=== PATIENT | female | born 1940 | race Caucasian/White ===

== ENCOUNTER 2019-11-21 16:00 | Outpatient (REF) | payer MEDICARE, OTHER, SELFPAY ==
--- NOTE | 2019-11-21 16:03 | XR_ITS ---
EXAMINATION: XR CHEST CLINICAL INFORMATION: Dyspnea COMPARISON: Chest radiographs 08/19/2019, 09/30/2018 TECHNIQUE: Frontal and lateral views of the chest are obtained. FINDINGS: There is mild enlargement cardiopericardial silhouette similar to prior study. The vascularity appears normal. There are small bibasilar effusions blunting the costophrenic sulci with fine linear disc atelectasis right posterior lateral base. The lungs otherwise clear. The hilar and mediastinal contours are unremarkable. No acute bony abnormality. IMPRESSION: Small bibasilar effusions. Disc atelectasis right posterior lateral base.
== END 2019-11-21 16:01 | disposition home or self-care (01) ==
LOC: HO.XRAY 16:00
PROVIDERS: PCP Internal Medicine; Visit Provider Internal Medicine
DX: R06.00 Dyspnea, unspecified (principal)
CPT/HCPCS: 71046

== ENCOUNTER 2019-11-28 08:31 | Outpatient (REF) | payer MEDICARE, OTHER, SELFPAY ==
[2019-11-28 10:07] LABS: Glucose Urine UA NEG (NEG); Leukocyte Esterase Urine NEG (NEG); Nitrite Urine NEG (NEG); Urine Blood NEG (NEG); Urine Ketones NEG (NEG); Urine Protein NEG (NEG-TRACE)
[2019-11-28 10:12] LABS: Appearance Urine CLEAR; Color Urine YELLOW
[2019-11-28 10:12] LABS: Alanine Aminotransferase 12 U/L (0-31); Albumin Level 4.2 g/dL (3.5-5.0); Alkaline Phosphatase 88 U/L (39-117); Anion Gap 13 (12-20); Aspartate Amino Transferase 21 U/L (5-31); Bilirubin Total 0.5 mg/dL (0.0-1.0); Blood Urea Nitrogen 22 mg/dL (9-16); Calcium 10.1 mg/dL (8.4-10.2); Carbon Dioxide 33 mmol/L (22-29); Chloride 99 mmol/L (96-108); Cholesterol 155 mg/dL; Estimated Glomerular Filt Rate 40; Glucose Fasting 103 mg/dL (60-99); HDL Cholesterol 47 mg/dL; LDL Cholesterol Calculated 92 mg/dl; Potassium 4.1 mmol/l (3.3-5.1); Sodium 141 mmol/L (135-145); Total Protein 6.8 g/dL (6.5-8.0); Triglycerides 80 mg/dL
[2019-11-28 10:34] LABS: TSH reflex Free T4 1.76 mIU/mL (0.32-4.0); Vitamin D 25-OH Total 74.9 ng/mL (>30)
[2019-11-28 10:54] LABS: Microalbum/Creatinine Ratio Ur 121.5 ug/mg cr
[2019-11-28 11:14] LABS: RBC Urine 0 /HPF (0); Squamous Epithelial Cell Urine TRACE /LPF; WBC Urine 0 /HPF (0-4)
[2019-11-28 11:15] LABS: Amorphous Sediment Urine TRACE /LPF
[2019-11-28 12:00] LABS: Erythrocyte Sedimentation Rate 14 MM/HR (0-20)
== END 2019-11-28 08:32 | disposition home or self-care (01) ==
LOC: HO.LAB 08:31
PROVIDERS: PCP Internal Medicine; Visit Provider Internal Medicine
DX: E78.00 Pure hypercholesterolemia, unspecified (principal); I25.10 Atherosclerotic heart disease of native coronary artery without angina pectoris; M79.10 Myalgia, unspecified site; K21.9 Gastro-esophageal reflux disease without esophagitis; M25.561 Pain in right knee; N32.81 Overactive bladder; M81.0 Age-related osteoporosis without current pathological fracture
CPT/HCPCS: 36415; 80053; 80061; 81003; 81015; 82043; 82306; 82550; 84443; 85652; 96401; J0897

== ENCOUNTER 2020-01-05 09:53 | Emergency (ER) | payer MEDICARE, OTHER, SELFPAY ==
--- NOTE | 2020-01-05 11:32 | ED.GENADULT ---
HPI - General Adult General Chief complaint: General Medical Stated complaint: HEADACHE,FEVER,FEELS WASHED OUT Time Seen by Provider: 01/05/20 11:32 Source: patient Mode of arrival: ambulatory Limitations: no limitations History of Present Illness HPI narrative: This is 71-year-old female with past medical history that is significant for coronary artery disease with STEMI dating back to 2009, COPD, hyperlipidemia, hypertension, osteoporosis with L1-L3 compression fractures, chronic back pain, cataract surgery, coronary stent, kyphoplasty of L3 along with other history as noted below presenting ambulatory via triage with complaint of generalized weakness, nasal congestion and for ?feel like I have the flu? states she was otherwise okay but her daughter was concerned about COVID-19 and advised her to come to the emergency room. She does report subjective fevers at home with chills. Denies any chest pain or shortness of breath. No abdominal pain, nausea vomiting or diarrhea. Onset (ago): day(s) (2 ) Severity: moderate Quality: aching Exacerbating factors: none Treatments prior to arrival: none Related Data Home Medications Medication Instructions Recorded Confirmed acetaminophen 325 mg tablet 650 mg PO QID PRN 11/28/19 12/08/19 atorvastatin 80 mg tablet 80 mg PO DAILY 11/28/19 12/08/19 calcium carbonate 600 mg (1,500 1 tab PO DAILY 11/28/19 12/08/19 mg)-vitamin D3 200 unit tablet cetirizine 10 mg tablet 5 mg PO DAILY PRN 11/28/19 12/08/19 coenzyme Q10 60 mg tablet 60 mg PO DAILY 11/28/19 12/08/19 denosumab 60 mg/mL subcutaneous 60 mg SUBCUT [id number] 11/28/19 12/08/19 syringe docusate sodium 100 mg capsule 100 mg PO BID 11/28/19 12/08/19 nitroglycerin 0.4 mg sublingual 0.4 mg SUBLINGUAL Q5M PRN 11/28/19 12/08/19 tablet tramadol 50 mg tablet 50 mg PO TID PRN 11/28/19 12/08/19 vit C 250 mg-E 200 unit-zinc 40 1 tab PO BID 11/28/19 12/08/19 mg-copper 1 [id number] capsule Previous Rx's Medication Instructions Recorded amlodipine 10 mg tablet 10 mg PO DAILY 90 Days #90 tab 12/08/19 carvedilol 12.5 mg tablet 12.5 mg PO BID 90 Days #180 tab 12/08/19 cyclobenzaprine 10 mg tablet 10 mg PO TID PRN 30 Days #90 tab 12/08/19 pantoprazole 40 mg tablet,delayed 40 mg PO BID 90 Days #180 tab 12/08/19 release Allergies Allergy/AdvReac Type Severity Reaction Status Date / Time lisinopril Allergy Unknown Unknown Verified 01/05/20 11:54 alendronate sodium [Fosamax] AdvReac Intermediate jaw pain Verified 01/05/20 11:54 aspirin AdvReac Intermediate unable to Verified 01/05/20 11:54 tolerate higher doses-stomach ulcer (low dose ok) carbamazepine [From TEGRETOL] AdvReac Intermediate NAUSEA & Verified 01/05/20 11:54 VOMITING, HEADACHE gabapentin AdvReac Intermediate dizziness Verified 01/05/20 11:54 ibuprofen AdvReac Intermediate Nausea and Verified 01/05/20 11:54 Vomiting NSAIDS (Non-Steroidal AdvReac Intermediate NAUSEA & Verified 01/05/20 11:54 Anti-Inflamma VOMITING, [NSAIDS (NON-STEROIDAL HX ULCER ANTI-INFLAMMA] codeine [CODEINE] AdvReac Unknown NAUSEA & Verified 01/05/20 11:54 VOMITING, nausea/vomiting Review of Systems Review of Systems: Constitutional: No Weight loss, subjective Fever, + Chills, No Night Sweats, No Fatigue, No Malaise ENT/Mouth: No Hearing loss, No Ear Pain, No Nasal Congestion, No Sinus Pain, No Hoarseness, No sore throat, + Rhinorrhea, No Swallowing Difficulty Eyes: No Eye Pain, No Swelling, No Redness, No Foreign Body, No Discharge, No Vision Changes Cardiovascular: No Chest Pain, No SOB, No Dyspnea on Exertion, No Orthopnea, No Edema, No Palpitations Respiratory: No Cough, No Sputum, No Wheezing, No Smoke Exposure, No Dyspnea Gastrointestinal: No Nausea, No Vomiting, No Diarrhea, No Constipation, No abdominal Pain, No Hematochezia, No Melena Genitourinary: no irregular bleeding, No Dysuria, No Urinary Frequency, No Hematuria, No Urinary Incontinence Musculoskeletal: No joint pain, No Myalgias, No Joint Swelling Skin: No Skin Lesions, No rash Neuro: + Weakness, No Numbness, No Paresthesias, No Loss of Consciousness, No Dizziness, No Headache Psych: No Social Issues Heme/Lymph: No Bruising, No Bleeding,No Lymphadenopathy Endocrine: No Polyuria, No Polydipsia, No Temperature Intolerance Yes all other systems are reviewed and are negative [facility] Past Medical History Medical History Benign essential hypertension Cervical spondylosis without myelopathy Compression fracture of L1 lumbar vertebra COPD (chronic obstructive pulmonary disease) Coronary artery disease GERD (gastroesophageal reflux disease) Overactive bladder Pure hypercholesterolemia Surgical History History of angioplasty History of appendectomy History of section History of oophorectomy History of parathyroidectomy History of tonsillectomy Hx of cataract removal with insertion of prosthetic lens Family History Family History Father Throat cancer Mother No problems noted. Daughter Diabetes Son Arthritis CAD (coronary artery disease) Social History Social History (Updated 12/15/19 @ 02:46 by Wilian Crawford MD) Alcohol intake: never Smoking Status: Current some day smoker Use of substances other than those prescribed or required for medical reasons: No Advance Directives: No Advance Directives Information Provided: Yes Physical Exam Vital Signs: Vital Signs: Last Vital Signs Temp 98.7 F 01/05/20 11:54 Pulse 46 L 01/05/20 11:54 Resp 19 01/05/20 11:54 BP 121/55 L 01/05/20 11:54 Pulse Ox 93 01/05/20 11:54 Body Mass Index 26.6 Reviewed Const: General: cooperative and healthy appearing; No acute distress or intoxicated appearing Nutritional Appearance: average body habitus Orientation/consciousness: patient oriented x3 HENMT: Head: Yes normal to inspection Ears: hearing grossly normal bilaterally Eyes: General: appearance normal, both eyes and all related structures Visual Wylie: normal visual wylie by confrontation Neck: Neck: Yes normal visual inspection and No tender Thyroid: Thyroid normal Chest: Chest palpation & inspection: normal inspection of the chest Resp: Effort & Inspection: normal respiratory effort Auscultation: clear to auscultation bilaterally (Slightly diminished) Cardio: Jugular venous distension: no JVD GI: Inspection: Yes normal to inspection Percussion: Yes normal to percussion Auscultation: normal bowel sounds : General: Yes no CVA tenderness Back/Spine/Pelvis: Back: no CVA tenderness Skin: General skin exam: no rashes or lesions noted Neuro: General: patient oriented x3 Extrem: General: Yes normal to inspection Discharge Plan Discharge Prescriptions: No Action carvedilol 12.5 mg tablet 12.5 mg PO BID 90 Days Qty: 180 RF: 3 amlodipine 10 mg tablet 10 mg PO DAILY 90 Days Qty: 90 RF: 3 cyclobenzaprine 10 mg tablet 10 mg PO TID PRN (Reason: muscle spasm) 30 Days Qty: 90 RF: 2 pantoprazole 40 mg tablet,delayed release (DR/EC) 40 mg PO BID 90 Days Qty: 180 RF: 3 calcium carbonate-vitamin D3 [Calcium 600 + D(3)] 600 mg(1,500mg) -200 unit tablet 1 tab PO DAILY RF: 0 PreserVision AREDS-2 [id number]-mg capsule 1 tab PO BID RF: 0 cetirizine [Zyrtec] 10 mg tablet 5 mg PO DAILY PRNRF: 0 coenzyme Q10 60 mg tablet 60 mg PO DAILY RF: 0 Prolia 60 mg/mL syringe 60 mg subcut [id number] RF: 0 tramadol 50 mg tablet 50 mg PO TID PRNRF: 0 docusate sodium [Colace] 100 mg capsule 100 mg PO BID RF: 0 atorvastatin 80 mg tablet 80 mg PO DAILY RF: 0 nitroglycerin 0.4 mg tablet, sublingual 0.4 mg sublingual Q5M PRNRF: 0 acetaminophen [Tylenol] 325 mg tablet 650 mg PO QID PRNRF: 0
[2020-01-05 11:54] VITALS: BP 121/55; PULSE 46; RESP 19; TEMP 37.1; O2SAT 93; BMI 26.6
--- NOTE | 2020-01-05 12:35 | XR_ITS ---
EXAMINATION: XR CHEST CLINICAL INFORMATION: Weakness COMPARISON: 11/21/2019 TECHNIQUE: Frontal view of the chest was obtained. FINDINGS: The lungs are well expanded. There is no focal consolidation, edema, or effusion. No pneumothorax. The cardiomediastinal silhouette is within normal limits. No acute osseous abnormality. XR/XR chest 1V IMPRESSION: No acute pulmonary finding.
--- NOTE | 2020-01-05 12:35 | ECG_ITS ---
Test Reason : FATIGUE Blood Pressure : / mmHG Vent. Rate : 057 BPM Atrial Rate : 057 BPM P-R Int : 132 ms QRS Dur : 080 ms QT Int : 454 ms P-R-T Axes : 062 031 045 degrees QTc Int : 441 ms Sinus bradycardia Possible Left atrial enlargement Nonspecific ST and T wave abnormality Abnormal ECG When compared with ECG of 19-AUG-2019 14:36, T wave inversion now evident in Anterior leads Referred By: Pro Gonsales Electronically Signed By:GENARO WINTERS MD
[2020-01-05 13:29] LABS: MANUAL DIFF FLAG NO
[2020-01-05 13:38] LABS: Basophils Absolute Auto 0.1 X10*3/uL (0.0-0.2); Basophils Percent Auto 0.9 % (0-2); Eosinophils Absolute Auto 0.2 X10*3/uL (0.0-0.4); Eosinophils Percent Auto 3.6 % (0-4); Hematocrit 41.5 % (37-47); Hemoglobin 14.2 g/dl (12.0-16.0); Imm Gran Abs Auto 0.01 X10*3/uL (0.00-0.03); Imm Gran Pct Auto 0.2 % (0.0-0.4); Lymphocytes Absolute Auto 1.2 X10*3/uL (1.2-4.9); Lymphocytes Percent Auto 21.3 % (20-40); Mean Corpuscular HGB Conc 34.2 g/dl (31.0-35.0); Mean Corpuscular Hemoglobin 31.3 pg (27.0-33.0); Mean Corpuscular Volume 91.6 fL (80-98); Mean Platelet Volume 11.2 fL (9.4-12.3); Monocytes Absolute Auto 0.9 X10*3/uL (0.1-1.2); Monocytes Percent Auto 15.3 % (2-11); Neutrophils Absolute Auto 3.4 X10*3/uL (2.0-8.3); Neutrophils Percent Auto 58.7 % (45-73); Platelet Count 301 X10*3/uL (160-400); Red Blood Count 4.53 X10*6/uL (4.20-5.50); Red Cell Distribution Width 11.9 % (11.0-16.0); White Blood Count 5.8 X10*3/uL (4.8-10.8)
[2020-01-05 13:41] LABS: Partial Thromboplastin Time 31.7 SEC (24.1-38.0)
[2020-01-05 14:04] LABS: Alanine Aminotransferase 16 U/L (0-31); Albumin Level 3.8 g/dL (3.5-5.0); Alkaline Phosphatase 80 U/L (39-117); Anion Gap 15 (12-20); Aspartate Amino Transferase 20 U/L (5-31); B Type Natriuretic Peptide 224 pg/mL (<100); Bilirubin Total 0.4 mg/dL (0.0-1.0); Blood Urea Nitrogen 19 mg/dL (9-16); Calcium 8.2 mg/dL (8.4-10.2); Carbon Dioxide 28 mmol/L (22-29); Chloride 101 mmol/L (96-108); Creatinine Clr Calc Pharmacy 25.2; Estimated Glomerular Filt Rate 32; Glucose Random 94 mg/dL (60-115); Sodium 140 mmol/L (135-145); Total Protein 6.3 g/dL (6.5-8.0)
[2020-01-05 14:54] LABS: Glucose Urine UA NEG (NEG); Leukocyte Esterase Urine NEG (NEG); Nitrite Urine NEG (NEG); Urine Blood NEG (NEG); Urine Ketones 5 MG/DL (NEG); Urine Protein 1+ MG/DL (NEG-TRACE)
[2020-01-05 14:55] LABS: Appearance Urine HAZY; Color Urine YELLOW
[2020-01-05 15:07] LABS: Mucus Urine 1+ /LPF; RBC Urine 0-2 /HPF (0); Squamous Epithelial Cell Urine 1+ /LPF
[2020-01-05] MEDS: 0.9 % Sodium Chloride 500 ML 1000 ML IV (15:16)
[2020-01-05 15:17] VITALS: BP 143/49; PULSE 60; RESP 20; TEMP 37.2; O2SAT 93
--- NOTE | 2020-01-05 16:07 | ED_ITS ---
HPI - General Adult General Chief complaint: General Medical Stated complaint: HEADACHE,FEVER,FEELS WASHED OUT Time Seen by Provider: 01/05/20 11:32 Source: patient Mode of arrival: ambulatory Limitations: no limitations History of Present Illness HPI narrative: 73-year-old female with past medical history that is significant for COPD, hypertension along with other history as noted below who is not on home O2 presents with complaint of 3 days of chills, body aches generalized feeling of weakness and ?wash out she does admit that she has headaches very slight cough and some rhinorrhea as well. Denies any obvious sick contacts but she states that she feels like she got ?the flu?. Denies any chest pain or sh ortness of breath no lower extremity swelling. States she was going to whether at all at home however daughter encouraged her to come get tested for COVID-19. Onset (ago): day(s) (2 ) Radiation: non-radiation Severity: moderate Relieving factors: none Treatments prior to arrival: none Related Data Home Medications Medication Instructions Recorded Confirmed acetaminophen 325 mg tablet 650 mg PO QID PRN 11/28/19 12/08/19 atorvastatin 80 mg tablet 80 mg PO DAILY 11/28/19 12/08/19 calcium carbonate 600 mg (1,500 1 tab PO DAILY 11/28/19 12/08/19 mg)-vitamin D3 200 unit tablet cetirizine 10 mg tablet 5 mg PO DAILY PRN 11/28/19 12/08/19 coenzyme Q10 60 mg tablet 60 mg PO DAILY 11/28/19 12/08/19 denosumab 60 mg/mL subcutaneous 60 mg SUBCUT [id number] 11/28/19 12/08/19 syringe docusate sodium 100 mg capsule 100 mg PO BID 11/28/19 12/08/19 nitroglycerin 0.4 mg sublingual 0.4 mg SUBLINGUAL Q5M PRN 11/28/19 12/08/19 tablet tramadol 50 mg tablet 50 mg PO TID PRN 11/28/19 12/08/19 vit C 250 mg-E 200 unit-zinc 40 1 tab PO BID 11/28/19 12/08/19 mg-copper 1 [id number] capsule Previous Rx's Medication Instructions Recorded amlodipine 10 mg tablet 10 mg PO DAILY 90 Days #90 tab 12/08/19 carvedilol 12.5 mg tablet 12.5 mg PO BID 90 Days #180 tab 12/08/19 cyclobenzaprine 10 mg tablet 10 mg PO TID PRN 30 Days #90 tab 12/08/19 pantoprazole 40 mg tablet,delayed 40 mg PO BID 90 Days #180 tab 12/08/19 release azithromycin [Zithromax Z-Junior] 250 mg PO DAILY 5 Days #6 tab 01/05/20 prednisone 40 mg PO DAILY 3 Days #6 tab 01/05/20 Allergies Allergy/AdvReac Type Severity Reaction Status Date / Time lisinopril Allergy Unknown Unknown Verified 01/05/20 11:54 alendronate sodium [Fosamax] AdvReac Intermediate jaw pain Verified 01/05/20 11:54 aspirin AdvReac Intermediate unable to Verified 01/05/20 11:54 tolerate higher doses-stomach ulcer (low dose ok) carbamazepine [From TEGRETOL] AdvReac Intermediate NAUSEA & Verified 01/05/20 11:54 VOMITING, HEADACHE gabapentin AdvReac Intermediate dizziness Verified 01/05/20 11:54 ibuprofen AdvReac Intermediate Nausea and Verified 01/05/20 11:54 Vomiting NSAIDS (Non-Steroidal AdvReac Intermediate NAUSEA & Verified 01/05/20 11:54 Anti-Inflamma VOMITING, [NSAIDS (NON-STEROIDAL HX ULCER ANTI-INFLAMMA] codeine [CODEINE] AdvReac Unknown NAUSEA & Verified 01/05/20 11:54 VOMITING, nausea/vomiting Review of Systems 2 Review of Systems: Constitutional: No Weight loss, No Fever, No Chills, No Night Sweats, No Fatigue, No Malaise ENT/Mouth: No Hearing loss, No Ear Pain, No Nasal Congestion, No Sinus Pain, No Hoarseness, No sore throat, + Rhinorrhea, No Swallowing Difficulty Eyes: No Eye Pain, No Swelling, No Redness, No Foreign Body, No Discharge, No Vision Changes Cardiovascular: No Chest Pain, No SOB, No Dyspnea on Exertion, No Orthopnea, No Edema, No Palpitations Respiratory: + Cough, No Sputum, No Wheezing, No Smoke Exposure, No Dyspnea Gastrointestinal: No Nausea, No Vomiting, No Diarrhea, No Constipation, No abdominal Pain, No Hematochezia, No Melena Genitourinary: no irregular bleeding, No Dysuria, No Urinary Frequency, No Hematuria, No Urinary Incontinence, No Urgency, No Flank Pain, No Urinary Flow Changes, No Hesitancy Musculoskeletal: No joint pain, No Myalgias, No Joint Swelling Skin: No Skin Lesions, No rash Neuro: + Weakness, No Numbness, No Paresthesias, No Loss of Consciousness, No Dizziness, No Headache Psych: No Anxiety/Panic, No Depression Heme/Lymph: No Bruising, No Bleeding,No Lymphadenopathy Endocrine: No Polyuria, No Polydipsia, No Temperature Intolerance Yes all other systems are reviewed and are negative [facility] Past Medical History Attestation statement: The following information was validated with the patient. Medical History Benign essential hypertension Cervical spondylosis without myelopathy Compression fracture of L1 lumbar vertebra COPD (chronic obstructive pulmonary disease) Coronary artery disease GERD (gastroesophageal reflux disease) Overactive bladder Pure hypercholesterolemia Surgical History History of angioplasty History of appendectomy History of section History of oophorectomy History of parathyroidectomy History of tonsillectomy Hx of cataract removal with insertion of prosthetic lens Family History Family History Father Throat cancer Mother No problems noted. Daughter Diabetes Son Arthritis CAD (coronary artery disease) Social History Social History (Updated 12/15/19 @ 02:46 by Wilian Crawford MD) Alcohol intake: never Smoking Status: Current some day smoker Use of substances other than those prescribed or required for medical reasons: No Advance Directives: No Advance Directives Information Provided: Yes Physical Exam Vital Signs: Vital Signs: Last Vital Signs Temp 98.8 F 01/05/20 16:14 Pulse 63 01/05/20 16:14 Resp 18 01/05/20 16:14 BP 143/60 H 01/05/20 16:14 Pulse Ox 95 01/05/20 16:14 Body Mass Index 26.6 Reviewed Const: Other: Pleasant will nontoxic appearing, appears stated age General: cooperative; No acute distress or intoxicated appearing Nutritional Appearance: average body habitus Orientation/consciousness: patient oriented x3 HENMT: Head: Yes normal to inspection Ears: hearing grossly normal bilaterally Eyes: General: appearance normal, both eyes and all related structures Visual Wade: normal visual wade by confrontation Neck: Neck: Yes normal visual inspection, No positive Brudzinski's sign, No positive Kernig's sign and No tender Thyroid: Thyroid normal Chest: Chest palpation & inspection: normal inspection of the chest Resp: Effort & Inspection: normal respiratory effort Cardio: Jugular venous distension: no JVD GI: Inspection: Yes normal to inspection Percussion: Yes normal to percussion Auscultation: normal bowel sounds : General: Yes no CVA tenderness Back/Spine/Pelvis: Back: no CVA tenderness Skin: General skin exam: no rashes or lesions noted Neuro: General: patient oriented x3 Extrem: General: Yes normal to inspection Course Course Course Narrative: Patient resting comfortably in no acute distress. Has not required any supplemental oxygen. Pulse ox 97% on room air. Blood pressure stable. She denies any chest pain or shortness of breath. Her initial workup was significant for slightly elevated creatinine otherwise reassuring. Repeat troponin without delta. Patient overall well nontoxic appearing. Given gradual fluids repeat BMP shows significant improvement. Encouraged to drink plenty of fluids, given her COPD history given short course of prednisone and azithromycin. Will be discharged home with clear precaution return follow-up instructions. Aware that although the COVID test was negative still a possibil ity that she could have it and clear return instructions provided as well as follow-up and supportive care. Patient out of bed ambulatory status with gait dressed herself without any complaints. Will be going home with her daughter. Medical Decision Making Lab Data Result diagrams: 01/05/20 13:00 01/05/20 17:00 Labs: Lab Results 01/05/20 01/05/20 01/05/20 Range/Units 13:00 13:00 13:00 WBC 5.8 (4.8-10.8) X10*3/uL RBC 4.53 (4.20-5.50) X10*6/uL Hgb 14.2 (12.0-16.0) g/dl Hct 41.5 (37-47) % MCV 91.6 (80-98) fL MCH 31.3 (27.0-33.0) pg MCHC 34.2 (31.0-35.0) g/dl RDW 11.9 (11.0-16.0) % Plt Count 301 (160-400) X10*3/uL MPV 11.2 (9.4-12.3) fL Immature Gran % (Auto) 0.2 (0.0-0.4) % Neut % (Auto) 58.7 (45-73) % Lymph % (Auto) 21.3 (20-40) % Logan % (Auto) 15.3 H (2-11) % Eos % (Auto) 3.6 (0-4) % Baso % (Auto) 0.9 (0-2) % Lymph # (Auto) 1.2 (1.2-4.9) X10*3/uL Logan # (Auto) 0.9 (0.1-1.2) X10*3/uL Eos # (Auto) 0.2 (0.0-0.4) X10*3/uL Baso # (Auto) 0.1 (0.0-0.2) X10*3/uL Abs Immat Gran (auto) 0.01 (0.00-0.03) X10*3/uL Absolute Neuts (auto) 3.4 (2.0-8.3) X10*3/uL Absolute Nucleated RBC 0.000 (0.0-0.012) X10*3/uL Nucleated RBC % (auto) 0.0 (0.0-0.2) /100WBC PT 12.0 (10.8-13.0) SEC INR 1.0 (0.9-1.1) APTT 31.7 (24.1-38.0) SEC Sodium 140 (135-145) mmol/L Potassium 4.0 (3.3-5.1) mmol/l Chloride 101 (96-108) mmol/L Carbon Dioxide 28 (22-29) mmol/L Anion Gap 15 (12-20) BUN 19 H (9-16) mg/dL Creatinine 1.57 H (0.5-1.4) mg/dL Estim Creat Clear Calc 25.2 Estimated GFR 32 Random Glucose 94 (60-115) mg/dL Lactic Acid (0.5-2.0) mmol/L Calcium 8.2 L D (8.4-10.2) mg/dL Total Bilirubin 0.4 (0.0-1.0) mg/dL AST 20 (5-31) U/L ALT 16 (0-31) U/L Alkaline Phosphatase 80 (39-117) U/L Troponin I High Sens (<3.5-17.0) ng/L B-Natriuretic Peptide (<100) pg/mL Total Protein 6.3 L (6.5-8.0) g/dL Albumin 3.8 (3.5-5.0) g/dL Urine Color Urine Appearance Urine pH (5.0-8.0) Ur Specific [place] (1.005-1.025) Urine Protein (NEG-TRACE) MG/DL Urine Glucose (UA) (NEG) MG/DL Urine Ketones (NEG) MG/DL Urine Blood (NEG) Urine Nitrite (NEG) Ur Leukocyte Esterase (NEG) Urine RBC (0) /HPF Urine WBC (0-4) /HPF Ur Squamous Epith Cells /LPF Urine Bacteria /LPF Urine Mucus /LPF Coronavirus (PCR) (Negative) Influenza Type A (PCR) (Negative) Influenza Type B (PCR) (Negative) RSV RNA Qual (PCR) (Negative) 01/05/20 01/05/20 01/05/20 Range/Units 13:00 13:00 13:23 WBC (4.8-10.8) X10*3/uL RBC (4.20-5.50) X10*6/uL Hgb (12.0-16.0) g/dl Hct (37-47) % MCV (80-98) fL MCH (27.0-33.0) pg MCHC (31.0-35.0) g/dl RDW (11.0-16.0) % Plt Count (160-400) X10*3/uL MPV (9.4-12.3) fL Immature Gran % (Auto) (0.0-0.4) % Neut % (Auto) (45-73) % Lymph % (Auto) (20-40) % Logan % (Auto) (2-11) % Eos % (Auto) (0-4) % Baso % (Auto) (0-2) % Lymph # (Auto) (1.2-4.9) X10*3/uL Logan # (Auto) (0.1-1.2) X10*3/uL Eos # (Auto) (0.0-0.4) X10*3/uL Baso # (Auto) (0.0-0.2) X10*3/uL Abs Immat Gran (auto) (0.00-0.03) X10*3/uL Absolute Neuts (auto) (2.0-8.3) X10*3/uL Absolute Nucleated RBC (0.0-0.012) X10*3/uL Nucleated RBC % (auto) (0.0-0.2) /100WBC PT (10.8-13.0) SEC INR (0.9-1.1) APTT (24.1-38.0) SEC Sodium (135-145) mmol/L Potassium (3.3-5.1) mmol/l Chloride (96-108) mmol/L Carbon Dioxide (22-29) mmol/L Anion Gap (12-20) BUN (9-16) mg/dL Creatinine (0.5-1.4) mg/dL Estim Creat Clear Calc Estimated GFR Random Glucose (60-115) mg/dL Lactic Acid 1.0 (0.5-2.0) mmol/L Calcium (8.4-10.2) mg/dL Total Bilirubin (0.0-1.0) mg/dL AST (5-31) U/L ALT (0-31) U/L Alkaline Phosphatase (39-117) U/L Troponin I High Sens 11.0 (<3.5-17.0) ng/L B-Natriuretic Peptide 224 H (<100) pg/mL Total Protein (6.5-8.0) g/dL Albumin (3.5-5.0) g/dL Urine Color Urine Appearance Urine pH (5.0-8.0) Ur Specific [place] (1.005-1.025) Urine Protein (NEG-TRACE) MG/DL Urine Glucose (UA) (NEG) MG/DL Urine Ketones (NEG) MG/DL Urine Blood (NEG) Urine Nitrite (NEG) Ur Leukocyte Esterase (NEG) Urine RBC (0) /HPF Urine WBC (0-4) /HPF Ur Squamous Epith Cells /LPF Urine Bacteria /LPF Urine Mucus /LPF Coronavirus (PCR) NEGATIVE (Negative) Influenza Type A (PCR) NEGATIVE (Negative) Influenza Type B (PCR) NEGATIVE (Negative) RSV RNA Qual (PCR) NEGATIVE (Negative) 01/05/20 01/05/20 01/05/20 Range/Units 14:43 17:00 17:00 WBC (4.8-10.8) X10*3/uL RBC (4.20-5.50) X10*6/uL Hgb (12.0-16.0) g/dl Hct (37-47) % MCV (80-98) fL MCH (27.0-33.0) pg MCHC (31.0-35.0) g/dl RDW (11.0-16.0) % Plt Count (160-400) X10*3/uL MPV (9.4-12.3) fL Immature Gran % (Auto) (0.0-0.4) % Neut % (Auto) (45-73) % Lymph % (Auto) (20-40) % Logan % (Auto) (2-11) % Eos % (Auto) (0-4) % Baso % (Auto) (0-2) % Lymph # (Auto) (1.2-4.9) X10*3/uL Logan # (Auto) (0.1-1.2) X10*3/uL Eos # (Auto) (0.0-0.4) X10*3/uL Baso # (Auto) (0.0-0.2) X10*3/uL Abs Immat Gran (auto) (0.00-0.03) X10*3/uL Absolute Neuts (auto) (2.0-8.3) X10*3/uL Absolute Nucleated RBC (0.0-0.012) X10*3/uL Nucleated RBC % (auto) (0.0-0.2) /100WBC PT (10.8-13.0) SEC INR (0.9-1.1) APTT (24.1-38.0) SEC Sodium 139 (135-145) mmol/L Potassium 4.0 (3.3-5.1) mmol/l Chloride 107 (96-108) mmol/L Carbon Dioxide 21 L (22-29) mmol/L Anion Gap 15 (12-20) BUN 16 (9-16) mg/dL Creatinine 1.34 (0.5-1.4) mg/dL Estim Creat Clear Calc 29.6 Estimated GFR 38 Random Glucose 88 (60-115) mg/dL Lactic Acid (0.5-2.0) mmol/L Calcium 7.4 L D (8.4-10.2) mg/dL Total Bilirubin (0.0-1.0) mg/dL AST (5-31) U/L ALT (0-31) U/L Alkaline Phosphatase (39-117) U/L Troponin I High Sens 9.1 (<3.5-17.0) ng/L B-Natriuretic Peptide (<100) pg/mL Total Protein (6.5-8.0) g/dL Albumin (3.5-5.0) g/dL Urine Color YELLOW Urine Appearance HAZY Urine pH 6.0 (5.0-8.0) Ur Specific [place] 1.020 (1.005-1.025) Urine Protein 1+ H (NEG-TRACE) MG/DL Urine Glucose (UA) NEG (NEG) MG/DL Urine Ketones 5 (NEG) MG/DL Urine Blood NEG (NEG) Urine Nitrite NEG (NEG) Ur Leukocyte Esterase NEG (NEG) Urine RBC 0-2 (0) /HPF Urine WBC 10-14 H (0-4) /HPF Ur Squamous Epith Cells 1+ /LPF Urine Bacteria NONE /LPF Urine Mucus 1+ /LPF Coronavirus (PCR) (Negative) Influenza Type A (PCR) (Negative) Influenza Type B (PCR) (Negative) RSV RNA Qual (PCR) (Negative) Imaging Data Chest x-ray: Radiologist's impression: [place] [id number] XRay Report Signed Patient: Chikis Narayanan FMR#: [id number] : 2Acct:[id number] Age/Sex: 79 / FADM Date: 01/05/20 Loc: HO.ED Attending Dr: Ordering Physician: Pro Gonsales NP Date of Service: 01/05/20 Procedure(s): XR chest 1V Accession Number(s): [id number] cc: Pro Gonsales NP~ EXAMINATION: XR CHEST CLINICAL INFORMATION: Weakness COMPARISON: 11/21/2019 TECHNIQUE: Frontal view of the chest was obtained. FINDINGS: The lungs are well expanded. There is no focal consolidation, edema, or effusion. No pneumothorax. The cardiomediastinal silhouette is within normal limits. No acute osseous abnormality. XR/XR chest 1V IMPRESSION: No acute pulmonary finding. Dictated By:GINA SAXENA MD Signed By:<Electronically signed by GINA SAXENA MD in OV>01/05/20 1323 DD/ 1235 TD/TT: [employer] Chief: NGA ECG Data Interpretation: EKG sinus Delvis rate 57 Nonspecific T-wave abnormality in the anterior lead When compared to 08/19/2019 EKG the T-wave inversions are more evident Discharge Plan Discharge Clinical Impression: Acute upper respiratory infection Patient Disposition: Home, Self-Care Instructions: Upper Respiratory Infection (ED) Prescriptions: New azithromycin [Zithromax Z-Junior] 250 mg tablet 250 mg PO DAILY 5 Days Qty: 6 RF: 0 prednisone 20 mg tablet 40 mg PO DAILY 3 Days Qty: 6 RF: 0 No Action carvedilol 12.5 mg tablet 12.5 mg PO BID 90 Days Qty: 180 RF: 3 amlodipine 10 mg tablet 10 mg PO DAILY 90 Days Qty: 90 RF: 3 cyclobenzaprine 10 mg tablet 10 mg PO TID PRN (Reason: muscle spasm) 30 Days Qty: 90 RF: 2 pantoprazole 40 mg tablet,delayed release (DR/EC) 40 mg PO BID 90 Days Qty: 180 RF: 3 calcium carbonate-vitamin D3 [Calcium 600 + D(3)] 600 mg(1,500mg) -200 unit tablet 1 tab PO DAILY RF: 0 PreserVision AREDS-2 [id number]-[id number]-mg capsule 1 tab PO BID RF: 0 cetirizine [Zyrtec] 10 mg tablet 5 mg PO DAILY PRNRF: 0 coenzyme Q10 60 mg tablet 60 mg PO DAILY RF: 0 Prolia 60 mg/mL syringe 60 mg subcut [id number] RF: 0 tramadol 50 mg tablet 50 mg PO TID PRNRF: 0 docusate sodium [Colace] 100 mg capsule 100 mg PO BID RF: 0 atorvastatin 80 mg tablet 80 mg PO DAILY RF: 0 nitroglycerin 0.4 mg tablet, sublingual 0.4 mg sublingual Q5M PRNRF: 0 acetaminophen [Tylenol] 325 mg tablet 650 mg PO QID PRNRF: 0 Referrals: Wilian Crawford MD [Primary Care Provider] - 1 week Discharge Date/Time: 01/05/20 18:46
[2020-01-05 16:14] VITALS: BP 143/60; PULSE 63; RESP 18; TEMP 37.1; O2SAT 95
[2020-01-05 16:33] LABS: Influenza A PCR NEGATIVE (Negative); Influenza B PCR NEGATIVE (Negative); Resp Syncy Virus RNA Qual PCR NEGATIVE (Negative); SARS COV2 PCR INHOUSE NEGATIVE (Negative)
[2020-01-05 17:33] LABS: Anion Gap 15 (12-20); Blood Urea Nitrogen 16 mg/dL (9-16); Calcium 7.4 mg/dL (8.4-10.2); Carbon Dioxide 21 mmol/L (22-29); Chloride 107 mmol/L (96-108); Creatinine Clr Calc Pharmacy 29.6; Estimated Glomerular Filt Rate 38; Glucose Random 88 mg/dL (60-115); Sodium 139 mmol/L (135-145); Troponin-I High Sensitivity 9.1 ng/L (<3.5-17.0)
== END 2020-01-05 18:46 | disposition home or self-care (01) ==
PROVIDERS: Nurse Practitioner Primary Care; Emergency Provider Emergency Medicine; PCP Internal Medicine
DX: J06.9 Acute upper respiratory infection, unspecified (principal); R50.9 Fever, unspecified; F17.200 Nicotine dependence, unspecified, uncomplicated; Z71.6 Tobacco abuse counseling; Z79.899 Other long term (current) drug therapy; Z20.828 Contact with and (suspected) exposure to other viral communicable diseases
CPT/HCPCS: 0241U; 36415; 71045; 80048; 80053; 81001; 83605; 83880; 84484; 85025; 85610; 85730; 87040; 93005; 99284

== ENCOUNTER 2020-03-24 | Outpatient (REF) | payer MEDICARE, OTHER, SELFPAY | END 2020-03-24 00:01 | disposition home or self-care (01) | LOC: HO.VC | PROVIDERS: Visit Provider Internal Medicine | DX: Z23 Encounter for immunization (principal) | CPT/HCPCS: 0011A ==

== ENCOUNTER 2020-03-26 08:01 | Outpatient (REF) | payer MEDICARE, OTHER, SELFPAY ==
[2020-03-26 09:28] LABS: MANUAL DIFF FLAG NO
[2020-03-26 09:34] LABS: Basophils Absolute Auto 0.1 X10*3/uL (0.0-0.2); Basophils Percent Auto 0.9 % (0-2); Eosinophils Absolute Auto 0.5 X10*3/uL (0.0-0.4); Eosinophils Percent Auto 5.1 % (0-4); Hematocrit 43.6 % (37-47); Hemoglobin 14.6 g/dl (12.0-16.0); Imm Gran Abs Auto 0.02 X10*3/uL (0.00-0.03); Imm Gran Pct Auto 0.2 % (0.0-0.4); Lymphocytes Absolute Auto 1.6 X10*3/uL (1.2-4.9); Lymphocytes Percent Auto 15.2 % (20-40); Mean Corpuscular HGB Conc 33.5 g/dl (31.0-35.0); Mean Corpuscular Hemoglobin 30.9 pg (27.0-33.0); Mean Corpuscular Volume 92.2 fL (80-98); Mean Platelet Volume 11.4 fL (9.4-12.3); Monocytes Absolute Auto 0.7 X10*3/uL (0.1-1.2); Monocytes Percent Auto 6.4 % (2-11); Neutrophils Absolute Auto 7.6 X10*3/uL (2.0-8.3); Neutrophils Percent Auto 72.2 % (45-73); Platelet Count 257 X10*3/uL (160-400); Red Blood Count 4.73 X10*6/uL (4.20-5.50); Red Cell Distribution Width 12.6 % (11.0-16.0); White Blood Count 10.5 X10*3/uL (4.8-10.8)
[2020-03-26 09:41] LABS: Glucose Urine UA NEG (NEG); Leukocyte Esterase Urine 1+ (NEG); Nitrite Urine NEG (NEG); PH 6.5 (5.0-8.0); Specific Gravity - Urine 1.015 (1.005-1.025); UACC Culture Trigger YES; Urine Blood NEG (NEG); Urine Ketones NEG (NEG); Urine Protein 2+ MG/DL (NEG-TRACE)
[2020-03-26 09:42] LABS: Appearance Urine CLEAR; Color Urine YELLOW
[2020-03-26 10:05] LABS: Bacteria Urine TRACE /LPF; Renal Epithelial Cells Urine TRACE /LPF; Squamous Epithelial Cell Urine TRACE /LPF; WBC Clumps Urine NOTED; WBC Urine 30-49 /HPF (0-4)
[2020-03-26 10:05] LABS: Alanine Aminotransferase 13 U/L (0-31); Alkaline Phosphatase 78 U/L (39-117); Anion Gap 11 (12-20); Aspartate Amino Transferase 22 U/L (5-31); Bilirubin Total 0.9 mg/dL (0.0-1.0); Blood Urea Nitrogen 22 mg/dL (9-16); Calcium 8.9 mg/dL (8.4-10.2); Carbon Dioxide 35 mmol/L (22-29); Chloride 100 mmol/L (96-108); Cholesterol 139 mg/dL; Estimated Glomerular Filt Rate 35; Glucose Fasting 99 mg/dL (60-99); HDL Cholesterol 51 mg/dL; LDL Cholesterol Calculated 74 mg/dl; Potassium 3.8 mmol/L (3.3-5.1); Sodium 142 mmol/L (135-145); Total Protein 6.4 g/dL (6.5-8.0); Triglycerides 70 mg/dL
[2020-03-26 10:25] LABS: TSH reflex Free T4 1.04 uIU/mL (0.32-4.0)
[2020-03-31 11:07] LABS: Vitamin D 25-OH, D2 <4 ng/mL; Vitamin D 25-OH, D3 65 ng/mL; Vitamin D 25-OH, Total 65 ng/mL (30-100)
== END 2020-03-26 08:02 | disposition home or self-care (01) ==
LOC: HO.LAB 08:01
PROVIDERS: Absent Provider Internal Medicine; PCP Internal Medicine; Referring Provider Internal Medicine; Visit Provider Student in an Organized Health Care Education/Training Program
DX: M81.0 Age-related osteoporosis without current pathological fracture (principal); I25.10 Atherosclerotic heart disease of native coronary artery without angina pectoris; K21.00 Gastro-esophageal reflux disease with esophagitis, without bleeding; E78.00 Pure hypercholesterolemia, unspecified; N32.81 Overactive bladder
CPT/HCPCS: 36415; 80053; 80061; 81001; 81003; 82306; 84443; 85025; 87086; 99212

== ENCOUNTER 2020-04-21 | Outpatient (REF) | payer MEDICARE, OTHER, SELFPAY | END 2020-04-21 00:01 | disposition home or self-care (01) | LOC: HO.VC | PROVIDERS: Visit Provider Internal Medicine | DX: Z23 Encounter for immunization (principal) | CPT/HCPCS: 0012A ==

== ENCOUNTER 2020-04-21 11:30 | Emergency (ER) | payer MEDICARE, OTHER, SELFPAY ==
--- NOTE | 2020-04-21 | ECG_ITS ---
Test Reason : BRADYCARDIA Blood Pressure : / mmHG Vent. Rate : 052 BPM Atrial Rate : 052 BPM P-R Int : 152 ms QRS Dur : 080 ms QT Int : 454 ms P-R-T Axes : 063 014 063 degrees QTc Int : 422 ms Sinus bradycardia Possible Left atrial enlargement Nonspecific T wave abnormality Abnormal ECG When compared with ECG of 05-JAN-2020 14:50, Nonspecific T wave abnormality now evident in Lateral leads Referred By: Cathleen Kearney Electronically Signed By:MONICA CASEY
--- NOTE | ~2020-04-21 | XR_ITS ---
EXAMINATION: XR CHEST CLINICAL INFORMATION: Weakness COMPARISON: Previous chest x-ray December 2019 TECHNIQUE: Frontal view of the chest was obtained. FINDINGS: The cardiac and mediastinal contours are stable. The lungs are clear. There is no pleural effusion or pneumothorax. There are degenerative changes of the spine. XR/XR chest 1V IMPRESSION: Unremarkable examination.
[2020-04-21 11:47] VITALS: BP 140/64; PULSE 52; RESP 18; TEMP 36.1; O2SAT 98; BMI 24.5
[2020-04-21 13:52] VITALS: BP 173/79; PULSE 54; RESP 18; O2SAT 97
--- NOTE | 2020-04-21 13:52 | ED_ITS ---
HPI - General Adult General Chief complaint: General Medical Stated complaint: low pulse Time Seen by Provider: 04/21/20 13:48 Source: patient and EMS Mode of arrival: EMS Limitations: no limitations History of Present Illness HPI narrative: 79 yo female with arthritis, HTN, CKD on amlodipine 10mg, carvedilol 12.5mg BID, just started on losartan 25mg but notes it is not helping her BP she is fluctuating 80/40 to 170/100 and her HR has been low in the 50s and 40s and she feels washed out. no other complaints at this time. sent by her PCP MD complaint: HTN, bradycardia, dizziness Onset (ago): day(s) (few) Severity: moderate Quality: dull Pain Consistency: other Relieving factors: none Exacerbating factors: none Associated symptoms: malaise and weakness Treatments prior to arrival: none Related Data Home Medications Medication Instructions Recorded Confirmed acetaminophen 325 mg tablet 650 mg PO QID PRN 11/28/19 04/05/20 calcium carbonate 600 mg (1,500 1 tab PO DAILY 11/28/19 04/05/20 mg)-vitamin D3 200 unit tablet cetirizine 10 mg tablet 5 mg PO DAILY PRN 11/28/19 04/05/20 coenzyme Q10 60 mg tablet 60 mg PO DAILY 11/28/19 04/05/20 denosumab 60 mg/mL subcutaneous 60 mg SUBCUT [id number] 11/28/19 04/05/20 syringe docusate sodium 100 mg capsule 100 mg PO BID 11/28/19 04/05/20 nitroglycerin 0.4 mg sublingual 0.4 mg SUBLINGUAL Q5M PRN 11/28/19 04/05/20 tablet vit C 250 mg-vit E 90 mg-zinc 40 1 tab PO BID 11/28/19 04/05/20 mg-copper 1 [id number] capsule Previous Rx's Medication Instructions Recorded amlodipine 10 mg tablet 10 mg PO DAILY 90 Days #90 tab 12/08/19 carvedilol 12.5 mg tablet 12.5 mg PO BID 90 Days #180 tab 12/08/19 pantoprazole 40 mg tablet,delayed 40 mg PO BID 90 Days #180 tab 12/08/19 release atorvastatin 80 mg tablet 80 mg PO DAILY #90 tab 02/11/20 albuterol sulfate 90 mcg/actuation 2 puff INHALATION Q6H PRN #18 g 02/18/20 aerosol inhaler tramadol 50 mg tablet 50 mg PO TID PRN 30 Days #90 tab 03/31/20 losartan 25 mg tablet 25 mg PO DAILY 90 Days #90 tab 04/05/20 Allergies Allergy/AdvReac Type Severity Reaction Status Date / Time lisinopril Allergy Unknown Unknown Verified 04/05/20 09:47 alendronate sodium [Fosamax] AdvReac Intermediate jaw pain Verified 04/05/20 09:47 aspirin AdvReac Intermediate unable to Verified 04/05/20 09:47 tolerate higher doses-stomach ulcer (low dose ok) carbamazepine [From TEGRETOL] AdvReac Intermediate NAUSEA & Verified 04/05/20 09:47 VOMITING, HEADACHE gabapentin AdvReac Intermediate dizziness Verified 04/05/20 09:47 ibuprofen AdvReac Intermediate Nausea and Verified 04/05/20 09:47 Vomiting lidocaine [From Lidoderm] AdvReac Intermediate burning Verified 04/05/20 09:47 from patch NSAIDS (Non-Steroidal AdvReac Intermediate NAUSEA & Verified 04/05/20 09:47 Anti-Inflamma VOMITING, [NSAIDS (NON-STEROIDAL HX ULCER ANTI-INFLAMMA] codeine [CODEINE] AdvReac Unknown NAUSEA & Verified 04/05/20 09:47 VOMITING, nausea/vomiting Review of Systems Review of Systems: Constitutional : No Weight loss, No Fever, No Chills ENT/Mouth : No sore throat, No Rhinorrhea Eyes: No Eye Pain, No Swelling Cardiovascular : no Chest Pain, no SOB, no Dyspnea on Exertion, No Orthopnea, No Edema, No Palpitations Respiratory : No Cough, No Sputum Gastrointestinal : no Nausea, No Vomiting, No Diarrhea, No abdominal Pain, No Hematochezia, No Melena Genitourinary : No Dysuria, No Urinary Frequency Musculoskeletal : No joint pain, No Myalgias, No Joint Swelling Skin : No Skin Lesions, No rash Neuro : pos Weakness, No Numbness, pos Dizziness with standing, No Headache Psych : No Anxiety/Panic, No Depression Heme/Lymph: No Bruising, No Lymphadenopathy Endocrine : No Polyuria, No Polydipsia All other systems reviewed and are negative PMFSH Past Medical History Medical History Benign essential hypertension Cervical spondylosis without myelopathy Chronic kidney disease (CKD), stage III (moderate) Compression fracture of L1 lumbar vertebra COPD (chronic obstructive pulmonary disease) Coronary artery disease GERD (gastroesophageal reflux disease) Overactive bladder Pure hypercholesterolemia Surgical History History of angioplasty History of appendectomy History of section History of oophorectomy History of parathyroidectomy History of tonsillectomy Hx of cataract removal with insertion of prosthetic lens Family History Family History Father Throat cancer Mother No problems noted. Daughter Diabetes Son Arthritis CAD (coronary artery disease) Social History Social History Alcohol intake: never Smoking Status: Current some day smoker Advance Directives: No Advance Directives Information Provided: Yes Physical Exam Vital Signs: Vital Signs: Last Vital Signs Temp 97 F 04/21/20 11:47 Pulse 56 04/21/20 14:10 Resp 18 04/21/20 13:52 BP 145/79 H 04/21/20 14:10 Pulse Ox 97 04/21/20 13:52 Body Mass Index 24.5 Appearance: Alert. Oriented X3. No acute distress. Eyes: Pupils equal, round and reactive to light. ENT: Pharynx normal. Neck: Normal inspection. Neck supple. CVS: bradycardic heart rate and rhythm. Pulses normal. Respiratory: No respiratory distress. Breath sounds normal. Abdomen: Soft and nontender. Skin: Skin warm and dry. Normal skin color. Normal skin turgor. Extremities: No lower extremity edema. No calf ttp Neuro: Oriented X 3. No motor deficit. No sensory deficit. Course Course Course Narrative: no acute findings, stable VS, HR has been in 50s for a year, BP in 140s she wants to go home and she plans on holding losartan she did not take it today and BPs have been stable Medical Decision Making MDM Narrative Medical decision making narrative: 79 yo female with HTN, CKD she is on amlodipine 10mg daily, carvedilol 12.5 BID and notes she was just started on losartan 25mg as her BP has been high - her HR has been fluctuating into 40s and her BP has been fluctuating from 80/40 to 170/100 she feels washed out, at this time will need labs, EKG, ortho VS disp per results and findings Lab Data Result diagrams: 04/21/20 13:48 04/21/20 13:48 Labs: Lab Results 04/21/20 04/21/20 04/21/20 Range/Units 13:48 13:48 13:48 WBC 8.9 (4.8-10.8) X10*3/uL RBC 4.94 (4.20-5.50) X10*6/uL Hgb 15.2 (12.0-16.0) g/dl Hct 45.6 (37-47) % MCV 92.3 (80-98) fL MCH 30.8 (27.0-33.0) pg MCHC 33.3 (31.0-35.0) g/dl RDW 12.6 (11.0-16.0) % Plt Count 312 (160-400) X10*3/uL MPV 11.0 (9.4-12.3) fL Immature Gran % (Auto) 0.2 (0.0-0.4) % Neut % (Auto) 56.9 (45-73) % Lymph % (Auto) 24.9 (20-40) % [place] % (Auto) 7.9 (2-11) % Eos % (Auto) 8.8 H (0-4) % Baso % (Auto) 1.3 (0-2) % Lymph # (Auto) 2.2 (1.2-4.9) X10*3/uL [place] # (Auto) 0.7 (0.1-1.2) X10*3/uL Eos # (Auto) 0.8 H (0.0-0.4) X10*3/uL Baso # (Auto) 0.1 (0.0-0.2) X10*3/uL Abs Immat Gran (auto) 0.02 (0.00-0.03) X10*3/uL Absolute Neuts (auto) 5.1 (2.0-8.3) X10*3/uL Absolute Nucleated RBC 0.000 (0.0-0.012) X10*3/uL Nucleated RBC % (auto) 0.0 (0.0-0.2) /100WBC Hold Blue Top Sodium 142 (135-145) mmol/L Potassium 3.8 (3.3-5.1) mmol/L Chloride 101 (96-108) mmol/L Carbon Dioxide 30 H (22-29) mmol/L Anion Gap 15 (12-20) BUN 30 H (9-16) mg/dL Creatinine 1.53 H (0.5-1.4) mg/dL Estim Creat Clear Calc 25.0 Estimated GFR 33 Random Glucose 101 (60-115) mg/dL Calcium 9.6 D (8.4-10.2) mg/dL Magnesium 2.1 (1.6-2.6) mg/dL Troponin I High Sens 6.2 (<3.5-17.0) ng/L Hold Yellow Top 04/21/20 04/21/20 Range/Units 13:48 13:48 WBC (4.8-10.8) X10*3/uL RBC (4.20-5.50) X10*6/uL Hgb (12.0-16.0) g/dl Hct (37-47) % MCV (80-98) fL MCH (27.0-33.0) pg MCHC (31.0-35.0) g/dl RDW (11.0-16.0) % Plt Count (160-400) X10*3/uL MPV (9.4-12.3) fL Immature Gran % (Auto) (0.0-0.4) % Neut % (Auto) (45-73) % Lymph % (Auto) (20-40) % [place] % (Auto) (2-11) % Eos % (Auto) (0-4) % Baso % (Auto) (0-2) % Lymph # (Auto) (1.2-4.9) X10*3/uL [place] # (Auto) (0.1-1.2) X10*3/uL Eos # (Auto) (0.0-0.4) X10*3/uL Baso # (Auto) (0.0-0.2) X10*3/uL Abs Immat Gran (auto) (0.00-0.03) X10*3/uL Absolute Neuts (auto) (2.0-8.3) X10*3/uL Absolute Nucleated RBC (0.0-0.012) X10*3/uL Nucleated RBC % (auto) (0.0-0.2) /100WBC Hold Blue Top SEE NOTE Sodium (135-145) mmol/L Potassium (3.3-5.1) mmol/L Chloride (96-108) mmol/L Carbon Dioxide (22-29) mmol/L Anion Gap (12-20) BUN (9-16) mg/dL Creatinine (0.5-1.4) mg/dL Estim Creat Clear Calc Estimated GFR Random Glucose (60-115) mg/dL Calcium (8.4-10.2) mg/dL Magnesium (1.6-2.6) mg/dL Troponin I High Sens (<3.5-17.0) ng/L Hold Yellow Top See Note ECG Data Attestation: I personally reviewed and interpreted this ECG as follows: Interpretation: Rate: 52 Rhythm: sinus bradycardia [place]: normal Normal P waves. Normal DANNY. Normal QRS complex. ST T wave : nonspecific, no MIREYA qTC: normal prior studies: no acute ischemia The study has been interpreted contemporaneously by me. . Discharge Plan Discharge Clinical Impression: HTN (hypertension), Dizziness Patient Disposition: Home, Self-Care Instructions: Dizziness (ED) Additional Instructions: return to ED for any worsening symptoms or concerns Prescriptions: No Action atorvastatin 80 mg tablet 80 mg PO DAILY Qty: 90 RF: 1 albuterol sulfate 90 mcg/actuation HFA aerosol inhaler 2 puff inhalation Q6H PRN (Reason: bronchospasm) Qty: 18 RF: 3 tramadol 50 mg tablet 50 mg PO TID PRN (Reason: pain) 30 Days Qty: 90 RF: 0 carvedilol 12.5 mg tablet 12.5 mg PO BID 90 Days Qty: 180 RF: 3 amlodipine 10 mg tablet 10 mg PO DAILY 90 Days Qty: 90 RF: 3 pantoprazole 40 mg tablet,delayed release (DR/EC) 40 mg PO BID 90 Days Qty: 180 RF: 3 losartan 25 mg tablet 25 mg PO DAILY 90 Days Qty: 90 RF: 1 calcium carbonate-vitamin D3 [Calcium 600 + D(3)] 600 mg(1,500mg) -200 unit tablet 1 tab PO DAILY RF: 0 PreserVision AREDS-2 [id number] au-[id number]-bc-mg capsule 1 tab PO BID RF: 0 cetirizine [Zyrtec] 10 mg tablet 5 mg PO DAILY PRNRF: 0 coenzyme Q10 60 mg tablet 60 mg PO DAILY RF: 0 Prolia 60 mg/mL syringe 60 mg subcut [id number] RF: 0 docusate sodium [Colace] 100 mg capsule 100 mg PO BID RF: 0 nitroglycerin 0.4 mg tablet, sublingual 0.4 mg sublingual Q5M PRNRF: 0 acetaminophen [Tylenol] 325 mg tablet 650 mg PO QID PRNRF: 0 Referrals: Wilian Crawford MD [Primary Care Provider] - 2 days (if not better)
[2020-04-21 13:54] LABS: MANUAL DIFF FLAG NO
[2020-04-21 14:05] LABS: Basophils Absolute Auto 0.1 X10*3/uL (0.0-0.2); Basophils Percent Auto 1.3 % (0-2); Eosinophils Absolute Auto 0.8 X10*3/uL (0.0-0.4); Eosinophils Percent Auto 8.8 % (0-4); Hematocrit 45.6 % (37-47); Hemoglobin 15.2 g/dl (12.0-16.0); Imm Gran Abs Auto 0.02 X10*3/uL (0.00-0.03); Imm Gran Pct Auto 0.2 % (0.0-0.4); Lymphocytes Absolute Auto 2.2 X10*3/uL (1.2-4.9); Lymphocytes Percent Auto 24.9 % (20-40); Mean Corpuscular HGB Conc 33.3 g/dl (31.0-35.0); Mean Corpuscular Hemoglobin 30.8 pg (27.0-33.0); Mean Corpuscular Volume 92.3 fL (80-98); Monocytes Absolute Auto 0.7 X10*3/uL (0.1-1.2); Monocytes Percent Auto 7.9 % (2-11); Neutrophils Absolute Auto 5.1 X10*3/uL (2.0-8.3); Neutrophils Percent Auto 56.9 % (45-73); Platelet Count 312 X10*3/uL (160-400); Red Blood Count 4.94 X10*6/uL (4.20-5.50); Red Cell Distribution Width 12.6 % (11.0-16.0); White Blood Count 8.9 X10*3/uL (4.8-10.8)
[2020-04-21 14:07] VITALS: PULSE 51
[2020-04-21 14:09] VITALS: BP 157/79; PULSE 54
[2020-04-21 14:10] VITALS: BP 145/79; PULSE 56
[2020-04-21 14:32] LABS: Anion Gap 15 (12-20); Blood Urea Nitrogen 30 mg/dL (9-16); Calcium 9.6 mg/dL (8.4-10.2); Carbon Dioxide 30 mmol/L (22-29); Chloride 101 mmol/L (96-108); Estimated Glomerular Filt Rate 33; Glucose Random 101 mg/dL (60-115); Magnesium 2.1 mg/dL (1.6-2.6); Potassium 3.8 mmol/L (3.3-5.1); Sodium 142 mmol/L (135-145)
[2020-04-21 14:46] LABS: Troponin-I High Sensitivity 6.2 ng/L (<3.5-17.0)
== END 2020-04-21 18:00 | disposition home or self-care (01) ==
PROVIDERS: Emergency Provider Emergency Medicine; PCP Internal Medicine
DX: R42 Dizziness and giddiness (principal); R00.1 Bradycardia, unspecified; I12.9 Hypertensive chronic kidney disease with stage 1 through stage 4 chronic kidney disease, or unspecified chronic kidney disease; N18.9 Chronic kidney disease, unspecified; F17.200 Nicotine dependence, unspecified, uncomplicated; Z71.6 Tobacco abuse counseling; Z79.899 Other long term (current) drug therapy
CPT/HCPCS: 36415; 71045; 80048; 83735; 84484; 85025; 93005; 99283

== ENCOUNTER → 2020-05-27 08:13 | Outpatient (BNVA) | payer MEDICARE, OTHER, SELFPAY | PROVIDERS: Visit Provider Student in an Organized Health Care Education/Training Program | DX: M81.0 Age-related osteoporosis without current pathological fracture (principal) | CPT/HCPCS: 96372; 96402; 99212; J0897 ==

== ENCOUNTER 2020-07-15 14:15 | Outpatient (REF) | payer MEDICARE, OTHER, SELFPAY ==
[2020-07-15 15:09] LABS: MANUAL DIFF FLAG NO
[2020-07-15 15:14] LABS: Basophils Absolute Auto 0.1 X10*3/uL (0.0-0.2); Basophils Percent Auto 1.2 % (0-2); Eosinophils Absolute Auto 0.6 X10*3/uL (0.0-0.4); Eosinophils Percent Auto 6.2 % (0-4); Hematocrit 43.1 % (37-47); Hemoglobin 14.7 g/dl (12.0-16.0); Imm Gran Abs Auto 0.02 X10*3/uL (0.00-0.03); Imm Gran Pct Auto 0.2 % (0.0-0.4); Lymphocytes Absolute Auto 2.6 X10*3/uL (1.2-4.9); Lymphocytes Percent Auto 28.3 % (20-40); Mean Corpuscular HGB Conc 34.1 g/dl (31.0-35.0); Mean Corpuscular Hemoglobin 31.6 pg (27.0-33.0); Mean Corpuscular Volume 92.7 fL (80-98); Mean Platelet Volume 10.6 fL (9.4-12.3); Monocytes Absolute Auto 0.9 X10*3/uL (0.1-1.2); Monocytes Percent Auto 9.4 % (2-11); Neutrophils Absolute Auto 5.1 X10*3/uL (2.0-8.3); Neutrophils Percent Auto 54.7 % (45-73); Platelet Count 336 X10*3/uL (160-400); Red Blood Count 4.65 X10*6/uL (4.20-5.50); Red Cell Distribution Width 12.3 % (11.0-16.0); White Blood Count 9.3 X10*3/uL (4.8-10.8)
[2020-07-15 15:45] LABS: Alanine Aminotransferase 15 U/L (0-31); Albumin Level 4.1 g/dL (3.5-5.0); Alkaline Phosphatase 93 U/L (39-117); Anion Gap 14 (12-20); Aspartate Amino Transferase 24 U/L (5-31); Bilirubin Total 0.3 mg/dL (0.0-1.0); Blood Urea Nitrogen 24 mg/dL (9-16); C Reactive Protein 0.31 mg/dL (< or = 0.50); Calcium 9.5 mg/dL (8.4-10.2); Carbon Dioxide 29 mmol/L (22-29); Chloride 102 mmol/L (96-108); Estimated Glomerular Filt Rate 36; Glucose Random 96 mg/dL (60-115); Potassium 3.9 mmol/L (3.3-5.1); Sodium 141 mmol/L (135-145); Total Protein 6.6 g/dL (6.5-8.0); Uric Acid 5.6 mg/dL (2.4-5.7)
[2020-07-15 16:10] LABS: Erythrocyte Sedimentation Rate 10 MM/HR (0-20)
== END 2020-07-15 14:16 | disposition home or self-care (01) ==
LOC: HO.LAB 14:15
PROVIDERS: PCP Internal Medicine; Visit Provider Student in an Organized Health Care Education/Training Program
DX: M79.89 Other specified soft tissue disorders (principal); Z79.899 Other long term (current) drug therapy
CPT/HCPCS: 36415; 80053; 84550; 85025; 85652; 86140; 99212

== ENCOUNTER 2020-07-22 07:23 | Outpatient (REF) | payer MEDICARE, OTHER, SELFPAY ==
--- NOTE | ~2020-07-22 | XR_ITS ---
EXAMINATION: XR HAND, RIGHT CLINICAL INFORMATION: Right hand pain. COMPARISON: None TECHNIQUE: PA, lateral, and oblique views of the right hand. An arrow points to the fifth metacarpal. FINDINGS: Mild to moderate interphalangeal as well as first metacarpophalangeal degenerative joint changes are seen. Mild calcification is seen adjacent to the radial aspect of the distal head of the fourth metacarpal. The carpal bones are normally aligned. The distal radius and ulna are intact. The soft tissues are unremarkable. XR/XR hand RT min 3V IMPRESSION: [id number] degenerative joint changes suggesting osteoarthritis. No acute abnormality.
[2020-07-22 07:54] LABS: MANUAL DIFF FLAG NO
[2020-07-22 08:02] LABS: Basophils Absolute Auto 0.1 X10*3/uL (0.0-0.2); Basophils Percent Auto 1.5 % (0-2); Eosinophils Absolute Auto 0.7 X10*3/uL (0.0-0.4); Eosinophils Percent Auto 8.7 % (0-4); Hematocrit 42.8 % (37-47); Hemoglobin 14.4 g/dl (12.0-16.0); Imm Gran Abs Auto 0.03 X10*3/uL (0.00-0.03); Imm Gran Pct Auto 0.4 % (0.0-0.4); Lymphocytes Absolute Auto 1.9 X10*3/uL (1.2-4.9); Lymphocytes Percent Auto 23.5 % (20-40); Mean Corpuscular HGB Conc 33.6 g/dl (31.0-35.0); Mean Corpuscular Hemoglobin 31.1 pg (27.0-33.0); Mean Corpuscular Volume 92.4 fL (80-98); Mean Platelet Volume 10.6 fL (9.4-12.3); Monocytes Absolute Auto 0.6 X10*3/uL (0.1-1.2); Monocytes Percent Auto 8.1 % (2-11); Neutrophils Absolute Auto 4.6 X10*3/uL (2.0-8.3); Neutrophils Percent Auto 57.8 % (45-73); Platelet Count 351 X10*3/uL (160-400); Red Blood Count 4.63 X10*6/uL (4.20-5.50); Red Cell Distribution Width 12.2 % (11.0-16.0); White Blood Count 7.9 X10*3/uL (4.8-10.8)
[2020-07-22 08:21] LABS: Glucose Urine UA NEG (NEG); Leukocyte Esterase Urine NEG (NEG); Nitrite Urine NEG (NEG); Urine Blood NEG (NEG); Urine Ketones NEG (NEG); Urine Protein NEG (NEG-TRACE)
[2020-07-22 08:25] LABS: Appearance Urine CLEAR; Color Urine YELLOW
[2020-07-22 08:32] LABS: Alanine Aminotransferase 15 U/L (0-31); Alkaline Phosphatase 88 U/L (39-117); Anion Gap 11 (12-20); Aspartate Amino Transferase 21 U/L (5-31); Bilirubin Total 0.9 mg/dL (0.0-1.0); Blood Urea Nitrogen 20 mg/dL (9-16); Calcium 9.7 mg/dL (8.4-10.2); Carbon Dioxide 33 mmol/L (22-29); Chloride 100 mmol/L (96-108); Cholesterol 154 mg/dL; Estimated Glomerular Filt Rate 36; Glucose Fasting 101 mg/dL (60-99); HDL Cholesterol 49 mg/dL; LDL Cholesterol Calculated 94 mg/dl; Potassium 3.8 mmol/L (3.3-5.1); Sodium 140 mmol/L (135-145); Total Protein 6.4 g/dL (6.5-8.0); Triglycerides 59 mg/dL
[2020-07-22 08:55] LABS: TSH reflex Free T4 0.82 uIU/mL (0.32-4.0)
== END 2020-07-22 07:24 | disposition home or self-care (01) ==
LOC: HO.LAB 07:23
PROVIDERS: PCP Internal Medicine; Visit Provider Internal Medicine
DX: E78.00 Pure hypercholesterolemia, unspecified (principal); I12.9 Hypertensive chronic kidney disease with stage 1 through stage 4 chronic kidney disease, or unspecified chronic kidney disease; N18.32 Chronic kidney disease, stage 3b; I25.10 Atherosclerotic heart disease of native coronary artery without angina pectoris; M79.641 Pain in right hand; J44.9 Chronic obstructive pulmonary disease, unspecified; K21.00 Gastro-esophageal reflux disease with esophagitis, without bleeding; E55.9 Vitamin D deficiency, unspecified
CPT/HCPCS: 36415; 73130; 80053; 80061; 81003; 82306; 84443; 85025

== ENCOUNTER 2020-08-19 07:47 | Outpatient (REF) | payer MEDICARE, OTHER, SELFPAY ==
--- NOTE | 2020-08-19 14:49 | PFT_ITS ---
Forced vital capacity, FEV1, DNI55-65 are normal. MVV is moderately decreased. Post bronchodilator therapy, no significant change, but MVV is also improved to normal. Total lung capacity and residual volume normal. Diffusion capacity is markedly decreased. CONCLUSION: Normal pulmonary function test except for decreased diffusion capacity, which may be due to pulmonary emphysema, non-pulmonary factors or technical reason. Clinical correlation is recommended. MD LONNIE Grajeda/AMINAH / [phone]
== END 2020-08-19 07:48 | disposition home or self-care (01) ==
LOC: HO.RESP 07:47
PROVIDERS: PCP Internal Medicine; Visit Provider Internal Medicine
DX: J44.9 Chronic obstructive pulmonary disease, unspecified (principal); R06.00 Dyspnea, unspecified
CPT/HCPCS: 94060; 94727; 94729

== ENCOUNTER 2020-09-07 10:25 | Outpatient (REF) | payer MEDICARE, OTHER, SELFPAY ==
--- NOTE | ~2020-09-07 | MM_ITS ---
EXAMINATION: MM SCREENING DIGITAL BREAST TOMOSYNTHESIS, BILATERAL CLINICAL INFORMATION: Screening. Asymptomatic. The lifetime risk of breast cancer based on the Tyrer-Cuzick Model is 2%. COMPARISON: Mammography: 07/31/2017, 01/12/2016 TECHNIQUE: Digital breast tomosynthesis is performed in both the craniocaudal and mediolateral oblique views along with computer-aided detection (CAD). Synthesized 2D images are generated from the tomosynthesis. Additional right MLO view is provided. FINDINGS: There are scattered areas of fibroglandular density (ACR BI-RADS breast composition Category b). There are no significant masses, abnormal calcifications, or other abnormalities. Parenchymal pattern is similar to prior studies. No developing density. Scattered vascular calcifications are again present. The axilla and skin contours are unremarkable. MM/MM tomosynthesis screening BI IMPRESSION: No mammographic evidence of malignancy. ASSESSMENT: BI-RADS 1: Negative RECOMMENDATION: Routine annual mammography screening. This patient's information was entered into a reminder system with a target due date for their next mammogram.
== END 2020-09-07 10:26 | disposition home or self-care (01) ==
LOC: HO.MAMMO 10:25
PROVIDERS: Visit Provider Internal Medicine
DX: Z12.31 Encounter for screening mammogram for malignant neoplasm of breast (principal)
CPT/HCPCS: 77063; 77067

== ENCOUNTER 2020-10-14 09:40 | Emergency (ER) | payer MEDICARE, OTHER, SELFPAY ==
--- NOTE | ~2020-10-14 | XR_ITS ---
EXAMINATION: LEFT KNEE. LEFT TIBIA AND FIBULA. CLINICAL INFORMATION: Fall, bruise. COMPARISON: None TECHNIQUE: 4 views left knee. 2 views left tibia and fibula. FINDINGS: Left knee: There is minimal loss of medial and patellofemoral compartment joint space. The lateral and the patellofemoral compartment joint space is normal. There is no visible acute fracture, dislocation or subluxation. No loose bodies super or joint effusion seen. There is a small bone fragment superior to anterior tibial tubercle, likely nonspecific calcification. Left tibia and fibula: There is no visible acute fracture, dislocation or subluxation seen. No bony abnormality. The soft tissues are normal. XR/XR tibia fibula LT 2V IMPRESSION: No acute fracture or dislocation. Early degenerative changes in medial and patellofemoral compartment with loss of joint space. Unremarkable left tibia and fibula exam.
--- NOTE | ~2020-10-14 | XR_ITS ---
EXAMINATION: LEFT KNEE. LEFT TIBIA AND FIBULA. CLINICAL INFORMATION: Fall, bruise. COMPARISON: None TECHNIQUE: 4 views left knee. 2 views left tibia and fibula. FINDINGS: Left knee: There is minimal loss of medial and patellofemoral compartment joint space. The lateral and the patellofemoral compartment joint space is normal. There is no visible acute fracture, dislocation or subluxation. No loose bodies super or joint effusion seen. There is a small bone fragment superior to anterior tibial tubercle, likely nonspecific calcification. Left tibia and fibula: There is no visible acute fracture, dislocation or subluxation seen. No bony abnormality. The soft tissues are normal. XR/XR knee LT 3V IMPRESSION: No acute fracture or dislocation. Early degenerative changes in medial and patellofemoral compartment with loss of joint space. Unremarkable left tibia and fibula exam.
[2020-10-14 09:56] VITALS: BP 139/68; PULSE 50; RESP 14; O2SAT 97; BMI 25.7
--- NOTE | 2020-10-14 10:05 | ED_ITS ---
HPI - General Adult General Chief complaint: Fall Stated complaint: fell left leg swollen Time Seen by Provider: 10/14/20 10:05 Source: patient Mode of arrival: ambulatory Limitations: no limitations History of Present Illness HPI narrative: 79-year-old female here today after sustaining mechanical fall yesterday complains of left knee and lower leg pain. Patient reports that she was helping her 3-year-old grandson who was standing on the table when he jumped into her arms and both of them fell. Patient fell onto her knee and hit her tibia on hardwood floor. Patient reports that she significant swelling gas today went away today. Reports tenderness over proximal tibia, mild abrasion to her knee. Patient reports that she took trauma this morning for pain. Pain now is down to 4/10. Patient denies any injuries. Patient denies syncope, presyncope, chest pain, palpitations. Related Data Home Medications Medication Instructions Recorded Confirmed acetaminophen 325 mg tablet 650 mg PO QID PRN 11/28/19 09/13/20 (Tylenol) calcium carbonate 600 mg (1,500 1 tab PO DAILY 11/28/19 09/13/20 mg)-vitamin D3 200 unit tablet (Calcium 600 + D(3)) cetirizine 10 mg tablet (Zyrtec) 5 mg PO DAILY PRN 11/28/19 09/13/20 coenzyme Q10 60 mg tablet 60 mg PO DAILY 11/28/19 09/13/20 denosumab 60 mg/mL subcutaneous 60 mg SUBCUT [id number] 11/28/19 09/13/20 syringe (Prolia) docusate sodium 100 mg capsule 100 mg PO BID 11/28/19 09/13/20 (Colace) nitroglycerin 0.4 mg sublingual 0.4 mg SUBLINGUAL Q5M PRN 11/28/19 09/13/20 tablet vit C 250 mg-vit E 90 mg-zinc 40 1 tab PO BID 11/28/19 09/13/20 mg-copper 1 [id number] capsule (PreserVision AREDS-2) Previous Rx's Medication Instructions Recorded amlodipine 10 mg tablet 10 mg PO DAILY 90 Days #90 tab 12/08/19 carvedilol 12.5 mg tablet 12.5 mg PO BID 90 Days #180 tab 12/08/19 pantoprazole 40 mg tablet,delayed 40 mg PO BID 90 Days #180 tab 10/19/20 release atorvastatin 80 mg tablet 80 mg PO DAILY #90 tab 02/11/20 albuterol sulfate 90 mcg/actuation 2 puff INHALATION Q6H PRN #18 g 02/18/20 aerosol inhaler fluticasone propionate 110 1 puff INHALATION BID 30 Days #12 g 08/03/20 mcg/actuation HFA aerosol inhaler (Flovent HFA) fluticasone propionate 50 1 spray INTRANASAL BID 90 Days #3 08/03/20 mcg/actuation nasal ea spray,suspension benzonatate 100 mg capsule 100 mg PO BID PRN #10 cap 09/13/20 (Tessalalvaro Williamson) losartan 25 mg tablet 25 mg PO DAILY 90 Days #90 tab 10/01/20 tramadol 50 mg tablet 50 mg PO TID PRN 30 Days #90 tab 10/01/20 acetaminophen 325 mg capsule 650 mg PO Q6H PRN #20 cap 10/14/20 Allergies Allergy/AdvReac Type Severity Reaction Status Date / Time lisinopril Allergy Unknown Unknown Verified 09/13/20 09:50 alendronate sodium [Fosamax] AdvReac Intermediate jaw pain Verified 09/13/20 09:50 aspirin AdvReac Intermediate unable to Verified 09/13/20 09:50 tolerate higher doses-stomach ulcer (low dose ok) carbamazepine [From TEGRETOL] AdvReac Intermediate NAUSEA & Verified 09/13/20 09:50 VOMITING, HEADACHE gabapentin AdvReac Intermediate dizziness Verified 09/13/20 09:50 ibuprofen AdvReac Intermediate Nausea and Verified 09/13/20 09:50 Vomiting lidocaine [From Lidoderm] AdvReac Intermediate burning Verified 09/13/20 09:50 from patch NSAIDS (Non-Steroidal AdvReac Intermediate NAUSEA & Verified 09/13/20 09:50 Anti-Inflamma VOMITING, [NSAIDS (NON-STEROIDAL HX ULCER ANTI-INFLAMMA] codeine [CODEINE] AdvReac Unknown NAUSEA & Verified 09/13/20 09:50 VOMITING, nausea/vomiting Review of Systems Review of Systems: Constitutional : No Weight loss, No Fever, No Chills, No Night Sweats, No Fatigue, No Malaise ENT/Mouth : No Hearing loss, No Ear Pain, No Nasal Congestion, No Sinus Pain, Eyes: No Eye Pain, No Swelling, No Redness, No Foreign Body, No Discharge, No Vision Changes Cardiovascular : No Chest Pain, No SOB, No Dyspnea on Exertion, Respiratory : No Cough, No Sputum, No Wheezing, No Smoke Exposure, No Dyspnea Gastrointestinal : No Nausea, No Vomiting, No Diarrhea, No Constipation, No abdominal Pain, Genitourinary : no irregular bleeding, No Dysuria, No Urinary Frequency, No Hematuria, No Urinary Incontinence, No Urgency, No Flank Pain, No Urinary Flow Changes, No Hesitancy Musculoskeletal : No joint pain, No Myalgias, No Joint Swelling Skin : No Skin Lesions, No rash Neuro : No Weakness, No Numbness, No Paresthesias, No Loss of Consciousness, No Dizziness, No Headache Yes all other systems are reviewed and are negative [facility] Past Medical History Medical History Allergic rhinitis Benign essential hypertension Cervical spondylosis without myelopathy Chronic kidney disease (CKD), stage III (moderate) Compression fracture of L1 lumbar vertebra COPD (chronic obstructive pulmonary disease) Coronary artery disease Exertional dyspnea GERD (gastroesophageal reflux disease) Overactive bladder Pure hypercholesterolemia Screening for breast cancer Surgical History History of angioplasty History of appendectomy History of section History of colonoscopy History of oophorectomy History of parathyroidectomy History of tonsillectomy Hx of cataract removal with insertion of prosthetic lens Family History Family History Father Throat cancer Mother No problems noted. Daughter Diabetes Son Arthritis CAD (coronary artery disease) Social History Social History Housing: House Alcohol intake: never Patient Tobacco Use Status: Current someday Tobacco user Tobacco use type: Cigarette Cigarettes Per Day: 2 Years Smoked: 30 e-Cigarette/Vaping Use: Never Used Advance Directives: No Advance Directives Information Provided: No service: No Current occupational status: retired Physical Exam Vital Signs: Vital Signs: Last Vital Signs Pulse 50 10/14/20 09:56 Resp 14 10/14/20 09:56 BP 139/68 10/14/20 09:56 Pulse Ox 97 10/14/20 09:56 Body Mass Index 25.7 Const: General: healthy appearing, no acute distress and well developed Nutritional Appearance: well nourished Orientation/consciousness: patient oriented x3 Neck: Neck: Yes normal visual inspection, Yes full ROM and Yes trachea midline Thyroid: Thyroid normal Resp: Auscultation: clear to auscultation bilaterally Cardio: Rate: regular rate Rhythm: regular rhythm GI: Inspection: Yes normal to inspection and No distended Palpation (GI): No hepatosplenomegaly present Auscultation: normal bowel sounds Skin: General skin exam: elasticity normal, turgor normal and dry skin Neuro: General: patient oriented x3 Extrem: Right upper extremity: normal to inspection and full ROM Left upper extremity: normal to inspection and full ROM Right lower extremity: normal to inspection, full ROM and normal capillary refill; No no edema Left lower extremity: full ROM, normal capillary refill, edema (Proximal tibia small hematoma on tenderness) and knee (Abrasion) Course Course Course Narrative: 79-year-old female here today after sustaining a fall and hurting her left knee and tibia. 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 Patient denies hitting however she has abrasion on her left knee and swelling and bruising to her proximal tibia. Patient took tramadol this morning. Will get an x-ray of her knee her lower leg. Reevaluation(s) Reevaluation #1: X-rays are negative for any acute processes. Patient will be sent home with instructions to ice, elevate. Patient can take Tylenol and her tramadol on as needed basis. She will follow-up with her PCP. Instructions to return if any concerning symptoms. Medical Decision Making Imaging Data Left knee and tib/fib x-ray: Radiologist's impression: FINDINGS: Left knee: There is minimal loss of medial and patellofemoral compartment joint space. The lateral and the patellofemoral compartment joint space is normal. There is no visible acute fracture, dislocation or subluxation. No loose bodies super or joint effusion seen. There is a small bone fragment superior to anterior tibial tubercle, likely nonspecific calcification. Left tibia and fibula: There is no visible acute fracture, dislocation or subluxation seen. No bony abnormality. The soft tissues are normal. Discharge Plan Discharge Clinical Impression: Acute knee pain, Left leg pain Patient Disposition: Home, Self-Care Instructions: Contusion in Adults (ED) Additional Instructions: You were seen here today after sustaining fall. You have an abrasion to your left knee and bruising to your left lower leg. Please make sure that you apply ice for the 3 days, keep your leg elevated. You may take Tylenol or ibuprofen for pain. You may return to emergency department if your symptoms will get worse or if you will experience any other concerning symptoms. Please follow-up with your primary care provider 2-3 days Prescriptions: New acetaminophen 325 mg capsule 650 mg PO Q6H PRN (Reason: pain) Qty: 20 RF: 0 No Action atorvastatin 80 mg tablet 80 mg PO DAILY Qty: 90 RF: 1 albuterol sulfate 90 mcg/actuation HFA aerosol inhaler 2 puff inhalation Q6H PRN (Reason: bronchospasm) Qty: 18 RF: 3 losartan 25 mg tablet 25 mg PO DAILY 90 Days Qty: 90 RF: 1 tramadol 50 mg tablet 50 mg PO TID PRN (Reason: pain) 30 Days Qty: 90 RF: 0 carvedilol 12.5 mg tablet 12.5 mg PO BID 90 Days Qty: 180 RF: 3 amlodipine 10 mg tablet 10 mg PO DAILY 90 Days Qty: 90 RF: 3 pantoprazole 40 mg tablet,delayed release (DR/EC) 40 mg PO BID 90 Days Qty: 180 RF: 3 fluticasone propionate 50 mcg/actuation spray,suspension 1 spray intranasal BID 90 Days Qty: 3 RF: 1 Flovent HFA 110 mcg/actuation HFA aerosol inhaler 1 puff inhalation BID 30 Days Qty: 12 RF: 5 benzonatate [Tessalon Perles] 100 mg capsule 100 mg PO BID PRN (Reason: cough) Qty: 10 RF: 0 calcium carbonate-vitamin D3 [Calcium 600 + D(3)] 600 mg(1,500mg) -200 unit tablet 1 tab PO DAILY RF: 0 PreserVision AREDS-2 [id number] ec-eort-br-mg capsule 1 tab PO BID RF: 0 cetirizine [Zyrtec] 10 mg tablet 5 mg PO DAILY PRNRF: 0 coenzyme Q10 60 mg tablet 60 mg PO DAILY RF: 0 Prolia 60 mg/mL syringe 60 mg subcut [id number] RF: 0 docusate sodium [Colace] 100 mg capsule 100 mg PO BID RF: 0 nitroglycerin 0.4 mg tablet, sublingual 0.4 mg sublingual Q5M PRNRF: 0 acetaminophen [Tylenol] 325 mg tablet 650 mg PO QID PRNRF: 0 Referrals: Wilian Crawford MD [Primary Care Provider] - 2 days
== END 2020-10-14 10:53 | disposition home or self-care (01) ==
PROVIDERS: Emergency Provider Emergency Medicine; PCP Internal Medicine
DX: G89.11 Acute pain due to trauma (principal); M25.562 Pain in left knee; M79.605 Pain in left leg; S80.212A Abrasion, left knee, initial encounter; S80.12XA Contusion of left lower leg, initial encounter; W03.XXXA Other fall on same level due to collision with another person, initial encounter; Y93.83 Activity, rough housing and horseplay; Y92.019 Unspecified place in single-family (private) house as the place of occurrence of the external cause; Y99.9 Unspecified external cause status
CPT/HCPCS: 73562; 73590; 99283

== ENCOUNTER → 2020-11-25 13:41 | Outpatient (BNVA) | payer MEDICARE, OTHER, SELFPAY | PROVIDERS: PCP Internal Medicine; Visit Provider Nurse Practitioner Family | DX: M81.0 Age-related osteoporosis without current pathological fracture (principal) | CPT/HCPCS: 96372; J0897 ==

== ENCOUNTER 2020-12-14 08:11 | Outpatient (REF) | payer MEDICARE, OTHER, SELFPAY ==
[2020-12-14 08:31] LABS: MANUAL DIFF FLAG NO
[2020-12-14 08:37] LABS: Basophils Absolute Auto 0.1 X10*3/uL (0.0-0.2); Basophils Percent Auto 1.3 % (0-2); Eosinophils Absolute Auto 0.6 X10*3/uL (0.0-0.4); Eosinophils Percent Auto 7.3 % (0-4); Hematocrit 42.8 % (37-47); Hemoglobin 14.3 g/dl (12.0-16.0); Imm Gran Abs Auto 0.03 X10*3/uL (0.00-0.03); Imm Gran Pct Auto 0.3 % (0.0-0.4); Lymphocytes Absolute Auto 1.5 X10*3/uL (1.2-4.9); Lymphocytes Percent Auto 16.7 % (20-40); Mean Corpuscular HGB Conc 33.4 g/dl (31.0-35.0); Mean Corpuscular Hemoglobin 31.4 pg (27.0-33.0); Mean Corpuscular Volume 94.1 fL (80-98); Mean Platelet Volume 10.8 fL (9.4-12.3); Monocytes Absolute Auto 0.6 X10*3/uL (0.1-1.2); Monocytes Percent Auto 6.9 % (2-11); Neutrophils Absolute Auto 5.9 X10*3/uL (2.0-8.3); Neutrophils Percent Auto 67.5 % (45-73); Platelet Count 308 X10*3/uL (160-400); Red Blood Count 4.55 X10*6/uL (4.20-5.50); Red Cell Distribution Width 12.6 % (11.0-16.0); White Blood Count 8.7 X10*3/uL (4.8-10.8)
[2020-12-14 09:00] LABS: Alanine Aminotransferase 13 U/L (0-31); Albumin Level 3.9 g/dL (3.5-5.0); Alkaline Phosphatase 70 U/L (39-117); Anion Gap 11 (12-20); Aspartate Amino Transferase 19 U/L (5-31); Bilirubin Total 0.6 mg/dL (0.0-1.0); Blood Urea Nitrogen 17 mg/dL (9-16); Calcium 9.3 mg/dL (8.4-10.2); Carbon Dioxide 32 mmol/L (22-29); Chloride 104 mmol/L (96-108); Cholesterol 143 mg/dL; Estimated Glomerular Filt Rate 45; Glucose Fasting 98 mg/dL (60-99); HDL Cholesterol 48 mg/dL; LDL Cholesterol Calculated 83 mg/dl; Sodium 143 mmol/L (135-145); Total Protein 6.1 g/dL (6.5-8.0); Triglycerides 62 mg/dL
[2020-12-14 09:09] LABS: B Type Natriuretic Peptide 297 pg/mL (<100)
[2020-12-14 09:24] LABS: TSH reflex Free T4 1.84 uIU/mL (0.32-4.0)
[2020-12-14 09:26] LABS: Appearance Urine CLEAR; Color Urine YELLOW; Glucose Urine UA NEG (NEG); Leukocyte Esterase Urine NEG (NEG); Nitrite Urine NEG (NEG); Specific Gravity - Urine 1.015 (1.005-1.025); Urine Blood NEG (NEG); Urine Ketones NEG (NEG); Urine Protein TRACE MG/DL (NEG-TRACE)
[2020-12-18 15:21] LABS: Vitamin D 25-OH, D2 <4 ng/mL; Vitamin D 25-OH, D3 55 ng/mL; Vitamin D 25-OH, Total 55 ng/mL (30-100)
== END 2020-12-14 08:12 | disposition home or self-care (01) ==
LOC: HO.LAB 08:11
PROVIDERS: Student in an Organized Health Care Education/Training Program; PCP Internal Medicine; Referring Provider Internal Medicine; Visit Provider Internal Medicine
DX: N32.81 Overactive bladder (principal); M81.0 Age-related osteoporosis without current pathological fracture; I10 Essential (primary) hypertension; E78.00 Pure hypercholesterolemia, unspecified; I25.10 Atherosclerotic heart disease of native coronary artery without angina pectoris; R06.00 Dyspnea, unspecified
CPT/HCPCS: 36415; 80053; 80061; 81003; 82306; 83880; 84443; 85025

== ENCOUNTER → 2021-01-27 08:49 | Outpatient (BNVA) | payer MEDICARE, OTHER, SELFPAY | PROVIDERS: PCP Internal Medicine; Visit Provider Nurse Practitioner Family | DX: M81.0 Age-related osteoporosis without current pathological fracture (principal) | CPT/HCPCS: 99212 ==

== ENCOUNTER 2021-04-27 07:36 | Outpatient (REF) | payer MEDICARE, OTHER, SELFPAY ==
[2021-04-27 07:43] LABS: MANUAL DIFF FLAG NO
[2021-04-27 08:19] LABS: Basophils Absolute Auto 0.1 X10*3/uL (0.0-0.2); Basophils Percent Auto 1.1 % (0-2); Eosinophils Absolute Auto 0.7 X10*3/uL (0.0-0.4); Eosinophils Percent Auto 7.2 % (0-4); Hematocrit 40.7 % (37.0-47.0); Hemoglobin 13.5 g/dl (12.0-16.0); Imm Gran Abs Auto 0.04 X10*3/uL (0.00-0.03); Imm Gran Pct Auto 0.4 % (0.0-0.4); Lymphocytes Absolute Auto 2.4 X10*3/uL (1.2-4.9); Lymphocytes Percent Auto 24.6 % (20-40); Mean Corpuscular HGB Conc 33.2 g/dl (31.0-35.0); Mean Corpuscular Hemoglobin 30.9 pg (27.0-33.0); Mean Corpuscular Volume 93.1 fL (80.0-98.0); Mean Platelet Volume 11.3 fL (9.4-12.3); Monocytes Absolute Auto 0.9 X10*3/uL (0.1-1.2); Monocytes Percent Auto 9.3 % (2-11); Neutrophils Absolute Auto 5.7 x10*3/uL (2.0-8.3); Neutrophils Percent Auto 57.4 % (45-73); Platelet Count 263 X10*3/uL (160-400); Red Blood Count 4.37 X10*6/uL (4.20-5.50); Red Cell Distribution Width 12.7 % (11.0-16.0); White Blood Count 9.9 X10*3/uL (4.8-10.8)
[2021-04-27 08:43] LABS: Alanine Aminotransferase 16 U/L (0-31); Albumin Level 3.8 g/dL (3.5-5.0); Alkaline Phosphatase 73 U/L (39-117); Anion Gap 12 (12-20); Aspartate Amino Transferase 23 U/L (5-31); Bilirubin Total 0.6 mg/dL (0.0-1.0); Blood Urea Nitrogen 17 mg/dL (9-16); Calcium 9.4 mg/dL (8.4-10.2); Carbon Dioxide 35 mmol/L (22-29); Chloride 100 mmol/L (96-108); Cholesterol 138 mg/dL; Estimated Glomerular Filt Rate 42; Glucose Fasting 96 mg/dL (60-99); HDL Cholesterol 48 mg/dL; LDL Cholesterol Calculated 78 mg/dl; Potassium 3.6 mmol/L (3.3-5.1); Sodium 143 mmol/L (135-145); Total Protein 6.3 g/dL (6.5-8.0); Triglycerides 61 mg/dL
[2021-04-27 09:05] LABS: TSH reflex Free T4 1.29 uIU/mL (0.32-4.0); Vitamin D 25-OH Total 64.3 ng/mL (>30)
[2021-04-27 09:17] LABS: Appearance Urine CLEAR; Color Urine YELLOW; Glucose Urine UA NEG (NEG); Leukocyte Esterase Urine TRACE (NEG); Nitrite Urine NEG (NEG); UACC Culture Trigger YES; Urine Blood NEG (NEG); Urine Ketones NEG (NEG); Urine Protein 1+ MG/DL (NEG-TRACE)
[2021-04-27 09:29] LABS: RBC Urine 0-2 /HPF (0); WBC Urine 0-2 /HPF (0-4)
[2021-04-27 09:30] LABS: Renal Epithelial Cells Urine TRACE /LPF; Squamous Epithelial Cell Urine TRACE /LPF
== END 2021-04-27 07:37 | disposition home or self-care (01) ==
LOC: HO.LAB 07:36
PROVIDERS: PCP Internal Medicine; Visit Provider Internal Medicine
DX: I10 Essential (primary) hypertension (principal); E78.00 Pure hypercholesterolemia, unspecified; E55.9 Vitamin D deficiency, unspecified
CPT/HCPCS: 36415; 80053; 80061; 81001; 81003; 82306; 84443; 85025; 87086

== ENCOUNTER → 2021-05-26 09:29 | Outpatient (BNVA) | payer MEDICARE, OTHER, SELFPAY | PROVIDERS: PCP Internal Medicine; Visit Provider Nurse Practitioner Family | DX: M81.0 Age-related osteoporosis without current pathological fracture (principal) | CPT/HCPCS: 96372; 99212; J0897 ==

== ENCOUNTER 2021-08-06 08:30 | Emergency (ER) | payer MEDICARE, OTHER, SELFPAY ==
--- NOTE | ~2021-08-06 | XR_ITS ---
EXAMINATION: XR CHEST CLINICAL INFORMATION: Shortness of breath, chest pain. COMPARISON: Most recent chest radiograph dated 04/21/2020. TECHNIQUE: 2 views of the chest were obtained. FINDINGS: Mild chronic interstitial prominence, unchanged. No new focal airspace consolidation. No pleural effusion or pneumothorax. Stable cardiomediastinal silhouette. No acute osseous abnormality. Stable, chronic compression deformity within the lower thoracic spine. XR/XR chest 2V IMPRESSION: No acute cardiopulmonary findings.
--- NOTE | 2021-08-06 08:31 | ECG_ITS ---
Test Reason : CP Blood Pressure : / mmHG Vent. Rate : 047 BPM Atrial Rate : 047 BPM P-R Int : 136 ms QRS Dur : 080 ms QT Int : 490 ms P-R-T Axes : 072 037 058 degrees QTc Int : 433 ms Sinus bradycardia with Premature atrial complexes Possible Left atrial enlargement Borderline ECG When compared with ECG of 21-APR-2020 13:34, Premature atrial complexes are now Present Nonspecific T wave abnormality no longer evident in Lateral leads Referred By: Generic ED Physician Electronically Signed By:Selvin Dangelo
[2021-08-06 08:33] VITALS: BP 124/56; PULSE 46; RESP 20; TEMP 36.6; O2SAT 92; BMI 25.4
--- NOTE | 2021-08-06 08:49 | ED.GENADULT ---
HPI - General Adult General Chief complaint: Upper Respiratory Symptoms Stated complaint: diff. breathing/chest discomfort Time Seen by Provider: 08/06/21 08:46 Source: patient Mode of arrival: ambulatory Limitations: no limitations History of Present Illness HPI narrative: Patient is a 80 year old female presenting to the emergency department today with a cough. Patient states that for the last week she has had a cough and sinus congestion. Patient states that she has had intermittent shortness of breathe and diffuse chest pain but that is with coughing. Patient states that she has a history of COPD. Patient denies any current dizziness, lightheadedness, abdominal pain, nausea, vomiting, fever, chills, blurry vision, double vision, loss of vision, chest pain, difficulty breathing, shortness of breath, back pain, night sweats, pain with urination, increased urinary frequency, increased urinary urgency, blood in her urine or stool, syncope or a near syncopal episode, recent trauma or falls, bowel incontinence, bladder incontinence, bowel retention, bladder retention, or any other complaints at this time. Onset (ago): week(s) (1) Severity: mild Severity scale (1-10): 3 Relieving factors: none Exacerbating factors: none Associated symptoms: cough Treatments prior to arrival: none Related Data Home Medications Medication Instructions Recorded Confirmed acetaminophen 325 mg tablet 650 mg PO QID PRN 11/28/19 05/26/21 (Tylenol) calcium carbonate 600 mg-vitamin 1 tab PO DAILY 11/28/19 05/26/21 D3 5 mcg (200 unit) tablet (Calcium 600 + D(3)) cetirizine 10 mg tablet (Zyrtec) 5 mg PO DAILY PRN 11/28/19 05/26/21 coenzyme Q10 60 mg tablet 60 mg PO DAILY 11/28/19 05/26/21 denosumab 60 mg/mL subcutaneous 60 mg subcut [id number] 11/28/19 05/26/21 syringe (Prolia) docusate sodium 100 mg capsule 100 mg PO BID 11/28/19 05/26/21 (Colace) nitroglycerin 0.4 mg sublingual 0.4 mg sublingual Q5M PRN 11/28/19 05/26/21 tablet vit C 250 mg-vit E 90 mg-zinc 40 1 tab PO BID 11/28/19 05/26/21 mg-copper 1 [id number] capsule (PreserVision AREDS-2) Previous Rx's Medication Instructions Recorded fluticasone propionate 110 1 puff inhalation BID 30 days #12 08/03/20 mcg/actuation HFA aerosol inhaler grams (Flovent HFA) albuterol sulfate 90 mcg/actuation 2 puff inhalation Q6H PRN for 11/22/20 aerosol inhaler muscle spasm #18 ea amlodipine 10 mg tablet 10 mg PO DAILY #90 tabs 11/26/20 carvedilol 12.5 mg tablet 12.5 mg PO BID #180 tabs 11/26/20 pantoprazole 40 mg tablet,delayed 40 mg PO BID #180 tabs 11/26/20 release fluticasone propionate 50 1 spray intranasal BID 90 days #3 12/06/20 mcg/actuation nasal ea spray,suspension losartan 25 mg tablet 25 mg PO QPM #90 tabs 04/05/21 atorvastatin 80 mg tablet 80 mg PO DAILY #90 tabs 04/28/21 SOFT CERVICAL COLLAR #1 ea 05/04/21 azithromycin 250 mg tablet See Rx Instructions PO .COMPLEX #6 06/13/21 tabs tramadol 50 mg tablet 50 mg PO TID PRN pain 30 days #90 07/26/21 tabs doxycycline hyclate 100 mg tablet 100 mg PO BID 7 days #14 tabs 08/06/21 prednisone 20 mg tablet 20 mg PO DAILY 12 days #26 tabs 08/06/21 Allergies Allergy/AdvReac Type Severity Reaction Status Date / Time lisinopril Allergy Unknown Unknown Verified 05/26/21 09:44 alendronate sodium [Fosamax] AdvReac Intermediate jaw pain Verified 05/26/21 09:44 aspirin AdvReac Intermediate unable to Verified 05/26/21 09:44 tolerate higher doses-stomach ulcer (low dose ok) carbamazepine [From TEGRETOL] AdvReac Intermediate NAUSEA & Verified 05/26/21 09:44 VOMITING, HEADACHE gabapentin AdvReac Intermediate dizziness Verified 05/26/21 09:44 ibuprofen AdvReac Intermediate Nausea and Verified 05/26/21 09:44 Vomiting lidocaine [From Lidoderm] AdvReac Intermediate burning Verified 05/26/21 09:44 from patch NSAIDS (Non-Steroidal AdvReac Intermediate NAUSEA & Verified 05/26/21 09:44 Anti-Inflamma VOMITING, [NSAIDS (NON-STEROIDAL HX ULCER ANTI-INFLAMMA] codeine [CODEINE] AdvReac Unknown NAUSEA & Verified 05/26/21 09:44 VOMITING, nausea/vomiting Review of Systems Constitutional: Constitutional: Reports no additional constitutional complaints, Denies chills, Denies fever(s) and Denies night sweats Eyes: Eyes: Reports no additional eye complaints, Denies blurry vision, Denies change in vision, Denies diplopia, Denies eye discharge, Denies loss of vision and Denies eye pain ENT: Denies dizziness Cardiovascular: Cardiovascular: Reports no additional cardiovascular complaints, Denies chest pain, Denies lightheadedness, Denies Loss of Consciousness and Denies dyspnea Respiratory: Respiratory: Reports no additional respiratory complaints, Reports cough, Reports pain with cough and Denies dyspnea Gastrointestinal: Gastrointestinal: Reports no additional gastrointestinal complaints, Denies abdominal pain, Denies melena, Denies hematochezia, Denies change in bowel habits and Denies change in stool character Genitourinary: Genitourinary: Denies hematuria, Denies urinary frequency, Denies dysuria, Denies urinary incontinence, Denies urinary hesitancy and Denies urinary urgency Musculoskeletal: Musculoskeletal: Reports no additional musculoskeletal complaints, Denies numbness and Denies tingling Neurologic: Denies dizziness, Denies loss of vision, Denies numbness and Denies tingling Psychiatric: Psychiatric: Reports no additional psychiatric complaints Endocrine: Endocrine: Reports no additional endocrine complaints Hematologic/Lymphatic: Hematologic/Lymphatic: Reports no additional hematologic/lymphatic complaints Allergic/Immunologic: Allergic/Immunologic: Reports no additional allergic/immunologic complaints [facility] Past Medical History Attestation statement: The following information was validated with the patient. Source: old records reviewed Surgical History History of angioplasty History of appendectomy History of section History of colonoscopy History of oophorectomy History of parathyroidectomy History of tonsillectomy Hx of cataract removal with insertion of prosthetic lens Family History Family History Father Throat cancer Mother No problems noted. Daughter Diabetes Son Arthritis CAD (coronary artery disease) Social History Social History Housing: House Alcohol intake: never Patient Tobacco Use Status: Current someday Tobacco user Tobacco use type: Cigarette Cigarettes Per Day: 2 Years Smoked: 30 e-Cigarette/Vaping Use: Never Used Advance Directives: No Advance Directives Information Provided: Yes service: No Current occupational status: retired Physical Exam ED Vital Signs: Vital Signs - 24 hr 08/06/21 08:33 08/06/21 08:59 08/06/21 09:10 Temperature 98 F Pulse Rate 46 L 57 Respiratory Rate 20 Blood Pressure 124/56 L Pulse Oximetry 92 98 Oxygen Delivery Method Room Air Room Air 08/06/21 10:06 Temperature Pulse Rate Respiratory Rate Blood Pressure Pulse Oximetry 91 L Oxygen Delivery Method Room Air BMI result Body Mass Index 25.4 Const General: cooperative, no acute distress, alert and awake Nutritional Appearance: well nourished Orientation/consciousness: patient oriented x3 Limitations: no limitations HENMT Head: Yes normal to inspection and Yes atraumatic Ears: hearing grossly normal bilaterally and external ears normal General nose exam: Normal external nose present, no nasal discharge noted and no epistaxis Face and sinus: Yes normal facial exam, No abrasion and No laceration Mouth: Normal oral and palatal mucosa present, no drooling and no muffled voice Eyes General: appearance normal, both eyes and all related structures Periorbital: periorbital findings normal Eyelids: Yes eyelids normal Conjunctivae: conjunctivae normal Pupils: Equal, round and reactive pupils present EOM: EOMs intact bilaterally Neck Neck: Yes normal visual inspection, Yes full ROM and Yes no lymphadenopathy Chest Chest palpation & inspection: normal inspection of the chest Resp Effort & Inspection: normal respiratory effort and able to speak in complete sentences Auscultation: diminished lung sounds bilateral Cardio Rate: bradycardic Rhythm: regular rhythm GI Inspection: Yes normal to inspection Neuro General: patient oriented x3 and moves all extremities Cranial nerves: Yes Equal, round and reactive pupils present Cognition (Neuro): normal cognition Motor exam (neuro): 5/5 motor strength present throughout Sensory Exam: Normal double simultaneous stimulation for sensation Coordination: [id number] test normal Extrem General: Yes normal to inspection, Yes full ROM and Yes capillary refill normal Psych Appearance: grossly normal Mental Status: mental status grossly normal Affect: normal affect Attitude: cooperative Thought process: Normal thought process present Thought content: Normal thought content present Insight: Good insight present (Psych) Medical Decision Making MDM Narrative Medical decision making narrative: Patient is a 80 year old female presenting to the emergency department today with a cough. Patient's physical exam showed diminished breath sounds bilaterally but was otherwise unremarkable. Patient's oxygen saturation was 98% at rest on room air and was as low as 91% when ambulating but never decreased past 91%. Patient's blood work was unremarkable. Patient's EKG was unremarkable. Patient's chest x-ray showed no acute process. Patient's rapid COVID-19 and influenza tests were negative. I did not suspect the patient to be septic or have any kind of sepsis emergency. I explained my physical exam findings as well as all test results to the patient. I answered all questions asked by the patient. Patient received IV Decadron and a duoneb treatment which she stated helped her symptoms significantly. I stressed the importance of the patient taking her medication as prescribed. I stressed the importance of the patient following up with her primary care provider. I stressed the importance of the patient returning to the emergency department immediately if her symptoms were to worsen or if she were to develop any dizziness, shortness of breath, difficulty breathing, chest pain, blurry vision, loss of vision, nausea, vomiting, abdominal pain, fever, chills, back pain, or any other complaints. Patient verbalized agreement and understanding with this treatment plan and discharge. Differential Diagnosis Differential Diagnosis: COPD Exacerbation Medical Records Medical records reviewed: Yes I reviewed the patient's medical records. Lab Data Lab results reviewed: Yes I reviewed the patient's lab results. Result diagrams: 08/06/21 09:05 08/06/21 09:05 Labs: Lab Results 08/06/21 08/06/21 08/06/21 Range/Units 09:05 09:05 09:05 WBC 9.0 (4.8-10.8) X10*3/uL RBC 4.41 (4.20-5.50) X10*6/uL Hgb 13.7 (12.0-16.0) g/dl Hct 40.1 (37.0-47.0) % MCV 90.9 (80.0-98.0) fL MCH 31.1 (27.0-33.0) pg MCHC 34.2 (31.0-35.0) g/dl RDW 12.5 (11.0-16.0) % Plt Count 196 D (160-400) X10*3/uL MPV 11.1 (9.4-12.3) fL Immature Gran % (Auto) 0.3 (0.0-0.4) % Neut % (Auto) 70.6 (45-73) % Lymph % (Auto) 17.3 L (20-40) % [place] % (Auto) 10.5 (2-11) % Eos % (Auto) 0.9 (0-4) % Baso % (Auto) 0.4 (0-2) % Lymph # (Auto) 1.6 (1.2-4.9) X10*3/uL [place] # (Auto) 1.0 (0.1-1.2) X10*3/uL Eos # (Auto) 0.1 (0.0-0.4) X10*3/uL Baso # (Auto) 0.0 (0.0-0.2) X10*3/uL Abs Immat Gran (auto) 0.03 (0.00-0.03) X10*3/uL Absolute Neuts (auto) 6.4 (2.0-8.3) x10*3/uL Absolute Nucleated RBC 0.000 (0.0-0.012) X10*3/uL Nucleated RBC % (auto) 0.0 (0.0-0.2) /100WBC D-Dimer High Sensitivty < 150 NG/ML VBG pH (7.32-7.43) VBG pCO2 mmHg VBG pO2 mmHg VBG HCO3 (22-26) mmol/L VBG O2 Saturation % VBG Base Excess mmol/L Sodium 141 (135-145) mmol/L Potassium 3.6 (3.3-5.1) mmol/L Chloride 103 (96-108) mmol/L Carbon Dioxide 29 (22-29) mmol/L Anion Gap 13 (12-20) BUN 18 H (9-16) mg/dL Creatinine 1.25 (0.5-1.4) mg/dL Estim Creat Clear Calc 29.2 Estimated GFR 41 Random Glucose 113 (60-115) mg/dL Calcium 8.5 D (8.4-10.2) mg/dL Total Bilirubin 0.5 (0.0-1.0) mg/dL AST 19 (5-31) U/L ALT 12 (0-31) U/L Alkaline Phosphatase 68 (39-117) U/L Troponin I High Sens (<3.5-17.0) ng/L B-Natriuretic Peptide (<100) pg/mL Total Protein 6.1 L (6.5-8.0) g/dL Albumin 3.6 (3.5-5.0) g/dL COVID-19 (GINO) (Negative) COVID-19 Clin Com Influenza Type A (YOON) (Negative) Influenza Type B (YOON) (Negative) Influenza A & B Note 08/06/21 08/06/21 08/06/21 Range/Units 09:05 09:06 09:06 WBC (4.8-10.8) X10*3/uL RBC (4.20-5.50) X10*6/uL Hgb (12.0-16.0) g/dl Hct (37.0-47.0) % MCV (80.0-98.0) fL MCH (27.0-33.0) pg MCHC (31.0-35.0) g/dl RDW (11.0-16.0) % Plt Count (160-400) X10*3/uL MPV (9.4-12.3) fL Immature Gran % (Auto) (0.0-0.4) % Neut % (Auto) (45-73) % Lymph % (Auto) (20-40) % [place] % (Auto) (2-11) % Eos % (Auto) (0-4) % Baso % (Auto) (0-2) % Lymph # (Auto) (1.2-4.9) X10*3/uL [place] # (Auto) (0.1-1.2) X10*3/uL Eos # (Auto) (0.0-0.4) X10*3/uL Baso # (Auto) (0.0-0.2) X10*3/uL Abs Immat Gran (auto) (0.00-0.03) X10*3/uL Absolute Neuts (auto) (2.0-8.3) x10*3/uL Absolute Nucleated RBC (0.0-0.012) X10*3/uL Nucleated RBC % (auto) (0.0-0.2) /100WBC D-Dimer High Sensitivty NG/ML VBG pH (7.32-7.43) VBG pCO2 mmHg VBG pO2 mmHg VBG HCO3 (22-26) mmol/L VBG O2 Saturation % VBG Base Excess mmol/L Sodium (135-145) mmol/L Potassium (3.3-5.1) mmol/L Chloride (96-108) mmol/L Carbon Dioxide (22-29) mmol/L Anion Gap (12-20) BUN (9-16) mg/dL Creatinine (0.5-1.4) mg/dL Estim Creat Clear Calc Estimated GFR Random Glucose (60-115) mg/dL Calcium (8.4-10.2) mg/dL Total Bilirubin (0.0-1.0) mg/dL AST (5-31) U/L ALT (0-31) U/L Alkaline Phosphatase (39-117) U/L Troponin I High Sens 12.0 (<3.5-17.0) ng/L B-Natriuretic Peptide 187 H (<100) pg/mL Total Protein (6.5-8.0) g/dL Albumin (3.5-5.0) g/dL COVID-19 (GINO) Negative (Negative) COVID-19 Clin Com See Note Influenza Type A (YOON) Negative (Negative) Influenza Type B (YOON) Negative (Negative) Influenza A & B Note See Note 08/06/21 Range/Units 09:12 WBC (4.8-10.8) X10*3/uL RBC (4.20-5.50) X10*6/uL Hgb (12.0-16.0) g/dl Hct (37.0-47.0) % MCV (80.0-98.0) fL MCH (27.0-33.0) pg MCHC (31.0-35.0) g/dl RDW (11.0-16.0) % Plt Count (160-400) X10*3/uL MPV (9.4-12.3) fL Immature Gran % (Auto) (0.0-0.4) % Neut % (Auto) (45-73) % Lymph % (Auto) (20-40) % [place] % (Auto) (2-11) % Eos % (Auto) (0-4) % Baso % (Auto) (0-2) % Lymph # (Auto) (1.2-4.9) X10*3/uL [place] # (Auto) (0.1-1.2) X10*3/uL Eos # (Auto) (0.0-0.4) X10*3/uL Baso # (Auto) (0.0-0.2) X10*3/uL Abs Immat Gran (auto) (0.00-0.03) X10*3/uL Absolute Neuts (auto) (2.0-8.3) x10*3/uL Absolute Nucleated RBC (0.0-0.012) X10*3/uL Nucleated RBC % (auto) (0.0-0.2) /100WBC D-Dimer High Sensitivty NG/ML VBG pH 7.43 (7.32-7.43) VBG pCO2 33 mmHg VBG pO2 54 mmHg VBG HCO3 22 (22-26) mmol/L VBG O2 Saturation 82.0 % VBG Base Excess -1.0 mmol/L Sodium (135-145) mmol/L Potassium (3.3-5.1) mmol/L Chloride (96-108) mmol/L Carbon Dioxide (22-29) mmol/L Anion Gap (12-20) BUN (9-16) mg/dL Creatinine (0.5-1.4) mg/dL Estim Creat Clear Calc Estimated GFR Random Glucose (60-115) mg/dL Calcium (8.4-10.2) mg/dL Total Bilirubin (0.0-1.0) mg/dL AST (5-31) U/L ALT (0-31) U/L Alkaline Phosphatase (39-117) U/L Troponin I High Sens (<3.5-17.0) ng/L B-Natriuretic Peptide (<100) pg/mL Total Protein (6.5-8.0) g/dL Albumin (3.5-5.0) g/dL COVID-19 (GINO) (Negative) COVID-19 Clin Com Influenza Type A (YOON) (Negative) Influenza Type B (YOON) (Negative) Influenza A & B Note Imaging Data Chest x-ray: Attestation: I personally reviewed and interpreted this imaging study as follows: My impression: No acute process. Radiologist's impression: EXAMINATION: XR CHEST CLINICAL INFORMATION: Shortness of breath, chest pain. COMPARISON: Most recent chest radiograph dated 04/21/2020. TECHNIQUE: 2 views of the chest were obtained. FINDINGS: Mild chronic interstitial prominence, unchanged. No new focal airspace consolidation. No pleural effusion or pneumothorax. Stable cardiomediastinal silhouette. No acute osseous abnormality. Stable, chronic compression deformity within the lower thoracic spine. XR/XR chest 2V IMPRESSION: No acute cardiopulmonary findings. Dictated By: Omega Wolfe MD Signed By: Electronically signed by Omega Wolfe MD 08/06/21 0951 ECG Data Attestation: I personally reviewed and interpreted this ECG as follows: Prior ECG tracings: available for review Interpretation: Vent. Rate : 047 BPM ? ? Atrial Rate : 047 BPM P-R Int : 136 ms? QRS Dur : 080 ms QT Int : 490 ms ? ? ? P-R-T Axes : 072 037 058 degrees QTc Int : 433 ms ? Sinus bradycardia with premature atrial complexes Possible left atrial enlargement Borderline ECG 08/06/2021 0829 Discharge Plan Discharge Clinical Impression: COPD exacerbation Patient Disposition: Home, Self-Care Instructions: COPD (Chronic Obstructive Pulmonary Disease) (ED) Additional Instructions: Follow up with your primary care provider. Return to the emergency department immediately if your symptoms worsen or if you develop any dizziness, shortness of breath, difficulty breathing, chest pain, blurry vision, loss of vision, nausea, vomiting, abdominal pain, fever, chills, back pain, or any other complaints. Prescriptions: New doxycycline hyclate 100 mg tablet 100 mg PO BID 7 Days Qty: 14 0RF prednisone 20 mg tablet 20 mg PO DAILY 12 Days Qty: 26 0RF Rx Instructions: Take 3 tablets for 5 days THEN; Take 2 tablets for 4 days THEN; Take 1 tablet for 3 days No Action albuterol sulfate 90 mcg/actuation HFA aerosol inhaler 2 puff inhalation Q6H PRN (Reason: for muscle spasm) Qty: 18 3RF carvedilol 12.5 mg tablet 12.5 mg PO BID Qty: 180 3RF pantoprazole 40 mg tablet,delayed release (DR/EC) 40 mg PO BID Qty: 180 3RF amlodipine 10 mg tablet 10 mg PO DAILY Qty: 90 3RF fluticasone propionate 50 mcg/actuation spray,suspension 1 spray intranasal BID 90 Days Qty: 3 1RF Rx Instructions: administer into each nostril losartan 25 mg tablet 25 mg PO QPM Qty: 90 1RF atorvastatin 80 mg tablet 80 mg PO DAILY Qty: 90 1RF azithromycin 250 mg tablet See Rx Instructions PO .COMPLEX Qty: 6 0RF Rx Instructions: For 250 mg dose pack: take 500 mg today (day 1), then 250 mg for 4 days (days 2-5) PO tramadol 50 mg tablet 50 mg PO TID PRN (Reason: pain) 30 Days Qty: 90 0RF Flovent HFA 110 mcg/actuation HFA aerosol inhaler 1 puff inhalation BID 30 Days Qty: 12 5RF (DME) SOFT CERVICAL COLLAR See Rx Instructions .Route .MEDSUPPLY Qty: 1 0RF Rx Instructions: As directed calcium carbonate-vitamin D3 [Calcium 600 + D(3)] 600 mg(1,500mg) -200 unit tablet 1 tab PO DAILY PreserVision AREDS-2 [id number] hb-[id number]-mg capsule 1 tab PO BID Rx Instructions: give with food (meal/snack) cetirizine [Zyrtec] 10 mg tablet 5 mg PO DAILY PRN coenzyme Q10 60 mg tablet 60 mg PO DAILY Prolia 60 mg/mL syringe 60 mg subcut [id number] docusate sodium [Colace] 100 mg capsule 100 mg PO BID nitroglycerin 0.4 mg tablet, sublingual 0.4 mg sublingual Q5M PRN Rx Instructions: do not exceed 3 doses per episode acetaminophen [Tylenol] 325 mg tablet 650 mg PO QID PRN Referrals: Wilian Crawford MD [Primary Care Provider] - Interventions: ED Discharge Assessment Last Done: 08/06/21 10:24 Discharge Date/Time: 08/06/21 10:26 Print Language: Japanese
[2021-08-06 08:59] VITALS: PULSE 57; O2SAT 9518
[2021-08-06] MEDS: Albuterol/Iprat 2.5/0.5MG 3 ML AMPUL.NEB INHALE (08:59)
[2021-08-06] MEDS: dexAMETHasone sod phosphate 10 MG/ML VIAL IVPUSH (09:06)
[2021-08-06 09:10] VITALS: O2SAT 98
[2021-08-06 09:12] LABS: MANUAL DIFF FLAG NO
[2021-08-06 09:15] LABS: Venous Blood Gas Refer to POC result
[2021-08-06 09:16] LABS: VBG HCO3 22 mmol/L (22-26); VBG pCO2 33 mmHg; VBG pH 7.43 (7.32-7.43); VBG pO2 54 mmHg
--- NOTE | 2021-08-06 09:18 | PC.NURSE ---
Pt comes in with complaints of cough, congestion and SOB which has been ongoing for a few days now, states at home covid test was negative. Pt is A&Ox3, lungs with rhonchi throughout, dry consistant hacking cough present, pt does admit to being a smoker but states she hasn't smoked in almost a week. IV established, medicated as per [facility] orders. Awaiting CXR at this time. Will continue to monitor.
[2021-08-06 09:20] LABS: Basophils Percent Auto 0.4 % (0-2); Eosinophils Absolute Auto 0.1 X10*3/uL (0.0-0.4); Eosinophils Percent Auto 0.9 % (0-4); Hematocrit 40.1 % (37.0-47.0); Hemoglobin 13.7 g/dl (12.0-16.0); Imm Gran Abs Auto 0.03 X10*3/uL (0.00-0.03); Imm Gran Pct Auto 0.3 % (0.0-0.4); Lymphocytes Absolute Auto 1.6 X10*3/uL (1.2-4.9); Lymphocytes Percent Auto 17.3 % (20-40); Mean Corpuscular HGB Conc 34.2 g/dl (31.0-35.0); Mean Corpuscular Hemoglobin 31.1 pg (27.0-33.0); Mean Corpuscular Volume 90.9 fL (80.0-98.0); Mean Platelet Volume 11.1 fL (9.4-12.3); Monocytes Percent Auto 10.5 % (2-11); Neutrophils Absolute Auto 6.4 x10*3/uL (2.0-8.3); Neutrophils Percent Auto 70.6 % (45-73); Platelet Count 196 X10*3/uL (160-400); Red Blood Count 4.41 X10*6/uL (4.20-5.50); Red Cell Distribution Width 12.5 % (11.0-16.0)
[2021-08-06 09:33] LABS: COVID-19 Test Negative (Negative); IDNOW Serial# 16C4AD1C; IDNOW Serial# 9DB6401D; Influenza A Negative (Negative); Influenza B2 Negative (Negative)
[2021-08-06 09:42] LABS: B Type Natriuretic Peptide 187 pg/mL (<100); D Dimer High Sensitivity < 150 NG/ML
[2021-08-06 09:55] LABS: Alanine Aminotransferase 12 U/L (0-31); Albumin Level 3.6 g/dL (3.5-5.0); Alkaline Phosphatase 68 U/L (39-117); Anion Gap 13 (12-20); Aspartate Amino Transferase 19 U/L (5-31); Bilirubin Total 0.5 mg/dL (0.0-1.0); Blood Urea Nitrogen 18 mg/dL (9-16); Calcium 8.5 mg/dL (8.4-10.2); Carbon Dioxide 29 mmol/L (22-29); Chloride 103 mmol/L (96-108); Creatinine Clr Calc Pharmacy 29.2; Estimated Glomerular Filt Rate 41; Glucose Random 113 mg/dL (60-115); Potassium 3.6 mmol/L (3.3-5.1); Sodium 141 mmol/L (135-145); Total Protein 6.1 g/dL (6.5-8.0)
[2021-08-06 10:06] VITALS: O2SAT 91
--- NOTE | 2021-08-06 10:06 | PC.NURSE ---
ambulated the pt with a pulse ox, started with oxygen at 93% on room air, dipped to 92% and 91% by the time we got back to bed, md leonel zaldivar rn
[2021-08-06 12:16] LABS: Adenovirus PCR Not Detected (Not Detect.); Bordetella parapertussis PCR Not Detected (Not Detect.); Bordetella pertussis PCR Not Detected (Not Detect.); Chlamydia pneumoniae PCR Not Detected (Not Detect.); Coronavirus 229E PCR Not Detected (Not Detect.); Coronavirus HKU1 PCR Not Detected (Not Detect.); Coronavirus NL63 PCR Not Detected (Not Detect.); Coronavirus OC43 PCR Not Detected (Not Detect.); Human metapneumovirus PCR Not Detected (Not Detect.); Influenza A PCR Not Detected (Not Detect.); Influenza B PCR Not Detected (Not Detect.); Mycoplasma pneumoniae PCR Not Detected (Not Detect.); Parainfluenza 1 PCR Not Detected (Not Detect.); Rhino/Enterovirus PCR Not Detected (Not Detect.); SARS-CoV-2 PCR Not Detected (Not Detect.)
[2021-08-06 12:17] LABS: Parainfluenza 2 PCR Detected (Not Detect.); Parainfluenza 3 PCR Not Detected (Not Detect.); Parainfluenza 4 PCR Not Detected (Not Detect.); RSV PCR Not Detected (Not Detect.)
== END 2021-08-06 10:26 | disposition home or self-care (01) ==
PROVIDERS: Physician Assistant Medical; Emergency Provider Student in an Organized Health Care Education/Training Program; PCP Internal Medicine
DX: J44.1 Chronic obstructive pulmonary disease with (acute) exacerbation (principal); R07.89 Other chest pain; R06.02 Shortness of breath; R05.9 Cough, unspecified; F17.210 Nicotine dependence, cigarettes, uncomplicated; Z20.822 Contact with and (suspected) exposure to COVID-19; Z79.899 Other long term (current) drug therapy; Z71.6 Tobacco abuse counseling
CPT/HCPCS: 36415; 71046; 80053; 82803; 83880; 84484; 85025; 85379; 87502; 87633; 87635; 93005; 94640; 96374; 99284; J1100

== ENCOUNTER 2021-08-23 08:23 | Outpatient (REF) | payer MEDICARE, OTHER, SELFPAY ==
[2021-08-23 09:45] LABS: Alanine Aminotransferase 13 U/L (0-31); Albumin Level 3.6 g/dL (3.5-5.0); Alkaline Phosphatase 66 U/L (39-117); Anion Gap 14 (12-20); Aspartate Amino Transferase 19 U/L (5-31); Bilirubin Total 0.7 mg/dL (0.0-1.0); Blood Urea Nitrogen 35 mg/dL (9-16); Calcium 10.4 mg/dL (8.4-10.2); Carbon Dioxide 32 mmol/L (22-29); Chloride 99 mmol/L (96-108); Cholesterol 164 mg/dL; Estimated Glomerular Filt Rate 22; Glucose Fasting 100 mg/dL (60-99); HDL Cholesterol 47 mg/dL; LDL Cholesterol Calculated 102 mg/dl; Potassium 3.9 mmol/L (3.3-5.1); Sodium 141 mmol/L (135-145); Triglycerides 75 mg/dL
[2021-08-23 09:58] LABS: Vitamin D 25-OH Total 60.2 ng/mL (>30)
== END 2021-08-23 08:24 | disposition home or self-care (01) ==
LOC: HO.LAB 08:23
PROVIDERS: PCP Internal Medicine; Visit Provider Internal Medicine
DX: E55.9 Vitamin D deficiency, unspecified (principal); E78.00 Pure hypercholesterolemia, unspecified; I10 Essential (primary) hypertension
CPT/HCPCS: 36415; 80053; 80061; 82306

== ENCOUNTER 2021-08-24 10:45 | Outpatient (REF) | payer MEDICARE, OTHER, SELFPAY ==
--- NOTE | ~2021-08-24 | XR_ITS ---
EXAMINATION: XR ABDOMEN COMPLETE CLINICAL INDICATION: Lower abdominal pain. COMPARISON: None TECHNIQUE: 2 views of the abdomen. FINDINGS: There is moderate stool seen throughout the colon without any significant distention. There is no free air or air-fluid levels. There is an L1 compression fracture with dense cement at the L2-L3 disc level. There is mild dextroscoliosis. No lytic process. XR/XR abdomen 3V IMPRESSION: Moderate constipation. No free air.
[2021-08-24 11:00] LABS: MANUAL DIFF FLAG NO
[2021-08-24 11:56] LABS: Basophils Absolute Auto 0.1 X10*3/uL (0.0-0.2); Basophils Percent Auto 0.8 % (0-2); Eosinophils Absolute Auto 0.4 X10*3/uL (0.0-0.4); Eosinophils Percent Auto 3.6 % (0-4); Hematocrit 37.7 % (37.0-47.0); Hemoglobin 12.6 g/dl (12.0-16.0); Imm Gran Abs Auto 0.03 X10*3/uL (0.00-0.03); Imm Gran Pct Auto 0.3 % (0.0-0.4); Lymphocytes Absolute Auto 1.4 X10*3/uL (1.2-4.9); Lymphocytes Percent Auto 13.5 % (20-40); Mean Corpuscular HGB Conc 33.4 g/dl (31.0-35.0); Mean Corpuscular Volume 92.6 fL (80.0-98.0); Mean Platelet Volume 11.6 fL (9.4-12.3); Monocytes Percent Auto 9.6 % (2-11); Neutrophils Absolute Auto 7.7 x10*3/uL (2.0-8.3); Neutrophils Percent Auto 72.2 % (45-73); Platelet Count 325 X10*3/uL (160-400); Red Blood Count 4.07 X10*6/uL (4.20-5.50); White Blood Count 10.7 X10*3/uL (4.8-10.8)
[2021-08-24 12:02] LABS: Appearance Urine CLEAR; Color Urine YELLOW; Glucose Urine UA NEG (NEG); Leukocyte Esterase Urine NEG (NEG); Nitrite Urine NEG (NEG); Specific Gravity - Urine 1.015 (1.005-1.025); Urine Blood NEG (NEG); Urine Ketones NEG (NEG); Urine Protein NEG (NEG-TRACE)
[2021-08-24 12:41] LABS: Erythrocyte Sedimentation Rate 38 MM/HR (0-20)
[2021-08-24 12:56] LABS: Lipase 5 U/L (8-78)
== END 2021-08-24 10:46 | disposition home or self-care (01) ==
LOC: HO.XRAY 10:45
PROVIDERS: PCP Internal Medicine; Visit Provider Internal Medicine
DX: R10.30 Lower abdominal pain, unspecified (principal); K62.5 Hemorrhage of anus and rectum; I10 Essential (primary) hypertension
CPT/HCPCS: 36415; 74021; 81003; 83690; 85025; 85652

== ENCOUNTER 2021-10-14 13:07 | Emergency (ER) | payer MEDICARE, OTHER, SELFPAY ==
--- NOTE | ~2021-10-14 | XR_ITS ---
EXAMINATION: XR CHEST CLINICAL INFORMATION: Chest pain. Covid positive. COMPARISON: 08/06/2021 TECHNIQUE: Frontal view of the chest was obtained. FINDINGS: The lungs are well expanded. There is no focal consolidation, edema, or effusion. No pneumothorax. The cardiomediastinal silhouette is within normal limits. No acute osseous abnormality. XR/XR chest 1V IMPRESSION: No acute pulmonary finding.
--- NOTE | 2021-10-14 13:13 | ECG_ITS ---
Test Reason : CHEST PAIN Blood Pressure : / mmHG Vent. Rate : 048 BPM Atrial Rate : 048 BPM P-R Int : 140 ms QRS Dur : 080 ms QT Int : 468 ms P-R-T Axes : 062 015 029 degrees QTc Int : 418 ms Sinus bradycardia Otherwise normal ECG When compared with ECG of 06-AUG-2021 08:29, Premature atrial complexes are no longer Present Referred By: Generic ED Physician Electronically Signed By:JOAN EUGENE
[2021-10-14 13:14] VITALS: BP 138/71; PULSE 49; RESP 16; TEMP 37; O2SAT 97; BMI 24.5
[2021-10-14 13:40] LABS: MANUAL DIFF FLAG NO
[2021-10-14 13:43] LABS: Basophils Absolute Auto 0.1 X10*3/uL (0.0-0.2); Basophils Percent Auto 0.7 % (0-2); Eosinophils Absolute Auto 0.4 X10*3/uL (0.0-0.4); Eosinophils Percent Auto 4.9 % (0-4); Hematocrit 43.4 % (37.0-47.0); Imm Gran Abs Auto 0.01 X10*3/uL (0.00-0.03); Imm Gran Pct Auto 0.1 % (0.0-0.4); Lymphocytes Percent Auto 27.6 % (20-40); Mean Corpuscular HGB Conc 34.6 g/dl (31.0-35.0); Mean Corpuscular Hemoglobin 30.8 pg (27.0-33.0); Mean Corpuscular Volume 89.1 fL (80.0-98.0); Mean Platelet Volume 10.7 fL (9.4-12.3); Monocytes Absolute Auto 0.6 X10*3/uL (0.1-1.2); Monocytes Percent Auto 7.7 % (2-11); Neutrophils Absolute Auto 4.4 x10*3/uL (2.0-8.3); Platelet Count 297 X10*3/uL (160-400); Red Blood Count 4.87 X10*6/uL (4.20-5.50); Red Cell Distribution Width 12.4 % (11.0-16.0); White Blood Count 7.4 X10*3/uL (4.8-10.8)
[2021-10-14 13:50] LABS: COVID-19 Test Positive (Negative); IDNOW Serial# 16C4AD1C
[2021-10-14 14:00] LABS: Lactic Acid 1.1 mmol/L (0.5-2.0)
[2021-10-14 14:01] LABS: Influenza A Negative (Negative); Influenza B2 Negative (Negative)
[2021-10-14 14:02] LABS: Anion Gap 15 (12-20); Blood Urea Nitrogen 18 mg/dL (9-16); Calcium 9.4 mg/dL (8.4-10.2); Carbon Dioxide 29 mmol/L (22-29); Chloride 101 mmol/L (96-108); Creatinine Clr Calc Pharmacy 34.5; Estimated Glomerular Filt Rate 48; Glucose Random 104 mg/dL (60-115); Potassium 3.6 mmol/L (3.3-5.1); Sodium 141 mmol/L (135-145)
--- NOTE | 2021-10-14 14:46 | ED.CHESTPAIN ---
HPI - Chest Pain General Chief Complaint: Chest Pain Stated Complaint: chest pain cough Time Seen by Provider: 10/14/21 14:43 Source: patient Mode of arrival: ambulatory Limitations: no limitations History of Present Illness HPI narrative: 80 yo female with PMH of bradycardia, CKD, GERD, chronic back pain, CAD, HLD vaccinated for COVID x 3 here with c/o URI symptoms runny nose and cough x 9 days with positive home test last . She came to the ED today because she has increased chest congestion, still feels sick and short of breath, not sleeping due to cough. MD complaint: other (cough, shortness of breath, chest congestion) Pertinent past history: other (COPD) Onset (ago): day(s) (9) Timing of current episode: episodic Prior episodes: Yes Onset: during rest and during exertion Pain location: other (not really pain it is chest tightness and some discomfort with cough) Pain radiation: none Severity: mild Quality: tightness Relieving factors: nothing Exacerbating factors: other (cough) Context: recent illness Associated symptoms: dyspnea and cough Treatment prior to arrival: none Related Data Home Medications Medication Instructions Recorded Confirmed acetaminophen 325 mg tablet 650 mg PO QID PRN 11/28/19 08/24/21 (Tylenol) calcium carbonate 600 mg-vitamin 1 tab PO DAILY 11/28/19 08/24/21 D3 5 mcg (200 unit) tablet (Calcium 600 + D(3)) cetirizine 10 mg tablet (Zyrtec) 5 mg PO DAILY PRN 11/28/19 08/24/21 coenzyme Q10 60 mg tablet 60 mg PO DAILY 11/28/19 08/24/21 denosumab 60 mg/mL subcutaneous 60 mg subcut [id number] 11/28/19 08/24/21 syringe (Prolia) docusate sodium 100 mg capsule 100 mg PO BID 11/28/19 08/24/21 (Colace) nitroglycerin 0.4 mg sublingual 0.4 mg sublingual Q5M PRN 11/28/19 08/24/21 tablet vit C 250 mg-vit E 90 mg-zinc 40 1 tab PO BID 11/28/19 08/24/21 mg-copper 1 [id number] capsule (PreserVision AREDS-2) Previous Rx's Medication Instructions Recorded fluticasone propionate 110 1 puff inhalation BID 30 days #12 08/03/20 mcg/actuation HFA aerosol inhaler grams (Flovent HFA) albuterol sulfate 90 mcg/actuation 2 puff inhalation Q6H PRN for 11/22/20 aerosol inhaler muscle spasm #18 ea amlodipine 10 mg tablet 10 mg PO DAILY #90 tabs 11/26/20 carvedilol 12.5 mg tablet 12.5 mg PO BID #180 tabs 11/26/20 pantoprazole 40 mg tablet,delayed 40 mg PO BID #180 tabs 11/26/20 release fluticasone propionate 50 1 spray intranasal BID 90 days #3 12/06/20 mcg/actuation nasal ea spray,suspension losartan 25 mg tablet 25 mg PO QPM #90 tabs 04/05/21 atorvastatin 80 mg tablet 80 mg PO DAILY #90 tabs 04/28/21 SOFT CERVICAL COLLAR #1 ea 05/04/21 azithromycin 250 mg tablet See Rx Instructions PO .COMPLEX #6 06/13/21 tabs doxycycline hyclate 100 mg tablet 100 mg PO BID 7 days #14 tabs 08/06/21 prednisone 20 mg tablet 20 mg PO DAILY 12 days #26 tabs 08/06/21 tramadol 50 mg tablet 50 mg PO TID PRN pain 30 days #90 09/12/21 tabs azithromycin 250 mg tablet See Rx Instructions PO .COMPLEX #6 10/14/21 tabs hydrocodone-homatropine 5 mg-1.5 5 ml PO Q6H PRN cough #60 mL 10/14/21 mg/5 mL (5 mL) oral syrup prednisone 20 mg tablet 20 mg PO DAILY 5 days #5 tabs 10/14/21 Allergies Allergy/AdvReac Type Severity Reaction Status Date / Time lisinopril Allergy Unknown Unknown Verified 08/24/21 09:55 alendronate sodium [Fosamax] AdvReac Intermediate jaw pain Verified 08/24/21 09:55 aspirin AdvReac Intermediate unable to Verified 08/24/21 09:55 tolerate higher doses-stomach ulcer (low dose ok) carbamazepine [From TEGRETOL] AdvReac Intermediate NAUSEA & Verified 08/24/21 09:55 VOMITING, HEADACHE gabapentin AdvReac Intermediate dizziness Verified 08/24/21 09:55 ibuprofen AdvReac Intermediate Nausea and Verified 08/24/21 09:55 Vomiting lidocaine [From Lidoderm] AdvReac Intermediate burning Verified 08/24/21 09:55 from patch NSAIDS (Non-Steroidal AdvReac Intermediate NAUSEA & Verified 08/24/21 09:55 Anti-Inflamma VOMITING, [NSAIDS (NON-STEROIDAL HX ULCER ANTI-INFLAMMA] codeine [CODEINE] AdvReac Unknown NAUSEA & Verified 08/24/21 09:55 VOMITING, nausea/vomiting Review of Systems Review of Systems: Constitutional : No Fever, No Chills ENT/Mouth : No sore throat, pos Rhinorrhea, No Swallowing Difficulty Eyes: No Eye Pain, No Swelling, No Redness Cardiovascular : No Chest Pain, positive SOB, No Orthopnea, no Edema Respiratory : pos Cough, pos Sputum, No Wheezing, positive dyspnea Gastrointestinal : No Nausea, No Vomiting, No Diarrhea, No abdominal Pain, No Hematochezia, No Melena Genitourinary : No Dysuria, No Urinary Frequency, No Hematuria Musculoskeletal : No joint pain, No Myalgias Skin : No Skin Lesions, No rash Neuro : No Weakness, No Numbness, No Dizziness, No Headache Psych : No Anxiety/Panic, No Depression Heme/Lymph: No Bruising, No Lymphadenopathy Endocrine : No Polyuria, No Polydipsia All other systems reviewed and are negative PMFSH Past Medical History Attestation statement: The following information was validated with the patient. Medical History Allergic rhinitis Benign essential hypertension Cervical spondylosis without myelopathy Chronic kidney disease (CKD), stage III (moderate) Chronic kidney disease, stage 4 (severe) Compression fracture of L1 lumbar vertebra COPD (chronic obstructive pulmonary disease) Coronary artery disease Exertional dyspnea GERD (gastroesophageal reflux disease) Overactive bladder Pure hypercholesterolemia Screening for breast cancer Surgical History History of angioplasty History of appendectomy History of section History of colonoscopy History of oophorectomy History of parathyroidectomy History of tonsillectomy Hx of cataract removal with insertion of prosthetic lens Family History Family History Father Throat cancer Mother No problems noted. Daughter Diabetes Son Arthritis CAD (coronary artery disease) Social History Social History Housing: House Alcohol intake: never Patient Tobacco Use Status: Current someday Tobacco user Tobacco use type: Cigarette Cigarettes Per Day: 2 Years Smoked: 30 e-Cigarette/Vaping Use: Never Used Advance Directives: No Advance Directives Information Provided: No service: No Current occupational status: retired Cognitive needs: No Hearing needs: No Vision needs: No Physical Exam Vital Signs: Vital Signs: Last Vital Signs Temp 98.6 F 10/14/21 13:14 Pulse 46 L 10/14/21 14:47 Resp 16 10/14/21 14:47 BP 157/71 H 10/14/21 14:47 Pulse Ox 98 10/14/21 14:47 O2 Del Method 10/14/21 14:47 BMI result Body Mass Index 24.5 Appearance: Alert. Oriented X3. No acute distress. Eyes: Pupils equal, round and reactive to light. ENT: Pharynx normal. Neck: Normal inspection. Neck supple. CVS: Normal heart rate and rhythm. Pulses normal. Respiratory: No respiratory distress. Breath sounds slightly coarse with posterior mild exp wheeze noted. Abdomen: Soft and non-tender. Skin: Skin warm and dry. Normal skin color. Normal skin turgor. Extremities: No lower extremity edema. No calf ttp Neuro: Oriented X 3. No motor deficit. No sensory deficit. Course Course Course Narrative: ddimer negative stable for DC CXR clear no hypoxia stable for DC MDM - Chest Pain MDM Narrative Medical decision making narrative: 80 yo female with PMH of bradycardia, CKD, GERD, chronic back pain, CAD, HLD vaccinated for COVID x 3 here with c/o cough, sputum production, runny nose with symptoms x 9 days - out of window for treatment. EKG trop ddimer and CXR ordered. Not toxic, no hypoxia. Will start on zpak, steroids, give INH and anti tussive. Overall not toxic appearing Lab Data Result diagrams: 10/14/21 13:33 10/14/21 13:33 Labs: Lab Results 10/14/21 10/14/21 10/14/21 Range/Units 13:33 13:33 13:33 WBC 7.4 (4.8-10.8) X10*3/uL RBC 4.87 (4.20-5.50) X10*6/uL Hgb 15.0 (12.0-16.0) g/dl Hct 43.4 (37.0-47.0) % MCV 89.1 (80.0-98.0) fL MCH 30.8 (27.0-33.0) pg MCHC 34.6 (31.0-35.0) g/dl RDW 12.4 (11.0-16.0) % Plt Count 297 (160-400) X10*3/uL MPV 10.7 (9.4-12.3) fL Immature Gran % (Auto) 0.1 (0.0-0.4) % Neut % (Auto) 59.0 (45-73) % Lymph % (Auto) 27.6 (20-40) % [place] % (Auto) 7.7 (2-11) % Eos % (Auto) 4.9 H (0-4) % Baso % (Auto) 0.7 (0-2) % Lymph # (Auto) 2.0 (1.2-4.9) X10*3/uL [place] # (Auto) 0.6 (0.1-1.2) X10*3/uL Eos # (Auto) 0.4 (0.0-0.4) X10*3/uL Baso # (Auto) 0.1 (0.0-0.2) X10*3/uL Abs Immat Gran (auto) 0.01 (0.00-0.03) X10*3/uL Absolute Neuts (auto) 4.4 (2.0-8.3) x10*3/uL Absolute Nucleated RBC 0.000 (0.0-0.012) X10*3/uL Nucleated RBC % (auto) 0.0 (0.0-0.2) /100WBC D-Dimer High Sensitivty NG/ML Sodium 141 (135-145) mmol/L Potassium 3.6 (3.3-5.1) mmol/L Chloride 101 (96-108) mmol/L Carbon Dioxide 29 (22-29) mmol/L Anion Gap 15 (12-20) BUN 18 H (9-16) mg/dL Creatinine 1.09 (0.5-1.4) mg/dL Estim Creat Clear Calc 34.5 Estimated GFR 48 Random Glucose 104 (60-115) mg/dL Lactic Acid (0.5-2.0) mmol/L Calcium 9.4 D (8.4-10.2) mg/dL Troponin I High Sens 8.0 (<3.5-17.0) ng/L COVID-19 (GINO) (Negative) COVID-19 Clin Com Influenza Type A (YOON) (Negative) Influenza Type B (YOON) (Negative) Influenza A & B Note 10/14/21 10/14/21 10/14/21 Range/Units 13:33 13:33 13:33 WBC (4.8-10.8) X10*3/uL RBC (4.20-5.50) X10*6/uL Hgb (12.0-16.0) g/dl Hct (37.0-47.0) % MCV (80.0-98.0) fL MCH (27.0-33.0) pg MCHC (31.0-35.0) g/dl RDW (11.0-16.0) % Plt Count (160-400) X10*3/uL MPV (9.4-12.3) fL Immature Gran % (Auto) (0.0-0.4) % Neut % (Auto) (45-73) % Lymph % (Auto) (20-40) % [place] % (Auto) (2-11) % Eos % (Auto) (0-4) % Baso % (Auto) (0-2) % Lymph # (Auto) (1.2-4.9) X10*3/uL [place] # (Auto) (0.1-1.2) X10*3/uL Eos # (Auto) (0.0-0.4) X10*3/uL Baso # (Auto) (0.0-0.2) X10*3/uL Abs Immat Gran (auto) (0.00-0.03) X10*3/uL Absolute Neuts (auto) (2.0-8.3) x10*3/uL Absolute Nucleated RBC (0.0-0.012) X10*3/uL Nucleated RBC % (auto) (0.0-0.2) /100WBC D-Dimer High Sensitivty NG/ML Sodium (135-145) mmol/L Potassium (3.3-5.1) mmol/L Chloride (96-108) mmol/L Carbon Dioxide (22-29) mmol/L Anion Gap (12-20) BUN (9-16) mg/dL Creatinine (0.5-1.4) mg/dL Estim Creat Clear Calc Estimated GFR Random Glucose (60-115) mg/dL Lactic Acid 1.1 (0.5-2.0) mmol/L Calcium (8.4-10.2) mg/dL Troponin I High Sens (<3.5-17.0) ng/L COVID-19 (GINO) Positive A (Negative) COVID-19 Clin Com See Note Influenza Type A (YOON) Negative (Negative) Influenza Type B (YOON) Negative (Negative) Influenza A & B Note See Note 10/14/21 Range/Units 15:29 WBC (4.8-10.8) X10*3/uL RBC (4.20-5.50) X10*6/uL Hgb (12.0-16.0) g/dl Hct (37.0-47.0) % MCV (80.0-98.0) fL MCH (27.0-33.0) pg MCHC (31.0-35.0) g/dl RDW (11.0-16.0) % Plt Count (160-400) X10*3/uL MPV (9.4-12.3) fL Immature Gran % (Auto) (0.0-0.4) % Neut % (Auto) (45-73) % Lymph % (Auto) (20-40) % [place] % (Auto) (2-11) % Eos % (Auto) (0-4) % Baso % (Auto) (0-2) % Lymph # (Auto) (1.2-4.9) X10*3/uL [place] # (Auto) (0.1-1.2) X10*3/uL Eos # (Auto) (0.0-0.4) X10*3/uL Baso # (Auto) (0.0-0.2) X10*3/uL Abs Immat Gran (auto) (0.00-0.03) X10*3/uL Absolute Neuts (auto) (2.0-8.3) x10*3/uL Absolute Nucleated RBC (0.0-0.012) X10*3/uL Nucleated RBC % (auto) (0.0-0.2) /100WBC D-Dimer High Sensitivty 159 NG/ML Sodium (135-145) mmol/L Potassium (3.3-5.1) mmol/L Chloride (96-108) mmol/L Carbon Dioxide (22-29) mmol/L Anion Gap (12-20) BUN (9-16) mg/dL Creatinine (0.5-1.4) mg/dL Estim Creat Clear Calc Estimated GFR Random Glucose (60-115) mg/dL Lactic Acid (0.5-2.0) mmol/L Calcium (8.4-10.2) mg/dL Troponin I High Sens (<3.5-17.0) ng/L COVID-19 (GINO) (Negative) COVID-19 Clin Com Influenza Type A (YOON) (Negative) Influenza Type B (YOON) (Negative) Influenza A & B Note ECG Data ECG #1: Attestation: I personally reviewed and interpreted this ECG as follows: ECG interpretation date: 10/14/21 ECG interpretation time: 14:47 Interpretation: Rate: 48 Rhythm: sinus bradycardia [place]: normal Normal P waves. Normal DANNY. Normal QRS complex. ST T wave : normal no MIREYA qTC: normal prior studies: no acute ischemia The study has been interpreted contemporaneously by me. . Discharge Plan Discharge Clinical Impression: COVID-19, Bronchitis Patient Disposition: Home, Self-Care Instructions: Acute Bronchitis (ED), COVID-19 (Coronavirus Disease 2019) (ED) Additional Instructions: return to ED for any worsening symptoms or concerns your chest xray, heart markers and blood clot test were all normal you can use the rescue INHALER 2 puffs every 4 hours for cough or wheezing Prescriptions: New azithromycin 250 mg tablet See Rx Instructions .ROUTE .COMPLEX Qty: 6 0RF Rx Instructions: For 250 mg dose pack: take 500 mg today (day 1), then 250 mg for 4 days (days 2-5) prednisone 20 mg tablet 20 mg PO DAILY 5 Days Qty: 5 0RF hydrocodone-homatropine 5-1.5 mg/5 mL (5 mL) syrup 5 ml PO Q6H PRN (Reason: cough) Qty: 60 0RF Rx Instructions: Partial Fill upon patient request. No Action albuterol sulfate 90 mcg/actuation HFA aerosol inhaler 2 puff inhalation Q6H PRN (Reason: for muscle spasm) Qty: 18 3RF carvedilol 12.5 mg tablet 12.5 mg PO BID Qty: 180 3RF pantoprazole 40 mg tablet,delayed release (DR/EC) 40 mg PO BID Qty: 180 3RF amlodipine 10 mg tablet 10 mg PO DAILY Qty: 90 3RF fluticasone propionate 50 mcg/actuation spray,suspension 1 spray intranasal BID 90 Days Qty: 3 1RF Rx Instructions: administer into each nostril losartan 25 mg tablet 25 mg PO QPM Qty: 90 1RF atorvastatin 80 mg tablet 80 mg PO DAILY Qty: 90 1RF azithromycin 250 mg tablet See Rx Instructions PO .COMPLEX Qty: 6 0RF Rx Instructions: For 250 mg dose pack: take 500 mg today (day 1), then 250 mg for 4 days (days 2-5) PO tramadol 50 mg tablet 50 mg PO TID PRN (Reason: pain) 30 Days Qty: 90 0RF doxycycline hyclate 100 mg tablet 100 mg PO BID 7 Days Qty: 14 0RF prednisone 20 mg tablet 20 mg PO DAILY 12 Days Qty: 26 0RF Rx Instructions: Take 3 tablets for 5 days THEN; Take 2 tablets for 4 days THEN; Take 1 tablet for 3 days Flovent HFA 110 mcg/actuation HFA aerosol inhaler 1 puff inhalation BID 30 Days Qty: 12 5RF (DME) SOFT CERVICAL COLLAR See Rx Instructions .Route .MEDSUPPLY Qty: 1 0RF Rx Instructions: As directed calcium carbonate-vitamin D3 [Calcium 600 + D(3)] 600 mg(1,500mg) -200 unit tablet 1 tab PO DAILY PreserVision AREDS-2 [id number]-mg capsule 1 tab PO BID Rx Instructions: give with food (meal/snack) cetirizine [Zyrtec] 10 mg tablet 5 mg PO DAILY PRN coenzyme Q10 60 mg tablet 60 mg PO DAILY Prolia 60 mg/mL syringe 60 mg subcut [id number] docusate sodium [Colace] 100 mg capsule 100 mg PO BID nitroglycerin 0.4 mg tablet, sublingual 0.4 mg sublingual Q5M PRN Rx Instructions: do not exceed 3 doses per episode acetaminophen [Tylenol] 325 mg tablet 650 mg PO QID PRN
[2021-10-14 14:47] VITALS: BP 157/71; PULSE 46; RESP 16; O2SAT 98
[2021-10-14] MEDS: Albuterol Sulfate 90 MCG 8 GM INHALER 2 PUFF INHALE (15:22)
[2021-10-14] MEDS: HYDROcodone/Homat 5/1.5/5 ML 5 ML SYRUP PO (15:22)
[2021-10-14] MEDS: Ondansetron ODT 4 MG TAB.RAPDIS TRANSLINGU (15:23)
[2021-10-14 15:47] LABS: D Dimer High Sensitivity 159 NG/ML
== END 2021-10-14 16:29 | disposition home or self-care (01) ==
PROVIDERS: Emergency Provider Emergency Medicine; PCP Internal Medicine
DX: U07.1 COVID-19 (principal); J40 Bronchitis, not specified as acute or chronic; R07.89 Other chest pain; R05.9 Cough, unspecified; F17.210 Nicotine dependence, cigarettes, uncomplicated; Z79.899 Other long term (current) drug therapy; Z71.6 Tobacco abuse counseling
CPT/HCPCS: 36415; 71045; 80048; 83605; 84484; 85025; 85379; 87040; 87502; 87635; 93005; 99284

== ENCOUNTER 2021-11-26 08:46 | Outpatient (REF) | payer MEDICARE, OTHER, SELFPAY ==
[2021-11-26 09:47] LABS: Alanine Aminotransferase 25 U/L (0-31); Albumin Level 4.2 g/dL (3.5-5.0); Alkaline Phosphatase 84 U/L (39-117); Anion Gap 16 (12-20); Aspartate Amino Transferase 28 U/L (5-31); Bilirubin Total 0.6 mg/dL (0.0-1.0); Blood Urea Nitrogen 21 mg/dL (9-16); Calcium 9.8 mg/dL (8.4-10.2); Carbon Dioxide 32 mmol/L (22-29); Chloride 99 mmol/L (96-108); Estimated Glomerular Filt Rate 39; Glucose Random 104 mg/dL (60-115); Potassium 3.7 mmol/L (3.3-5.1); Sodium 143 mmol/L (135-145); Total Protein 6.5 g/dL (6.5-8.0)
[2021-11-26 10:11] LABS: Vitamin D 25-OH Total 68.6 ng/mL (>30)
== END 2021-11-26 08:47 | disposition home or self-care (01) ==
LOC: HO.LAB 08:46
PROVIDERS: Visit Provider Nurse Practitioner Family
DX: M81.0 Age-related osteoporosis without current pathological fracture (principal)
CPT/HCPCS: 36415; 80053; 82306

== ENCOUNTER → 2021-11-29 09:21 | Outpatient (BNVA) | payer MEDICARE, OTHER, SELFPAY | PROVIDERS: PCP Internal Medicine; Visit Provider Nurse Practitioner Family | DX: M81.0 Age-related osteoporosis without current pathological fracture (principal) | CPT/HCPCS: 96372; 99212; J0897 ==

== ENCOUNTER 2021-12-22 10:40 | Outpatient (REF) | payer MEDICARE, OTHER, SELFPAY ==
--- NOTE | ~2021-12-22 | MM_ITS ---
EXAMINATION: BONE DENSITOMETRY CLINICAL INDICATION: Osteoporosis. COMPARISON: Previous BD dated 08/05/2019 and baseline BD dated 04/05/2006. TECHNIQUE: Using a [employer] DXA System (software version: 13.1) manufactured by [employer], dual-energy x-ray absorptiometry was performed of the lumbar spine and left hip. The images are of good technical quality. Summary results are attached. FINDINGS: AP SPINE L1-L4 (excluding L3): The data of L1-L4 has been changed to exclude the L3 vertebral body, because prior compression fracture with subsequent vertebral augmentation at this level may cause overestimation of lumbar spine density. Current: BMD 1.112 g/cm2, Z-score 1.6, T-score -0.5, normal, 4.6% increase from previous, 42.4% increase from baseline (<5% change is not significant). Prior: BMD 1.063 g/cm2. Baseline: BMD 0.781 g/cm2. LEFT FEMUR, NECK: Current: BMD 0.709 g/cm2, Z-score -0.1, T-score -2.4, osteopenia. Prior: BMD 0.659 g/cm2. Baseline: BMD 0.583 g/cm2. LEFT FEMUR, TOTAL: Current: BMD 0.727 g/cm2, Z-score -0.1, T-score -2.2, osteopenia, 2.8% increase from previous, 13.8% increase from baseline (<5% change is not significant). Prior: BMD 0.707 g/cm2. Baseline: BMD 0.639 g/cm2. IDENTIFIED RISK FACTORS: Menopause, height loss, history of fracture (adult), osteoporosis, renal, rheumatoid arthritis, right oophorectomy. HISTORY OF FRACTURE: Spine. MEDICATIONS: Calcium supplements or multivitamin, vitamin D, Prolia. MM/XR DEXA axial skeleton IMPRESSION: 1. DIAGNOSIS: Osteopenia based on the lowest T-score value of -2.4 in the femoral neck applying World Health Organization criteria. 2. 10-YEAR FRACTURE RISK PREDICTION, FRAX: Not performed in this patient on estrogen or bone building treatments. 3. Treatment Recommendations: NOF guidelines recommend consideration for treatment in postmenopausal women and men age 50 and older presenting with the following: -A hip or vertebral (clinical or morphometric) fracture. -T-score less than or equal to -2.5 at the femoral neck or spine after appropriate evaluation to exclude secondary causes. -Low bone mass at the hip or spine and a 10-year fracture probability by FRAX of greater than or equal to 3% for hip fracture or greater than or equal to 20% for major osteoporotic fracture based on the [place] adapted WHO algorithm. 4. Other Recommendations: All treatment decisions require clinical judgment and consideration of individual patient factors, including patient preferences, comorbidities, previous drug use, risk factors not captured in the FRAX model (e.g. frailty, falls, vitamin D deficiency, increased bone turnover, interval significant decline in bone density) and possible under or overestimation of fracture risk by FRAX. Additional medical evaluation for secondary cause of low bone mineral density may be appropriate. FUTURE SCAN RECOMMENDATION: People with diagnosed cases of osteoporosis or at high risk for fracture should have regular bone mineral density tests. For patients eligible for Medicare, routine testing is allowed once every 2 years. The testing frequency can be increased to one year for patients who have rapidly progressing disease, those who are receiving or discontinuing medical therapy to restore bone mass, or have additional risk factors.
== END 2021-12-22 10:41 | disposition home or self-care (01) ==
LOC: HO.MAMMO 10:40
PROVIDERS: PCP Internal Medicine; Visit Provider Nurse Practitioner Family
DX: Z13.820 Encounter for screening for osteoporosis (principal); Z78.0 Asymptomatic menopausal state
CPT/HCPCS: 77080

== ENCOUNTER 2021-12-30 07:46 | Outpatient (REF) | payer MEDICARE, OTHER, SELFPAY ==
[2021-12-30 07:58] LABS: MANUAL DIFF FLAG NO
[2021-12-30 08:23] LABS: Basophils Absolute Auto 0.1 X10*3/uL (0.0-0.2); Basophils Percent Auto 1.9 % (0-2); Eosinophils Absolute Auto 0.4 X10*3/uL (0.0-0.4); Eosinophils Percent Auto 5.5 % (0-4); Hemoglobin 14.1 g/dl (12.0-16.0); Imm Gran Abs Auto 0.02 X10*3/uL (0.00-0.03); Imm Gran Pct Auto 0.3 % (0.0-0.4); Lymphocytes Absolute Auto 1.6 X10*3/uL (1.2-4.9); Lymphocytes Percent Auto 23.4 % (20-40); Mean Corpuscular HGB Conc 33.6 g/dl (31.0-35.0); Mean Corpuscular Hemoglobin 31.3 pg (27.0-33.0); Mean Corpuscular Volume 93.1 fL (80.0-98.0); Mean Platelet Volume 10.9 fL (9.4-12.3); Monocytes Absolute Auto 0.5 X10*3/uL (0.1-1.2); Monocytes Percent Auto 7.5 % (2-11); Neutrophils Absolute Auto 4.1 x10*3/uL (2.0-8.3); Neutrophils Percent Auto 61.4 % (45-73); Platelet Count 396 X10*3/uL (160-400); Red Blood Count 4.51 X10*6/uL (4.20-5.50); Red Cell Distribution Width 12.5 % (11.0-16.0); White Blood Count 6.7 X10*3/uL (4.8-10.8)
[2021-12-30 08:52] LABS: Alanine Aminotransferase 13 U/L (0-31); Albumin Level 3.7 g/dL (3.5-5.0); Alkaline Phosphatase 86 U/L (39-117); Anion Gap 15 (12-20); Aspartate Amino Transferase 19 U/L (5-31); Bilirubin Total 0.7 mg/dL (0.0-1.0); Blood Urea Nitrogen 13 mg/dL (9-16); Calcium 9.7 mg/dL (8.4-10.2); Carbon Dioxide 30 mmol/L (22-29); Chloride 102 mmol/L (96-108); Cholesterol 149 mg/dL; Estimated Glomerular Filt Rate 55; Glucose Fasting 97 mg/dL (60-99); HDL Cholesterol 43 mg/dL; LDL Cholesterol Calculated 90 mg/dl; Potassium 4.1 mmol/L (3.3-5.1); Sodium 143 mmol/L (135-145); Total Protein 6.2 g/dL (6.5-8.0); Triglycerides 83 mg/dL
[2021-12-30 09:20] LABS: TSH reflex Free T4 1.32 uIU/mL (0.32-4.0)
[2021-12-30 10:34] LABS: Appearance Urine Clear; Color Urine Yellow; Glucose Urine UA Negative (Negative); Leukocyte Esterase Urine Negative (Negative); Nitrite Urine Negative (Negative); Urine Blood Negative (Negative); Urine Ketones Negative (Negative); Urine Protein Negative (Neg-Trace)
[2021-12-30 12:43] LABS: Vitamin D 25-OH Total 66.9 ng/mL (>30)
== END 2021-12-30 07:47 | disposition home or self-care (01) ==
LOC: HO.LAB 07:46
PROVIDERS: PCP Internal Medicine; Visit Provider Internal Medicine
DX: E55.9 Vitamin D deficiency, unspecified (principal); I10 Essential (primary) hypertension; E78.00 Pure hypercholesterolemia, unspecified
CPT/HCPCS: 36415; 80053; 80061; 81003; 82306; 84443; 85025

== ENCOUNTER 2022-05-04 09:01 | Outpatient (REF) | payer MEDICARE, OTHER, SELFPAY ==
[2022-05-04 11:06] LABS: MANUAL DIFF FLAG NO
[2022-05-04 11:20] LABS: Basophils Absolute Auto 0.2 X10*3/uL (0.0-0.2); Basophils Percent Auto 2.7 % (0-2); Eosinophils Absolute Auto 0.5 X10*3/uL (0.0-0.4); Eosinophils Percent Auto 5.9 % (0-4); Hematocrit 41.6 % (37.0-47.0); Hemoglobin 13.6 g/dl (12.0-16.0); Imm Gran Abs Auto 0.03 X10*3/uL (0.00-0.03); Imm Gran Pct Auto 0.4 % (0.0-0.4); Lymphocytes Absolute Auto 1.6 X10*3/uL (1.2-4.9); Lymphocytes Percent Auto 19.9 % (20-40); Mean Corpuscular HGB Conc 32.7 g/dl (31.0-35.0); Mean Corpuscular Hemoglobin 31.3 pg (27.0-33.0); Mean Corpuscular Volume 95.6 fL (80.0-98.0); Monocytes Absolute Auto 0.6 X10*3/uL (0.1-1.2); Monocytes Percent Auto 7.5 % (2-11); Neutrophils Absolute Auto 5.2 x10*3/uL (2.0-8.3); Neutrophils Percent Auto 63.6 % (45-73); Platelet Count 295 X10*3/uL (160-400); Red Blood Count 4.35 X10*6/uL (4.20-5.50); Red Cell Distribution Width 13.1 % (11.0-16.0); White Blood Count 8.2 X10*3/uL (4.8-10.8)
[2022-05-04 11:37] LABS: Appearance Urine Clear; Color Urine Yellow; Glucose Urine UA Negative (Negative); Leukocyte Esterase Urine Negative (Negative); Nitrite Urine Negative (Negative); PH 7.5 (5.0-9.0); UMIC TRIGGER UACC YES; Urine Blood Negative (Negative); Urine Ketones Negative (Negative); Urine Protein 30 (1+) mg/dL (Neg-Trace)
[2022-05-04 11:41] LABS: Bacteria Urine None Seen (None Seen); RBC Urine 0-2 /HPF (0-2); Squamous Epithelial Cell Urine 0-2 /HPF (0-2); WBC Urine 0-5 /HPF (0-5)
[2022-05-04 11:43] LABS: Alanine Aminotransferase 17 U/L (0-31); Albumin Level 3.8 g/dL (3.5-5.0); Alkaline Phosphatase 74 U/L (39-117); Anion Gap 13 (12-20); Aspartate Amino Transferase 22 U/L (5-31); Bilirubin Total 0.7 mg/dL (0.0-1.0); Blood Urea Nitrogen 18 mg/dL (9-16); Calcium 9.6 mg/dL (8.4-10.2); Carbon Dioxide 29 mmol/L (22-29); Chloride 104 mmol/L (96-108); Cholesterol 133 mg/dL; Estimated Glomerular Filt Rate 43; Glucose Fasting 96 mg/dL (60-99); HDL Cholesterol 45 mg/dL; LDL Cholesterol Calculated 80 mg/dl; Potassium 4.3 mmol/L (3.3-5.1); Sodium 142 mmol/L (135-145); Total Protein 6.2 g/dL (6.5-8.0); Triglycerides 42 mg/dL
[2022-05-04 12:20] LABS: TSH reflex Free T4 1.88 uIU/mL (0.32-4.0); Vitamin D 25-OH Total 61.9 ng/mL (>30)
== END 2022-05-04 09:02 | disposition home or self-care (01) ==
LOC: HO.HMGCLDS 09:01
PROVIDERS: PCP Internal Medicine; Visit Provider Internal Medicine
DX: E78.00 Pure hypercholesterolemia, unspecified (principal); E55.9 Vitamin D deficiency, unspecified; I10 Essential (primary) hypertension
CPT/HCPCS: 36415; 80053; 80061; 81001; 82306; 84443; 85025

== ENCOUNTER → 2022-06-07 14:46 | Outpatient (BNVA) | payer MEDICARE, OTHER, SELFPAY | PROVIDERS: PCP Internal Medicine; Visit Provider Nurse Practitioner Family | DX: M81.0 Age-related osteoporosis without current pathological fracture (principal) | CPT/HCPCS: 96372; 99212; J0897 ==

== ENCOUNTER 2022-07-18 12:10 | Outpatient (REF) | payer OTHER, SELFPAY ==
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
== END 2022-07-18 12:11 | disposition home or self-care (01) ==
LOC: HO.XRAY 12:10
PROVIDERS: PCP Internal Medicine; Visit Provider Nurse Practitioner Family
DX: M25.562 Pain in left knee (principal)
CPT/HCPCS: 73564

== ENCOUNTER 2022-09-14 08:58 | Outpatient (REF) | payer MEDICARE, OTHER, SELFPAY ==
[2022-09-14 11:15] LABS: MANUAL DIFF FLAG NO
[2022-09-14 11:38] LABS: Appearance Urine Clear; Color Urine Yellow; Glucose Urine UA Negative (Negative); Leukocyte Esterase Urine Negative (Negative); Nitrite Urine Negative (Negative); Specific Gravity - Urine <= 1.005 (1.005-1.025); Urine Blood Negative (Negative); Urine Ketones Negative (Negative); Urine Protein Negative (Neg-Trace)
[2022-09-14 12:00] LABS: Basophils Absolute Auto 0.2 X10*3/uL (0.0-0.2); Basophils Percent Auto 1.8 % (0-2); Eosinophils Absolute Auto 0.6 X10*3/uL (0.0-0.4); Eosinophils Percent Auto 6.9 % (0-4); Hematocrit 41.9 % (37.0-47.0); Hemoglobin 13.9 g/dl (12.0-16.0); Imm Gran Abs Auto 0.02 X10*3/uL (0.00-0.03); Imm Gran Pct Auto 0.2 % (0.0-0.4); Lymphocytes Percent Auto 21.6 % (20-40); Mean Corpuscular HGB Conc 33.2 g/dl (31.0-35.0); Mean Corpuscular Hemoglobin 31.4 pg (27.0-33.0); Mean Corpuscular Volume 94.6 fL (80.0-98.0); Mean Platelet Volume 12.1 fL (9.4-12.3); Monocytes Absolute Auto 0.8 X10*3/uL (0.1-1.2); Monocytes Percent Auto 8.3 % (2-11); Neutrophils Absolute Auto 5.7 x10*3/uL (2.0-8.3); Neutrophils Percent Auto 61.2 % (45-73); Platelet Count 263 X10*3/uL (160-400); Red Blood Count 4.43 X10*6/uL (4.20-5.50); Red Cell Distribution Width 13.3 % (11.0-16.0); White Blood Count 9.3 X10*3/uL (4.8-10.8)
[2022-09-14 12:59] LABS: Alanine Aminotransferase 15 U/L (0-31); Albumin Level 3.8 g/dL (3.5-5.0); Alkaline Phosphatase 72 U/L (39-117); Anion Gap 15 (12-20); Aspartate Amino Transferase 20 U/L (5-31); Bilirubin Total 0.6 mg/dL (0.0-1.0); Blood Urea Nitrogen 20 mg/dL (9-16); Calcium 9.6 mg/dL (8.4-10.2); Carbon Dioxide 27 mmol/L (22-29); Chloride 102 mmol/L (96-108); Cholesterol 137 mg/dL; Estimated Glomerular Filt Rate 45; Glucose Fasting 98 mg/dL (60-99); HDL Cholesterol 50 mg/dL; LDL Cholesterol Calculated 78 mg/dl; Potassium 3.6 mmol/L (3.3-5.1); Sodium 140 mmol/L (135-145); TSH reflex Free T4 2.03 uIU/mL (0.32-4.0); Total Protein 6.5 g/dL (6.5-8.0); Triglycerides 46 mg/dL; Vitamin D 25-OH Total 54.5 ng/mL (>30)
== END 2022-09-14 08:59 | disposition home or self-care (01) ==
LOC: HO.HMGCLDS 08:58
PROVIDERS: PCP Internal Medicine; Visit Provider Internal Medicine
DX: E78.00 Pure hypercholesterolemia, unspecified (principal); R30.0 Dysuria; E55.9 Vitamin D deficiency, unspecified; I10 Essential (primary) hypertension
CPT/HCPCS: 36415; 80053; 80061; 81003; 82306; 84443; 85025

== ENCOUNTER 2022-09-20 09:44 | Outpatient (AMB) | payer MEDICARE, OTHER, SELFPAY ==
[2022-09-20 09:48] VITALS: BP 102/68; PULSE 42; O2SAT 97; BMI 22.9
--- NOTE | 2022-09-20 09:48 | A.OFFPC_ITS ---
Vital Signs 09/20/22 09:48 Height 5 ft 1 in Weight 121 lb BMI 22.9 BP 102/68 Blood Pressure Location Lt brachial Position Sitting Pulse 42 L Pulse Source Pulse Oximeter Pulse Oximetry (%) 97 Oxygen Delivery Method Room Air Intake Visit Reasons: COPD, HTN, CKD, hyperlipidemia Allergies lisinopril Allergy (Unknown, Verified 09/20/22 10:21) Unknown alendronate sodium [Fosamax] Adverse Reaction (Intermediate, Verified 09/20/22 10:21) jaw pain aspirin Adverse Reaction (Intermediate, Verified 09/20/22 10:21) unable to tolerate higher doses-stomach ulcer (low dose ok) carbamazepine [From TEGRETOL] Adverse Reaction (Intermediate, Verified 09/20/22 10:21) NAUSEA & VOMITING, HEADACHE gabapentin Adverse Reaction (Intermediate, Verified 09/20/22 10:21) dizziness ibuprofen Adverse Reaction (Intermediate, Verified 09/20/22 10:21) Nausea and Vomiting lidocaine [From Lidoderm] Adverse Reaction (Intermediate, Verified 09/20/22 10:21) burning from patch NSAIDS (Non-Steroidal Anti-Inflamma [NSAIDS (NON-STEROIDAL ANTI-INFLAMMA] Adverse Reaction (Intermediate, Verified 09/20/22 10:21) NAUSEA & VOMITING, HX ULCER codeine [CODEINE] Adverse Reaction (Unknown, Verified 09/20/22 10:21) NAUSEA & VOMITING, nausea/vomiting Medication List - Last Reconciled 09/20/22 by Wilian Crawford MD acetaminophen (Tylenol) 650 mg PO QID PRN albuterol sulfate 90 mcg/actuation 2 puffs inhalation Q6H PRN amlodipine 10 mg PO DAILY atorvastatin 80 mg PO DAILY 90 days calcium carbonate-vitamin D3 600 mg-5 mcg (200 unit) (Calcium 600 + D(3)) 2 tabs PO DAILY carvedilol 12.5 mg PO BID denosumab (Prolia) 60 mg subcut [id number] docusate sodium (Colace) 100 mg PO BID fluticasone propionate 110 mcg/actuation (Flovent HFA) 1 puff inhalation BID 30 days fluticasone propionate 50 mcg/actuation 1 spray intranasal BID 90 days losartan 25 mg PO QPM nitroglycerin 0.4 mg sublingual Q5M PRN pantoprazole 40 mg PO BID [SOFT CERVICAL COLLAR As directed] tramadol 50 mg PO TID PRN 30 days Tobacco use date assessed: 07/18/22 Fall risk assessment: No Falls in past year Last assessed Fall Risk: 09/20/22 Dental Screening Dental Screen Date: 09/20/22 Did you have a dental visit in the last 12 months?: No Did you have a dental problem in the last 6 months where you did not have access to dental care?: No Was dental information given to patient?: No HPI COPD, HTN, CKD, hyperlipidemia HPI Details Patient comes in today for her follow up visit States that she feels okay She denies any headaches or dizziness Denies any chest pains, no increased SOB No nausea/vomiting, no abdominal pain No change in bowel habits noted Had her follow up labs done last week - to discuss her results [facility] Medical History Allergic rhinitis Benign essential hypertension Cervical spondylosis without myelopathy Chronic kidney disease (CKD), stage III (moderate) Chronic kidney disease, stage 4 (severe) Compression fracture of L1 lumbar vertebra COPD (chronic obstructive pulmonary disease) Coronary artery disease Exertional dyspnea GERD (gastroesophageal reflux disease) Overactive bladder Pure hypercholesterolemia Screening for breast cancer Surgical History History of angioplasty History of appendectomy History of section History of colonoscopy History of oophorectomy History of parathyroidectomy History of tonsillectomy Hx of cataract removal with insertion of prosthetic lens Family History Father Throat cancer Mother No problems noted. Daughter Diabetes Son Arthritis CAD (coronary artery disease) Social History Housing: House Alcohol intake: never Patient Tobacco Use Status: Current someday Tobacco user Tobacco use type: Cigarette Cigarettes Per Day: 2 Years Smoked: 30 e-Cigarette/Vaping Use: Never Used service: No Current occupational status: retired Cognitive needs: No Hearing needs: No Vision needs: No Questionnaire PHQ-9 Over the last 2 weeks, how often have you been bothered by any of the following problems? 1. Little interest or pleasure in doing things: not at all 2. Feeling down, depressed, or hopeless: not at all 3. Trouble falling or staying asleep, or sleeping too much: not at all 4. Feeling tired or having little energy: not at all 5. Poor appetite or overeating: not at all 6. Feeling bad about yourself - or that you are a failure or have let yourself or your family down: not at all 7. Trouble concentrating on things, such as reading the newspaper or watching television: not at all 8. Moving or speaking so slowly that other people could have noticed. Or the opposite - being so fidgety or restless that you have been moving around a lot more than usual: not at all 9. Thoughts that you would be better off or of hurting yourself in some way: not at all Total score: 0 Depression Screening Interpretation: Negative 37551 - PHQ-9 Billing: Yes Source: Developed by Drs. Sesar Mcmillan, Paradise Petersen, Kamran Cartwright and colleagues, with an educational andi from [employer]. Thrive Questionnaire Date Thrive assessed: 05/10/22 AUDIT C Alcohol Use Questionnaire (AUDIT-C) 1. How often do you have a drink containing alcohol?: Never 3. How often do you have six or more drinks on one occasion?: Never Total Score: 0 Score Reviewed/Action Taken: Yes NENO-7 AMB Questionnaire NENO-7 Date NENO - 7 assessed: 05/10/22 Source: Developed by Drs. Sesar Mcmillan, Paradise Petersen, Kamran Cartwright and colleagues, with an educational andi from [employer]. Review of Systems Const Denies fatigue, Denies fever(s) and Denies headache(s) ENT Denies dysphagia, Denies dizziness, Denies otalgia, Denies headache(s), Reports neck pain (chronic) and Denies sore throat Card Denies chest pain, Denies palpitations and Reports dyspnea on exertion (mild) Resp Denies cough, Reports dyspnea on exertion (mild) and Denies wheezing GI Denies abdominal pain, Denies constipation, Denies dysphagia, Denies heartburn, Denies diarrhea, Denies nausea and Denies vomiting Denies difficulty voiding, Denies nocturia and Denies dysuria Musc Reports back pain (chronic), Reports neck pain (chronic) and Reports radiating pain into limb (into right shoulder and right arm) Neuro Denies dizziness and Denies headache(s) Endo Denies fatigue and Denies palpitations Aller/Immun Denies wheezing Physical exam (Primary Care) Vital Signs: Last Vital Signs Pulse 42 L 09/20/22 09:48 BP 102/68 09/20/22 09:48 Pulse Ox 97 09/20/22 09:48 Oxygen Delivery Method Room Air 09/20/22 09:48 BMI result Body Mass Index 22.9 Tobacco/Smoking Status: Tobacco use Status Tobacco use date assessed 07/18/22 09/20/22 09:52 Patient Tobacco Use Status Current someday Tobacco 09/20/22 09:52 Tobacco use type Cigarette 09/20/22 09:52 e-Cigarette/Vaping Use Never Used 09/20/22 09:52 PHQ-9: PHQ-9 Score PHQ-9: Total score 0 09/20/22 09:52 Depression Screening Interpretation: Negative Thrive Assessment: Date of Thrive Assessment Date Thrive assessed 05/10/22 09/20/22 09:52 Const General: no acute distress and alert HENMT Ears: TM's normal bilaterally and EAC's normal Throat: Yes posterior oropharynx normal and Yes tonsils normal (no TP congestion noted) Neck Neck: Yes no lymphadenopathy and Yes supple Resp Auscultation: clear to auscultation bilaterally, no rales, no wheezes and diminished lung sounds bilateral Cardio Rate: bradycardic Rhythm: regular rhythm Heart sounds: Murmur heart sound present systolic blowing, soft, II/ and at the left sternal border GI Palpation (GI): Soft to palpation and nontender Auscultation: normal bowel sounds Back/Spine/Pelvis Cervical Spine: Cervical spine tenderness (chronic) Thoracic/Lumbar Spine: lumbar spinal tenderness (chronic) Skin Lesions: no lesions Rashes: no rashes Extrem General: Yes no clubbing, cyanosis or edema Results Reviewed Results Reviewed: Laboratory Tests 09/14/22 09/14/22 09/14/22 09:05 09:05 09:05 WBC 9.3 Hgb 13.9 Hct 41.9 Plt Count 263 Sodium 140 Potassium 3.6 Creatinine 1.16 Estimated GFR 45 Fasting Glucose 98 Calcium 9.6 AST 20 ALT 15 Triglycerides 46 Cholesterol 137 LDL Cholesterol, Calc 78 HDL Cholesterol 50 25-OH Vitamin D Total 54.5 TSH 2.03 Ur Specific [place] <= 1.005 Urine Protein Negative Urine Glucose (UA) Negative Urine Blood Negative Assessment and Plan Assessment & Plan (1) Benign essential hypertension: Code(s): I10 - Essential (primary) hypertension Plan: Reinforced low sodium diet - goal is systolic BP of at least 130 to 140 mm or less; her BP appears somewhat lower than usual for her today Continue Carvedilol 12.5 mg BID, Losartan 25 mg QD (takes in PM) and Amlodipine 10 mg QD Patient instructed to continue monitoring her BP closely/regularly (2) Bradycardia: Code(s): R00.1 - Bradycardia, unspecified Plan: Patient's heart rate has been consistently low over the past few years and lately has been averaging in the low 30s to 50s She has been asymptomatic so far except for an incident last year wherein she apparently briefly passed out - incident may have been due to bradycardia Has not had any recurrence since but advised again that if this recurs, she will need to have this evaluated further Follows with [facility] (Dr. Iain Rae) regularly; was reportedly told at her follow up appointment then that everything looked okay (3) COPD (chronic obstructive pulmonary disease): Code(s): J44.9 - Chronic obstructive pulmonary disease, unspecified Qualifiers: COPD type: unspecified COPD Qualified Code(s): J44.9 - Chronic obstructive pulmonary disease, unspecified Plan: Stable lately Continue Flovent HFA 110 mcg 1 inhalation twice a day and Ventolin HFA 2 puffs 4 times a day as needed May need to add LAMA if respiratory symptoms get worse PFTs done last year came out normal except for decreased diffusion capacity - results suggest pulmonary emphysema (4) Pure hypercholesterolemia: Code(s): E78.00 - Pure hypercholesterolemia, unspecified Plan: Results of her labs done last week reviewed and discussed with patient Reinforced low cholesterol diet Continue Atorvastatin 80 mg QD Will recheck labs in 4 months for follow up (5) Coronary artery disease: Comment: S/P angioplasty and stenting in 2009 Also S/P pericarditis in August 2019 - myocardial perfusion scan done then showed normal results without any fixed or reversible perfusion defect after exercise stress test; LV function is normal with LVEF at 75% Code(s): I25.10 - Atherosclerotic heart disease of [place] coronary artery without angina pectoris Qualifiers: Coronary Disease-Associated Artery/Lesion type: [place] artery [place] vs. transplanted heart: [place] heart Associated angina: without angina Qualified Code(s): I25.10 - Atherosclerotic heart disease of [place] coronary artery without angina pectoris Plan: Continue low dose Aspirin 81 mg QD Follow up with cardiology (Dr. Iain Rae) as scheduled (6) Chronic kidney disease, stage 4 (severe): Code(s): N18.4 - Chronic kidney disease, stage 4 (severe) Plan: Patient's renal function appears stable on her recent labs; advised that her numbers have improved somewhat and she is now actually in Stage 3 CKD Reminded that she needs to keep up with her hydration Will continue to monitor her renal function closely (7) GERD (gastroesophageal reflux disease): Code(s): K21.9 - Gastro-esophageal reflux disease without esophagitis Qualifiers: Esophagitis presence: with esophagitis Esophagitis bleeding: without hemorrhage Qualified Code(s): K21.00 - Gastro-esophageal reflux disease with esophagitis, without bleeding Plan: Dietary restrictions reinforced Continue Pantoprazole 40 mg BID Follow up with GI as scheduled (8) Allergic rhinitis: Code(s): J30.9 - Allergic rhinitis, unspecified Qualifiers: Allergic rhinitis trigger: unspecified Allergic rhinitis seasonality: unspecified Qualified Code(s): J30.9 - Allergic rhinitis, unspecified Plan: Continue Fluticasone nasal spray 50 mcg 1 spray into each nostril BID (9) Cervical spondylosis without myelopathy: Code(s): M47.812 - Spondylosis without myelopathy or radiculopathy, cervical region Plan: Cervical spine x-rays done last year showed (+) degenerative arthrosis changes with C3-C4 anterolisthesis Patient uses a cervical collar as needed, including at night when she is sleeping, for additional support and to help manage her neck symptoms (pain) better (10) Compression fracture of L1 lumbar vertebra: Comment: S/P kyphoplasty Code(s): S32.010A - [place] compression fracture of first lumbar vertebra, initial encounter for closed fracture Qualifiers: Encounter type: sequela Qualified Code(s): S32.010S - [place] compression fracture of first lumbar vertebra, sequela Plan: S/[place] [facility] [place] Reinforced activity and weight lifting restrictions to avoid aggravating her back pain (11) Overactive bladder: Code(s): N32.81 - Overactive bladder Plan: Has not been able to tolerate Detrol LA and generic Enablex (7.5 mg) - to consider urology referral if symptoms progress or worsen (12) Smoker: Code(s): F17.200 - Nicotine dependence, unspecified, uncomplicated Plan: Patient admits that he still smokes every now and then Counseled again on complete smoking cessation, in light of her COPD Plan Follow up in 4 months Orders: Orders Comprehensive [place]. Panel Fast 4 Months E78.00 - Pure hypercholesterolemia, unspecified Lipid Panel 4 Months E78.00 - Pure hypercholesterolemia, unspecified TSH reflex Free T4 4 Months E78.00 - Pure hypercholesterolemia, unspecified Vitamin D 25-OH Total 4 Months E55.9 - Vitamin D deficiency, unspecified Complete Blood Count Auto Diff 4 Months I10 - Essential (primary) hypertension UA CC w/rflx Micro + Cult 4 Months R30.0 - Dysuria Coding Level of Care Code Est Pt Level 4 (09556) Diagnoses Benign essential hypertension I10 Bradycardia R00.1 COPD (chronic obstructive pulmonary disease) J44.9 COPD type: unspecified COPD Pure hypercholesterolemia E78.00 Coronary artery disease I25.10 Coronary Disease-Associated Artery/Lesion type: [place] artery [place] vs. transplanted heart: [place] heart Associated angina: without angina Chronic kidney disease, stage 4 (severe) N18.4 GERD (gastroesophageal reflux disease) K21.00 Esophagitis presence: with esophagitis Esophagitis bleeding: without hemorrhage Allergic rhinitis J30.9 Allergic rhinitis trigger: unspecified Allergic rhinitis seasonality: unspecified Cervical spondylosis without myelopathy M47.812 Compression fracture of L1 lumbar vertebra S32.010S Encounter type: sequela Overactive bladder N32.81 Smoker F17.200
== END 2022-09-20 10:38 | disposition home or self-care (01) ==
PROVIDERS: Visit Provider Internal Medicine
DX: I12.9 Hypertensive chronic kidney disease with stage 1 through stage 4 chronic kidney disease, or unspecified chronic kidney disease (principal); N18.4 Chronic kidney disease, stage 4 (severe); J44.9 Chronic obstructive pulmonary disease, unspecified; F17.210 Nicotine dependence, cigarettes, uncomplicated; E78.00 Pure hypercholesterolemia, unspecified; R00.1 Bradycardia, unspecified; I25.10 Atherosclerotic heart disease of native coronary artery without angina pectoris; K21.00 Gastro-esophageal reflux disease with esophagitis, without bleeding; J30.9 Allergic rhinitis, unspecified; M47.812 Spondylosis without myelopathy or radiculopathy, cervical region; S32.010S Wedge compression fracture of first lumbar vertebra, sequela; N32.81 Overactive bladder
CPT/HCPCS: 99214

== ENCOUNTER 2022-11-16 09:31 | Outpatient (AMB) | payer MEDICARE, OTHER, SELFPAY ==
[2022-11-16 09:34] VITALS: BP 130/80; PULSE 55; O2SAT 97; BMI 22.5
--- NOTE | 2022-11-16 09:34 | MHC.PC.OV ---
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: No Allergies lisinopril Allergy (Unknown, Verified 11/16/22 09:45) Unknown alendronate sodium [Fosamax] Adverse Reaction (Intermediate, Verified 11/16/22 09:45) jaw pain aspirin Adverse Reaction (Intermediate, Verified 11/16/22 09:45) unable to tolerate higher doses-stomach ulcer (low dose ok) carbamazepine [From TEGRETOL] Adverse Reaction (Intermediate, Verified 11/16/22 09:45) NAUSEA & VOMITING, HEADACHE gabapentin Adverse Reaction (Intermediate, Verified 11/16/22 09:45) dizziness ibuprofen Adverse Reaction (Intermediate, Verified 11/16/22 09:45) Nausea and Vomiting lidocaine [From Lidoderm] Adverse Reaction (Intermediate, Verified 11/16/22 09:45) burning from patch NSAIDS (Non-Steroidal Anti-Inflamma [NSAIDS (NON-STEROIDAL ANTI-INFLAMMA] Adverse Reaction (Intermediate, Verified 11/16/22 09:45) NAUSEA & VOMITING, HX ULCER codeine [CODEINE] Adverse Reaction (Unknown, Verified 11/16/22 09:45) NAUSEA & VOMITING, nausea/vomiting Medication List - Last Reconciled 11/16/22 by JACQUI Lima acetaminophen (Tylenol) 650 mg PO QID PRN albuterol sulfate 90 mcg/actuation 2 puffs inhalation Q6H PRN amlodipine 10 mg PO DAILY atorvastatin 80 mg PO DAILY 90 days calcium carbonate-vitamin D3 600 mg-5 mcg (200 unit) (Calcium 600 + D(3)) 2 tabs PO DAILY denosumab (Prolia) 60 mg subcut [id number] docusate sodium (Colace) 100 mg PO BID fluticasone propionate 110 mcg/actuation (Flovent HFA) 1 puff inhalation BID 30 days fluticasone propionate 50 mcg/actuation 1 spray intranasal BID 90 days isosorbide mononitrate ER 30 mg PO DAILY losartan 50 mg PO DAILY nitroglycerin 0.4 mg sublingual Q5M PRN pantoprazole 40 mg PO BID [SOFT CERVICAL COLLAR As directed] tramadol 50 mg PO TID PRN 30 days Tobacco use date assessed: 11/16/22 Fall risk assessment: No Falls in past year Last assessed Fall Risk: 11/16/22 Dental Screening Dental Screen Date: 11/16/22 (pt has dentures ) Did you have a dental visit in the last 12 months?: No Did you have a dental problem in the last 6 months where you did not have access to dental care?: No HPI [facility] d/c 11/05 chest pain HPI Details Patient is an 81-year-old female who presents today to follow-up after [facility] discharge. Admission date 10/26/2022, discharge date 10/29/2022. Discharge diagnosis CAD, sinus bradycardia, hypertension. Patient of Dr. Crawford Per ED notes: 81-year-old female with CAD, hypertension, arthritis presented with chest pain. She called EMS and was given nitro and symptoms improved. On arrival to the ED, symptoms resolved. In ED vitals unremarkable, CBC and Chem within normal limits. Troponins 19, 17, 18. EKG without ischemia. Chest x-ray negative. She was given aspirin and admitted for ACS. CAD status post MAURIZIO in 2009. Followed by [facility] as outpatient. Noticed bradycardia with heart rate in the 40s, stopped Coreg and increased losartan and Imdur dose. There was no evidence of acute EKG change or troponin elevation. Nuclear stress testing was negative for symptoms. 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 Patient has an upcoming cardiology appointment 01/01/[address] Mendez. Patient reports that she is compliant with medications and denies side effects. She denies shortness of breath or chest pain. Reports blood pressure at home 115/60. Requested refills on her medications. [facility] Medical History Chronic kidney disease, stage 4 (severe) Screening for breast cancer Allergic rhinitis Exertional dyspnea Chronic kidney disease (CKD), stage III (moderate) Benign essential hypertension Overactive bladder Compression fracture of L1 lumbar vertebra Cervical spondylosis without myelopathy GERD (gastroesophageal reflux disease) COPD (chronic obstructive pulmonary disease) Pure hypercholesterolemia Coronary artery disease Surgical History History of colonoscopy Hx of cataract removal with insertion of prosthetic lens History of angioplasty History of tonsillectomy History of appendectomy History of parathyroidectomy History of oophorectomy History of section Family History Father Throat cancer Mother No problems noted. Daughter Diabetes Son Arthritis CAD (coronary artery disease) Social History Housing: House Alcohol intake: never Patient Tobacco Use Status: Current someday Tobacco user Tobacco use type: Cigarette Cigarettes Per Day: 2 Years Smoked: 30 e-Cigarette/Vaping Use: Never Used service: No Current occupational status: retired Cognitive needs: No Hearing needs: No Vision needs: No Questionnaire Thrive Questionnaire Date Thrive assessed: 05/10/22 AUDIT C Alcohol Use Questionnaire (AUDIT-C) 1. How often do you have a drink containing alcohol?: Never 3. How often do you have six or more drinks on one occasion?: Never Total Score: 0 Score Reviewed/Action Taken: No NENO-7 AMB Questionnaire NENO-7 Date NENO - 7 assessed: 05/10/22 Source: Developed by Drs. Sesar Mcmillan, Paradise Petersen, Kamran Cartwright and colleagues, with an educational andi from [employer]. Review of Systems Const Denies body aches, Denies chills, Denies fever(s) and Denies headache(s) Eyes Denies change in vision ENT Denies dizziness, Denies otalgia, Denies headache(s), Denies nasal discharge, Denies sinus pain and Denies sore throat Card Denies chest pain, Denies edema, Denies lightheadedness and Denies dyspnea Resp Denies cough, Denies dyspnea and Denies wheezing GI Denies abdominal pain Denies dysuria Musc Denies myalgias Skin/Breast Denies rash Neuro Denies dizziness and Denies headache(s) Aller/Immun Denies wheezing Physical exam (Primary Care) Vital Signs: Last Vital Signs Pulse 55 11/16/22 09:34 BP 130/80 11/16/22 09:34 Pulse Ox 97 11/16/22 09:34 Oxygen Delivery Method Room Air 11/16/22 09:34 BMI result Body Mass Index 22.5 Tobacco/Smoking Status: Tobacco use Status Tobacco use date assessed 11/16/22 11/16/22 09:38 Patient Tobacco Use Status Current someday Tobacco 11/16/22 09:38 Tobacco use type Cigarette 11/16/22 09:38 e-Cigarette/Vaping Use Never Used 11/16/22 09:38 Thrive Assessment: Date of Thrive Assessment Date Thrive assessed 05/10/22 11/16/22 09:38 Const General: cooperative and no acute distress Orientation/consciousness: patient oriented x3 HENMT Head: Yes normocephalic and Yes atraumatic Throat: Yes posterior oropharynx normal Eyes General: appearance normal, both eyes and all related structures Pupils: Equal, round and reactive pupils present Neck Neck: Yes normal visual inspection and Yes full ROM Resp Effort & Inspection: normal respiratory effort and able to speak in complete sentences Auscultation: clear to auscultation bilaterally, no crackles, no rales, no rhonchi and no wheezes Cardio Rate: regular rate Rhythm: regular rhythm Heart sounds: S1 normal heart sound present, S2 normal heart sound present and no murmurs GI Auscultation: normal bowel sounds Skin General skin exam: no rashes or lesions noted Neuro General: patient oriented x3 Cranial nerves: Yes Equal, round and reactive pupils present Gait exam (Neuro): Normal gait present Extrem General: Yes full ROM and No edema Assessment and Plan Assessment & Plan (1) Hospital discharge follow-up: Code(s): Z09 - Encounter for follow-up examination after completed treatment for conditions other than malignant neoplasm (2) Bradycardia: Code(s): R00.1 - Bradycardia, unspecified Plan: Resolved after stopping Coreg (3) Benign essential hypertension: Code(s): I10 - Essential (primary) hypertension Plan: Continue isosorbide, losartan, amlodipine Low-sodium diet Keep appointment with Cardiology as scheduled (4) Coronary artery disease: Comment: S/P angioplasty and stenting in 2009 Also S/P pericarditis in August 2019 - myocardial perfusion scan done then showed normal results without any fixed or reversible perfusion defect after exercise stress test; LV function is normal with LVEF at 75% Code(s): I25.10 - Atherosclerotic heart disease of [place] coronary artery without angina pectoris Qualifiers: Coronary Disease-Associated Artery/Lesion type: [place] artery [place] vs. transplanted heart: [place] heart Associated angina: without angina Qualified Code(s): I25.10 - Atherosclerotic heart disease of [place] coronary artery without angina pectoris Plan: Same as above Plan Keep appointment with PCP as scheduled or follow-up sooner as needed Medications: New losartan 50 mg PO DAILY 90 tabs 1RF I10 - Essential (primary) hypertension isosorbide mononitrate ER 30 mg PO DAILY 90 tabs 0RF I10 - Essential (primary) hypertension Coding Level of Care Code Est Pt Level 3 (19042) Diagnoses Hospital discharge follow-up Z09 Bradycardia R00.1 Benign essential hypertension I10 Coronary artery disease involving [place] coronary artery of [place] heart without angina pectoris I25.10 Coronary Disease-Associated Artery/Lesion type: [place] artery [place] vs. transplanted heart: [place] heart Associated angina: without angina
== END 2022-11-16 09:59 | disposition home or self-care (01) ==
PROVIDERS: PCP Internal Medicine; Visit Provider Nurse Practitioner Family
DX: Z09 Encounter for follow-up examination after completed treatment for conditions other than malignant neoplasm (principal); R00.1 Bradycardia, unspecified; I10 Essential (primary) hypertension; I25.10 Atherosclerotic heart disease of native coronary artery without angina pectoris
CPT/HCPCS: 99213

== ENCOUNTER 2022-12-27 09:39 | Outpatient (AMB) | payer MEDICARE, OTHER, SELFPAY ==
[2022-12-27 09:40] VITALS: BP 132/64; PULSE 60; TEMP 36.1; O2SAT 95; BMI 22.6
--- NOTE | 2022-12-27 09:40 | A.OFFVIS_ITS ---
Intake Vital Signs 12/27/22 09:40 Height 5 ft 1 in Weight 119 lb 7.849 oz BMI 22.6 BP 132/64 Blood Pressure Location Rt brachial Position Sitting Pulse 60 Pulse Source Pulse Oximeter Temp 97 F Temp Source Skin Pulse Oximetry (%) 95 Oxygen Delivery Method Room Air Intake Visit Reasons: osteoporosis Intake Note: Patient presents today to follow up on osteoporosis. No recent DEXA in chart. On Prolia. Per last note, treatment change to be discussed at next visit. Medical Staff Services Coordinator Required: No Accompanied by: Self / Same As Patient Allergies lisinopril Allergy (Unknown, Verified 12/27/22 09:46) Unknown alendronate sodium [Fosamax] Adverse Reaction (Intermediate, Verified 12/27/22 09:46) jaw pain aspirin Adverse Reaction (Intermediate, Verified 12/27/22 09:46) unable to tolerate higher doses-stomach ulcer (low dose ok) carbamazepine [From TEGRETOL] Adverse Reaction (Intermediate, Verified 12/27/22 09:46) NAUSEA & VOMITING, HEADACHE gabapentin Adverse Reaction (Intermediate, Verified 12/27/22 09:46) dizziness ibuprofen Adverse Reaction (Intermediate, Verified 12/27/22 09:46) Nausea and Vomiting lidocaine [From Lidoderm] Adverse Reaction (Intermediate, Verified 12/27/22 09:46) burning from patch NSAIDS (Non-Steroidal Anti-Inflamma [NSAIDS (NON-STEROIDAL ANTI-INFLAMMA] Adverse Reaction (Intermediate, Verified 12/27/22 09:46) NAUSEA & VOMITING, HX ULCER codeine [CODEINE] Adverse Reaction (Unknown, Verified 12/27/22 09:46) NAUSEA & VOMITING, nausea/vomiting HPI HPI Comments History of Present Illness Details 81yoF who presents for follow-up of oste oporosis. Last visit May 2022. She was due for follow-up Prolia in November 2022 but had to be reschedule. Started on Prolia in 2013 and continues to tolerate this well. She is due for Prolia injection today. No plans for major dental surgery. She has upper and lower dentures since age 21. No recent fractures or falls. She states her kidney function has been stable. She denies any additional concerns today. She denies recent falls. Risk factors for osteoporosis: half-way use of PPI, hx hyperparathyroidism. She has had surgery to remove the left trapezium (CMC) Prior history: First fracture was L1 in approx. 2005. She was was treated with fosamax but it was discontinued due to GI upset. She had parathroid surgery around that time for hyperparathyroidism. Her second fracture was in 2014- L3 acute fracture. Treated with kyphoplasty. She had lifted a scooter and felt a pop. Treated by Dr. Gonzalez at [facility]. She was seen in June 2020 for gout attack, she has not had any subsequent gout flares, not currently on any medication for gout. She follows with Cardiology at [facility] and ophthalmology at [facility]. [facility] Medical History (Updated 12/27/22 @ 13:26 by Cyn Wasserman [facility]) History of gout Osteoarthritis, hand, primary localized Swelling of finger of right hand Age-related osteoporosis without current pathological fracture Chronic kidney disease, stage 4 (severe) Screening for breast cancer Allergic rhinitis Exertional dyspnea Chronic kidney disease (CKD), stage III (moderate) Benign essential hypertension Overactive bladder Compression fracture of L1 lumbar vertebra Cervical spondylosis without myelopathy GERD (gastroesophageal reflux disease) COPD (chronic obstructive pulmonary disease) Pure hypercholesterolemia Coronary artery disease Surgical History History of colonoscopy Hx of cataract removal with insertion of prosthetic lens History of angioplasty History of tonsillectomy History of appendectomy History of parathyroidectomy History of oophorectomy History of section Family History Father Throat cancer Mother No problems noted. Daughter Diabetes Son Arthritis CAD (coronary artery disease) Social History Housing: House Alcohol intake: never Patient Tobacco Use Status: Current someday Tobacco user Tobacco use type: Cigarette Cigarettes Per Day: 2 Years Smoked: 30 e-Cigarette/Vaping Use: Never Used service: No Current occupational status: retired Cognitive needs: No Hearing needs: No Vision needs: No Physical Exam Vital Signs: Last Vital Signs Temp 97 F 12/27/22 09:40 Pulse 60 12/27/22 09:40 BP 132/64 12/27/22 09:40 Pulse Ox 95 12/27/22 09:40 Oxygen Delivery Method Room Air 12/27/22 09:40 BMI result Body Mass Index 22.6 APPEARANCE: Patient in no acute distress EYES:no redness, pupils equal and reactive to light, eyelids normal HEART: Regular rhythm, S1-S2 heard, no murmurs, rubs or gallops. LUNG: Clear to auscultation, respiratory rate regular and nonlabored. EXTREMITIES: No edema, no calf tenderness, normal peripheral pulses. swollen, tender right 3rd PIP. Prominent bony enlargement to both CMC joints, left Thenar atrophy NEURO: Oriented and alert x3. No focal weakness. Gait normal. SKIN: No inflammatory or neoplastic lesions. Normal color and turgor Results Reviewed Results Reviewed: Patient: Chikis Narayanan MR#: [id number] : 1940 Acct:[id number] Age/Sex: 79 / F ADM Date: 07/22/20 Loc: HO.LAB Attending Dr: Wilian Crawford MD Ordering Physician: Jackson Huitron MD Date of Service: 07/22/20 Procedure(s): XR hand RT min 3V Accession Number(s): [id number] cc: Jackson Huitron MD~ EXAMINATION: XR HAND, RIGHT CLINICAL INFORMATION: Right hand pain. COMPARISON: None TECHNIQUE: PA, lateral, and oblique views of the right hand. An arrow points to the fifth metacarpal. FINDINGS: Mild to moderate interphalangeal as well as first metacarpophalangeal degenerative joint changes are seen. Mild calcification is seen adjacent to the radial aspect of the distal head of the fourth metacarpal. The carpal bones are normally aligned. The distal radius and ulna are intact. The soft tissues are unremarkable. XR/XR hand RT min 3V IMPRESSION: [id number] degenerative joint changes suggesting osteoarthritis. No acute abnormality. Laboratory Tests 09/14/22 09:05 BUN 20 H Creatinine 1.16 Estimated GFR 45 Calcium 9.6 Alkaline Phosphatase 72 25-OH Vitamin D Total 54.5 TSH 2.03 Assessment & Plan Assessment & Plan (1) Age-related osteoporosis without current pathological fracture: Comment: Alendronate: Approx 2004 - Jaw pain. Prolia: 12/2013 to present Code(s): M81.0 - Age-related osteoporosis without current pathological fracture (2) Swelling of finger of right hand: Code(s): M79.89 - Other specified soft tissue disorders (3) History of gout: Code(s): Z87.39 - Personal history of other diseases of the musculoskeletal system and connective tissue (4) Localized primary osteoarthritis of hands, bilateral: Code(s): M19.041 - Primary osteoarthritis, right hand; M19.042 - Primary osteoarthritis, left hand Plan #Osteoporosis: Patient has a history of compression fractures with kyphoplasty, last fracture was in 2013.?Also history of parathyroid tumor with removal in 2003. She was started on alendronate but did not tolerate due to jaw pain. Patient has been on Prolia since December 2013 tolerating this well. No fractures while on Prolia, bone density improved. I have reviewed available labs and the blood work is stable, calcium, and Vit D wnl, creatinine clearance is estimated to be 33-40 mL/min. Administered Prolia in the office today (Right Deltoid). Will consider changing her medication to reclast at next visit. Bone density 12/2021? Osteoporosis T-score -2.4 left femoral neck. Will repeat DEXA in June 2023. #Swollen Right third PIP/Hand OA/Gout: On PE, observed swollen PIP, with synovitis. Patient states onging for about 1 month, she uses tylenol but does not resolve. She has a history of Gout so this could possibly be a gout flare. She has not had a gout flare since 2020. I will obtain labs to check uric acid, also for elevated acute phase reactants, rheumatoid factor and CCP. This single joint presentation is likely Yenifer Arthritis/Gout. I have reviewed images/reports and patient has moderate OA to the hands. I will obtain updated hand x-ray to check for possible erosions. I will prescribe a course of prednisone for her finger and reassess in two weeks. I have discussed with patient the possible short-term side effects of Prednisone to include weight gain and insomnia. Patient shared that prednisone works opposite for her - in terms of weight, she uses loses because it alters the taste of her food and so she finds that she eats less. She was given a 10 day course. Patient encouraged to call the office with related concerns. 35 minutes spent reviewing chart, evaluating patient, administering Prolia, ordering and documenting Orders: Orders Comprehensive Met. Panel 12/27/22 M79.89 - Other specified soft tissue disorders, M81.0 - Age-related osteoporosis without current pathological fracture Uric Acid 12/27/22 M79.89 - Other specified soft tissue disorders C Reactive Protein 12/27/2279.89 - Other specified soft tissue disorders Erythrocyte Sedimentation Rate 12/27/2279.89 - Other specified soft tissue disorders Rheumatoid Factor 12/27/2279.89 - Other specified soft tissue disorders Cyclic Citrullinated Peptide 12/27/22 M79.89 - Other specified soft tissue disorders XR DEXA axial skeleton 12/27/22 M81.0 - Age-related osteoporosis without current pathological fracture XR hand LT min 3V 12/27/22 M19.049 - Primary osteoarthritis, unspecified hand, M79.89 - Other specified soft tissue disorders, Z87.39 - Personal history of other diseases of the musculoskeletal system and connective tissue XR hand RT min 3V 12/27/22 M19.049 - Primary osteoarthritis, unspecified hand, M79.89 - Other specified soft tissue disorders, Z87.39 - Personal history of other diseases of the musculoskeletal system and connective tissue Medications: New prednisolone 2 tablets per day for 5 days; 1 tablet per day x 5 days. stop 5 mg PO DAILY 30 tabs 0RF . - Other specified soft tissue disorders Coding Level of Care Code Est Pt Level 4 (14679) Diagnoses Age-related osteoporosis without current pathological fracture M81.0 Swelling of finger of right hand 7989 History of gout Z87.39 Localized primary osteoarthritis of hands, bilateral M19.041; M19.042
== END 2022-12-27 10:40 | disposition home or self-care (01) ==
PROVIDERS: PCP Internal Medicine; Visit Provider Nurse Practitioner Family
DX: M81.0 Age-related osteoporosis without current pathological fracture (principal); M79.89 Other specified soft tissue disorders; Z87.39 Personal history of other diseases of the musculoskeletal system and connective tissue; M19.041 Primary osteoarthritis, right hand; M19.042 Primary osteoarthritis, left hand
CPT/HCPCS: 99214

== ENCOUNTER → 2022-12-27 09:39 | Outpatient (BNVA) | payer MEDICARE, OTHER, SELFPAY | PROVIDERS: PCP Internal Medicine; Visit Provider Nurse Practitioner Family | DX: M81.0 Age-related osteoporosis without current pathological fracture (principal); M79.89 Other specified soft tissue disorders; M19.041 Primary osteoarthritis, right hand; M19.042 Primary osteoarthritis, left hand; Z87.39 Personal history of other diseases of the musculoskeletal system and connective tissue | CPT/HCPCS: 36415; 80053; 84550; 85652; 86140; 86200; 86431; 99212 ==

== ENCOUNTER 2022-12-27 11:15 | Outpatient (REF) | payer MEDICARE, OTHER, SELFPAY ==
[2022-12-27 14:02] LABS: Alanine Aminotransferase 12 U/L (0-31); Albumin Level 3.9 g/dL (3.5-5.0); Alkaline Phosphatase 84 U/L (39-117); Anion Gap 13 (12-20); Aspartate Amino Transferase 23 U/L (5-31); Bilirubin Total 0.4 mg/dL (0.0-1.0); Blood Urea Nitrogen 22 mg/dL (9-16); C Reactive Protein 0.19 mg/dL (< or = 0.50); Calcium 9.6 mg/dL (8.4-10.2); Carbon Dioxide 31 mmol/L (22-29); Chloride 101 mmol/L (96-108); Estimated Glomerular Filt Rate 36; Glucose Random 87 mg/dL (60-115); Potassium 3.9 mmol/L (3.3-5.1); Sodium 141 mmol/L (135-145); Total Protein 6.7 g/dL (6.5-8.0); Uric Acid 6.3 mg/dL (2.4-5.7)
[2022-12-27 14:09] LABS: Rheumatoid Factor < 13.0 IU/mL (<15.0)
[2022-12-27 14:20] LABS: Erythrocyte Sedimentation Rate 10 MM/HR (0-20)
[2022-12-28 13:22] LABS: Cyclic Citrullinated Peptide <16 UNITS
== END 2022-12-27 11:16 | disposition home or self-care (01) ==
LOC: HO.10HDL 11:15
PROVIDERS: Visit Provider Nurse Practitioner Family
DX: Z13.89 Encounter for screening for other disorder (principal)
CPT/HCPCS: 36415; 80053; 84550; 85652; 86140; 86200; 86431

== ENCOUNTER 2022-12-28 15:31 | Outpatient (REF) | payer MEDICARE, OTHER, SELFPAY ==
--- NOTE | ~2022-12-28 | XR_ITS ---
STUDY: Bilateral hands INDICATION: Musculoskeletal disorder COMPARISON: 07/22/2020 right hand TECHNIQUE: 4 view right hand, 3 view left hand FINDINGS: Right hand: Diffuse interphalangeal joint space narrowings and spurring most pronounced third and fourth PIPs with ulnar deviation, increased from prior. Small bony density adjacent to the fourth PIP. First metacarpophalangeal degenerative type changes. No fracture or dislocation Left hand: Diffuse interphalangeal joint space narrowings. Mild ulnar deviation and soft tissue swelling second DIP. Degenerative changes first carpometacarpal joint. No fracture or dislocation. XR/XR hand LT min 3V IMPRESSION: Osteoarthritic changes bilateral hands as described. No acute bony pathology.
--- NOTE | ~2022-12-28 | XR_ITS ---
STUDY: Bilateral hands INDICATION: Musculoskeletal disorder COMPARISON: 07/22/2020 right hand TECHNIQUE: 4 view right hand, 3 view left hand FINDINGS: Right hand: Diffuse interphalangeal joint space narrowings and spurring most pronounced third and fourth PIPs with ulnar deviation, increased from prior. Small bony density adjacent to the fourth PIP. First metacarpophalangeal degenerative type changes. No fracture or dislocation Left hand: Diffuse interphalangeal joint space narrowings. Mild ulnar deviation and soft tissue swelling second DIP. Degenerative changes first carpometacarpal joint. No fracture or dislocation. XR/XR hand RT min 3V IMPRESSION: Osteoarthritic changes bilateral hands as described. No acute bony pathology.
== END 2022-12-28 15:32 | disposition home or self-care (01) ==
LOC: HO.XRAY 15:31
PROVIDERS: PCP Internal Medicine; Visit Provider Nurse Practitioner Family
DX: M79.89 Other specified soft tissue disorders (principal); M19.041 Primary osteoarthritis, right hand; M19.042 Primary osteoarthritis, left hand; Z87.39 Personal history of other diseases of the musculoskeletal system and connective tissue
CPT/HCPCS: 73130

== ENCOUNTER 2023-01-30 09:16 | Outpatient (REF) | payer MEDICARE, OTHER, SELFPAY ==
[2023-01-30 11:25] LABS: MANUAL DIFF FLAG NO
[2023-01-30 11:45] LABS: Basophils Absolute Auto 0.2 X10*3/uL (0.0-0.2); Basophils Percent Auto 2.2 % (0-2); Eosinophils Absolute Auto 0.3 X10*3/uL (0.0-0.4); Eosinophils Percent Auto 3.3 % (0-4); Hematocrit 41.2 % (37.0-47.0); Hemoglobin 13.6 g/dl (12.0-16.0); Imm Gran Abs Auto 0.03 X10*3/uL (0.00-0.03); Imm Gran Pct Auto 0.4 % (0.0-0.4); Lymphocytes Absolute Auto 1.2 X10*3/uL (1.2-4.9); Mean Corpuscular Hemoglobin 32.4 pg (27.0-33.0); Mean Corpuscular Volume 98.1 fL (80.0-98.0); Mean Platelet Volume 12.1 fL (9.4-12.3); Monocytes Absolute Auto 0.6 X10*3/uL (0.1-1.2); Monocytes Percent Auto 7.3 % (2-11); Neutrophils Absolute Auto 5.9 x10*3/uL (2.0-8.3); Neutrophils Percent Auto 71.8 % (45-73); Platelet Count 288 X10*3/uL (160-400); Red Cell Distribution Width 13.2 % (11.0-16.0); White Blood Count 8.3 X10*3/uL (4.8-10.8)
[2023-01-30 11:56] LABS: Alanine Aminotransferase 11 U/L (0-31); Alkaline Phosphatase 80 U/L (39-117); Anion Gap 13 (12-20); Aspartate Amino Transferase 22 U/L (5-31); Bilirubin Total 0.6 mg/dL (0.0-1.0); Blood Urea Nitrogen 19 mg/dL (9-16); Carbon Dioxide 28 mmol/L (22-29); Chloride 104 mmol/L (96-108); Cholesterol 151 mg/dL (<200); Estimated Glomerular Filt Rate 44; Glucose Fasting 100 mg/dL (60-99); HDL Cholesterol 56 mg/dL (>40); LDL Cholesterol Calculated 85 mg/dL (<100); Potassium 3.6 mmol/L (3.3-5.1); Sodium 141 mmol/L (135-145); Total Protein 6.7 g/dL (6.5-8.0); Triglycerides 50 mg/dL (<150)
[2023-01-30 12:17] LABS: TSH reflex Free T4 1.76 uIU/mL (0.32-4.0); Vitamin D 25-OH Total 43.5 ng/mL (>30)
== END 2023-01-30 09:17 | disposition home or self-care (01) ==
LOC: HO.HMGCLDS 09:16
PROVIDERS: PCP Internal Medicine; Visit Provider Internal Medicine
DX: I10 Essential (primary) hypertension (principal); E78.00 Pure hypercholesterolemia, unspecified; E55.9 Vitamin D deficiency, unspecified
CPT/HCPCS: 36415; 80053; 80061; 82306; 84443; 85025

== ENCOUNTER 2023-02-01 09:36 | Outpatient (AMB) | payer MEDICARE, OTHER, SELFPAY ==
--- NOTE | 2023-02-01 09:38 | MHC.PC.OV ---
Vital Signs 02/01/23 09:39 Height 5 ft 1 in Weight 120 lb 6 oz BMI 22.7 BP 116/70 Blood Pressure Location Lt brachial Position Sitting Pulse 62 Pulse Source Pulse Oximeter Pulse Oximetry (%) 99 Oxygen Delivery Method Room Air Intake Visit Reasons: HTN, bradycardia, COPD, hyperlipidemia Mixer Attendant Required: No Accompanied by: Self / Same As Patient Allergies lisinopril Allergy (Unknown, Verified 02/01/23 10:15) Unknown alendronate sodium [Fosamax] Adverse Reaction (Intermediate, Verified 02/01/23 10:15) jaw pain aspirin Adverse Reaction (Intermediate, Verified 02/01/23 10:15) unable to tolerate higher doses-stomach ulcer (low dose ok) carbamazepine [From TEGRETOL] Adverse Reaction (Intermediate, Verified 02/01/23 10:15) NAUSEA & VOMITING, HEADACHE gabapentin Adverse Reaction (Intermediate, Verified 02/01/23 10:15) dizziness ibuprofen Adverse Reaction (Intermediate, Verified 02/01/23 10:15) Nausea and Vomiting lidocaine [From Lidoderm] Adverse Reaction (Intermediate, Verified 02/01/23 10:15) burning from patch NSAIDS (Non-Steroidal Anti-Inflamma [NSAIDS (NON-STEROIDAL ANTI-INFLAMMA] Adverse Reaction (Intermediate, Verified 02/01/23 10:15) NAUSEA & VOMITING, HX ULCER codeine [CODEINE] Adverse Reaction (Unknown, Verified 02/01/23 10:15) NAUSEA & VOMITING, nausea/vomiting Medication List - Last Reconciled 02/01/23 by Wilian Crawford MD acetaminophen (Tylenol) 650 mg PO QID PRN albuterol sulfate 90 mcg/actuation 2 puffs inhalation Q6H PRN amlodipine 10 mg PO DAILY atorvastatin 80 mg PO DAILY 90 days calcium carbonate-vitamin D3 600 mg-5 mcg (200 unit) (Calcium 600 + D(3)) 2 tabs PO DAILY denosumab (Prolia) 60 mg subcut [id number] docusate sodium (Colace) 100 mg PO BID fluticasone propionate 110 mcg/actuation (Flovent HFA) 1 puff inhalation BID 30 days fluticasone propionate 50 mcg/actuation 1 spray intranasal BID 90 days isosorbide mononitrate ER 30 mg PO DAILY losartan 50 mg PO DAILY nitroglycerin 0.4 mg sublingual Q5M PRN pantoprazole 40 mg PO BID [SOFT CERVICAL COLLAR As directed] tramadol 50 mg PO TID PRN 30 days Tobacco use date assessed: 02/01/23 Fall risk assessment: No Falls in past year Last assessed Fall Risk: 02/01/23 Dental Screening Dental Screen Date: 02/01/23 Did you have a dental visit in the last 12 months?: No Did you have a dental problem in the last 6 months where you did not have access to dental care?: No Was dental information given to patient?: No HPI HTN, bradycardia, COPD, hyperlipidemia HPI Details Patient comes in today for her follow up visit States that she feels okay She denies any headaches or dizziness Reports that she has been experiencing increased coughing for the past week - notes that her cough starts up when she lies down and seems to be worse at night; cough is mostly non-productive Denies any chest pains, no increased SOB No nausea/vomiting, no abdominal pain No change in bowel habits noted Had her follow up labs done a couple of days ago - to discuss her results [facility] Medical History History of gout Osteoarthritis, hand, primary localized Swelling of finger of right hand Age-related osteoporosis without current pathological fracture Chronic kidney disease, stage 4 (severe) Screening for breast cancer Allergic rhinitis Exertional dyspnea Chronic kidney disease (CKD), stage III (moderate) Benign essential hypertension Overactive bladder Compression fracture of L1 lumbar vertebra Cervical spondylosis without myelopathy GERD (gastroesophageal reflux disease) COPD (chronic obstructive pulmonary disease) Pure hypercholesterolemia Coronary artery disease Surgical History History of colonoscopy Hx of cataract removal with insertion of prosthetic lens History of angioplasty History of tonsillectomy History of appendectomy History of parathyroidectomy History of oophorectomy History of section Family History Father Throat cancer Mother No problems noted. Daughter Diabetes Son Arthritis CAD (coronary artery disease) Social History Housing: House Alcohol intake: never Patient Tobacco Use Status: Current someday Tobacco user Tobacco use type: Cigarette Cigarettes Per Day: 2 Years Smoked: 30 e-Cigarette/Vaping Use: Never Used service: No Current occupational status: retired Cognitive needs: No Hearing needs: No Vision needs: No Questionnaire PHQ-9 Over the last 2 weeks, how often have you been bothered by any of the following problems? 1. Little interest or pleasure in doing things: not at all 2. Feeling down, depressed, or hopeless: not at all 3. Trouble falling or staying asleep, or sleeping too much: not at all 4. Feeling tired or having little energy: not at all 5. Poor appetite or overeating: not at all 6. Feeling bad about yourself - or that you are a failure or have let yourself or your family down: not at all 7. Trouble concentrating on things, such as reading the newspaper or watching television: not at all 8. Moving or speaking so slowly that other people could have noticed. Or the opposite - being so fidgety or restless that you have been moving around a lot more than usual: not at all 9. Thoughts that you would be better off or of hurting yourself in some way: not at all Total score: 0 Depression Screening Interpretation: Negative Depression Screening Done: Yes [id number] - PHQ-9 Billing: Yes Source: Developed by Drs. Sesar Mcmillan, Paradise Petersen, Kamran Cartwright and colleagues, with an educational andi from [employer]. Thrive Questionnaire Date Thrive assessed: 02/01/23 I am a: Patient What is your living situation today?: I have a steady place to live Within the past 12 months, did the food you bought not last and you didn't have the money to get more?: Never true Within the past 12 months, did you worry whether your food would run out before you got money to buy more?: Never true Do you have trouble paying for medicines?: No Do you have trouble getting transportation to medical appointments?: No Do you have trouble paying your heating and electricity bill?: No Do you have trouble taking care of your child, family member or friend?: No Do you have trouble with day-to-day activities such as bathing, preparing meals, shopping, managing finances, etc.?: No Are you currently unemployed and looking for a job?: No Are you interested in more education?: No Please select the resources that you would like help with: None Currently or been in a relationship where the following occur: no concerns reported AUDIT C Alcohol Use Questionnaire (AUDIT-C) 1. How often do you have a drink containing alcohol?: Never 3. How often do you have six or more drinks on one occasion?: Never Total Score: 0 Score Reviewed/Action Taken: Yes NENO-7 AMB Questionnaire NENO-7 Date NENO - 7 assessed: 02/01/23 Feeling nervous, anxious, or on edge: 0 = Not at all Not being able to stop or control worryin = Not at all Worrying too much about different things: 0 = Not at all Trouble relaxin = Not at all Being so restless that it is hard to sit still: 0 = Not at all Becoming easily annoyed or irritable: 0 = Not at all Feeling afraid as if something awful might happen: 0 = Not at all Total NENO-7 score (0-4 normal; 5-9 mild; 10-14 moderate; 15-21 severe): 0 Source: Developed by Drs. Sesar Mcmillan, Paradise Petersen, Kamran Cartwright and colleagues, with an educational andi from [employer]. Review of Systems Const Denies chills, Denies fatigue, Denies fever(s) and Denies headache(s) ENT Denies dysphagia, Denies dizziness, Denies otalgia, Denies headache(s), Reports neck pain (chronic), Denies odynophagia and Denies sore throat Card Denies chest pain, Denies palpitations and Reports dyspnea on exertion (mild) Resp Denies cough, Reports dyspnea on exertion (mild) and Denies wheezing GI Denies abdominal pain, Denies constipation, Denies dysphagia, Denies heartburn, Denies diarrhea, Denies nausea, Denies odynophagia and Denies vomiting Denies difficulty voiding, Denies nocturia, Denies dysuria and Denies urinary urgency Musc Reports back pain (chronic), Reports neck pain (chronic) and Reports radiating pain into limb (into right shoulder and right arm) Skin/Breast Denies rash Neuro Denies dizziness and Denies headache(s) Endo Denies fatigue and Denies palpitations Aller/Immun Denies wheezing Physical exam (Primary Care) Vital Signs: Last Vital Signs Pulse 62 02/01/23 09:39 BP 116/70 02/01/23 09:39 Pulse Ox 99 02/01/23 09:39 Oxygen Delivery Method Room Air 02/01/23 09:39 BMI result Body Mass Index 22.7 Tobacco/Smoking Status: Tobacco use Status Tobacco use date assessed 02/01/23 02/01/23 09:40 Patient Tobacco Use Status Current someday Tobacco 02/01/23 09:40 Tobacco use type Cigarette 02/01/23 09:40 e-Cigarette/Vaping Use Never Used 02/01/23 09:40 PHQ-9: PHQ-9 Score PHQ-9: Total score 0 02/01/23 09:46 Depression Screening Interpretation: Negative Thrive Assessment: Date of Thrive Assessment Date Thrive assessed 02/01/23 02/01/23 09:40 Currently or been in a relationship where the following occur: no concerns reported Const General: no acute distress and alert HENMT Ears: TM's normal bilaterally and EAC's normal Throat: Yes posterior oropharynx normal and Yes tonsils normal (no TP congestion noted) Neck Neck: Yes no lymphadenopathy and Yes supple Resp Auscultation: no crackles, no rales, rhonchi (scattered) throughout, no wheezes and diminished lung sounds (slightly) bilateral Cardio Rate: regular rate Rhythm: regular rhythm Heart sounds: Murmur heart sound present systolic blowing, soft, II/ and at the left sternal border GI Palpation (GI): Soft to palpation and nontender Auscultation: normal bowel sounds Back/Spine/Pelvis Cervical Spine: Cervical spine tenderness (chronic) Thoracic/Lumbar Spine: lumbar spinal tenderness (chronic) Skin Rashes: no rashes Extrem General: Yes no clubbing, cyanosis or edema Results Reviewed Results Reviewed: Laboratory Tests 09/14/22 01/30/23 01/30/23 09:05 09:22 09:22 WBC 8.3 Hgb 13.6 Hct 41.2 Plt Count 288 Sodium 141 Potassium 3.6 Creatinine 1.18 Estimated GFR 44 Fasting Glucose 100 H Calcium 9.0 D AST 22 ALT 11 Triglycerides 50 Cholesterol 151 LDL Cholesterol, Calc 85 HDL Cholesterol 56 25-OH Vitamin D Total 43.5 TSH 1.76 Ur Specific [place] <= 1.005 Urine Protein Negative Urine Glucose (UA) Negative Urine Blood Negative Assessment and Plan Assessment & Plan (1) Pure hypercholesterolemia: Code(s): E78.00 - Pure hypercholesterolemia, unspecified Plan: Results of her labs done a couple of days ago reviewed and discussed with patient Reinforced low cholesterol diet Continue Atorvastatin 80 mg QD Will recheck her labs and fasting lipids in 4 months for follow up (2) Coronary artery disease: Comment: S/P angioplasty and stenting in 2009 Also S/P pericarditis in August 2019 - myocardial perfusion scan done then showed normal results without any fixed or reversible perfusion defect after exercise stress test; LV function is normal with LVEF at 75% Code(s): I25.10 - Atherosclerotic heart disease of [place] coronary artery without angina pectoris Qualifiers: Coronary Disease-Associated Artery/Lesion type: [place] artery [place] vs. transplanted heart: [place] heart Associated angina: without angina Qualified Code(s): I25.10 - Atherosclerotic heart disease of [place] coronary artery without angina pectoris Plan: Continue low dose Aspirin 81 mg QD Follow up with cardiology (Dr. Iain Rae) as scheduled (3) Bradycardia: Code(s): R00.1 - Bradycardia, unspecified Plan: Patient's heart rate has been consistently low over the past few years and lately has been averaging in the low 30s to 50s although it is up to 62/min today She has been asymptomatic so far except for an incident last year wherein she apparently briefly passed out - incident may have been due to bradycardia Has not had any recurrence since but advised again that if this recurs, she will need to have this evaluated further Follows with [facility] (Dr. Iain Rae) regularly (4) Benign essential hypertension: Code(s): I10 - Essential (primary) hypertension Plan: Reinforced low sodium diet - goal is systolic BP of at least 130 to 140 mm or less Continue Carvedilol 12.5 mg BID, Losartan 25 mg QD (takes in PM) and Amlodipine 10 mg QD Patient is reminded to continue monitoring her BP regularly (5) COPD exacerbation: Code(s): J44.1 - Chronic obstructive pulmonary disease with (acute) exacerbation Plan: Will start patient empirically on Azithromycin x 5 days and oral Prednisone 20 mg QD x 3 days Continue Flovent HFA 110 mcg 1 inhalation twice a day and Ventolin HFA 2 puffs 4 times a day as needed May need to add LAMA if respiratory symptoms get worse PFTs done last year came out normal except for decreased diffusion capacity, suggestive of pulmonary emphysema (6) Allergic rhinitis: Code(s): J30.9 - Allergic rhinitis, unspecified Qualifiers: Allergic rhinitis trigger: unspecified Allergic rhinitis seasonality: unspecified Qualified Code(s): J30.9 - Allergic rhinitis, unspecified Plan: Continue Fluticasone nasal spray 50 mcg 1 spray into each nostril BID (7) Chronic kidney disease (CKD), stage III (moderate): Code(s): N18.30 - Chronic kidney disease, stage 3 unspecified Qualifiers: Chronic kidney disease stage 3 subtype: stage 3b (GFR 30-44) Qualified Code(s): N18.32 - Chronic kidney disease, stage 3b Plan: Patient's renal function appears stable on her recent labs Reminded that she needs to keep up with her hydration Will continue to monitor her renal function closely (8) GERD (gastroesophageal reflux disease): Code(s): K21.9 - Gastro-esophageal reflux disease without esophagitis Qualifiers: Esophagitis presence: with esophagitis Esophagitis bleeding: without hemorrhage Qualified Code(s): K21.00 - Gastro-esophageal reflux disease with esophagitis, without bleeding Plan: Dietary restrictions reinforced Continue Pantoprazole 40 mg BID Follow up with GI as scheduled (9) Age-related osteoporosis without current pathological fracture: Comment: Alendronate: Approx 2004 - Jaw pain. Prolia: 12/2013 to present Code(s): M81.0 - Age-related osteoporosis without current pathological fracture Plan: Could not tolerate Alendronate in the past due to jaw pain Has been on Prolia since December 2013 and has been tolerating Rx well - her bone density has shown improvement on Prolia Tx As she has been on Prolia since 2013, rheumatology is planning to switch her over to IV Reclast at her next visit Will continue to monitor her BMD every 2 to 3 years (last done in December 2021) Follow up with rheumatology as scheduled (10) Cervical spondylosis without myelopathy: Code(s): M47.812 - Spondylosis without myelopathy or radiculopathy, cervical region Plan: Cervical spine x-rays done last year showed (+) degenerative arthrosis changes with C3-C4 anterolisthesis Patient uses a cervical collar as needed, including at night when she is sleeping, for additional support and to help manage her neck symptoms (pain) better (11) Compression fracture of L1 lumbar vertebra: Comment: S/P kyphoplasty Code(s): S32.010A - Wedge compression fracture of first lumbar vertebra, initial encounter for closed fracture Qualifiers: Encounter type: sequela Qualified Code(s): S32.010S - Wedge compression fracture of first lumbar vertebra, sequela Plan: S/P kyph[place] by Dr. Gonzalez [place] [facility] [place] couple of [place] Reinforced activity and weight lifting restrictions to avoid aggravating her back pain (12) Overactive bladder: Code(s): N32.81 - Overactive bladder Plan: Has not been able to tolerate Detrol LA and generic Enablex (7.5 mg) - to consider urology referral if symptoms progress or worsen (13) Smoker: Code(s): F17.200 - Nicotine dependence, unspecified, uncomplicated Plan: Patient admits that she still smokes every now and then Counseled again on complete smoking cessation, in light of her COPD Plan Follow up in 4 months Orders: Orders Complete Blood Count Auto Diff 4 Months I10 - Essential (primary) hypertension Comprehensive [place]. Panel Fast 4 Months E78.00 - Pure hypercholesterolemia, unspecified UA CC w/rflx Micro + Cult 4 Months R30.0 - Dysuria Vitamin D 25-OH Total 4 Months E55.9 - Vitamin D deficiency, unspecified Lipid Panel 4 Months E78.00 - Pure hypercholesterolemia, unspecified TSH reflex Free T4 4 Months E78.00 - Pure hypercholesterolemia, unspecified Medications: New azithromycin take 500 mg today (day 1), then 250 mg for 4 days (days 2-5) PO 6 tabs 0RF prednisone 20 mg PO DAILY 3 days 3 tabs 0RF Coding Level of Care Code Est Pt Level 4 (38160) Diagnoses Pure hypercholesterolemia E78.00 Coronary artery disease involving [place] coronary artery of [place] heart without angina pectoris I25.10 Coronary Disease-Associated Artery/Lesion type: [place] artery [place] vs. transplanted heart: [place] heart Associated angina: without angina Bradycardia R00.1 Benign essential hypertension I10 COPD exacerbation J44.1 Allergic rhinitis, unspecified seasonality, unspecified trigger J30.9 Allergic rhinitis trigger: unspecified Allergic rhinitis seasonality: unspecified Stage 3b chronic kidney disease N18.32 Chronic kidney disease stage 3 subtype: stage 3b (GFR 30-44) Gastroesophageal reflux disease with esophagitis without hemorrhage K21.00 Esophagitis presence: with esophagitis Esophagitis bleeding: without hemorrhage Age-related osteoporosis without current pathological fracture M81.0 Cervical spondylosis without myelopathy M47.812 Compression fracture of L1 vertebra, sequela S32.010S Encounter type: sequela Overactive bladder N32.81 Smoker F17.200
[2023-02-01 09:39] VITALS: BP 116/70; PULSE 62; O2SAT 99; BMI 22.7
== END 2023-02-01 10:36 | disposition home or self-care (01) ==
PROVIDERS: PCP Internal Medicine; Visit Provider Internal Medicine
DX: I10 Essential (primary) hypertension (principal); R00.1 Bradycardia, unspecified; J44.1 Chronic obstructive pulmonary disease with (acute) exacerbation; E78.00 Pure hypercholesterolemia, unspecified; I25.10 Atherosclerotic heart disease of native coronary artery without angina pectoris; J30.9 Allergic rhinitis, unspecified; K21.00 Gastro-esophageal reflux disease with esophagitis, without bleeding; M81.0 Age-related osteoporosis without current pathological fracture; M47.812 Spondylosis without myelopathy or radiculopathy, cervical region; S32.010S Wedge compression fracture of first lumbar vertebra, sequela; N32.81 Overactive bladder; F17.200 Nicotine dependence, unspecified, uncomplicated
CPT/HCPCS: 99214

== ENCOUNTER 2023-05-30 08:41 | Outpatient (REF) | payer MEDICARE, OTHER, SELFPAY ==
[2023-05-30 10:31] LABS: MANUAL DIFF FLAG NO
[2023-05-30 10:47] LABS: Basophils Absolute Auto 0.2 X10*3/uL (0.0-0.2); Basophils Percent Auto 2.8 % (0-2); Eosinophils Absolute Auto 0.4 X10*3/uL (0.0-0.4); Eosinophils Percent Auto 5.8 % (0-4); Hematocrit 41.7 % (37.0-47.0); Hemoglobin 13.7 g/dl (12.0-16.0); Imm Gran Abs Auto 0.03 X10*3/uL (0.00-0.03); Imm Gran Pct Auto 0.4 % (0.0-0.4); Lymphocytes Absolute Auto 1.1 X10*3/uL (1.2-4.9); Lymphocytes Percent Auto 14.8 % (20-40); Mean Corpuscular HGB Conc 32.9 g/dl (31.0-35.0); Mean Corpuscular Hemoglobin 31.6 pg (27.0-33.0); Mean Corpuscular Volume 96.3 fL (80.0-98.0); Mean Platelet Volume 12.2 fL (9.4-12.3); Monocytes Absolute Auto 0.7 X10*3/uL (0.1-1.2); Monocytes Percent Auto 9.3 % (2-11); Neutrophils Percent Auto 66.9 % (45-73); Platelet Count 268 X10*3/uL (160-400); Red Blood Count 4.33 X10*6/uL (4.20-5.50); Red Cell Distribution Width 13.3 % (11.0-16.0); White Blood Count 7.4 X10*3/uL (4.8-10.8)
[2023-05-30 11:13] LABS: Alanine Aminotransferase 14 U/L (0-31); Albumin Level 3.9 g/dL (3.5-5.0); Alkaline Phosphatase 73 U/L (39-117); Anion Gap 12 (12-20); Aspartate Amino Transferase 22 U/L (5-31); Bilirubin Total 0.7 mg/dL (0.0-1.0); Blood Urea Nitrogen 24 mg/dL (9-16); Calcium 9.1 mg/dL (8.4-10.2); Carbon Dioxide 29 mmol/L (22-29); Chloride 105 mmol/L (96-108); Cholesterol 134 mg/dL (<200); Estimated Glomerular Filt Rate 46; Glucose Fasting 98 mg/dL (60-99); HDL Cholesterol 55 mg/dL (>40); LDL Cholesterol Calculated 69 mg/dL (<100); Potassium 3.7 mmol/L (3.3-5.1); Sodium 142 mmol/L (135-145); Total Protein 6.5 g/dL (6.5-8.0); Triglycerides 51 mg/dL (<150)
[2023-05-30 11:14] LABS: TSH reflex Free T4 0.94 uIU/mL (0.32-4.0); Vitamin D 25-OH Total 46.7 ng/mL (>30)
== END 2023-05-30 08:42 | disposition home or self-care (01) ==
LOC: HO.HMGCLDS 08:41
PROVIDERS: PCP Internal Medicine; Visit Provider Internal Medicine
DX: I10 Essential (primary) hypertension (principal); E55.9 Vitamin D deficiency, unspecified; E78.00 Pure hypercholesterolemia, unspecified
CPT/HCPCS: 36415; 80053; 80061; 82306; 84443; 85025

== ENCOUNTER 2023-06-04 09:32 | Outpatient (REF) | payer MEDICARE, OTHER, SELFPAY ==
[2023-06-04 13:57] LABS: Appearance Urine Clear; Color Urine Yellow; Glucose Urine UA Negative (Negative); Leukocyte Esterase Urine Negative (Negative); Nitrite Urine Negative (Negative); PH 7.5 (5.0-9.0); Urine Blood Negative (Negative); Urine Ketones Negative (Negative); Urine Protein Negative (Neg-Trace)
== END 2023-06-04 09:33 | disposition home or self-care (01) ==
LOC: HO.HMGCLNP 09:32
PROVIDERS: PCP Internal Medicine; Visit Provider Internal Medicine
DX: R30.0 Dysuria (principal)
CPT/HCPCS: 81003

== ENCOUNTER 2023-06-06 09:51 | Outpatient (AMB) | payer MEDICARE, OTHER, SELFPAY ==
[2023-06-06 09:53] VITALS: BP 148/86; PULSE 59; O2SAT 97; BMI 23.1
--- NOTE | 2023-06-06 09:53 | MHC.PC.OV ---
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 Required: No Allergies lisinopril Allergy (Unknown, Verified 06/06/23 10:37) Unknown alendronate sodium [Fosamax] Adverse Reaction (Intermediate, Verified 06/06/23 10:37) jaw pain aspirin Adverse Reaction (Intermediate, Verified 06/06/23 10:37) unable to tolerate higher doses-stomach ulcer (low dose ok) carbamazepine [From TEGRETOL] Adverse Reaction (Intermediate, Verified 06/06/23 10:37) NAUSEA & VOMITING, HEADACHE gabapentin Adverse Reaction (Intermediate, Verified 06/06/23 10:37) dizziness ibuprofen Adverse Reaction (Intermediate, Verified 06/06/23 10:37) Nausea and Vomiting lidocaine [From Lidoderm] Adverse Reaction (Intermediate, Verified 06/06/23 10:37) burning from patch NSAIDS (Non-Steroidal Anti-Inflamma [NSAIDS (NON-STEROIDAL ANTI-INFLAMMA] Adverse Reaction (Intermediate, Verified 06/06/23 10:37) NAUSEA & VOMITING, HX ULCER codeine [CODEINE] Adverse Reaction (Unknown, Verified 06/06/23 10:37) NAUSEA & VOMITING, nausea/vomiting Medication List - Last Reconciled 06/06/23 by Wilian Crawford MD acetaminophen (Tylenol) 650 mg PO QID PRN albuterol sulfate 90 mcg/actuation 2 puffs inhalation Q6H PRN amlodipine 10 mg PO DAILY atorvastatin 80 mg PO DAILY 90 days calcium carbonate-vitamin D3 600 mg-5 mcg (200 unit) (Calcium 600 + D(3)) 2 tabs PO DAILY denosumab (Prolia) 60 mg subcut [id number] docusate sodium (Colace) 100 mg PO BID fluticasone propionate 110 mcg/actuation (Flovent HFA) 1 puff inhalation BID 30 days fluticasone propionate 50 mcg/actuation 1 spray intranasal BID 90 days isosorbide mononitrate ER 30 mg PO DAILY losartan 50 mg PO DAILY nitroglycerin 0.4 mg sublingual Q5M PRN pantoprazole 40 mg PO BID [SOFT CERVICAL COLLAR As directed] tramadol 50 mg PO TID PRN 30 days Tobacco use date assessed: 06/06/23 Dental Screening Dental Screen Date: 06/06/23 Did you have a dental visit in the last 12 months?: No Did you have a dental problem in the last 6 months where you did not have access to dental care?: No HPI COPD, hyperlipidemia, CAD, HTN HPI Details Patient comes in today for her follow up visit States that she has been experiencing increased cough and congestion for the past 4 to 5 days - thinks that this is mostly due to her spring allergies (pollen) States that she coughs up some yellowish phlegm lately and feels that she has been running a low grade fever over the past couple of days She denies any sore throat; denies any headaches or dizziness Denies any chest pain, no increased SOB although her chest feels congested at times and she has had to use her Albuterol inhaler more often than usual lately No nausea/vomiting, no abdominal pain No change in bowel habits noted She needs her Pantoprazole Rx refilled Had her follow up labs done last week - to discuss her results [facility] Medical History History of gout Osteoarthritis, hand, primary localized Swelling of finger of right hand Age-related osteoporosis without current pathological fracture Chronic kidney disease, stage 4 (severe) Screening for breast cancer Allergic rhinitis Exertional dyspnea Chronic kidney disease (CKD), stage III (moderate) Benign essential hypertension Overactive bladder Compression fracture of L1 lumbar vertebra Cervical spondylosis without myelopathy GERD (gastroesophageal reflux disease) COPD (chronic obstructive pulmonary disease) Pure hypercholesterolemia Coronary artery disease Surgical History History of colonoscopy Hx of cataract removal with insertion of prosthetic lens History of angioplasty History of tonsillectomy History of appendectomy History of parathyroidectomy History of oophorectomy History of section Family History Father Throat cancer Mother No problems noted. Daughter Diabetes Son Arthritis CAD (coronary artery disease) Social History Housing: House Alcohol intake: never Patient Tobacco Use Status: Current someday Tobacco user Tobacco use type: Cigarette Cigarettes Per Day: 2 Years Smoked: 30 e-Cigarette/Vaping Use: Never Used service: No Current occupational status: retired Cognitive needs: No Hearing needs: No Vision needs: No Questionnaire PHQ-9 Over the last 2 weeks, how often have you been bothered by any of the following problems? 1. Little interest or pleasure in doing things: not at all 2. Feeling down, depressed, or hopeless: not at all 3. Trouble falling or staying asleep, or sleeping too much: not at all 4. Feeling tired or having little energy: not at all 5. Poor appetite or overeating: not at all 6. Feeling bad about yourself - or that you are a failure or have let yourself or your family down: not at all 7. Trouble concentrating on things, such as reading the newspaper or watching television: not at all 8. Moving or speaking so slowly that other people could have noticed. Or the opposite - being so fidgety or restless that you have been moving around a lot more than usual: not at all 9. Thoughts that you would be better off or of hurting yourself in some way: not at all Total score: 0 Depression Screening Interpretation: Negative Depression Screening Done: Yes 64637 - PHQ-9 Billing: Yes Source: Developed by Drs. Sesar Mcmillan, Paradise Petersen, Kamran Cartwright and colleagues, with an educational andi from [employer]. Thrive Questionnaire Date Thrive assessed: 06/06/23 I am a: Patient What is your living situation today?: I have a steady place to live Within the past 12 months, did the food you bought not last and you didn't have the money to get more?: Never true Within the past 12 months, did you worry whether your food would run out before you got money to buy more?: Never true Do you have trouble paying for medicines?: No Do you have trouble getting transportation to medical appointments?: No Do you have trouble paying your heating and electricity bill?: No Do you have trouble taking care of your child, family member or friend?: No Do you have trouble with day-to-day activities such as bathing, preparing meals, shopping, managing finances, etc.?: No Are you currently unemployed and looking for a job?: No Are you interested in more education?: No Please select the resources that you would like help with: None Currently or been in a relationship where the following occur: no concerns reported THRIVE Score: 0 AUDIT C Alcohol Use Questionnaire (AUDIT-C) 1. How often do you have a drink containing alcohol?: Never 3. How often do you have six or more drinks on one occasion?: Never Total Score: 0 Score Reviewed/Action Taken: Yes NENO-7 AMB Questionnaire NENO-7 Date NENO - 7 assessed: 06/06/23 Feeling nervous, anxious, or on edge: 0 = Not at all Not being able to stop or control worryin = Not at all Worrying too much about different things: 0 = Not at all Trouble relaxin = Not at all Being so restless that it is hard to sit still: 0 = Not at all Becoming easily annoyed or irritable: 0 = Not at all Feeling afraid as if something awful might happen: 0 = Not at all Total NENO-7 score (0-4 normal; 5-9 mild; 10-14 moderate; 15-21 severe): 0 Source: Developed by Drs. Sesar Mcmillan, Paradise Petersen, Kamran Cartwright and colleagues, with an educational andi from [employer]. NENO-7 Assessment Billing NENO-7 Assessment Tool: NENO-7 Assessment 93075 Review of Systems Const Denies chills, Reports fever(s) (low grade, on and off lately) and Denies headache(s) ENT Denies dysphagia, Denies dizziness, Denies otalgia, Denies headache(s), Reports nasal congestion, Reports neck pain (chronic), Denies odynophagia and Denies sore throat Card Denies chest pain, Denies palpitations and Reports dyspnea on exertion (mild) Resp Reports chest congestion, Reports cough (recurrent, coughs up yellowish phlegm at times), Reports dyspnea on exertion (mild) and Denies wheezing GI Denies abdominal pain, Denies constipation, Denies dysphagia, Denies heartburn, Denies diarrhea, Denies nausea, Denies odynophagia and Denies vomiting Denies difficulty voiding, Denies nocturia, Denies dysuria and Denies urinary urgency Musc Reports back pain (chronic), Reports neck pain (chronic) and Reports radiating pain into limb (into right shoulder and right arm) Skin/Breast Denies rash Neuro Denies dizziness and Denies headache(s) Endo Denies palpitations Aller/Immun Denies wheezing Physical exam (Primary Care) Vital Signs: Last Vital Signs Pulse 59 06/06/23 09:53 BP 148/86 H 06/06/23 09:53 Pulse Ox 97 06/06/23 09:53 Oxygen Delivery Method Room Air 06/06/23 09:53 BMI result Body Mass Index 23.1 Tobacco/Smoking Status: Tobacco use Status Tobacco use date assessed 06/06/23 06/06/23 09:55 Patient Tobacco Use Status Current someday Tobacco 06/06/23 09:55 Tobacco use type Cigarette 06/06/23 09:55 e-Cigarette/Vaping Use Never Used 06/06/23 09:55 PHQ-9: PHQ-9 Score PHQ-9: Total score 0 06/06/23 10:01 Depression Screening Interpretation: Negative Thrive Assessment: Date of Thrive Assessment Date Thrive assessed 06/06/23 06/06/23 09:55 Currently or been in a relationship where the following occur: no concerns reported Const General: no acute distress and alert HENMT Ears: TM's normal bilaterally and EAC's normal Throat: Yes posterior oropharynx normal and Yes tonsils normal (no TP congestion noted) Neck Neck: Yes no lymphadenopathy and Yes supple Thyroid: Thyroid normal Resp Auscultation: no crackles, no rales, rhonchi (scattered) throughout, wheezes (faint) expiratory wheezes and upper bilaterally and diminished lung sounds (slightly) bilateral Cardio Rate: regular rate Rhythm: regular rhythm Heart sounds: Murmur heart sound present systolic blowing, soft, II/ and at the left sternal border GI Palpation (GI): Soft to palpation and nontender Auscultation: normal bowel sounds General: Yes no CVA tenderness Back/Spine/Pelvis Back: no CVA tenderness Cervical Spine: Cervical spine tenderness (chronic) Thoracic/Lumbar Spine: lumbar spinal tenderness (chronic) Skin Rashes: no rashes Extrem General: Yes no clubbing, cyanosis or edema Results Reviewed Results Reviewed: Laboratory Tests 04/10/24 04/10/24 04/15/24 08:51 08:57 09:00 WBC 7.4 Hgb 13.7 Hct 41.7 Plt Count 268 Sodium 142 Potassium 3.7 Creatinine 1.14 Estimated GFR 46 Fasting Glucose 98 Calcium 9.1 AST 22 ALT 14 Triglycerides 51 Cholesterol 134 LDL Cholesterol, Calc 69 HDL Cholesterol 55 25-OH Vitamin D Total 46.7 TSH 0.94 Ur Specific [place] 1.010 Urine Protein Negative Urine Glucose (UA) Negative Urine Blood Negative Urine Nitrite Negative Ur Leukocyte Esterase Negative Assessment and Plan Assessment & Plan (1) Pure hypercholesterolemia: Code(s): E78.00 - Pure hypercholesterolemia, unspecified Plan: Results of her labs done last week reviewed and discussed with patient Reinforced low cholesterol diet Continue Atorvastatin 80 mg QD Will allow her to skip getting any follow up labs done for her next visit, as her labs have been under excellent control over the past year (2) Coronary artery disease: Comment: S/P angioplasty and stenting in 2009 Also S/P pericarditis in August 2019 - myocardial perfusion scan done then showed normal results without any fixed or reversible perfusion defect after exercise stress test; LV function is normal with LVEF at 75% Code(s): I25.10 - Atherosclerotic heart disease of [place] coronary artery without angina pectoris Qualifiers: Coronary Disease-Associated Artery/Lesion type: [place] artery [place] vs. transplanted heart: [place] heart Associated angina: without angina Qualified Code(s): I25.10 - Atherosclerotic heart disease of [place] coronary artery without angina pectoris Plan: Continue low dose Aspirin 81 mg QD Follow up with cardiology (Dr. Iain Rae) as scheduled (3) Bradycardia: Code(s): R00.1 - Bradycardia, unspecified Plan: Patient's heart rate has been consistently low over the past few years and lately has been averaging in the low 30s to 50s although it is up to 62/min today She has been asymptomatic so far except for an incident last year wherein she apparently briefly passed out - incident may have been due to bradycardia Has not had any recurrence since but advised again that if this recurs, she will need to have this evaluated further Follows with [facility] (Dr. Iain Rae) regularly (4) Benign essential hypertension: Code(s): I10 - Essential (primary) hypertension Plan: Reinforced low sodium diet - goal is systolic BP of at least 130 to 140 mm or less Continue Carvedilol 12.5 mg BID, Losartan 25 mg QD (takes in PM) and Amlodipine 10 mg QD Patient is reminded to continue monitoring her BP regularly (5) COPD exacerbation: Code(s): J44.1 - Chronic obstructive pulmonary disease with (acute) exacerbation Plan: Will start patient again empirically on Azithromycin x 5 days but will hold off on oral Prednisone at this time Discussed that her symptoms are likely triggered by her spring allergies Patient is advised to call if her symptoms persist or get worse over the next week despite her Rx Continue Flovent HFA 110 mcg 1 inhalation twice a day and Ventolin HFA 2 puffs 4 times a day as needed - she admits that she has not been using her Flovent HFA consistently and also not lately and is only using her Ventolin HFA Reminded her again that Flovent HFA should be her controller and should be used DAILY for it to help with her breathing May need to add LAMA if respiratory symptoms still are not adequately controlled once she starts using her inhalers as prescribed PFTs done last year came out normal except for decreased diffusion capacity, suggestive of pulmonary emphysema (6) Allergic rhinitis: Code(s): J30.9 - Allergic rhinitis, unspecified Qualifiers: Allergic rhinitis trigger: unspecified Allergic rhinitis seasonality: unspecified Qualified Code(s): J30.9 - Allergic rhinitis, unspecified Plan: Continue Fluticasone nasal spray 50 mcg 1 spray into each nostril BID States that she was taking Cetirizine in the past but stopped taking it recently as she feels that it is not helping at all Will start her on a trial of Fexofenadine 180 mg QD PRN - advised that this is available OTC if her insurance will not cover the Rx (7) Chronic kidney disease (CKD), stage III (moderate): Code(s): N18.30 - Chronic kidney disease, stage 3 unspecified Qualifiers: Chronic kidney disease stage 3 subtype: stage 3b (GFR 30-44) Qualified Code(s): N18.32 - Chronic kidney disease, stage 3b Plan: Patient's renal function appears stable on her recent labs Reminded that she needs to keep up with her hydration Will continue to monitor her renal function closely (8) GERD (gastroesophageal reflux disease): Code(s): K21.9 - Gastro-esophageal reflux disease without esophagitis Qualifiers: Esophagitis presence: with esophagitis Esophagitis bleeding: without hemorrhage Qualified Code(s): K21.00 - Gastro-esophageal reflux disease with esophagitis, without bleeding Plan: Dietary restrictions reinforced Continue Pantoprazole 40 mg BID Follow up with GI as scheduled (9) Age-related osteoporosis without current pathological fracture: Comment: Alendronate: Approx 2004 - Jaw pain. Prolia: 12/2013 to present Code(s): M81.0 - Age-related osteoporosis without current pathological fracture Plan: Patient could not tolerate Alendronate in the past due to jaw pain Has been on Prolia since December 2013 and has been tolerating Rx well - her bone density has shown improvement on Prolia Tx As she has been on Prolia since 2013, rheumatology is planning to switch her over to IV Reclast at her next visit Will continue to monitor her BMD every 2 to 3 years (last done in December 2021) Follow up with rheumatology as scheduled (10) Cervical spondylosis without myelopathy: Code(s): M47.812 - Spondylosis without myelopathy or radiculopathy, cervical region Plan: Cervical spine x-rays done last year showed (+) degenerative arthrosis changes with C3-C4 anterolisthesis Patient uses a cervical collar as needed, including at night when she is sleeping, for additional support and to help manage her neck symptoms (pain) better (11) Compression fracture of L1 lumbar vertebra: Comment: S/P kyphoplasty Code(s): S32.010A - Wedge compression fracture of first lumbar vertebra, initial encounter for closed fracture Qualifiers: Encounter type: sequela Qualified Code(s): S32.010S - Wedge compression fracture of first lumbar vertebra, sequela Plan: S/P kyphoplasty by Dr. Gonzalez at [facility] a couple of years ago Reinforced activity and weight lifting restrictions to avoid aggravating her back pain (12) Overactive bladder: Code(s): N32.81 - Overactive bladder Plan: She has not been able to tolerate Detrol LA and generic Enablex (7.5 mg) - to consider urology referral if symptoms progress or worsen (13) Smoker: Code(s): F17.200 - Nicotine dependence, unspecified, uncomplicated Plan: Patient admits that she still smokes every now and then Counseled again on complete smoking cessation, in light of her COPD Plan Follow up in 4 months Medications: New fexofenadine 180 mg PO DAILY 30 days PRN 30 tabs 5RF allergy symptoms azithromycin take 500 mg today (day 1), then 250 mg for 4 days (days 2-5) PO 6 tabs 0RF Refilled pantoprazole 40 mg PO BID 180 tabs 3RF K21.00 - Gastro-esophageal reflux disease with esophagitis, without bleeding Coding Level of Care Code Est Pt Level 4 (78324) Diagnoses Pure hypercholesterolemia E78.00 Coronary artery disease involving [place] coronary artery of [place] heart without angina pectoris I25.10 Coronary Disease-Associated Artery/Lesion type: [place] artery [place] vs. transplanted heart: [place] heart Associated angina: without angina Bradycardia R00.1 Benign essential hypertension I10 COPD exacerbation J44.1 Allergic rhinitis, unspecified seasonality, unspecified trigger J30.9 Allergic rhinitis trigger: unspecified Allergic rhinitis seasonality: unspecified Stage 3b chronic kidney disease N18.32 Chronic kidney disease stage 3 subtype: stage 3b (GFR 30-44) Gastroesophageal reflux disease with esophagitis without hemorrhage K21.00 Esophagitis presence: with esophagitis Esophagitis bleeding: without hemorrhage Age-related osteoporosis without current pathological fracture M81.0 Cervical spondylosis without myelopathy M47.812 Compression fracture of L1 vertebra, sequela S32.010S Encounter type: sequela Overactive bladder N32.81 Smoker F17.200 Additional Codes NENO-7 Assessment Billing - NENO-7 Assessment Tool: NENO-7 Assessment [id number] ([id number])
[2023-06-06 10:46] VITALS: BP 142/88
== END 2023-06-06 10:50 | disposition home or self-care (01) ==
PROVIDERS: PCP Internal Medicine; Visit Provider Internal Medicine
DX: J44.1 Chronic obstructive pulmonary disease with (acute) exacerbation (principal); N18.4 Chronic kidney disease, stage 4 (severe); E78.00 Pure hypercholesterolemia, unspecified; I25.10 Atherosclerotic heart disease of native coronary artery without angina pectoris; R00.1 Bradycardia, unspecified; I12.9 Hypertensive chronic kidney disease with stage 1 through stage 4 chronic kidney disease, or unspecified chronic kidney disease; J30.9 Allergic rhinitis, unspecified; K21.00 Gastro-esophageal reflux disease with esophagitis, without bleeding; M81.0 Age-related osteoporosis without current pathological fracture; M47.812 Spondylosis without myelopathy or radiculopathy, cervical region; S32.010S Wedge compression fracture of first lumbar vertebra, sequela; F17.210 Nicotine dependence, cigarettes, uncomplicated
CPT/HCPCS: 99214

== ENCOUNTER 2023-06-25 09:40 | Outpatient (REF) | payer MEDICARE, OTHER, SELFPAY ==
[2023-06-25 11:18] LABS: Alanine Aminotransferase 26 U/L (0-31); Albumin Level 4.3 g/dL (3.5-5.0); Alkaline Phosphatase 80 U/L (39-117); Anion Gap 16 (12-20); Aspartate Amino Transferase 34 U/L (5-31); Bilirubin Total 0.6 mg/dL (0.0-1.0); Blood Urea Nitrogen 14 mg/dL (9-16); Calcium 10.3 mg/dL (8.4-10.2); Carbon Dioxide 27 mmol/L (22-29); Chloride 103 mmol/L (96-108); Estimated Glomerular Filt Rate 58; Glucose Random 90 mg/dL (60-115); Potassium 3.6 mmol/L (3.3-5.1); Sodium 142 mmol/L (135-145); Total Protein 7.4 g/dL (6.5-8.0)
== END 2023-06-25 09:41 | disposition home or self-care (01) ==
LOC: HO.LAB 09:40
PROVIDERS: PCP Internal Medicine; Visit Provider Internal Medicine
DX: N18.32 Chronic kidney disease, stage 3b (principal)
CPT/HCPCS: 36415; 80053

== ENCOUNTER 2023-06-27 09:12 | Outpatient (AMB) | payer MEDICARE, OTHER, SELFPAY ==
--- NOTE | 2023-06-27 09:17 | MHC.OFFVIS ---
Vital Signs 06/27/23 09:18 Height 5 ft 1 in Weight 119 lb 0.794 oz BMI 22.5 BP 144/82 H Blood Pressure Location Rt brachial Position Sitting Pulse 56 Pulse Oximetry (%) 97 Oxygen Delivery Method Room Air Intake Visit Reasons: osteoporosis/Prolia Intake Note: Patient last seen on 12/27/22, presents to office today for osteoporosis follow up and test results. Patient will be getting Prolia injection today. Patient reports she was seen at [facility] ED and admitted for chest pain the end of May. 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 Accompanied by: Self / Same As Patient Allergies lisinopril Allergy (Unknown, Verified 07/11/23 15:02) Unknown alendronate sodium [Fosamax] Adverse Reaction (Intermediate, Verified 07/11/23 15:02) jaw pain aspirin Adverse Reaction (Intermediate, Verified 07/11/23 15:02) unable to tolerate higher doses-stomach ulcer (low dose ok) carbamazepine [From TEGRETOL] Adverse Reaction (Intermediate, Verified 07/11/23 15:02) NAUSEA & VOMITING, HEADACHE gabapentin Adverse Reaction (Intermediate, Verified 07/11/23 15:02) dizziness ibuprofen Adverse Reaction (Intermediate, Verified 07/11/23 15:02) Nausea and Vomiting lidocaine [From Lidoderm] Adverse Reaction (Intermediate, Verified 07/11/23 15:02) burning from patch NSAIDS (Non-Steroidal Anti-Inflamma [NSAIDS (NON-STEROIDAL ANTI-INFLAMMA] Adverse Reaction (Intermediate, Verified 07/11/23 15:02) NAUSEA & VOMITING, HX ULCER codeine [CODEINE] Adverse Reaction (Unknown, Verified 07/11/23 15:02) NAUSEA & VOMITING, nausea/vomiting HPI Comments Details: Ms. Narayanan 82 yoF here for follow-up of osteoporosis. Last visit December 2022. Last Prolia in December 2022. Started on Prolia in 2013 and continues to tolerate this well. She is due for Prolia injection today. No plans for major dental surgery. She has upper and lower dentures since age 21. No recent fractures or falls. She states her kidney function has been stable. Per, patient she had a recent HER visit for Malaise. She had stopped her GERD medication and so had increased symptoms and was taking extra Tums to compensate. This she says accounts for the mild elevation in her calcium levels. She has since stopped tums and also reduced her calcium dose to 1 tablet. Risk factors for osteoporosis: [facility] use of PPI, hx hyperparathyroidism. She has had surgery to remove the left trapezium (CMC) Prior history: First fracture was L1 in approx. 2005. She was was treated with fosamax but it was discontinued due to GI upset. She had parathroid surgery around that time for hyperparathyroidism. Her second fracture was in 2014- L3 acute fracture. Treated with kyphoplasty. She had lifted a scooter and felt a pop. Treated by Dr. Gonzalez at [facility]. She was seen in June 2020 for gout attack, she has not had any subsequent gout flares, not currently on any medication for gout. She follows with Cardiology at [facility] and ophthalmology at [facility]. [facility] Medical History Cervical spine fracture History of gout Osteoarthritis, hand, primary localized Swelling of finger of right hand Age-related osteoporosis without current pathological fracture Chronic kidney disease, stage 4 (severe) Screening for breast cancer Allergic rhinitis Exertional dyspnea Chronic kidney disease (CKD), stage III (moderate) Benign essential hypertension Overactive bladder Compression fracture of L1 lumbar vertebra Cervical spondylosis without myelopathy GERD (gastroesophageal reflux disease) COPD (chronic obstructive pulmonary disease) Pure hypercholesterolemia Coronary artery disease Surgical History History of colonoscopy Hx of cataract removal with insertion of prosthetic lens History of angioplasty History of tonsillectomy History of appendectomy History of parathyroidectomy History of oophorectomy History of section Family History Father Throat cancer Mother No problems noted. Daughter Diabetes Son Arthritis CAD (coronary artery disease) Daughter Scleroderma Social History Housing: House Alcohol intake: never Patient Tobacco Use Status: Current someday Tobacco user Tobacco use type: Cigarette Cigarettes Per Day: 3 Years Smoked: 30 e-Cigarette/Vaping Use: Never Used service: No Current occupational status: retired Cognitive needs: No Hearing needs: No Vision needs: No Physical Exam Vital Signs: Last Vital Signs Pulse 56 06/27/23 09:18 BP 144/82 H 06/27/23 09:18 Pulse Ox 97 06/27/23 09:18 Oxygen Delivery Method Room Air 06/27/23 09:18 BMI result Body Mass Index 22.5 APPEARANCE: Patient in no acute distress EYES:no redness, pupils equal and reactive to light, eyelids normal HEART: Regular rhythm, S1-S2 heard, no murmurs, rubs or gallops. LUNG: Clear to auscultation, respiratory rate regular and nonlabored. EXTREMITIES: No edema, no calf tenderness, normal peripheral pulses. Prominent bony enlargement to both CMC joints, left Thenar atrophy NEURO: Oriented and alert x3. No focal weakness. Gait normal. SKIN: No inflammatory or neoplastic lesions. Normal color and turgor Office Meds Prolia 60 mg/mL subcutaneous syringe Performing Provider: SARA Waldrop Performing Location: [facility] Rheumatology Administered by: Sarah Henriquez RN on 06/27/23 11:11 Dose Route Admin Location Dispensed Lot Number Expiration Date NDC Registration Officer 60 mg subcut right arm 1 mL [id number] 08/18/25 86243-642-70 [employer] Assessment & Plan Assessment & Plan (1) Age-related osteoporosis without current pathological fracture: Comment: Alendronate: Approx 2004 - Jaw pain. Prolia: 12/2013 to present Code(s): M81.0 - Age-related osteoporosis without current pathological fracture Category: Medical (2) History of gout: Code(s): Z87.39 - Personal history of other diseases of the musculoskeletal system and connective tissue Category: Medical (3) Localized primary osteoarthritis of hands, bilateral: Code(s): M19.041 - Primary osteoarthritis, right hand; M19.042 - Primary osteoarthritis, left hand Plan #Osteoporosis: Last Bone density 12/2021 T-score -2.4 left femoral neck. Patient has a history of compression fractures with kyphoplasty, last fracture was in 2013.?Also history of parathyroid tumor with removal in 2003. She was started on alendronate but did not tolerate due to jaw pain. Patient has been on Prolia since December 2013 tolerating this well. No fractures while on Prolia, bone density improved. I have reviewed available labs and the blood work is stable, calcium - not significantly abnormal at 10.3 (10.20, and Vit D wnl, creatinine clearance is estimated to be 33-40 mL/min. Administered Prolia in the office today (Right Deltoid). I have reconsidered to start reclast at this time but will continue Prolia to finish off Ten years in December and then put her on a Drug Holiday. Will repeat DEXA in Dec 2023 and evlauate further at that time. ? 25 minutes spent reviewing chart, evaluating patient, administering Prolia, ordering and documenting Orders: Orders AMB Denosumab Injection Practice Supplied 06/27/23 M81.0 - Age-related osteoporosis without current pathological fracture Coding Level of Care Code Est Pt Level 3 (52019) Diagnoses Age-related osteoporosis without current pathological fracture M81.0 History of gout Z87.39 Localized primary osteoarthritis of hands, bilateral M19.041; M19.042
[2023-06-27 09:18] VITALS: BP 144/82; PULSE 56; O2SAT 97; BMI 22.5
== END 2023-06-27 09:49 | disposition home or self-care (01) ==
PROVIDERS: PCP Internal Medicine; Visit Provider Nurse Practitioner Family
DX: M81.0 Age-related osteoporosis without current pathological fracture (principal); Z87.39 Personal history of other diseases of the musculoskeletal system and connective tissue; M19.041 Primary osteoarthritis, right hand; M19.042 Primary osteoarthritis, left hand
CPT/HCPCS: 99213

== ENCOUNTER → 2023-06-27 09:12 | Outpatient (BNVA) | payer MEDICARE, OTHER, SELFPAY | PROVIDERS: PCP Internal Medicine; Visit Provider Nurse Practitioner Family | DX: M81.0 Age-related osteoporosis without current pathological fracture (principal); M19.041 Primary osteoarthritis, right hand; M19.042 Primary osteoarthritis, left hand; Z87.39 Personal history of other diseases of the musculoskeletal system and connective tissue | CPT/HCPCS: 96372; 99212; J0897 ==

== ENCOUNTER 2023-07-11 14:53 | Outpatient (AMB) | payer MEDICARE, OTHER, SELFPAY ==
--- NOTE | 2023-07-11 14:55 | A.OFFVIS_ITS ---
Intake Visit Reasons: foot pain/swelling Intake Note: Patient presents to office today with complaints of clara foot pain and swelling that began approx 4 days ago. Patient reports it feels like the pain she had back when she saw Dr. Huitron. Allergies lisinopril Allergy (Unknown, Verified 07/11/23 15:02) Unknown alendronate sodium [Fosamax] Adverse Reaction (Intermediate, Verified 07/11/23 15:02) jaw pain aspirin Adverse Reaction (Intermediate, Verified 07/11/23 15:02) unable to tolerate higher doses-stomach ulcer (low dose ok) carbamazepine [From TEGRETOL] Adverse Reaction (Intermediate, Verified 07/11/23 15:02) NAUSEA & VOMITING, HEADACHE gabapentin Adverse Reaction (Intermediate, Verified 07/11/23 15:02) dizziness ibuprofen Adverse Reaction (Intermediate, Verified 07/11/23 15:02) Nausea and Vomiting lidocaine [From Lidoderm] Adverse Reaction (Intermediate, Verified 07/11/23 15:02) burning from patch NSAIDS (Non-Steroidal Anti-Inflamma [NSAIDS (NON-STEROIDAL ANTI-INFLAMMA] Adverse Reaction (Intermediate, Verified 07/11/23 15:02) NAUSEA & VOMITING, HX ULCER codeine [CODEINE] Adverse Reaction (Unknown, Verified 07/11/23 15:02) NAUSEA & VOMITING, nausea/vomiting Medication List - Last Reconciled 07/11/23 by Nancy Wright MD acetaminophen (Tylenol) 650 mg PO QID PRN albuterol sulfate 90 mcg/actuation 2 puffs inhalation Q6H PRN amlodipine 10 mg PO DAILY atorvastatin 80 mg PO DAILY 90 days calcium carbonate-vitamin D3 600 mg-5 mcg (200 unit) (Calcium 600 + D(3)) 2 tabs PO DAILY denosumab (Prolia) 60 mg subcut [id number] docusate sodium (Colace) 100 mg PO BID fexofenadine 180 mg PO DAILY PRN 30 days fluticasone propionate 110 mcg/actuation (Flovent HFA) 1 puff inhalation BID 30 days fluticasone propionate 50 mcg/actuation 1 spray intranasal BID 90 days isosorbide mononitrate ER 30 mg PO DAILY losartan 50 mg PO DAILY nitroglycerin 0.4 mg sublingual Q5M PRN pantoprazole 40 mg PO BID prednisone Take 2 tabs daily for 1 week, 1 tab daily for 1 week then stop [SOFT CERVICAL COLLAR As directed] tramadol 50 mg PO TID PRN 30 days HPI Comments Details: 82-year-old female with osteoporosis presents for an urgent visit. She follows up with Cyn Wasserman. Patient states that she has been having bilateral feet swelling over the last 2 3 days. It started in the right foot then started involving the left foot. Associated with swelling and minimal erythema. She states that when she was evaluated by Dr. Huitron at some point she had left hand swelling that resolved with prednisone. She was never officially diagnosed with gout. She never had kidney stones. Her daughter of scleroderma in her 40s. She has tried taking Tylenol which causes some relief, she can not tolerate NSAIDs. [facility] Medical History Cervical spine fracture History of gout Osteoarthritis, hand, primary localized Swelling of finger of right hand Age-related osteoporosis without current pathological fracture Chronic kidney disease, stage 4 (severe) Screening for breast cancer Allergic rhinitis Exertional dyspnea Chronic kidney disease (CKD), stage III (moderate) Benign essential hypertension Overactive bladder Compression fracture of L1 lumbar vertebra Cervical spondylosis without myelopathy GERD (gastroesophageal reflux disease) COPD (chronic obstructive pulmonary disease) Pure hypercholesterolemia Coronary artery disease Surgical History History of colonoscopy Hx of cataract removal with insertion of prosthetic lens History of angioplasty History of tonsillectomy History of appendectomy History of parathyroidectomy History of oophorectomy History of section Family History Father Throat cancer Mother No problems noted. Daughter Diabetes Son Arthritis CAD (coronary artery disease) Daughter Scleroderma Social History Housing: House Alcohol intake: never Patient Tobacco Use Status: Current someday Tobacco user Tobacco use type: Cigarette Cigarettes Per Day: 3 Years Smoked: 30 e-Cigarette/Vaping Use: Never Used service: No Current occupational status: retired Cognitive needs: No Hearing needs: No Vision needs: No Review of Systems Musc Reports arthralgias and Reports joint swelling Physical Exam Const General: cooperative, healthy appearing and comfortable Nutritional Appearance: average body habitus Orientation/consciousness: patient oriented x3 Limitations: no limitations HEENT Head: Yes normocephalic and Yes atraumatic Resp Effort & Inspection: normal respiratory effort and able to speak in complete sentences Skin General skin exam: no rashes or lesions noted Neuro General: patient oriented x3 Extrem Other: Osteoarthritic changes of both hands. 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 Patient mentioned that she had abrupt onset bilateral foot pain over the last 2-3 days. On exam she has bilateral 2nd through 5th MTP tenderness, no 1st MTP tenderness She also has few swollen and tender joints both hands. 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 Her daughter of scleroderma. I am suspicious of an underlying autoimmune rheumatic disease such as a seronegative rheumatoid arthritis or crystal arthritis such as pseudogout. Prednisone taper prescribed. Advised patient to monitor her symptoms of joint pain and swelling over the coming few months. Call us if she has any recurrent attack. Follow-up with Cyn Gonzáles I spent 20 minutes reviewing patient's chart, evaluating patient, counseling patient and documenting in the chart Medications: New 2 prednisone Take 2 tabs daily for 1 week, 1 tab daily for 1 week then stop 21 tabs 0RF Coding Level of Care Code Est Pt Level 3 (63555) Diagnoses Bilateral foot pain M79.671; M79.672
== END 2023-07-11 15:31 | disposition home or self-care (01) ==
LOC: HO.RHE 14:53
PROVIDERS: PCP Internal Medicine; Visit Provider Student in an Organized Health Care Education/Training Program
DX: M79.671 Pain in right foot (principal); M79.672 Pain in left foot
CPT/HCPCS: 99213

== ENCOUNTER → 2023-07-11 14:53 | Outpatient (BNVA) | payer MEDICARE, OTHER, SELFPAY | PROVIDERS: PCP Internal Medicine; Visit Provider Student in an Organized Health Care Education/Training Program | DX: M79.671 Pain in right foot (principal); M79.672 Pain in left foot | CPT/HCPCS: 99212 ==

== ENCOUNTER 2023-10-01 07:25 | Outpatient (REF) | payer MEDICARE, OTHER, SELFPAY ==
[2023-10-01 10:01] LABS: Basophils Absolute Auto 0.2 X10*3/uL (0.0-0.2); Basophils Percent Auto 3.4 % (0-2); Eosinophils Absolute Auto 0.6 X10*3/uL (0.0-0.4); Eosinophils Percent Auto 9.1 % (0-4); Hematocrit 41.3 % (37.0-47.0); Hemoglobin 13.9 g/dl (12.0-16.0); Imm Gran Abs Auto 0.01 X10*3/uL (0.00-0.03); Imm Gran Pct Auto 0.2 % (0.0-0.4); Lymphocytes Absolute Auto 1.5 X10*3/uL (1.2-4.9); Lymphocytes Percent Auto 23.7 % (20-40); MANUAL DIFF FLAG SCAN; Mean Corpuscular HGB Conc 33.7 g/dl (31.0-35.0); Mean Corpuscular Hemoglobin 32.4 pg (27.0-33.0); Mean Corpuscular Volume 96.3 fL (80.0-98.0); Mean Platelet Volume 12.4 fL (9.4-12.3); Monocytes Absolute Auto 0.6 X10*3/uL (0.1-1.2); Monocytes Percent Auto 9.6 % (2-11); Neutrophils Absolute Auto 3.5 x10*3/uL (2.0-8.3); Platelet Count 258 X10*3/uL (160-400); Red Blood Count 4.29 X10*6/uL (4.20-5.50); Red Cell Distribution Width 13.1 % (11.0-16.0); SCAN SMEAR FLAG 1; White Blood Count 6.5 X10*3/uL (4.8-10.8)
[2023-10-01 10:19] LABS: Alanine Aminotransferase 15 U/L (0-31); Albumin Level 3.8 g/dL (3.5-5.0); Alkaline Phosphatase 79 U/L (39-117); Anion Gap 12 (12-20); Aspartate Amino Transferase 22 U/L (5-31); Bilirubin Total 0.4 mg/dL (0.0-1.0); Blood Urea Nitrogen 22 mg/dL (9-16); Calcium 8.8 mg/dL (8.4-10.2); Carbon Dioxide 31 mmol/L (22-29); Chloride 105 mmol/L (96-108); Cholesterol 154 mg/dL (<200); Estimated Glomerular Filt Rate 51; Glucose Fasting 96 mg/dL (60-99); HDL Cholesterol 59 mg/dL (>40); LDL Cholesterol Calculated 86 mg/dL (<100); Potassium 3.5 mmol/L (3.3-5.1); Sodium 144 mmol/L (135-145); Total Protein 6.1 g/dL (6.5-8.0); Triglycerides 47 mg/dL (<150); Uric Acid 5.7 mg/dL (2.4-5.7)
[2023-10-01 10:29] LABS: Appearance Urine Clear; Color Urine Yellow; Glucose Urine UA Negative (Negative); Leukocyte Esterase Urine Negative (Negative); Nitrite Urine Negative (Negative); PH 7.5 (5.0-9.0); UMIC TRIGGER UACC YES; Urine Blood Negative (Negative); Urine Ketones Negative (Negative); Urine Protein 30 (1+) mg/dL (Neg-Trace)
[2023-10-01 10:36] LABS: SLIDE REVIEW VERIFIED
[2023-10-01 10:37] LABS: Bacteria Urine None Seen (None Seen); Hyaline Casts Urine 0-2 /LPF (0-2); RBC Urine 0-2 /HPF (0-2); Squamous Epithelial Cell Urine 0-2 /HPF (0-2); WBC Urine 0-5 /HPF (0-5)
== END 2023-10-01 07:26 | disposition home or self-care (01) ==
LOC: HO.HMGCLDS 07:25
PROVIDERS: PCP Internal Medicine; Visit Provider Internal Medicine
DX: D64.9 Anemia, unspecified (principal); E78.00 Pure hypercholesterolemia, unspecified; M10.9 Gout, unspecified; R30.0 Dysuria
CPT/HCPCS: 36415; 80053; 80061; 81001; 81003; 84443; 84550; 85025

== ENCOUNTER 2023-10-26 09:52 | Outpatient (AMB) | payer MEDICARE, OTHER, SELFPAY ==
[2023-10-26 10:10] VITALS: BP 120/76; PULSE 61; O2SAT 96; BMI 22.5
--- NOTE | 2023-10-26 10:10 | A.OFFPC_ITS ---
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 Accompanied by: Self / Same As Patient Allergies lisinopril Allergy (Unknown, Verified 10/26/23 12:23) Unknown alendronate sodium [Fosamax] Adverse Reaction (Intermediate, Verified 10/26/23 12:23) jaw pain aspirin Adverse Reaction (Intermediate, Verified 10/26/23 12:23) unable to tolerate higher doses-stomach ulcer (low dose ok) carbamazepine [From TEGRETOL] Adverse Reaction (Intermediate, Verified 10/26/23 12:23) NAUSEA & VOMITING, HEADACHE gabapentin Adverse Reaction (Intermediate, Verified 10/26/23 12:23) dizziness ibuprofen Adverse Reaction (Intermediate, Verified 10/26/23 12:23) Nausea and Vomiting lidocaine [From Lidoderm] Adverse Reaction (Intermediate, Verified 10/26/23 12:23) burning from patch NSAIDS (Non-Steroidal Anti-Inflamma [NSAIDS (NON-STEROIDAL ANTI-INFLAMMA] Adverse Reaction (Intermediate, Verified 10/26/23 12:23) NAUSEA & VOMITING, HX ULCER codeine [CODEINE] Adverse Reaction (Unknown, Verified 10/26/23 12:23) NAUSEA & VOMITING, nausea/vomiting Medication List - Last Reconciled 10/26/23 by Wilian Crawford MD acetaminophen (Tylenol) 650 mg PO QID PRN albuterol sulfate 90 mcg/actuation 2 puffs inhalation Q6H PRN amlodipine 10 mg PO DAILY Arnuity Ellipta 100 mcg/actuation (fluticasone furoate) 1 inh inhalation DAILY NS atorvastatin 80 mg PO DAILY 90 days calcium carbonate-vitamin D3 600 mg-5 mcg (200 unit) (Calcium 600 + D(3)) 2 tabs PO DAILY denosumab (Prolia) 60 mg subcut [id number] docusate sodium (Colace) 100 mg PO BID fexofenadine 180 mg PO DAILY PRN 30 days fluticasone propionate 50 mcg/actuation 1 spray intranasal BID 90 days fluticasone propionate 110 mcg/actuation 1 puff inhalation BID 30 days isosorbide mononitrate ER 30 mg PO DAILY losartan 50 mg PO DAILY nitroglycerin 0.4 mg sublingual Q5M PRN pantoprazole 40 mg PO BID [SOFT CERVICAL COLLAR As directed] tramadol 50 mg PO TID PRN 30 days Tobacco use date assessed: 10/26/23 Fall risk assessment: No Falls in past year Last assessed Fall Risk: 10/26/23 Dental Screening Dental Screen Date: 10/26/23 Did you have a dental visit in the last 12 months?: No Did you have a dental problem in the last 6 months where you did not have access to dental care?: No Was dental information given to patient?: No HPI Follow Up HPI Details Patient comes in today for her follow up visit States that she has been experiencing increased pain over her lower back for the past 2 to 3 weeks now Notes that her current low back pain increases significantly with activity and physical exertion She denies any recent injury or trauma to her lower back Adds that she had a bout with bed bugs a couple of weeks ago and was breaking out in a lot of itchy rash all over then States that this has since been corrected and addressed and all of her rash and symptoms are now cleared up completely She denies any headaches or dizziness lately Denies any chest pains, no increased SOB No nausea/vomiting, no abdominal pain No change in bowel habits noted She had her follow up labs done last month - to discuss her results REPLACED BY [facility] Medical History Cervical spine fracture History of gout Osteoarthritis, hand, primary localized Swelling of finger of right hand Age-related osteoporosis without current pathological fracture Chronic kidney disease, stage 4 (severe) Screening for breast cancer Allergic rhinitis Exertional dyspnea Chronic kidney disease (CKD), stage III (moderate) Benign essential hypertension Overactive bladder Compression fracture of L1 lumbar vertebra Cervical spondylosis without myelopathy GERD (gastroesophageal reflux disease) COPD (chronic obstructive pulmonary disease) Pure hypercholesterolemia Coronary artery disease Surgical History History of colonoscopy Hx of cataract removal with insertion of prosthetic lens History of angioplasty History of tonsillectomy History of appendectomy History of parathyroidectomy History of oophorectomy History of section Family History Father Throat cancer Mother No problems noted. Daughter Diabetes Son Arthritis CAD (coronary artery disease) Daughter Scleroderma Social History Housing: House Alcohol intake: never Patient Tobacco Use Status: Current someday Tobacco user Tobacco use type: Cigarette Cigarettes Per Day: 3 Years Smoked: 30 e-Cigarette/Vaping Use: Never Used service: No Current occupational status: retired Cognitive needs: No Hearing needs: No Vision needs: No Questionnaire PHQ-9 Over the last 2 weeks, how often have you been bothered by any of the following problems? 1. Little interest or pleasure in doing things: not at all 2. Feeling down, depressed, or hopeless: not at all 3. Trouble falling or staying asleep, or sleeping too much: not at all 4. Feeling tired or having little energy: not at all 5. Poor appetite or overeating: not at all 6. Feeling bad about yourself - or that you are a failure or have let yourself or your family down: not at all 7. Trouble concentrating on things, such as reading the newspaper or watching television: not at all 8. Moving or speaking so slowly that other people could have noticed. Or the opposite - being so fidgety or restless that you have been moving around a lot more than usual: not at all 9. Thoughts that you would be better off or of hurting yourself in some way: not at all Total score: 0 Depression Screening Interpretation: Negative Depression Screening Done: Yes [id number] - PHQ-9 Billing: Yes Source: Developed by Drs. Sesar Mcmillan, Paradise Petersen, Kamran Cartwright and colleagues, with an educational andi from [employer]. Thrive Questionnaire Date Thrive assessed: 10/26/23 I am a: Patient What is your living situation today?: I have a steady place to live Within the past 12 months, did the food you bought not last and you didn't have the money to get more?: Never true Within the past 12 months, did you worry whether your food would run out before you got money to buy more?: Never true Do you have trouble paying for medicines?: No Do you have trouble getting transportation to medical appointments?: No Do you have trouble paying your heating and electricity bill?: No Do you have trouble taking care of your child, family member or friend?: No Do you have trouble with day-to-day activities such as bathing, preparing meals, shopping, managing finances, etc.?: No Are you currently unemployed and looking for a job?: No Are you interested in more education?: No Please select the resources that you would like help with: None Currently or been in a relationship where the following occur: No concerns reported THRIVE Score: 0 AUDIT C Alcohol Use Questionnaire (AUDIT-C) 1. How often do you have a drink containing alcohol?: Never 3. How often do you have six or more drinks on one occasion?: Never Total Score: 0 Score Reviewed/Action Taken: Yes NENO-7 AMB Questionnaire NENO-7 Date NENO - 7 assessed: 10/26/23 Feeling nervous, anxious, or on edge: 0 = Not at all Not being able to stop or control worryin = Not at all Worrying too much about different things: 0 = Not at all Trouble relaxin = Not at all Being so restless that it is hard to sit still: 0 = Not at all Becoming easily annoyed or irritable: 0 = Not at all Feeling afraid as if something awful might happen: 0 = Not at all Total NENO-7 score (0-4 normal; 5-9 mild; 10-14 moderate; 15-21 severe): 0 Source: Developed by Drs. Sesar Mcmillan, Paradise Petersen, Kamran Cartwright and colleagues, with an educational andi from [employer]. NENO-7 Assessment Billing NENO-7 Assessment Tool: NENO-7 Assessment 13975 Review of Systems Const Denies chills, Denies fatigue, Denies fever(s) and Denies headache(s) ENT Denies dysphagia, Denies dizziness, Denies otalgia, Denies headache(s), Reports neck pain (chronic), Denies odynophagia and Denies sore throat Card Denies chest pain, Denies palpitations and Reports dyspnea on exertion (mild) Resp Denies chest congestion, Reports cough (occasional), Reports dyspnea on exertion (mild) and Denies wheezing GI Denies abdominal pain, Denies constipation, Denies dysphagia, Denies heartburn, Denies diarrhea, Denies nausea, Denies odynophagia and Denies vomiting Denies difficulty voiding, Denies nocturia, Denies dysuria and Denies urinary urgency Musc Reports back pain (chronic but increased over the past couple of weeks), Reports neck pain (chronic) and Reports radiating pain into limb (into right shoulder and right arm at times) Skin/Breast Denies rash Neuro Denies dizziness and Denies headache(s) Endo Denies fatigue and Denies palpitations Aller/Immun Denies wheezing Physical exam (Primary Care) Vital Signs: Last Vital Signs Pulse 61 10/26/23 10:10 BP 120/76 10/26/23 10:10 Pulse Ox 96 10/26/23 10:10 Oxygen Delivery Method Room Air 10/26/23 10:10 BMI result Body Mass Index 22.5 Tobacco/Smoking Status: Tobacco use Status Tobacco use date assessed 10/26/23 10/26/23 10:14 Patient Tobacco Use Status Current someday Tobacco 10/26/23 10:10 Tobacco use type Cigarette 10/26/23 10:10 e-Cigarette/Vaping Use Never Used 10/26/23 10:10 PHQ-9: PHQ-9 Score PHQ-9: Total score 0 10/26/23 10:56 Depression Screening Interpretation: Negative Thrive Assessment: Date of Thrive Assessment Date Thrive assessed 10/26/23 10/26/23 10:14 Currently or been in a relationship where the following occur: No concerns reported Const General: no acute distress and alert HENMT Ears: TM's normal bilaterally and EAC's normal Throat: Yes posterior oropharynx normal and Yes tonsils normal (no TP congestion noted) Neck Neck: Yes no lymphadenopathy and Yes supple Thyroid: Thyroid normal Resp Auscultation: no crackles, no rales, rhonchi (occasional) throughout, no wheezes and diminished lung sounds (slightly) bilateral Cardio Rate: regular rate Rhythm: regular rhythm Heart sounds: Murmur heart sound present systolic blowing, soft, II/ and at the left sternal border GI Palpation (GI): Soft to palpation and nontender Auscultation: normal bowel sounds General: Yes no CVA tenderness Back/Spine/Pelvis Back: no CVA tenderness Cervical Spine: Cervical spine tenderness (chronic) Thoracic/Lumbar Spine: lumbar spinal tenderness (chronic - increased over the upper lumbar spine currently) Skin Rashes: no rashes Extrem General: Yes no clubbing, cyanosis or edema Results Reviewed Results Reviewed: Laboratory Tests 10/01/23 07:30 WBC 6.5 Hgb 13.9 Hct 41.3 Plt Count 258 Eos % (Auto) 9.1 H Sodium 144 Potassium 3.5 Creatinine 1.03 Estimated GFR 51 Fasting Glucose 96 Uric Acid 5.7 Calcium 8.8 D AST 22 ALT 15 Triglycerides 47 Cholesterol 154 LDL Cholesterol, Calc 86 HDL Cholesterol 59 TSH 2.00 Assessment and Plan Assessment & Plan (1) Pure hypercholesterolemia: Code(s): E78.00 - Pure hypercholesterolemia, unspecified Plan: Results of her labs done last month reviewed and discussed with patient Reinforced low cholesterol diet Continue Atorvastatin 80 mg QD Will have patient recheck her labs and fasting lipids in 4 months for follow up (2) Coronary artery disease: Comment: S/P angioplasty and stenting in 2009 Also S/P pericarditis in August 2019 - myocardial perfusion scan done then showed normal results without any fixed or reversible perfusion defect after exercise stress test; LV function is normal with LVEF at 75% Code(s): I25.10 - Atherosclerotic heart disease of [place] coronary artery without angina pectoris Qualifiers: Associated angina: without angina Coronary Disease-Associated Artery/Lesion type: [place] artery [place] vs. transplanted heart: [place] heart Qualified Code(s): I25.10 - Atherosclerotic heart disease of [place] coronary artery without angina pectoris Plan: Continue low dose Aspirin 81 mg QD Echocardiogram last done in February 2023 revealed preserved left ventricular systolic function, mild to moderate mitral regurgitation (likely the source of her cardiac murmur) and stable pericardial effusion She underwent a nuclear stress test at [facility] back in May 2023 when she presented then to the ER with burning chest pains (apparently ran out of her PPI for several days) - stress test came out normal with no evidence of ischemia or infarct with preserved left ventricular systolic function Follow up with cardiology (Dr. Iain Rae) as scheduled (3) Bradycardia: Code(s): R00.1 - Bradycardia, unspecified Plan: Patient's heart rate has been consistently low over the past few years and lately has been averaging in the low 30s to 50s It was up to 62/min at her last visit and is at 61 bpm today She has been asymptomatic so far except for an incident last year wherein she apparently briefly passed out - incident may have been due to bradycardia She has not had any recurrence since but has been advised again that if this recurs, she will need to have this evaluated further Follows with [facility]iology (Dr. Iain Rae) regularly as scheduled (4) Benign essential hypertension: Code(s): I10 - Essential (primary) hypertension Plan: Reinforced low sodium diet - goal is systolic BP of at least 130 to 140 mm or less Continue Carvedilol 12.5 mg BID, Losartan 25 mg QD (takes in PM) and Amlodipine 10 mg QD Patient is reminded to continue monitoring her BP regularly (5) COPD (chronic obstructive pulmonary disease): Code(s): J44.9 - Chronic obstructive pulmonary disease, unspecified Qualifiers: COPD type: unspecified COPD Qualified Code(s): J44.9 - Chronic obstructive pulmonary disease, unspecified Plan: Continue Flovent HFA 110 mcg 1 inhalation twice a day and Ventolin HFA 2 puffs 4 times a day as needed PFTs done last year came out normal except for decreased diffusion capacity, suggestive of pulmonary emphysema (6) Allergic rhinitis: Code(s): J30.9 - Allergic rhinitis, unspecified Qualifiers: Allergic rhinitis seasonality: unspecified Allergic rhinitis trigger: unspecified Qualified Code(s): J30.9 - Allergic rhinitis, unspecified Plan: Continue Fluticasone nasal spray 50 mcg 1 spray into each nostril BID and F exofenadine 180 mg QD PRN States that she was taking Cetirizine in the past but stopped taking it as she felt that it was not helping at all (7) Chronic kidney disease (CKD), stage III (moderate): Code(s): N18.30 - Chronic kidney disease, stage 3 unspecified Qualifiers: Chronic kidney disease stage 3 subtype: stage 3b (GFR 30-44) Qualified Code(s): N18.32 - Chronic kidney disease, stage 3b Plan: Patient's renal function appears stable on her recent labs Reminded that she needs to keep up with her hydration Will continue to monitor her renal function closely (8) GERD (gastroesophageal reflux disease): Code(s): K21.9 - Gastro-esophageal reflux disease without esophagitis Qualifiers: Esophagitis bleeding: without hemorrhage Esophagitis presence: with esophagitis Qualified Code(s): K21.00 - Gastro-esophageal reflux disease with esophagitis, without bleeding Plan: Dietary restrictions reinforced Continue Pantoprazole 40 mg BID Follow up with GI as scheduled (9) Age-related osteoporosis without current pathological fracture: Comment: Alendronate: Approx 2004 - Jaw pain. Prolia: 12/2013 to present Code(s): M81.0 - Age-related osteoporosis without current pathological fracture Plan: Patient could not tolerate Alendronate in the past due to jaw pain She has been on Prolia since December 2013 and has been tolerating Rx well - her bone density has shown improvement on Prolia Tx As she has been on Prolia since 2013, rheumatology is planning to switch her over to IV Reclast at her next visit Will continue to monitor her BMD every 2 to 3 years (last done in December 2021) Follow up with rheumatology as scheduled (10) Cervical spondylosis without myelopathy: Code(s): M47.812 - Spondylosis without myelopathy or radiculopathy, cervical region Plan: Cervical spine x-rays done last year showed (+) degenerative arthrosis changes with C3-C4 anterolisthesis Patient uses a cervical collar as needed, including at night when she is sleeping, for additional support and to help manage her neck symptoms (pain) better (11) Compression fracture of L1 lumbar vertebra: Comment: S/P kyphoplasty Code(s): S32.010A - [place] compression fracture of first lumbar vertebra, initial encounter for closed fracture Qualifiers: Encounter type: sequela Qualified Code(s): S32.010S - [place] compression fracture of first lumbar vertebra, sequela Plan: S/P kyphoplasty by Dr. Gonzalez at [facility] a couple of years ago Reinforced activity and weight lifting restrictions to avoid aggravating her back pain As she has been experiencing increased pain significantly over her lower back for the past couple of weeks or so, will have her go and get repeat lumbar spine x-rays [facility] for further evaluation (12) Overactive bladder: Code(s): N32.81 - Overactive bladder Plan: She has not been able to tolerate Detrol LA and generic Enablex (7.5 mg) - to consider urology referral if symptoms progress or worsen (13) Smoker: Code(s): F17.200 - Nicotine dependence, unspecified, uncomplicated Plan: Counseled again on complete smoking cessation, in light of her COPD Patient admits that she still smokes every now and then Plan Follow up in 4 months Orders: Orders Complete Blood Count Auto Diff 4 Months D64.9 - Anemia, unspecified Vitamin D 25-OH Total 4 Months E55.9 - Vitamin D deficiency, unspecified Erythrocyte Sedimentation Rate 4 Months M54.50 - Low back pain, unspecified XR lumbar spine 2-3V Today M54.50 - Low back pain, unspecified Lipid Panel 4 Months E78.00 - Pure hypercholesterolemia, unspecified Comprehensive [place]. Panel Fast 4 Months E78.00 - Pure hypercholesterolemia, unspecified UA CC w/rflx Micro + Cult 4 Months R30.0 - Dysuria Coding Level of Care Code Est Pt Level 4 (26461) Complex EM visit Add On G2211 Diagnoses Pure hypercholesterolemia E78.00 Coronary artery disease involving [place] coronary artery of [place] heart without angina pectoris I25.10 Associated angina: without angina Coronary Disease-Associated Artery/Lesion type: [place] artery [place] vs. transplanted heart: [place] heart Bradycardia R00.1 Benign essential hypertension I10 Chronic obstructive pulmonary disease, unspecified COPD type J44.9 COPD type: unspecified COPD Allergic rhinitis, unspecified seasonality, unspecified trigger J30.9 Allergic rhinitis seasonality: unspecified Allergic rhinitis trigger: unspecified Stage 3b chronic kidney disease N18.32 Chronic kidney disease stage 3 subtype: stage 3b (GFR 30-44) Gastroesophageal reflux disease with esophagitis without hemorrhage K21.00 Esophagitis bleeding: without hemorrhage Esophagitis presence: with esophagitis Age-related osteoporosis without current pathological fracture M81.0 Cervical spondylosis without myelopathy M47.812 Compression fracture of L1 vertebra, sequela S32.010S Encounter type: sequela Overactive bladder N32.81 Smoker F17.200 Additional Codes NENO-7 Assessment Billing - NENO-7 Assessment Tool: NENO-7 Assessment 69910 ([id number])
== END 2023-10-26 11:02 | disposition home or self-care (01) ==
PROVIDERS: PCP Internal Medicine; Visit Provider Internal Medicine
DX: I12.9 Hypertensive chronic kidney disease with stage 1 through stage 4 chronic kidney disease, or unspecified chronic kidney disease (principal); J44.9 Chronic obstructive pulmonary disease, unspecified; N18.32 Chronic kidney disease, stage 3b; E78.00 Pure hypercholesterolemia, unspecified; I25.10 Atherosclerotic heart disease of native coronary artery without angina pectoris; R00.1 Bradycardia, unspecified; J30.9 Allergic rhinitis, unspecified; K21.00 Gastro-esophageal reflux disease with esophagitis, without bleeding; M81.0 Age-related osteoporosis without current pathological fracture; M47.812 Spondylosis without myelopathy or radiculopathy, cervical region; S32.010S Wedge compression fracture of first lumbar vertebra, sequela; N32.81 Overactive bladder
CPT/HCPCS: 99214; G2211

== ENCOUNTER 2023-10-29 16:09 | Outpatient (REF) | payer MEDICARE, OTHER, SELFPAY ==
--- NOTE | ~2023-10-29 | XR_ITS ---
EXAMINATION: XR LUMBOSACRAL SPINE CLINICAL INFORMATION: Low back pain, no injury. COMPARISON: 08/24/2021 TECHNIQUE: Three views of the lumbosacral spine. FINDINGS: Dextroscoliosis of the lumbar spine. Diffuse demineralization. Redemonstration of moderate to marked L1 compression deformity. Moderate L2 compression deformity. Redemonstration of dense cement at L3 with compression deformity. Mild multilevel spondylosis. Advanced facet arthritis at L4-L5 and L5-S1. XR/XR lumbar spine 2-3V IMPRESSION: Dextroscoliosis of the lumbar spine with multilevel lumbar spondylosis. Redemonstration of moderate to marked L1 compression deformity. Moderate L2 compression deformity. Redemonstration of dense cement at L3 with compression deformity. Electronically signed by: Lilli Moran MD 11/05/2023 11:40 AM EDT
== END 2023-10-29 16:10 | disposition home or self-care (01) ==
LOC: HO.XRAY 16:09
PROVIDERS: PCP Internal Medicine; Visit Provider Internal Medicine
DX: M54.50 Low back pain, unspecified (principal)
CPT/HCPCS: 72100

== ENCOUNTER 2023-12-27 08:13 | Emergency (ER) | payer MEDICARE, OTHER, SELFPAY ==
--- NOTE | ~2023-12-27 | XR_ITS ---
EXAMINATION: XR CHEST CLINICAL INFORMATION: Cough COMPARISON: Chest x-ray on 10/14/2021 TECHNIQUE: 2 views of the chest were obtained. FINDINGS: The cardiac silhouette is normal. There is mild diffuse bronchial wall thickening. Small left pleural effusion with basilar atelectasis. The bones and soft tissues are unremarkable for the patient's age. XR/XR chest 2V IMPRESSION: 1. Bronchial wall thickening may be infectious and/or inflammatory in etiology. 2. Small left pleural effusion with basilar atelectasis. Electronically signed by: Samreen Soto MD 12/27/2023 08:56 AM [facility] [place]
[2023-12-27 08:16] VITALS: BP 147/76; PULSE 70; RESP 20; TEMP 36.9; O2SAT 95; BMI 23.4
--- NOTE | 2023-12-27 09:16 | ED.URI ---
HPI - URI/Sore Throat General Chief Complaint: Back Pain/Injury Stated Complaint: back pain-l flank pain Time Seen by Provider: 12/27/23 09:14 Source: patient, RN notes reviewed and old records reviewed Mode of arrival: ambulatory History of Present Illness ED Provider: Mague Carr PA-C HPI Narrative: 83-year-old female with a past medical history gout, COPD, GERD, CAD, CKD, HTN, overactive bladder, presenting to the ED complaining of chills, myalgias, dry cough x 3 days and left-sided back/flank pain x waking this morning. Pain described as sharp, nonradiating. Denies known injury/trauma or fall. Reports pain worse with movement, and palpation. Denies SOB, CP, abdominal pain, nausea/vomiting, dysuria/hematuria numbness/tingling, incontinence Related Data Home Medications ?Medication ?Instructions ?Recorded ?Confirmed acetaminophen 325 mg tablet 650 mg PO QID PRN 11/28/19 10/26/23 (Tylenol) denosumab 60 mg/mL subcutaneous 60 mg subcut [id number] 11/28/19 10/26/23 syringe (Prolia) docusate sodium 100 mg capsule 100 mg PO BID 11/28/19 10/26/23 (Colace) nitroglycerin 0.4 mg sublingual 0.4 mg sublingual Q5M PRN 11/28/19 10/26/23 tablet calcium carbonate 600 mg-vitamin 2 tab PO DAILY 11/29/21 10/26/23 D3 5 mcg (200 unit) tablet (Calcium 600 + D(3)) Previous Rx's ?Medication ?Instructions ?Recorded fluticasone propionate 50 1 spray intranasal BID 90 days #3 12/06/20 mcg/actuation nasal ea spray,suspension SOFT CERVICAL COLLAR #1 ea 05/04/21 losartan 50 mg tablet 50 mg PO DAILY #90 tabs 05/11/23 fexofenadine 180 mg tablet 180 mg PO DAILY PRN allergy 06/06/23 symptoms 30 days #30 tabs pantoprazole 40 mg tablet,delayed 40 mg PO BID #180 tabs 06/06/23 release albuterol sulfate 90 mcg/actuation 2 puff inhalation Q6H PRN for 08/20/23 aerosol inhaler muscle spasm #18 ea fluticasone propionate 110 1 puff inhalation BID 30 days #12 08/20/23 mcg/actuation HFA aerosol inhaler aristeo Willams 100 mcg/actuation 1 inh inhalation DAILY #30 ea 09/11/23 powder for inhalation (fluticasone furoate) atorvastatin 80 mg tablet 80 mg PO DAILY 90 days #90 tabs 11/24/23 isosorbide mononitrate 30 mg 30 mg PO DAILY #90 tabs 11/24/23 tablet,extended release 24 hr amlodipine 10 mg tablet 10 mg PO DAILY #90 tabs 11/28/23 tramadol 50 mg tablet 50 mg PO TID PRN pain 30 days #90 12/13/23 tabs cyclobenzaprine 5 mg tablet 5 mg PO Q8H PRN pain (scale score 12/27/23 7-10) 5 days #14 tabs Allergies Allergy/AdvReac Type Severity Reaction Status Date / Time lisinopril Allergy Unknown Unknown Verified 12/27/23 08:17 alendronate sodium [Fosamax] AdvReac Intermediate jaw pain Verified 12/27/23 08:17 aspirin AdvReac Intermediate unable to Verified 12/27/23 08:17 tolerate higher doses-stomach ulcer (low dose ok) carbamazepine [From TEGRETOL] AdvReac Intermediate NAUSEA & Verified 12/27/23 08:17 VOMITING, HEADACHE gabapentin AdvReac Intermediate dizziness Verified 12/27/23 08:17 ibuprofen AdvReac Intermediate Nausea and Verified 12/27/23 08:17 Vomiting lidocaine [From Lidoderm] AdvReac Intermediate burning Verified 12/27/23 08:17 from patch NSAIDS (Non-Steroidal AdvReac Intermediate NAUSEA & Verified 12/27/23 08:17 Anti-Inflamma VOMITING, [NSAIDS (NON-STEROIDAL HX ULCER ANTI-INFLAMMA] codeine [CODEINE] AdvReac Unknown NAUSEA & Verified 12/27/23 08:17 VOMITING, nausea/vomiting Review of Systems Review of Systems: Yes all other systems are reviewed and are negative Constitutional: Constitutional: Reports as per [facility] Past Medical History Attestation statement: The following information was validated with the patient. Source: old records reviewed Medical History Cervical spine fracture History of gout Osteoarthritis, hand, primary localized Swelling of finger of right hand Age-related osteoporosis without current pathological fracture Chronic kidney disease, stage 4 (severe) Screening for breast cancer Allergic rhinitis Exertional dyspnea Chronic kidney disease (CKD), stage III (moderate) Benign essential hypertension Overactive bladder Compression fracture of L1 lumbar vertebra Cervical spondylosis without myelopathy GERD (gastroesophageal reflux disease) COPD (chronic obstructive pulmonary disease) Pure hypercholesterolemia Coronary artery disease Surgical History History of colonoscopy Hx of cataract removal with insertion of prosthetic lens History of angioplasty History of tonsillectomy History of appendectomy History of parathyroidectomy History of oophorectomy History of section Family History Family History Father Throat cancer Mother No problems noted. Daughter Diabetes Son Arthritis CAD (coronary artery disease) Daughter Scleroderma Social History Social History Housing: House Alcohol intake: never Patient Tobacco Use Status: Current someday Tobacco user Tobacco use type: Cigarette Cigarettes Per Day: 3 Years Smoked: 30 e-Cigarette/Vaping Use: Never Used Advance Directives: No Advance Directives Information Provided: Yes service: No Current occupational status: retired Cognitive needs: No Hearing needs: No Vision needs: No Physical Exam Vital Signs: Vital Signs: Last Vital Signs Temp 98.4 F 12/27/23 10:55 Pulse 66 12/27/23 10:55 Resp 15 12/27/23 10:55 BP 138/66 12/27/23 10:55 Pulse Ox 94 12/27/23 10:55 O2 Del Method Room Air 12/27/23 10:55 BMI result Body Mass Index 23.4 Const: General: cooperative, healthy appearing and no acute distress Orientation/consciousness: patient oriented x3 Limitations: no limitations HEENT: Head: Yes normal to inspection and Yes atraumatic Ears: hearing grossly normal bilaterally General nose exam: Normal external nose present Face and sinus: Yes normal facial exam Eyes: General: appearance normal, both eyes and all related structures EOM: EOMs intact bilaterally Neck: Neck: Yes normal visual inspection and Yes no meningeal signs Chest: Other: Left-sided lower posterior lateral rib reproducible tenderness. No rash/erythema or ecchymosis. No flail chest. Chest palpation & inspection: normal inspection of the chest and no crepitus Resp: Effort & Inspection: normal respiratory effort and no respiratory distress Auscultation: clear to auscultation bilaterally, no crackles and no wheezes Cardio: Rate: regular rate Heart sounds: S1 normal heart sound present and S2 normal heart sound present GI: Inspection: Yes normal to inspection Palpation (GI): Soft to palpation, nontender, no guarding and not rigid : General: Yes no CVA tenderness Back/Spine/Pelvis: Other: No midline cervical/thoracic/lumbar spinous tenderness/step-off or deformity Back: no CVA tenderness Skin: Rashes: no rashes Wounds: no wounds Neuro: Other: Strength intact throughout. No saddle anesthesia. Sensation intact to light touch. Neurovascular intact distally General: patient oriented x3, gait normal, tone normal, moves all extremities, no meningeal signs and no focal motor deficits Cranial nerves: Yes CN's II-XII intact bilaterally Gait exam (Neuro): Normal gait present Motor exam (neuro): 5/5 motor strength present throughout Extrem: General: Yes normal to inspection Course Course Course Narrative: -UA not infected -viral testing negative XR chest 2V IMPRESSION: 1. Bronchial wall thickening may be infectious and/or inflammatory in etiology. 2. Small left pleural effusion with basilar atelectasis. Results discussed with patient including worrisome signs and symptoms and strict return precautions, and when to return to the emergency department. They verbalized understanding and feel safe for discharge at this time. Medications Administered Discontinued Medications Generic Name Dose Route Start Last Admin Trade Name Freq PRN Reason Stop Dose Admin Cyclobenzaprine HCl 5 mg 12/27/23 09:47 12/27/23 09:53 Cyclobenzaprine Hcl 5 Mg Tablet PO 12/27/23 09:48 5 mg ONCE ONE Administration Lidocaine 1 patch 12/27/23 09:47 12/27/23 09:54 Lidocaine 4 % Patch Adh..Patch TRANSDERMA 12/27/23 09:48 Not Given ONCE ONE Protocol Medical Decision Making Medical Decision Making MDM Narrative: 83-year-old female with a past medical history gout, COPD, GERD, CAD, CKD, HTN, overactive bladder, presenting to the ED complaining of chills, myalgias, dry cough x 3 days and left-sided back/flank pain x waking this morning. On exam vital signs stable, NAD, nontoxic appearing, physical exam as noted above, reproducible left-sided posterior lateral rib tenderness. Lungs CTA. Abdomen soft and nontender. Concern for viral illness vs pneumonia vs rib fracture vs MSK pain/strain vs costochondritis. Lower suspicion for PE, ACS, renal stone/pyelo, intra-abdominal pathology Plan: Viral testing, CXR, UA, pain management Please refer to course for remaining clinical decision making, interpretation of labs/imaging results, and discussions with consultants and/or family members. Differential Diagnosis Differential Diagnoses: The differential diagnosis associated with the presentation includes As above Admission/Observation Consideration of admission/observation: Escalation of care including admission/observation considered Lab Data MDM Lab Attestation statement: I reviewed the patient's lab results. Labs: Lab Results 12/27/23 12/27/23 Range/Units 08:45 09:37 Urine Color Yellow Urine Appearance Clear Urine pH 6.0 (5.0-9.0) Ur Specific [place] 1.015 (1.005-1.025) Urine Protein 100 (2+) H (Neg-Trace) mg/dL Urine Glucose (UA) Negative (Negative) mg/dL Urine Ketones Trace (Negative) mg/dL Urine Blood Negative (Negative) Urine Nitrite Negative (Negative) Ur Leukocyte Esterase Trace H (Negative) Urine RBC 0-2 (0-2) /HPF Urine WBC 0-5 (0-5) /HPF Ur Squamous Epith Cells 0-2 (0-2) /HPF Urine Bacteria None Seen (None Seen) Hyaline Casts 0-2 (0-2) /LPF Influenza Type A (PCR) NEGATIVE (Negative) Influenza Type B (PCR) NEGATIVE (Negative) RSV RNA Qual (PCR) NEGATIVE (Negative) SARS-CoV-2 RNA (RT-PCR) NEGATIVE (Negative) Independent Interpretation I performed an independent interpretation of an: Plain X-Ray Radiology Impression Discussion of test interpretation with radiology: I have reviewed the radiologist's reading. External Record Review External record reviewed: Inpatient record, Office record, Outpatient record, Prior outpatient labs, Prior outpatient radiology, Primary care record and Outside ED record Tests considered The following testing was considered but not selected: As above Prescription Management I considered prescription management with: Pain Medication Chronic Conditions Patient?s care impacted by: Hypertension and Other Discharge Plan Discharge Clinical Impression: Upper respiratory infection, Acute costochondritis Patient Disposition: Home, Self-Care Instructions: Costochondritis (ED), Upper Respiratory Infection (DC) Additional Instructions: Your x-ray shows some bronchial wall thickening and small left pleural effusion. Please have close follow up with her doctor with recommended repeat x-ray when symptoms have resolved Flexeril as a muscle relaxer, take at night as a mixed you drowsy, do not drive, drink alcohol or operate machinery while taking You have a virus No antibiotics are indicated at this time Make sure you are staying hydrated. Drink plenty of fluids. Rest Alternate Tylenol and Motrin at home as needed for body aches and fever Follow-up with your doctor. If symptoms persist or worsen return to the emergency department *If you are a child & not tolerating liquid or urinating for more than 6 hours, or fevers are uncontrolled with medications at home, return to the emergency department* Prescriptions: New cyclobenzaprine 5 mg tablet 5 mg PO Q8H PRN (Reason: pain (scale score 7-10)) 5 Days Qty: 14 0RF No Action fluticasone propionate 50 mcg/actuation spray,suspension 1 spray intranasal BID 90 Days Qty: 3 1RF Rx Instructions: administer into each nostril losartan 50 mg tablet 50 mg PO DAILY Qty: 90 1RF albuterol sulfate 90 mcg/actuation HFA aerosol inhaler 2 puff inhalation Q6H PRN (Reason: for muscle spasm) Qty: 18 3RF fluticasone propionate 110 mcg/actuation HFA aerosol inhaler 1 puff inhalation BID 30 Days Qty: 12 5RF Arnuity Ellipta 100 mcg/actuation blister with device 1 inh inhalation DAILY Qty: 30 5RF atorvastatin 80 mg tablet 80 mg PO DAILY 90 Days Qty: 90 1RF isosorbide mononitrate 30 mg tablet extended release 24 hr 30 mg PO DAILY Qty: 90 0RF amlodipine 10 mg tablet 10 mg PO DAILY Qty: 90 3RF tramadol 50 mg tablet 50 mg PO TID PRN (Reason: pain) 30 Days Qty: 90 0RF (DME) SOFT CERVICAL COLLAR See Rx Instructions .Route .MEDSUPPLY Qty: 1 0RF Rx Instructions: As directed pantoprazole 40 mg tablet,delayed release (DR/EC) 40 mg PO BID Qty: 180 3RF fexofenadine 180 mg tablet 180 mg PO DAILY PRN (Reason: allergy symptoms) 30 Days Qty: 30 5RF Prolia 60 mg/mL syringe 60 mg subcut [id number] docusate sodium [Colace] 100 mg capsule 100 mg PO BID nitroglycerin 0.4 mg tablet, sublingual 0.4 mg sublingual Q5M PRN Rx Instructions: do not exceed 3 doses per episode acetaminophen [Tylenol] 325 mg tablet 650 mg PO QID PRN calcium carbonate-vitamin D3 [Calcium 600 + D(3)] 600 mg-5 mcg (200 unit) tablet 2 tab PO DAILY Referrals: Wilian Crawford MD [Primary Care Provider] - 3 days Interventions: ED Discharge Assessment Last Done: 12/27/23 10:55 Discharge Date/Time: 12/27/23 10:57 Print Language: Khmer
[2023-12-27 09:47] LABS: Appearance Urine Clear; Color Urine Yellow; Glucose Urine UA Negative (Negative); Leukocyte Esterase Urine Trace (Negative); Nitrite Urine Negative (Negative); Specific Gravity - Urine 1.015 (1.005-1.025); UMIC TRIGGER UACC YES; Urine Blood Negative (Negative); Urine Ketones Trace mg/dL (Negative); Urine Protein 100 (2+) mg/dL (Neg-Trace)
[2023-12-27 09:49] LABS: Bacteria Urine None Seen (None Seen); Hyaline Casts Urine 0-2 /LPF (0-2); RBC Urine 0-2 /HPF (0-2); Squamous Epithelial Cell Urine 0-2 /HPF (0-2); WBC Urine 0-5 /HPF (0-5)
[2023-12-27] MEDS: Cyclobenzaprine HCl 5 MG TABLET PO (09:53)
[2023-12-27 10:11] LABS: Influenza A PCR NEGATIVE (Negative); Influenza B PCR NEGATIVE (Negative); Resp Syncy Virus RNA Qual PCR NEGATIVE (Negative); SARS COV2 PCR INHOUSE NEGATIVE (Negative)
[2023-12-27 10:50] VITALS: BP 138/66; PULSE 66; RESP 15; TEMP 36.9; O2SAT 94
[2023-12-27 10:55] VITALS: BP 138/66; PULSE 66; RESP 15; TEMP 36.9; O2SAT 94
== END 2023-12-27 10:57 | disposition home or self-care (01) ==
PROVIDERS: Physician Assistant; Emergency Provider Emergency Medicine; PCP Internal Medicine
DX: M94.0 Chondrocostal junction syndrome [Tietze] (principal); J06.9 Acute upper respiratory infection, unspecified; M54.50 Low back pain, unspecified; I25.10 Atherosclerotic heart disease of native coronary artery without angina pectoris; I10 Essential (primary) hypertension; F17.210 Nicotine dependence, cigarettes, uncomplicated; Z03.818 Encounter for observation for suspected exposure to other biological agents ruled out; Z79.899 Other long term (current) drug therapy
CPT/HCPCS: 0241U; 71046; 81001; 99283

== ENCOUNTER 2023-12-28 09:21 | Outpatient (REF) | payer MEDICARE, OTHER, SELFPAY ==
[2023-12-28 13:38] LABS: Alanine Aminotransferase 8 U/L (0-31); Albumin Level 3.8 g/dL (3.5-5.0); Alkaline Phosphatase 74 U/L (39-117); Anion Gap 16 (12-20); Aspartate Amino Transferase 27 U/L (5-31); Bilirubin Total 0.6 mg/dL (0.0-1.0); Blood Urea Nitrogen 19 mg/dL (9-16); Carbon Dioxide 27 mmol/L (22-29); Chloride 101 mmol/L (96-108); Estimated Glomerular Filt Rate 38; Glucose Random 111 mg/dL (60-115); Potassium 4.2 mmol/L (3.3-5.1); Sodium 140 mmol/L (135-145); Total Protein 6.9 g/dL (6.5-8.0)
[2024-01-01 16:38] LABS: Calcium, Ionized 5.6 mg/dL (4.7-5.5)
[2024-01-03 16:09] LABS: Vitamin D 25-OH, D2 <4 ng/mL; Vitamin D 25-OH, D3 65 ng/mL; Vitamin D 25-OH, Total 65 ng/mL (30-100)
== END 2023-12-28 09:22 | disposition home or self-care (01) ==
LOC: HO.HMGCLDS 09:21
PROVIDERS: PCP Internal Medicine; Visit Provider Student in an Organized Health Care Education/Training Program
DX: M81.0 Age-related osteoporosis without current pathological fracture (principal)
CPT/HCPCS: 36415; 80053; 82306; 82330

== ENCOUNTER 2023-12-31 09:28 | Outpatient (AMB) | payer MEDICARE, OTHER, SELFPAY ==
[2023-12-31 09:37] VITALS: BP 130/74; PULSE 79; O2SAT 94; BMI 22.5
--- NOTE | 2023-12-31 09:37 | A.OFFVIS_ITS ---
Vital Signs 12/31/23 09:37 Height 5 ft Weight 115 lb 1.301 oz BMI 22.5 BP 130/74 Blood Pressure Location Lt brachial Position Sitting Pulse 79 Pulse Source Pulse Oximeter Pulse Oximetry (%) 94 Oxygen Delivery Method Room Air Intake Visit Reasons: Osteoporoasis/Prolia/LM Intake Note: Patient presents today for follow up on osteoporosis and her Prolia shot. Allergies cyclobenzaprine [From Flexeril] Allergy (Intermediate, Verified 12/31/23 09:42) Spacy feeling lisinopril Allergy (Unknown, Verified 12/31/23 09:40) Unknown alendronate sodium [Fosamax] Adverse Reaction (Intermediate, Verified 12/31/23 09:40) jaw pain aspirin Adverse Reaction (Intermediate, Verified 12/31/23 09:40) unable to tolerate higher doses-stomach ulcer (low dose ok) carbamazepine [From TEGRETOL] Adverse Reaction (Intermediate, Verified 12/31/23 09:40) NAUSEA & VOMITING, HEADACHE gabapentin Adverse Reaction (Intermediate, Verified 12/31/23 09:40) dizziness ibuprofen Adverse Reaction (Intermediate, Verified 12/31/23 09:40) Nausea and Vomiting lidocaine [From Lidoderm] Adverse Reaction (Intermediate, Verified 12/31/23 09:40) burning from patch NSAIDS (Non-Steroidal Anti-Inflamma [NSAIDS (NON-STEROIDAL ANTI-INFLAMMA] Adverse Reaction (Intermediate, Verified 12/31/23 09:40) NAUSEA & VOMITING, HX ULCER codeine [CODEINE] Adverse Reaction (Unknown, Verified 12/31/23 09:40) NAUSEA & VOMITING, nausea/vomiting Medication List - Last Reconciled 12/31/23 by Ana Ross MD acetaminophen (Tylenol) 650 mg PO QID PRN albuterol sulfate 90 mcg/actuation 2 puffs inhalation Q6H PRN amlodipine 10 mg PO DAILY Arnuity Ellipta 100 mcg/actuation (fluticasone furoate) 1 inh inhalation DAILY NS atorvastatin 80 mg PO DAILY 90 days calcium carbonate-vitamin D3 600 mg-5 mcg (200 unit) (Calcium 600 + D(3)) 2 tabs PO DAILY cyclobenzaprine 5 mg PO Q8H PRN 5 days denosumab (Prolia) 60 mg subcut [id number] docusate sodium (Colace) 100 mg PO BID fexofenadine 180 mg PO DAILY PRN 30 days fluticasone propionate 50 mcg/actuation 1 spray intranasal BID 90 days fluticasone propionate 110 mcg/actuation 1 puff inhalation BID 30 days isosorbide mononitrate ER 30 mg PO DAILY losartan 50 mg PO DAILY nitroglycerin 0.4 mg sublingual Q5M PRN pantoprazole 40 mg PO BID [SOFT CERVICAL COLLAR As directed] tramadol 50 mg PO TID PRN 30 days HPI Comments Details: Patient is an 83-year-old female with hypertension complicated by chronic kidney disease stage III and coronary artery disease, hyperlipidemia, COPD presents for follow up of hand osteoarthritis, osteoporosis with history L1 compression fracture, and concern for inflammatory arthritis Interval History: Patient was last seen 07/11/[address] Wright. This was an urgent visit for bilateral foot pain and hand pain. She had soft tissue swelling of the 2nd and 3rd PIPs DIPs that was tender to palpation, positive MCP squeeze test of the left hand, bilateral 2nd through 5th MTP tenderness but no 1st MTP swelling or tenderness. Based on the pictures there was concern for seronegative RA or crystal arthritis such as pseudogout and she was given a prednisone taper. Went to the ED 12/26 diagnosed with viral PNA and costochondritis. Today with weight loss and night sweats over the past 2 weeks. Denies any recurrence of her joint pain. Prednisone helped Rheumatologic History: Osteoporosis Risk factors for osteoporosis: FDC use of PPI, hx hyperparathyroidism. She has had surgery to remove the left trapezium (CMC) Prior history: First fracture was L1 in approx. 2005. She was was treated with fosamax but it was discontinued due to GI upset. She had parathroid surgery around that time for hyperparathyroidism. Her second fracture was in 2014- L3 acute fracture. Treated with kyphoplasty. She had lifted a scooter and felt a pop. Treated by Dr. Gonzalez at [facility]. Inflammatory arthritis She was seen in June 2020 for ?gout attack. There was erythema warmth and swelling of the dorsum of her right hand involving her 2nd, 3rd and 4th MCP joints. Has a strong family history of autoimmune disease with granddaughter having Behcet's, other granddaughter with scleroderma Current Rheumatology Medication(s): Prolia 60 mg every 6 months REPLACED BY [facility] Medical History (Updated 12/31/23 @ 10:45 by Ana Ross MD) Encounter for monitoring denosumab therapy Cervical spine fracture History of gout Osteoarthritis, hand, primary localized Swelling of finger of right hand Age-related osteoporosis without current pathological fracture Chronic kidney disease, stage 4 (severe) Screening for breast cancer Allergic rhinitis Exertional dyspnea Chronic kidney disease (CKD), stage III (moderate) Benign essential hypertension Overactive bladder Compression fracture of L1 lumbar vertebra Cervical spondylosis without myelopathy GERD (gastroesophageal reflux disease) COPD (chronic obstructive pulmonary disease) Pure hypercholesterolemia Coronary artery disease Surgical History History of colonoscopy Hx of cataract removal with insertion of prosthetic lens History of angioplasty History of tonsillectomy History of appendectomy History of parathyroidectomy History of oophorectomy History of section Family History Father Throat cancer Mother No problems noted. Daughter Diabetes Son Arthritis CAD (coronary artery disease) Daughter Scleroderma Social History Housing: House Alcohol intake: never Patient Tobacco Use Status: Current someday Tobacco user Tobacco use type: Cigarette Cigarettes Per Day: 3 Years Smoked: 30 e-Cigarette/Vaping Use: Never Used service: No Current occupational status: retired Cognitive needs: No Hearing needs: No Vision needs: No Review of Systems Const Details: Review of Systems Constitutional: Denies fever, chills ENT: Denies vision changes, eye pain or eye redness, dental caries, dry mouth GI: Denies nausea, vomiting, diarrhea, abdominal pain, change in BM Pulm: Denies SOB, MOTA, hemoptysis, wheezing Cards: Denies chest pain, palpitations Skin: Denies Raynaud's, rash, nail changes, photosensitivity, 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 Mayank's nodes noted to the 3rd PIP of the right hand mild tenderness to palpation. No tenderness to palpation of the MCPs. 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 Negative MTP squeeze test. Office Meds Prolia 60 mg/mL subcutaneous syringe Performing Provider: Ana Ross MD [place] [facility] [place] Administered by: Ana Ross MD on 12/31/23 10:48 Dose Route Admin Location Dispensed Lot Number Expiration Date [facility] Network Control Technician 60 mg subcut right deltoid 1 mL [id number] 04/18/26 28292-514-25 AMGEN Results Reviewed Results Reviewed: Laboratory Tests 12/27/22 10/01/23 12/28/23 11:20 07:30 09:45 WBC 6.5 RBC 4.29 Hgb 13.9 Hct 41.3 Plt Count 258 Sodium 140 Potassium 4.2 Chloride 101 Carbon Dioxide 27 BUN 19 H Creatinine 1.35 Calcium 10.0 D AST 27 ALT 8 Alkaline Phosphatase 74 Rheumatoid Factor < 13.0 Cycl Citrul Peptide IgG <16 XR Hands 12/2022 Hand x-rays reviewed by me. Osteoarthritis noted to the DIPs and PIPs DIPs of bilateral hands. No evidence of erosions, pencil in cup or gull wing. No chondrocalcinosis noted in the CC Assessment & Plan Assessment & Plan (1) Age-related osteoporosis without current pathological fracture: Comment: Alendronate: Approx 2004 - Jaw pain. Prolia: 12/2013 to present Code(s): M81.0 - Age-related osteoporosis without current pathological fracture Category: Medical Plan: #Osteoporosis with hx of L1 and L2 compression fracture Patient has been on Prolia since 01/08/2014. This will make it 10 years since she has been on the medication. Given her CKD she can not be switched to another anti resorptive medication such as bisphosphonates. This limits our availability of medication. Given her history of compression fractures I would opt to continue Prolia although the data only goes up to 10 years the studies do show that there is still added benefit even after 3-5 years. Continue vitamin-D and calcium supplementation. Kwesi DL, Dacia F, Lionel RK, Harpreet S. Denosumab in the Treatment of Osteoporosis: 10?Years Later: A Narrative Review. Adv Ther. 2021;39(1):58- 74. doi: [id number]. Epub 2020Dec 30. PMID: [id number]; PMCID: [id number]. (2) Osteoarthritis, hand, primary localized: Code(s): M19.049 - Primary osteoarthritis, unspecified hand Category: Medical Qualifiers: Laterality: unspecified laterality Qualified Code(s): M19.049 - Primary osteoarthritis, unspecified hand Plan: #Hand OA vs seronegative inflammatory arthritis Patient with osteoarthritis noted to bilateral hands. Given her strong family history of autoimmune disease she may have a component of erosive osteoarthritis but this is not shown on the x-rays particularly. Given her responsiveness to prednisone and the low frequency of these flares we will opt to monitor her at this time. If in the future she develops more frequent flares then we may consider adding DMARD (3) Encounter for monitoring denosumab therapy: Code(s): Z51.81 - Encounter for therapeutic drug level monitoring; Z79.899 - Other pen[facility]iary (current) drug therapy Category: Medical Plan: #Long-term use of Denosumab Discussed with patient the risks and benefits of denosumab (Prolia) for the management of their osteoporosis Benefits include improved bone density, decreased fracture risk Risks include rapid bone loss if denosumab stopped, osteonecrosis of the jaw especially in patients with poor oral hygiene/diabetes/use of glucocorticoi ds/age greater than 65 years, atypical femoral fractures, injection site reactions. Mild increased risk of infections due to RANKL on T helper cells, increased risk of hypocalcemia especially in CKD patients Keep vitamin-D at least 35 ng/mL Advised to delay non emergent dental procedures to toward the end of the 6 month cycle and if they plan to stop denosumab would need to continue antiresorptive to maintain the effects of denosumab Plan I spent 30 minutes reviewing the record and labs, seeing the patient, discussing the treatment plan and documenting in the medical record ? For next visit: * Follow up DEXA scan Orders: Orders Vitamin D 25-OH (D2 and D3) 6 Months S12.9XXA - Fracture of neck, unspecified, initial encounter HLA B27 6 Months S12.9XXA - Fracture of neck, unspecified, initial encounter SWAPNA Reflex Titer and Pattern 6 Months S12.9XXA - Fracture of neck, unspecified, initial encounter AMB Denosumab Injection Practice Supplied Today M81.0 - Age-related osteoporosis without current pathological fracture, S12.9XXA - Fracture of neck, unspecified, initial encounter Complete Blood Count Auto Diff 6 Months S12.9XXA - Fracture of neck, unspecified, initial encounter C Reactive Protein 6 Months S12.9XXA - Fracture of neck, unspecified, initial encounter Comprehensive Met. Panel 6 Months S12.9XXA - Fracture of neck, unspecified, initial encounter Erythrocyte Sedimentation Rate 6 Months S12.9XXA - Fracture of neck, unspecified, initial encounter Anti Extractable Nuclear Ag 6 Months S12.9XXA - Fracture of neck, unspecified, initial encounter XR DEXA axial skeleton 6 Months S12.9XXA - Fracture of neck, unspecified, initial encounter Protein Electrophoresis, Serum 6 Months S12.9XXA - Fracture of neck, unspecified, initial encounter Medications: New Prolia (denosumab) 60 mg subcut ONCE 1 mL 0RF NS M81.0 - Age-related osteoporosis without current pathological fracture, S12.9XXA - Fracture of neck, unspecified, initial encounter Coding Level of Care Code Est Pt Level 4 (69605) Complex EM visit Add On G2211 Diagnoses Age-related osteoporosis without current pathological fracture M81.0 Localized, primary osteoarthritis of hand, unspecified laterality M19.049 Laterality: unspecified laterality Encounter for monitoring denosumab therapy Z51.81; Z79.899
== END 2023-12-31 10:18 | disposition home or self-care (01) ==
PROVIDERS: PCP Internal Medicine; Visit Provider Student in an Organized Health Care Education/Training Program
DX: M81.0 Age-related osteoporosis without current pathological fracture (principal); M19.049 Primary osteoarthritis, unspecified hand; Z51.81 Encounter for therapeutic drug level monitoring; Z79.899 Other long term (current) drug therapy; S12.9XXA Fracture of neck, unspecified, initial encounter
CPT/HCPCS: 99214; G2211

== ENCOUNTER → 2023-12-31 09:28 | Outpatient (BNVA) | payer MEDICARE, OTHER, SELFPAY | PROVIDERS: PCP Internal Medicine; Visit Provider Student in an Organized Health Care Education/Training Program | DX: M81.0 Age-related osteoporosis without current pathological fracture (principal); M19.041 Primary osteoarthritis, right hand; M19.042 Primary osteoarthritis, left hand; Z51.81 Encounter for therapeutic drug level monitoring; Z79.899 Other long term (current) drug therapy | CPT/HCPCS: 96372; 99212; J0897 ==

== ENCOUNTER 2024-01-07 11:03 | Outpatient (AMB) | payer MEDICARE, OTHER, SELFPAY ==
--- NOTE | 2024-01-07 11:05 | MHC.PC.OV ---
Vital Signs 01/07/24 11:15 Height 5 ft Weight 110 lb 8 oz BMI 21.6 BP 120/64 Blood Pressure Location Lt brachial Position Sitting Pulse 84 Pulse Source Pulse Oximeter Pulse Oximetry (%) 94 Oxygen Delivery Method Room Air Intake Visit Reasons: Back, legs and chest pain Intake Note: Patient presents for follow-up after [place] [facility] [place], myalgias, dry cough for 3 days, and left-sided back/flank pain upon waking. The patient was discharged with diagnoses of upper respiratory infection and acute costochondritis. Currently, the patient reports persistent cough for 2 weeks and ongoing lumbar pain. Flexeril was prescribed at the ED. The patient continues to feel unwell. Velvet Cutter Required: No Accompanied by: Self / Same As Patient Allergies cyclobenzaprine [From Flexeril] Allergy (Intermediate, Verified 01/07/24 11:20) Spacy feeling lisinopril Allergy (Unknown, Verified 01/07/24 11:20) Unknown alendronate sodium [Fosamax] Adverse Reaction (Intermediate, Verified 01/07/24 11:20) jaw pain aspirin Adverse Reaction (Intermediate, Verified 01/07/24 11:20) unable to tolerate higher doses-stomach ulcer (low dose ok) carbamazepine [From TEGRETOL] Adverse Reaction (Intermediate, Verified 01/07/24 11:20) NAUSEA & VOMITING, HEADACHE gabapentin Adverse Reaction (Intermediate, Verified 01/07/24 11:20) dizziness ibuprofen Adverse Reaction (Intermediate, Verified 01/07/24 11:20) Nausea and Vomiting lidocaine [From Lidoderm] Adverse Reaction (Intermediate, Verified 01/07/24 11:20) burning from patch NSAIDS (Non-Steroidal Anti-Inflamma [NSAIDS (NON-STEROIDAL ANTI-INFLAMMA] Adverse Reaction (Intermediate, Verified 01/07/24 11:20) NAUSEA & VOMITING, HX ULCER codeine [CODEINE] Adverse Reaction (Unknown, Verified 01/07/24 11:20) NAUSEA & VOMITING, nausea/vomiting Tobacco use date assessed: 10/26/23 Fall risk assessment: No Falls in past year Last assessed Fall Risk: 01/07/24 Dental Screening Dental Screen Date: 10/26/23 HPI Back, legs and chest pain HPI Details The patient is an 83-year-old female presenting with persistent cough and back pain. The cough and back pain started after the patient was seen in the ER on the 7th, where she underwent testing including flu, COVID, and RSV, all of which were negative. A chest x-ray showed left basilar atelectasis and bronchial wall thickening. She was diagnosed with a viral infection, and it was advised there was no need for antibiotics. She was prescribed Lexerol, a muscle relaxer, which was ineffective and caused side effects. She obtained temporary relief from back pain using tramadol and a heating pad, but also experienced new pain radiating from the back to the chest, consistent with costochondritis, attributed to coughing. The patient has a history of thoracic and lumbar compression fractures with noted chronic back pain, with a previous x-ray in October indicating significant arthritis. Current back pain is exacerbated and extends to the right leg, making walking difficult. The patient also has COPD, managed with inhalers including Arnoti and Flovent, and reports a persistent cough. [facility] Medical History (Updated 01/07/24 @ 11:29 by Rao Coulter PA-C) Encounter for monitoring denosumab therapy Cervical spine fracture History of gout Osteoarthritis, hand, primary localized Swelling of finger of right hand Age-related osteoporosis without current pathological fracture Chronic kidney disease, stage 4 (severe) Screening for breast cancer Allergic rhinitis Exertional dyspnea Chronic kidney disease (CKD), stage III (moderate) Benign essential hypertension Overactive bladder Compression fracture of L1 lumbar vertebra Cervical spondylosis without myelopathy GERD (gastroesophageal reflux disease) COPD (chronic obstructive pulmonary disease) Pure hypercholesterolemia Coronary artery disease Surgical History History of colonoscopy Hx of cataract removal with insertion of prosthetic lens History of angioplasty History of tonsillectomy History of appendectomy History of parathyroidectomy History of oophorectomy History of section Family History Father Throat cancer Mother No problems noted. Daughter Diabetes Son Arthritis CAD (coronary artery disease) Daughter Scleroderma Social History Housing: House Alcohol intake: never Patient Tobacco Use Status: Current someday Tobacco user Tobacco use type: Cigarette Cigarettes Per Day: 3 Years Smoked: 30 Packs per year/per ci.50 e-Cigarette/Vaping Use: Never Used service: No Current occupational status: retired Cognitive needs: No Hearing needs: No Vision needs: No Questionnaire Thrive Questionnaire Date Thrive assessed: 10/26/23 NENO-7 AMB Questionnaire NENO-7 Date NENO - 7 assessed: 10/26/23 Source: Developed by Drs. Sesar Mcmillan, Paradise Petersen, Kamran Cartwright and colleagues, with an educational andi from [employer]. Review of Systems Const Denies headache(s) Eyes Denies loss of vision ENT Denies vertigo, Denies dizziness, Denies headache(s) and Denies sore throat Card Denies chest pain, Denies leg edema and Denies lightheadedness Resp Reports cough, Denies hemoptysis and Reports wheezing GI Denies abdominal pain, Denies melena, Denies constipation, Denies diarrhea and Denies vomiting Denies urinary frequency, Denies dysuria and Denies urinary urgency Musc Reports back pain, Denies arthralgias, Denies joint swelling, Denies numbness and Denies tingling Neuro Denies Abnormal speech present, Denies behavioral changes, Denies vertigo, Denies dizziness, Denies headache(s), Denies loss of vision, Denies memory loss, Denies numbness and Denies tingling Psych Denies anxiety, Denies behavioral changes, Denies depression, Denies memory loss and Denies panic attacks Kye/Lymph Denies easy bleeding and Denies easy bruising Aller/Immun Reports wheezing Physical exam (Primary Care) Vital Signs: Last Vital Signs Pulse 84 01/07/24 11:15 BP 120/64 01/07/24 11:15 Pulse Ox 94 01/07/24 11:15 Oxygen Delivery Method Room Air 01/07/24 11:15 BMI result Body Mass Index 21.6 Tobacco/Smoking Status: Tobacco use Status Tobacco use date assessed 10/26/23 01/07/24 11:05 Patient Tobacco Use Status Current someday Tobacco 01/07/24 11:05 Tobacco use type Cigarette 01/07/24 11:05 e-Cigarette/Vaping Use Never Used 01/07/24 11:05 Thrive Assessment: Date of Thrive Assessment Date Thrive assessed 10/26/23 01/07/24 11:05 Const General: healthy appearing, no acute distress, alert and awake Nutritional Appearance: well nourished Orientation/consciousness: oriented to person, oriented to place and oriented to time HENMT Ears: TM's normal bilaterally General nose exam: Normal nasal mucous membranes and turbinates present Eyes Conjunctivae: conjunctivae normal Sclerae: sclerae normal Pupils: Equal, round and reactive pupils present Neck Neck: Yes no lymphadenopathy and Yes no JVD Thyroid: Thyroid normal Carotids: no bruits Resp Other: OCCASIONAL COUGH DURING EXAM Effort & Inspection: normal respiratory effort and not tachypneic Auscultation: no crackles, no rales, rhonchi and no wheezes Cardio Rate: regular rate Rhythm: regular rhythm Heart sounds: no murmurs and normal S1 and S2 GI Palpation (GI): Soft to palpation, nontender, no hepatomegaly and no splenomegaly Auscultation: normal bowel sounds Skin General skin exam: no rashes or lesions noted and dry skin Neuro General: oriented to person, oriented to place and oriented to time Cranial nerves: Yes Equal, round and reactive pupils present Speech: No Abnormal speech present Gait exam (Neuro): Normal gait present Motor exam (neuro): no tremor noted Extrem Right upper extremity: full ROM Left upper extremity: full ROM Right lower extremity: full ROM; no edema Left lower extremity: full ROM; no edema Psych Mental Status: mental status grossly normal Speech and movement: Normal speech and movement present Affect: normal affect Attitude: cooperative Thought process: Normal thought process present Coding Level of Care Code Est Pt Level 3 (33903) Diagnoses Bronchitis J40 Assessment & Plan Assessment & Plan (1) Bronchitis: Code(s): J40 - Bronchitis, not specified as acute or chronic Category: Medical Plan: Begin antibiotic therapy with Zithromax for possible infection, and initiate a prednisone taper for inflammation control. - Back Pain and Costochondritis: Continue with tramadol for pain relief as prescribed. Consider alternative or additional therapy if current management is ineffective. Medications: New azithromycin For 250 mg dose pack: take 500 mg today (day 1), then 250 mg for 4 days (days 2-5) PO 6 tabs 0RF J40 - Bronchitis, not specified as acute or chronic prednisone take 3 tabs x 3 days , take 2 tabs x 3 days, take 1 tabs x 3 days. 10 mg PO DIRECTED 18 tabs 0RF 9 days J40 - Bronchitis, not specified as acute or chronic
[2024-01-07 11:15] VITALS: BP 120/64; PULSE 84; O2SAT 94; BMI 21.6
== END 2024-01-07 12:06 | disposition home or self-care (01) ==
PROVIDERS: PCP Internal Medicine; Visit Provider Physician Assistant
DX: J40 Bronchitis, not specified as acute or chronic (principal)

== ENCOUNTER → 2024-01-07 11:03 | Outpatient (BNVA) | payer MEDICARE, OTHER, SELFPAY | PROVIDERS: PCP Internal Medicine; Visit Provider Physician Assistant | DX: J40 Bronchitis, not specified as acute or chronic (principal) | CPT/HCPCS: 99212 ==

== ENCOUNTER 2024-02-26 08:30 | Outpatient (REF) | payer MEDICARE, OTHER, SELFPAY ==
[2024-02-26 09:56] LABS: MANUAL DIFF FLAG NO
[2024-02-26 09:57] LABS: Appearance Urine Clear; Color Urine Yellow; Glucose Urine UA Negative (Negative); Leukocyte Esterase Urine Negative (Negative); Nitrite Urine Negative (Negative); PH 7.5 (5.0-9.0); Specific Gravity - Urine 1.015 (1.005-1.025); UMIC TRIGGER UACC YES; Urine Blood Negative (Negative); Urine Ketones Negative (Negative); Urine Protein 30 (1+) mg/dL (Neg-Trace)
[2024-02-26 10:00] LABS: Bacteria Urine None Seen (None Seen); Hyaline Casts Urine 0-2 /LPF (0-2); RBC Urine 0-2 /HPF (0-2); Squamous Epithelial Cell Urine 0-2 /HPF (0-2); WBC Urine 0-5 /HPF (0-5)
[2024-02-26 10:08] LABS: Basophils Absolute Auto 0.3 X10*3/uL (0.0-0.2); Basophils Percent Auto 2.4 % (0-2); Eosinophils Absolute Auto 0.3 X10*3/uL (0.0-0.4); Eosinophils Percent Auto 3.2 % (0-4); Hematocrit 40.9 % (37.0-47.0); Hemoglobin 13.6 g/dl (12.0-16.0); Imm Gran Abs Auto 0.15 X10*3/uL (0.00-0.03); Imm Gran Pct Auto 1.4 % (0.0-0.4); Lymphocytes Absolute Auto 1.2 X10*3/uL (1.2-4.9); Lymphocytes Percent Auto 11.4 % (20-40); Mean Corpuscular HGB Conc 33.3 g/dl (31.0-35.0); Mean Corpuscular Hemoglobin 32.8 pg (27.0-33.0); Mean Corpuscular Volume 98.6 fL (80.0-98.0); Mean Platelet Volume 12.5 fL (9.4-12.3); Monocytes Percent Auto 9.5 % (2-11); Neutrophils Absolute Auto 7.7 x10*3/uL (2.0-8.3); Neutrophils Percent Auto 72.1 % (45-73); Platelet Count 321 X10*3/uL (160-400); Red Blood Count 4.15 X10*6/uL (4.20-5.50); Red Cell Distribution Width 14.1 % (11.0-16.0); White Blood Count 10.6 X10*3/uL (4.8-10.8)
[2024-02-26 10:40] LABS: Erythrocyte Sedimentation Rate 28 MM/HR (0-20)
[2024-02-26 13:33] LABS: Alanine Aminotransferase 14 U/L (0-31); Albumin Level 4.1 g/dL (3.5-5.0); Alkaline Phosphatase 85 U/L (39-117); Anion Gap 13 (12-20); Aspartate Amino Transferase 30 U/L (5-31); Bilirubin Total 0.7 mg/dL (0.0-1.0); Blood Urea Nitrogen 24 mg/dL (9-16); Calcium 9.9 mg/dL (8.4-10.2); Carbon Dioxide 29 mmol/L (22-29); Chloride 105 mmol/L (96-108); Cholesterol 149 mg/dL (<200); Estimated Glomerular Filt Rate 45; Glucose Fasting 103 mg/dL (60-99); HDL Cholesterol 57 mg/dL (>40); LDL Cholesterol Calculated 80 mg/dL (<100); Potassium 3.7 mmol/L (3.3-5.1); Sodium 143 mmol/L (135-145); Total Protein 7.4 g/dL (6.5-8.0); Triglycerides 64 mg/dL (<150)
[2024-02-26 13:46] LABS: Vitamin D 25-OH Total 58.9 ng/mL (>30)
== END 2024-02-26 08:31 | disposition home or self-care (01) ==
LOC: HO.HMGCLDS 08:30
PROVIDERS: PCP Internal Medicine; Visit Provider Internal Medicine
DX: E55.9 Vitamin D deficiency, unspecified (principal); M54.50 Low back pain, unspecified; E78.00 Pure hypercholesterolemia, unspecified; D64.9 Anemia, unspecified
CPT/HCPCS: 36415; 80053; 80061; 81001; 82306; 85025; 85652

== ENCOUNTER 2024-03-04 09:27 | Outpatient (REF) | payer MEDICARE, OTHER, SELFPAY ==
--- NOTE | ~2024-03-04 | XR_ITS ---
EXAMINATION: XR ABDOMEN COMPLETE CLINICAL INDICATION: R14.0 - Abdominal distension (gaseous) COMPARISON: 02/24/2021. TECHNIQUE: 2 views of the abdomen. FINDINGS: Bowel gas pattern demonstrates mild gaseous distention of the transverse colon. This is not pathologically dilated. No pathologic small bowel dilatation. No air-fluid levels on the upright radiograph. No significant stool retention. No evidence of free intraperitoneal air. Aside from vascular calcifications, no pathologic calcifications evident. No organomegaly identified. Probable Liz's lobe of the liver. Lung bases appear clear. There is likely underlying COPD. Right convex lumbar scoliosis, degenerative spondylosis, and vertebroplasty cement noted in L3. XR/XR abdomen min 2V IMPRESSION: 1. No definite acute abdominal abnormalities. Mild gaseous distention of the transverse colon, and small bowel is nonspecific and may reflect ileus. There is no definite obstruction. 2. Ancillary findings as discussed. Electronically signed by: Jamaal Jones MD 03/04/2024 12:23 PM [facility]
== END 2024-03-04 09:28 | disposition home or self-care (01) ==
LOC: HO.XRAY 09:27
PROVIDERS: PCP Internal Medicine; Visit Provider Internal Medicine
DX: R14.0 Abdominal distension (gaseous) (principal)
CPT/HCPCS: 74019; 96127; 99212

== ENCOUNTER → 2024-03-04 11:13 | Outpatient (BNV) | payer MEDICARE, OTHER, SELFPAY | PROVIDERS: PCP Internal Medicine; Visit Provider Radiology Diagnostic Radiology | DX: R14.0 Abdominal distension (gaseous) (principal) | CPT/HCPCS: 74019 ==

== ENCOUNTER 2024-06-17 10:20 | Outpatient (REF) | payer MEDICARE, OTHER, SELFPAY ==
--- NOTE | ~2024-06-17 | MM_ITS ---
EXAMINATION: DXA BONE DENSITY AXIAL HISTORY: S12.9XXA - Fracture of neck, unspecified, initial encounter TECHNIQUE: [employer] Dual energy absorptiometry (DEXA) of the lumbar spine, total left hip, and femoral neck was performed. COMPARISON: Comparison is made with the prior examination dated 12/22/2021. FINDINGS: The bone mineral density of the lumbar spine is 1.130 with a T-score of -0.3, and a Z-score of 2.0. This is indicative of normal bone mineral density. This represents a BMD change of 1.6% compared to the prior exam. This is not statistically significant. The bone mineral density of the left total hip is 0.728 with a T-score of -2.2, and a Z-score of 0.2. This is indicative of osteopenia. This represents a BMD change of 0.1% compared to the prior exam. This is not statistically significant. The bone mineral density of the left femoral neck is 0.724 with a T-score of -2.3, and a Z-score of 0.3. This is indicative of osteopenia. This represents a BMD change of 2.1% compared to the prior exam. MM/XR DEXA axial skeleton IMPRESSION: Based on bone mineral density, and according to World Health Organization (WHO) criteria, the diagnosis is consistent with osteopenia. All bone density values are in grams per centimeter squared (g/cm2). Statistically, 68% of repeat scans fall within 1 SD (+/- 0.010 g/cm2 for AP spine L1-L4) and 1 SD (+/- 0.012 g/cm2 for femur total) FRAX is a trademark of the [employer]'s [employer], a World Health Organization (WHO) Collaborating Center. Electronically signed by: Sesar Henry MD 06/18/2024 10:28 AM EDT
== END 2024-06-17 10:21 | disposition home or self-care (01) ==
LOC: HO.MAMMO 10:20
PROVIDERS: PCP Internal Medicine; Visit Provider Student in an Organized Health Care Education/Training Program
DX: Z13.820 Encounter for screening for osteoporosis (principal); S12.9XXA Fracture of neck, unspecified, initial encounter; E28.39 Other primary ovarian failure
CPT/HCPCS: 77080

== ENCOUNTER → 2024-06-17 11:30 | Outpatient (BNV) | payer MEDICARE, OTHER, SELFPAY | PROVIDERS: PCP Internal Medicine; Visit Provider Radiology Diagnostic Radiology | DX: E28.39 Other primary ovarian failure (principal) | CPT/HCPCS: 77080 ==

== ENCOUNTER 2024-06-27 08:40 | Outpatient (REF) | payer MEDICARE, OTHER, SELFPAY ==
[2024-06-27 10:01] LABS: Appearance Urine Clear; Color Urine Yellow; Glucose Urine UA Negative (Negative); Leukocyte Esterase Urine Negative (Negative); Nitrite Urine Negative (Negative); PH 7.5 (5.0-9.0); Specific Gravity - Urine <= 1.005 (1.005-1.025); Urine Blood Negative (Negative); Urine Ketones Negative (Negative); Urine Protein Negative (Neg-Trace)
[2024-06-27 10:04] LABS: Basophils Absolute Auto 0.3 X10*3/uL (0.0-0.2); Basophils Percent Auto 4.4 % (0-2); Eosinophils Absolute Auto 0.4 X10*3/uL (0.0-0.4); Eosinophils Percent Auto 6.9 % (0-4); Hemoglobin 12.8 g/dl (12.0-16.0); Imm Gran Abs Auto 0.04 X10*3/uL (0.00-0.03); Imm Gran Pct Auto 0.6 % (0.0-0.4); Lymphocytes Absolute Auto 1.3 X10*3/uL (1.2-4.9); Lymphocytes Percent Auto 20.6 % (20-40); MANUAL DIFF FLAG SCAN; Mean Corpuscular HGB Conc 33.7 g/dl (31.0-35.0); Mean Corpuscular Hemoglobin 32.7 pg (27.0-33.0); Mean Corpuscular Volume 97.2 fL (80.0-98.0); Mean Platelet Volume 12.6 fL (9.4-12.3); Monocytes Absolute Auto 0.6 X10*3/uL (0.1-1.2); Monocytes Percent Auto 8.8 % (2-11); Neutrophils Absolute Auto 3.7 x10*3/uL (2.0-8.3); Neutrophils Percent Auto 58.7 % (45-73); Platelet Count 208 X10*3/uL (160-400); Red Blood Count 3.91 X10*6/uL (4.20-5.50); SCAN SMEAR FLAG 1; White Blood Count 6.4 X10*3/uL (4.8-10.8)
[2024-06-27 10:24] LABS: Alanine Aminotransferase 14 U/L (0-31); Albumin Level 4.1 g/dL (3.5-5.0); Alkaline Phosphatase 70 U/L (39-117); Anion Gap 12 (12-20); Aspartate Amino Transferase 33 U/L (5-31); Bilirubin Total 0.7 mg/dL (0.0-1.0); Blood Urea Nitrogen 24 mg/dL (9-16); C Reactive Protein < 0.10 mg/dL (< or = 0.50); Calcium 9.9 mg/dL (8.4-10.2); Carbon Dioxide 28 mmol/L (22-29); Chloride 101 mmol/L (96-108); Estimated Glomerular Filt Rate 40; Glucose Random 98 mg/dL (60-115); Potassium 3.6 mmol/L (3.3-5.1); Sodium 137 mmol/L (135-145); Total Protein 6.7 g/dL (6.5-8.0)
[2024-06-27 10:37] LABS: SLIDE REVIEW VERIFIED
[2024-06-27 10:43] LABS: Erythrocyte Sedimentation Rate 7 MM/HR (0-20)
[2024-07-01 11:28] LABS: Anti Nuclear Antibody Screen POSITIVE (NEGATIVE)
[2024-07-01 18:44] LABS: Prot Elec - Albumin 4.2 g/dL (3.8-4.8); Prot Elec - Alpha1 0.3 g/dL (0.2-0.3); Prot Elec - Alpha2 0.6 g/dL (0.5-0.9); Prot Elec - Beta 1 0.5 g/dL (0.4-0.6); Prot Elec - Beta 2 0.3 g/dL (0.2-0.5); Prot Elec - Total Protein 6.8 g/dL (6.1-8.1)
[2024-07-02 10:54] LABS: HLA B27 Negative (Negative)
[2024-07-02 14:03] LABS: Vitamin D 25-OH, D2 <4 ng/mL; Vitamin D 25-OH, D3 52 ng/mL; Vitamin D 25-OH, Total 52 ng/mL (30-100)
[2024-07-02 22:23] LABS: SM/Ribonucleoprotein Ab <1.0 NEG AI (<1.0 NEG); Smith Protein <1.0 NEG AI (<1.0 NEG)
== END 2024-06-27 08:41 | disposition home or self-care (01) ==
LOC: HO.HMGCLDS 08:40
PROVIDERS: PCP Internal Medicine; Visit Provider Student in an Organized Health Care Education/Training Program
DX: S12.9XXA Fracture of neck, unspecified, initial encounter (principal); R30.0 Dysuria
CPT/HCPCS: 36415; 80053; 81003; 82306; 84165; 85025; 85652; 86038; 86039; 86140; 86235; 86812

== ENCOUNTER 2024-07-02 09:29 | Outpatient (AMB) | payer MEDICARE, OTHER, SELFPAY ==
--- NOTE | 2024-07-02 09:37 | MHC.OFFVIS ---
Vital Signs 07/02/24 09:46 Height 5 ft Weight 113 lb 12.136 oz BMI 22.2 BP 116/64 Blood Pressure Location Rt brachial Position Sitting Pulse 52 Pulse Source Pulse Oximeter Pulse Oximetry (%) 98 Oxygen Delivery Method Room Air Intake Visit Reasons: Osteoporosis/Prolia inj Intake Note: Patient presents for Osteoporosis and Prolia injection follow up. Allergies cyclobenzaprine [From Flexeril] Allergy (Intermediate, Verified 07/02/24 09:43) Spacy feeling lisinopril Allergy (Unknown, Verified 07/02/24 09:43) Unknown alendronate sodium [Fosamax] Adverse Reaction (Intermediate, Verified 07/02/24 09:43) jaw pain aspirin Adverse Reaction (Intermediate, Verified 07/02/24 09:43) unable to tolerate higher doses-stomach ulcer (low dose ok) carbamazepine [From TEGRETOL] Adverse Reaction (Intermediate, Verified 07/02/24 09:43) NAUSEA & VOMITING, HEADACHE gabapentin Adverse Reaction (Intermediate, Verified 07/02/24 09:43) dizziness ibuprofen Adverse Reaction (Intermediate, Verified 07/02/24 09:43) Nausea and Vomiting lidocaine [From Lidoderm] Adverse Reaction (Intermediate, Verified 07/02/24 09:43) burning from patch NSAIDS (Non-Steroidal Anti-Inflamma [NSAIDS (NON-STEROIDAL ANTI-INFLAMMA] Adverse Reaction (Intermediate, Verified 07/02/24 09:43) NAUSEA & VOMITING, HX ULCER codeine [CODEINE] Adverse Reaction (Unknown, Verified 07/02/24 09:43) NAUSEA & VOMITING, nausea/vomiting HPI Comments Details: Patient is an 83-year-old female with hypertension complicated by chronic kidney disease stage III and coronary artery disease, hyperlipidemia, COPD presents for follow up of hand osteoarthritis, osteoporosis with history L1 compression fracture, and concern for inflammatory arthritis Interval History: Patient last seen 12/31/23 with me. At that time she was following up for hand osteoarthritis and osteoporosis. She is a previously gotten steroids for left hand swelling due to concern for crystal arthritis much improved her symptoms. At that visit she was complaining of weight loss but this has resolved and she is now gaining weight. No falls or fractures since the last visit Complains of right thumb 1st CMC pain making it difficult to use her thumb. Rheumatologic History: Osteoporosis Risk factors for osteoporosis: FPC use of PPI, hx hyperparathyroidism. She has had surgery to remove the left trapezium (CMC) Prior history: First fracture was L1 in approx. 2005. She was was treated with fosamax but it was discontinued due to GI upset. She had parathroid surgery around that time for hyperparathyroidism. Her second fracture was in 2014- L3 acute fracture. Treated with kyphoplasty. She had lifted a scooter and felt a pop. Treated by Dr. Gonzalez at [facility]. ?Inflammatory arthritis She was seen in June 2020 for ?gout attack. There was erythema warmth and swelling of the dorsum of her right hand involving her 2nd, 3rd and 4th MCP joints. Has a strong family history of autoimmune disease with granddaughter having Behcet's, other granddaughter with scleroderma Current Rheumatology Medication(s): Prolia 60 mg every 6 months Vitamin D/Calcium supplementation [facility] Medical History Encounter for monitoring denosumab therapy Cervical spine fracture History of gout Osteoarthritis, hand, primary localized Swelling of finger of right hand Age-related osteoporosis without current pathological fracture Chronic kidney disease, stage 4 (severe) Screening for breast cancer Allergic rhinitis Exertional dyspnea Chronic kidney disease (CKD), stage III (moderate) Benign essential hypertension Overactive bladder Compression fracture of L1 lumbar vertebra Cervical spondylosis without myelopathy GERD (gastroesophageal reflux disease) COPD (chronic obstructive pulmonary disease) Pure hypercholesterolemia Coronary artery disease Surgical History History of colonoscopy Hx of cataract removal with insertion of prosthetic lens History of angioplasty History of tonsillectomy History of appendectomy History of parathyroidectomy History of oophorectomy History of section Family History Father Throat cancer Mother No problems noted. Daughter Diabetes Son Arthritis CAD (coronary artery disease) Daughter Scleroderma Social History Housing: House Alcohol intake: never Patient Tobacco Use Status: Current someday Tobacco user Tobacco use type: Cigarette Cigarettes Per Day: 3 Years Smoked: 30 e-Cigarette/Vaping Use: Never Used service: No Current occupational status: retired Cognitive needs: No Hearing needs: No Vision needs: No Review of Systems Const Details: Review of Systems Constitutional: Denies fever, chills ENT: Denies vision changes, eye pain or eye redness, dental caries, dry mouth GI: Denies nausea, vomiting, diarrhea, abdominal pain, change in BM Pulm: Denies SOB, MOTA, hemoptysis, wheezing Cards: Denies chest pain, palpitations Skin: Denies Raynaud's, rash, nail changes, photosensitivity, [employer]ATE[employer] MANAGER: Denies headaches, weakness, paresthesias, recurrent falls MSK: as per HPI All other systems reviewed and are unremarkable except noted above Physical Exam Vital Signs: Last Vital Signs Pulse 52 07/02/24 09:46 BP 116/64 07/02/24 09:46 Pulse Ox 98 07/02/24 09:46 Oxygen Delivery Method Room Air 07/02/24 09:46 BMI result Body Mass Index 22.2 Vital signs reviewed Physical Examination CONSTITUITIONAL Patient alert and cooperative. Well appearing and in no apparent painful distress Elderly frail lady with hyper kyphosis of the spine MSK Hands: ?Able to make a fist. Heberden's nodes noted throughout bilateral hands. Mayank's nodes noted to the 3rd PIP of the right hand mild tenderness to palpation. No tenderness to palpation of the MCPs. Negative MTP squeeze test. Wrists: ?Full range of motion at the wrists without pain. ?No tenderness to palpation or synovitis noted to the wrists. Elbows: Full range of motion without pain. No tenderness, weakness, swelling, increased warmth or erythema. Shoulders: Full range of active range of motion without pain. No tenderness, weakness, swelling, increased warmth or erythema. Knees: ?Full range of motion. ?No tenderness, swelling, increased warmth or erythema.?No effusion or crepitations Ankles: Full range of motion. ?No tenderness, swelling, increased warmth or erythema.? Ankle edema 1 to 2+ Feet: ?Negative squeeze test. ?No tenderness to palpation or swelling of the MTPs. Tender points:?No tenderness to palpation of the bilateral trapezius, supraspinatus, greater trochanters, anterior costochondral junctions, bilateral gluteal areas, bilateral suboccipital muscle insertions SKIN Skin intact without rashes. Office Meds Prolia 60 mg/mL subcutaneous syringe Performing Provider: Ana Ross MD Performing Location: [facility] [place]ology Administered by: Viri Hendricks RN on 07/02/24 09:56 Dose Route Admin Location Dispensed Lot Number Expiration Date NDC [employer] Operator 60 mg subcut right upper arm 1 mL [id number] 09/18/26 08516-939-49 [employer] Comments: Patient tolerated procedure well. Denies any adverse reactions to prior injections. Results Reviewed Results Reviewed: Laboratory Tests 02/26/24 06/27/24 08:35 08:45 WBC 6.4 RBC 3.91 L Hgb 12.8 Hct 38.0 Plt Count 208 D ESR 7 Sodium 137 Potassium 3.6 Chloride 101 Carbon Dioxide 28 BUN 24 H Creatinine 1.27 AST 33 H ALT 14 Alkaline Phosphatase 70 C-Reactive Protein < 0.10 25-OH Vitamin D Total 58.9 Pending DEXA 05/2024 FINDINGS: The bone mineral density of the lumbar spine is 1.130 with a T-score of -0.3, and a Z-score of 2.0. This is indicative of normal bone mineral density. This represents a BMD change of 1.6% compared to the prior exam. This is not statistically significant. The bone mineral density of the left total hip is 0.728 with a T-score of -2.2, and a Z-score of 0.2. This is indicative of osteopenia. This represents a BMD change of 0.1% compared to the prior exam. This is not statistically significant. The bone mineral density of the left femoral neck is 0.724 with a T-score of -2.3, and a Z-score of 0.3. This is indicative of osteopenia. This represents a BMD change of 2.1% compared to the prior exam. Assessment & Plan Assessment & Plan (1) Age-related osteoporosis without current pathological fracture: Comment: DEXA 05/2024: AP Spine -0.3, Left femur neck -2.3, Left femur total -2.2 DEXA 12/2021: AP Spine -0.5, Left femur neck -2.4, Left femur total -2.2 Alendronate: Approx 2004 - Jaw pain. Prolia: 12/2013 to present Code(s): M81.0 - Age-related osteoporosis without current pathological fracture Category: Medical Plan: #Osteoporosis with hx of L1 and L2 compression fracture Patient is a 63-year-old female osteoporosis with history of L1-L2 compression fracture here today follow up. Patient has been on Prolia since 01/08/2014. This will make it 10 years since she has been on the medication. Given her CKD she can not be switched to another anti resorptive medication such as bisphosphonates. This limits our availability of medication. Given her history of compression fractures I would opt to continue Prolia although the data only goes up to 10 years the studies do show that there is still added benefit even after 3-5 years. In addition there has been data showing rapid decline in bone density after cessation of denosumab and so in her wrists versus benefit analysis it is better for us to continue the Prolia Plan - Prolia 60mg SC every 6 months - Continue vitamin-D and calcium supplementation. - RTC 6 months - LAbs before visit: CMP and Vit D Kwesi DELUNA, Dacia F, Lionel MOODY, Harpreet Mckeon. Denosumab in the Treatment of Osteoporosis: 10?Years Later: A Narrative Review. Adv Ther. 2021;39(1):58-74. doi: 10.1007/[id number]. Epub 2020Dec 30. PMID: [id number]; PMCID: [id number]. (2) Osteoarthritis, hand, primary localized: Code(s): M19.049 - Primary osteoarthritis, unspecified hand Category: Medical Qualifiers: Laterality: unspecified laterality Qualified Code(s): M19.049 - Primary osteoarthritis, unspecified hand Plan: #Hand OA vs seronegative inflammatory arthritis Patient with osteoarthritis noted to bilateral hands. Given her strong family history of autoimmune disease she may have a component of erosive osteoarthritis but this is not shown on the x-rays particularly. Given her responsiveness to prednisone and the low frequency of these flares we will opt to monitor her at this time. If in the future she develops more frequent flares then we may consider adding DMARD (3) Encounter for monitoring denosumab therapy: Code(s): Z51.81 - Encounter for therapeutic drug level monitoring; Z79.899 - Other shelter (current) drug therapy Category: Medical Plan: #Long-term use of Denosumab Discussed with patient the risks and benefits of denosumab (Prolia) for the management of their osteoporosis Benefits include improved bone density, decreased fracture risk Risks include rapid bone loss if denosumab stopped, osteonecrosis of the jaw especially in patients with poor oral hygiene/diabetes/use of glucocorticoids/age greater than 65 years, atypical femoral fractures, injection site reactions. Mild increased risk of infections due to RANKL on T helper cells, increased risk of hypocalcemia especially in CKD patients Keep vitamin-D at least 35 ng/mL Advised to delay non emergent dental procedures to toward the end of the 6 month cycle and if they plan to stop denosumab would need to continue antiresorptive to maintain the effects of denosumab Plan I spent 30 minutes reviewing the record and labs, seeing the patient, discussing the treatment plan and documenting in the medical record Orders: Orders AMB Denosumab Injection Practice Supplied Today M19.049 - Primary osteoarthritis, unspecified hand Coding Level of Care Code Est Pt Level 3 (55580) Complex EM visit Add On G2211 Diagnoses Age-related osteoporosis without current pathological fracture M81.0 Localized, primary osteoarthritis of hand, unspecified laterality M19.049 Laterality: unspecified laterality Encounter for monitoring denosumab therapy Z51.81; Z79.899
[2024-07-02 09:46] VITALS: BP 116/64; PULSE 52; O2SAT 98; BMI 22.2
== END 2024-07-02 10:06 | disposition home or self-care (01) ==
LOC: HO.RHE 09:30
PROVIDERS: PCP Internal Medicine; Visit Provider Student in an Organized Health Care Education/Training Program
DX: M81.0 Age-related osteoporosis without current pathological fracture (principal); M19.049 Primary osteoarthritis, unspecified hand; Z51.81 Encounter for therapeutic drug level monitoring; Z79.899 Other long term (current) drug therapy
CPT/HCPCS: 99213; G2211

== ENCOUNTER → 2024-07-02 09:29 | Outpatient (BNVA) | payer MEDICARE, OTHER, SELFPAY | PROVIDERS: PCP Internal Medicine; Visit Provider Student in an Organized Health Care Education/Training Program | DX: M81.0 Age-related osteoporosis without current pathological fracture (principal); M19.049 Primary osteoarthritis, unspecified hand; Z51.81 Encounter for therapeutic drug level monitoring; Z79.899 Other long term (current) drug therapy | CPT/HCPCS: 96372; 99212; J0897 ==

== ENCOUNTER 2024-07-03 09:53 | Outpatient (AMB) | payer MEDICARE, OTHER, SELFPAY ==
[2024-07-03 10:03] VITALS: BP 104/58; PULSE 56; O2SAT 96; BMI 22.3
--- NOTE | 2024-07-03 10:03 | MHC.PC.OV ---
Vital Signs 07/03/24 10:03 Height 5 ft Weight 114 lb 2 oz BMI 22.3 BP 104/58 L Blood Pressure Location Lt brachial Position Sitting Pulse 56 Pulse Source Pulse Oximeter Pulse Oximetry (%) 96 Oxygen Delivery Method Room Air Intake Visit Reasons: 4mth f/u [employer]er Required: No Accompanied by: Self / Same As Patient Allergies cyclobenzaprine [From Flexeril] Allergy (Intermediate, Verified 07/03/24 10:23) Spacy feeling lisinopril Allergy (Unknown, Verified 07/03/24 10:23) Unknown alendronate sodium [Fosamax] Adverse Reaction (Intermediate, Verified 07/03/24 10:23) jaw pain aspirin Adverse Reaction (Intermediate, Verified 07/03/24 10:23) unable to tolerate higher doses-stomach ulcer (low dose ok) carbamazepine [From TEGRETOL] Adverse Reaction (Intermediate, Verified 07/03/24 10:23) NAUSEA & VOMITING, HEADACHE gabapentin Adverse Reaction (Intermediate, Verified 07/03/24 10:23) dizziness ibuprofen Adverse Reaction (Intermediate, Verified 07/03/24 10:23) Nausea and Vomiting lidocaine [From Lidoderm] Adverse Reaction (Intermediate, Verified 07/03/24 10:23) burning from patch NSAIDS (Non-Steroidal Anti-Inflamma [NSAIDS (NON-STEROIDAL ANTI-INFLAMMA] Adverse Reaction (Intermediate, Verified 07/03/24 10:23) NAUSEA & VOMITING, HX ULCER codeine [CODEINE] Adverse Reaction (Unknown, Verified 07/03/24 10:23) NAUSEA & VOMITING, nausea/vomiting Medication List - Last Reconciled 07/03/24 by Wilian Crawford MD acetaminophen (Tylenol) 650 mg PO QID PRN albuterol sulfate 90 mcg/actuation 2 puffs inhalation Q6H PRN amlodipine 10 mg PO DAILY Arnuity Ellipta 100 mcg/actuation (fluticasone furoate) 1 inh inhalation DAILY NS atorvastatin 80 mg PO DAILY 90 days calcium carbonate-vitamin D3 600 mg-5 mcg (200 unit) (Calcium 600 + D(3)) 2 tabs PO DAILY denosumab (Prolia) 60 mg subcut [id number] docusate sodium (Colace) 100 mg PO BID fexofenadine 180 mg PO DAILY PRN 90 days fluticasone propionate 50 mcg/actuation 1 spray intranasal BID 90 days fluticasone propionate 110 mcg/actuation 1 puff inhalation BID 30 days isosorbide mononitrate ER 30 mg PO DAILY losartan 50 mg PO DAILY nitroglycerin 0.4 mg sublingual Q5M PRN pantoprazole 40 mg PO BID polyethylene glycol 3350 (Miralax) 17 grams PO DAILY [SOFT CERVICAL COLLAR As directed] tramadol 50 mg PO TID PRN 30 days Tobacco use date assessed: 07/03/24 Fall risk assessment: No Falls in past year Last assessed Fall Risk: 07/03/24 Dental Screening Dental Screen Date: 07/03/24 Did you have a dental visit in the last 12 months?: No Did you have a dental problem in the last 6 months where you did not have access to dental care?: No Was dental information given to patient?: No HPI 4mth f/u HPI Details Patient comes in today for her follow up visit States that she feels okay Has been experiencing some allergy symptoms lately (has spring allergies) but states that her current Rx help keep her symptoms under control She denies any headaches or dizziness Denies any chest pains, no increased SOB No nausea/vomiting, no abdominal pain No change in bowel habits noted - states that her bowel movements are again well-regulated with Miralax taken everyday She was seen by rheumatology for her joint pains and swelling yesterday - was advised that her inflammatory markers are mostly negative and her symptoms appear to still be more consistent with osteoarthritis but if she develops more flare ups of her joint pains and swelling, can consider starting her on some DMARDs She was continued on her Prolia for her osteoporosis (has been on the same Rx since 2013) States that she would like to have her Fexofenadine Rx refilled for a 90 days supply She had her follow up labs done last week - to discuss her results [facility] Medical History Encounter for monitoring denosumab therapy Cervical spine fracture History of gout Osteoarthritis, hand, primary localized Swelling of finger of right hand Age-related osteoporosis without current pathological fracture Chronic kidney disease, stage 4 (severe) Screening for breast cancer Allergic rhinitis Exertional dyspnea Chronic kidney disease (CKD), stage III (moderate) Benign essential hypertension Overactive bladder Compression fracture of L1 lumbar vertebra Cervical spondylosis without myelopathy GERD (gastroesophageal reflux disease) COPD (chronic obstructive pulmonary disease) Pure hypercholesterolemia Coronary artery disease Surgical History History of colonoscopy Hx of cataract removal with insertion of prosthetic lens History of angioplasty History of tonsillectomy History of appendectomy History of parathyroidectomy History of oophorectomy History of section Family History Father Throat cancer Mother No problems noted. Daughter Diabetes Son Arthritis CAD (coronary artery disease) Daughter Scleroderma Social History Housing: House Alcohol intake: never Patient Tobacco Use Status: Current someday Tobacco user Tobacco use type: Cigarette Cigarettes Per Day: 3 Years Smoked: 30 e-Cigarette/Vaping Use: Never Used service: No Current occupational status: retired Cognitive needs: No Hearing needs: No Vision needs: No Questionnaire PHQ-9 Over the last 2 weeks, how often have you been bothered by any of the following problems? 1. Little interest or pleasure in doing things: not at all 2. Feeling down, depressed, or hopeless: several days 3. Trouble falling or staying asleep, or sleeping too much: several days 4. Feeling tired or having little energy: more than half the days 5. Poor appetite or overeating: several days 6. Feeling bad about yourself - or that you are a failure or have let yourself or your family down: not at all 7. Trouble concentrating on things, such as reading the newspaper or watching television: not at all 8. Moving or speaking so slowly that other people could have noticed. Or the opposite - being so fidgety or restless that you have been moving around a lot more than usual: not at all 9. Thoughts that you would be better off or of hurting yourself in some way: not at all Total score: 5 Depression Screening Interpretation: Positive Depression Screening Follow-up: Follow-up Visit Requested Depression Screening Done: Yes 23052 - PHQ-9 Billing: Yes Source: Developed by Drs. Sesar Mcmillan, Paradise Petersen, Kamran Cartwright and colleagues, with an educational andi from [employer]. Thrive Questionnaire Date Thrive assessed: 07/03/24 I am a: Patient What is your living situation today?: I have a steady place to live Within the past 12 months, did the food you bought not last and you didn't have the money to get more?: Sometimes True Within the past 12 months, did you worry whether your food would run out before you got money to buy more?: Sometimes True Do you have trouble paying for medicines?: I choose not to answer this question Do you have trouble getting transportation to medical appointments?: I choose not to answer this question Do you have trouble paying your heating and electricity bill?: I choose not to answer this question Do you have trouble taking care of your child, family member or friend?: No Do you have trouble with day-to-day activities such as bathing, preparing meals, shopping, managing finances, etc.?: No Are you currently unemployed and looking for a job?: No Are you interested in more education?: No Please select the resources that you would like help with: None Currently or been in a relationship where the following occur: No concerns reported THRIVE Score: 2 AUDIT C Alcohol Use Questionnaire (AUDIT-C) 1. How often do you have a drink containing alcohol?: Never 3. How often do you have six or more drinks on one occasion?: Never Total Score: 0 Score Reviewed/Action Taken: Yes NENO-7 AMB Questionnaire NENO-7 Date NENO - 7 assessed: 07/03/24 Feeling nervous, anxious, or on edge: 0 = Not at all Not being able to stop or control worryin = Not at all Worrying too much about different things: 0 = Not at all Trouble relaxin = Not at all Being so restless that it is hard to sit still: 0 = Not at all Becoming easily annoyed or irritable: 0 = Not at all Feeling afraid as if something awful might happen: 0 = Not at all Total NENO-7 score (0-4 normal; 5-9 mild; 10-14 moderate; 15-21 severe): 0 Source: Developed by Drs. Sesar Mcmillan, Paradise Petersen, Kamran Cartwright and colleagues, with an educational andi from [employer]. Review of Systems Const Denies chills, Reports fatigue, Denies fever(s) and Denies headache(s) ENT Denies dysphagia, Denies dizziness, Denies otalgia, Denies headache(s), Reports neck pain (chronic), Denies odynophagia and Denies sore throat Card Denies chest pain, Denies palpitations and Reports dyspnea on exertion (mild) Resp Denies chest congestion, Reports cough (occasional) and Reports dyspnea on exertion (mild) GI Denies abdominal pain, Reports constipation (on and off), Denies dysphagia, Denies heartburn, Denies diarrhea, Denies nausea, Denies odynophagia and Denies vomiting Denies difficulty voiding, Denies nocturia, Denies dysuria and Denies urinary urgency Musc Reports back pain (chronic but increased over the past couple of weeks), Reports arthralgias (involving multiple joints but especially on her hands/fingers), Reports joint swelling (on and off on the fingers ), Reports neck pain (chronic) and Reports radiating pain into limb (into right shoulder and right arm at times) Skin/Breast Denies rash Neuro Denies dizziness and Denies headache(s) Endo Reports fatigue and Denies palpitations Aller/Immun Reports seasonal rhinorrhea Physical exam (Primary Care) Vital Signs: Last Vital Signs Pulse 56 07/03/24 10:03 BP 104/58 L 07/03/24 10:03 Pulse Ox 96 07/03/24 10:03 Oxygen Delivery Method Room Air 07/03/24 10:03 BMI result Body Mass Index 22.3 Tobacco/Smoking Status: Tobacco use Status Tobacco use date assessed 07/03/24 07/03/24 10:07 Patient Tobacco Use Status Current someday Tobacco 07/03/24 10:07 Tobacco use type Cigarette 07/03/24 10:07 e-Cigarette/Vaping Use Never Used 07/03/24 10:07 PHQ-9: PHQ-9 Score PHQ-9: Total score 5 07/03/24 10:07 Depression Screening Interpretation: Positive Depression Screening Follow-up: Follow-up Visit Requested Thrive Assessment: Date of Thrive Assessment Date Thrive assessed 07/03/24 07/03/24 10:07 Currently or been in a relationship where the following occur: No concerns reported Const General: no acute distress and alert HENMT Ears: TM's normal bilaterally and EAC's normal Throat: Yes posterior oropharynx normal and Yes tonsils normal (no TP congestion noted) Neck Neck: Yes supple and No lymphadenopathy Thyroid: Thyroid normal Resp Auscultation: no crackles, no rales, rhonchi (occasional) throughout, no wheezes and diminished lung sounds (slightly) bilateral Cardio Rate: regular rate Rhythm: regular rhythm Heart sounds: Murmur heart sound present systolic blowing, soft, II/ and at the left sternal border GI Palpation (GI): Soft to palpation and nontender Auscultation: normal bowel sounds General: Yes no CVA tenderness Back/Spine/Pelvis Back: no CVA tenderness Cervical Spine: Cervical spine tenderness (chronic) Thoracic/Lumbar Spine: lumbar spinal tenderness (chronic - increased over the upper lumbar spine currently) Skin Rashes: no rashes Extrem Other: (+) enlargement/swelling of the interphalangeal joints on some fingers, especially over her right thumb General: Yes no clubbing, cyanosis or edema Results Reviewed Results Reviewed: Laboratory Tests 06/27/24 06/27/24 06/27/24 08:45 08:48 08:55 WBC 6.4 Hgb 12.8 Hct 38.0 Plt Count 208 D Sodium 137 Potassium 3.6 Creatinine 1.27 Estimated GFR 40 Random Glucose 98 Calcium 9.9 AST 33 H ALT 14 C-Reactive Protein < 0.10 25-OH Vitamin D Total 52 Ur Specific [place] <= 1.005 Urine Protein Negative Urine Glucose (UA) Negative Urine Blood Negative Urine Nitrite Negative Ur Leukocyte Esterase Negative SWAPNA Screen POSITIVE A SWAPNA Titer 1:80 H Sm (Morris) Antibody <1.0 NEG SM/WAG[place] DRILLER IgG Antibody <1.0 NEG HLA-B27 Negative Coding Level of Care Code Est Pt Level 4 (76702) Complex EM visit Add On G2211 Diagnoses Pure hypercholesterolemia E78.00 Coronary artery disease involving iroquois coronary artery of iroquois heart without angina pectoris I25.10 Coronary Disease-Associated Artery/Lesion type: iroquois artery [place] vs. transplanted heart: iroquois heart Associated angina: without angina Bradycardia R00.1 Benign essential hypertension I10 Chronic obstructive pulmonary disease, unspecified COPD type J44.9 COPD type: unspecified COPD Constipation, chronic K59.09 Allergic rhinitis, unspecified seasonality, unspecified trigger J30.9 Allergic rhinitis trigger: unspecified Allergic rhinitis seasonality: unspecified Stage 3b chronic kidney disease N18.32 Chronic kidney disease stage 3 subtype: stage 3b (GFR 30-44) Gastroesophageal reflux disease with esophagitis without hemorrhage K21.00 Esophagitis presence: with esophagitis Esophagitis bleeding: without hemorrhage Age-related osteoporosis without current pathological fracture M81.0 Cervical spondylosis without myelopathy M47.812 Compression fracture of L1 vertebra, sequela S32.010S Encounter type: sequela Overactive bladder N32.81 Smoker F17.200 Additional Codes PHQ-9 - 63596 - PHQ-9 Billing: Yes ([id number]) Assessment & Plan Assessment & Plan (1) Pure hypercholesterolemia: Code(s): E78.00 - Pure hypercholesterolemia, unspecified Category: Medical Plan: Results of her labs done last week reviewed and discussed with patient Reinforced low cholesterol diet Continue Atorvastatin 80 mg QD Will have patient recheck her labs and fasting lipids in 4 months for follow up (2) Coronary artery disease: Comment: S/P angioplasty and stenting in 2009 Also S/P pericarditis in August 2019 - myocardial perfusion scan done then showed normal results without any fixed or reversible perfusion defect after exercise stress test; LV function is normal with LVEF at 75% Code(s): I25.10 - Atherosclerotic heart disease of iroquois coronary artery without angina pectoris Category: Medical Qualifiers: Coronary Disease-Associated Artery/Lesion type: iroquois artery [place] vs. transplanted heart: iroquois heart Associated angina: without angina Qualified Code(s): I25.10 - Atherosclerotic heart disease of iroquois coronary artery without angina pectoris Plan: Continue low dose Aspirin 81 mg QD and Isosorbide Mononitrate ER 30 mg QD Echocardiogram last done in February 2023 revealed preserved left ventricular systolic function, mild to moderate mitral regurgitation (likely the source of her cardiac murmur) and stable pericardial effusion She underwent a nuclear stress test at [facility] back in May 2023 when she presented to the ER then with burning chest pains (she apparently ran out of her PPI for several days at the time) - stress test came out normal with no evidence of ischemia or infarct with preserved left ventricular systolic function Follow up with cardiology (Dr. Iain Rae) as scheduled (3) Bradycardia: Code(s): R00.1 - Bradycardia, unspecified Category: Medical Plan: Patient's heart rate has been consistently low over the past few years and has been averaging in the low 30s to 50s; is at 60 bpm today She has been asymptomatic so far except for an incident a couple of years ago wherein she passed out briefly - incident may have been due to bradycardia back then She has not had any recurrence since but has been advised again that if this recurs, she will need to have this evaluated further Follow up with [facility] Cardiology (Dr. Iain Rae) regularly as scheduled (4) Benign essential hypertension: Code(s): I10 - Essential (primary) hypertension Category: Medical Plan: Reinforced low sodium diet - goal is systolic BP of at least 130 to 140 mm or less Continue Losartan 50 mg QD (takes in PM) and Amlodipine 10 mg QD; her Carvedilol appears to have been discontinued by cardiology recently Patient is reminded to continue monitoring her BP regularly (5) COPD (chronic obstructive pulmonary disease): Code(s): J44.9 - Chronic obstructive pulmonary disease, unspecified Category: Medical Qualifiers: COPD type: unspecified COPD Qualified Code(s): J44.9 - Chronic obstructive pulmonary disease, unspecified Plan: Continue Arnuity Ellipta 100 mcg 1 inhalation QD and Ventolin HFA 2 puffs 4 times a day as needed PFTs done a couple of years ago came out normal except for decreased diffusion capacity, suggestive of pulmonary emphysema (6) Constipation, chronic: Code(s): K59.09 - Other constipation Category: Medical Plan: Patient is again encouraged on increased oral fluids and dietary fiber States that her bowel movements are again back under control with Miralax 17 gm daily and she is making it a point to take this regularly to keep her bowels regulated (7) Allergic rhinitis: Code(s): J30.9 - Allergic rhinitis, unspecified Category: Medical Qualifiers: Allergic rhinitis trigger: unspecified Allergic rhinitis seasonality: unspecified Qualified Code(s): J30.9 - Allergic rhinitis, unspecified Plan: Continue Fluticasone nasal spray 50 mcg 1 spray into each nostril BID and Fexofenadine 180 mg QD PRN - Rx sent for a 90 days supply States that she was taking Cetirizine in the past but stopped taking it as she felt that it was not helping at all (8) Chronic kidney disease (CKD), stage III (moderate): Code(s): N18.30 - Chronic kidney disease, stage 3 unspecified Category: Medical Qualifiers: Chronic kidney disease stage 3 subtype: stage 3b (GFR 30-44) Qualified Code(s): N18.32 - Chronic kidney disease, stage 3b Plan: Patient's renal function appears stable on her recent labs She is again reminded that she needs to keep up with her hydration Will continue to monitor her renal function closely (9) GERD (gastroesophageal reflux disease): Code(s): K21.9 - Gastro-esophageal reflux disease without esophagitis Category: Medical Qualifiers: Esophagitis presence: with esophagitis Esophagitis bleeding: without hemorrhage Qualified Code(s): K21.00 - Gastro-esophageal reflux disease with esophagitis, without bleeding Plan: Dietary restrictions reinforced Continue Pantoprazole 40 mg BID (10) Age-related osteoporosis without current pathological fracture: Comment: DEXA 05/2024: AP Spine -0.3, Left femur neck -2.3, Left femur total -2.2 DEXA 12/2021: AP Spine -0.5, Left femur neck -2.4, Left femur total -2.2 Alendronate: Approx 2004 - Jaw pain. Prolia: 12/2013 to present Code(s): M81.0 - Age-related osteoporosis without current pathological fracture Category: Medical Plan: Patient could not tolerate Alendronate in the past due to jaw pain She has been on Prolia since December 2013 and has been tolerating Rx well - her bone density has shown improvement on Prolia Tx Rheumatology was planning to switch her over to IV Reclast soon but kept her on Prolia at her recent follow up visit Repeat BMD done a couple of weeks ago on 06/17/2024 revealed no significant change in her BMD from previous and her T score is actually indicative of osteopenia Will continue to monitor her BMD every 2 to 3 years Follow up with rheumatology as scheduled (11) Cervical spondylosis without myelopathy: Code(s): M47.812 - Spondylosis without myelopathy or radiculopathy, cervical region Category: Medical Plan: Cervical spine x-rays done a couple of years ago showed (+) degenerative arthrosis changes with C3-C4 anterolisthesis Patient uses a cervical collar as needed, including at night when she is sleeping, for additional support and to help manage her neck symptoms (pain) better (12) Compression fracture of L1 lumbar vertebra: Comment: S/P kyphoplasty Code(s): S32.010A - Wedge compression fracture of first lumbar vertebra, initial encounter for closed fracture Category: Medical Qualifiers: Encounter type: sequela Qualified Code(s): S32.010S - Wedge compression fracture of first lumbar vertebra, sequela Plan: S/[place] [facility] [place] Reinforced activity and weight lifting restrictions to avoid aggravating her back pain Repeat lumbar spine x-rays done back in October 2023 revealed (+) dextroscoliosis of the lumbar spine with multilevel lumbar spondylosis. Redemonstration of moderate to marked L1 compression deformity and moderate L2 compression deformity, as well as the dense cement at L3 with compression deformity from her previous kyphoplasty. No new or acute findings are noted (13) Overactive bladder: Code(s): N32.81 - Overactive bladder Category: Medical Plan: She has not been able to tolerate Detrol LA and generic Enablex (7.5 mg) - to consider urology referral if symptoms progress or worsen (14) Smoker: Code(s): F17.200 - Nicotine dependence, unspecified, uncomplicated Category: Social Hx Plan: Patient is again counseled on complete smoking cessation, in light of her COPD She admits that she still smokes every now and then Plan Follow up in 4 months Orders: Orders UA CC w/rflx Micro + Cult 4 Months R30.0 - Dysuria Vitamin D 25-OH Total 4 Months E55.9 - Vitamin D deficiency, unspecified Complete Blood Count Auto Diff 4 Months D64.9 - Anemia, unspecified Comprehensive [place]. Panel Fast 4 Months E78.00 - Pure hypercholesterolemia, unspecified Lipid Panel 4 Months E78.00 - Pure hypercholesterolemia, unspecified TSH reflex Free T4 4 Months E78.00 - Pure hypercholesterolemia, unspecified Medications: Changed From fexofenadine 180 mg PO DAILY 30 days PRN 30 tabs 5RF allergy symptoms To fexofenadine 180 mg PO DAILY 90 days PRN 90 tabs 3RF allergy symptoms
== END 2024-07-03 10:39 | disposition home or self-care (01) ==
LOC: HO.HMCH 09:54
PROVIDERS: PCP Internal Medicine; Visit Provider Internal Medicine
DX: I12.9 Hypertensive chronic kidney disease with stage 1 through stage 4 chronic kidney disease, or unspecified chronic kidney disease (principal); J44.9 Chronic obstructive pulmonary disease, unspecified; N18.32 Chronic kidney disease, stage 3b; E78.00 Pure hypercholesterolemia, unspecified; I25.10 Atherosclerotic heart disease of native coronary artery without angina pectoris; R00.1 Bradycardia, unspecified; K59.09 Other constipation; J30.9 Allergic rhinitis, unspecified; K21.00 Gastro-esophageal reflux disease with esophagitis, without bleeding; M81.0 Age-related osteoporosis without current pathological fracture; M47.812 Spondylosis without myelopathy or radiculopathy, cervical region; S32.010S Wedge compression fracture of first lumbar vertebra, sequela

== ENCOUNTER → 2024-07-03 09:53 | Outpatient (BNVA) | payer MEDICARE, OTHER, SELFPAY | PROVIDERS: PCP Internal Medicine; Visit Provider Internal Medicine | DX: E78.00 Pure hypercholesterolemia, unspecified (principal); I25.10 Atherosclerotic heart disease of native coronary artery without angina pectoris; R00.1 Bradycardia, unspecified; J44.9 Chronic obstructive pulmonary disease, unspecified; K59.09 Other constipation; J30.9 Allergic rhinitis, unspecified; I12.9 Hypertensive chronic kidney disease with stage 1 through stage 4 chronic kidney disease, or unspecified chronic kidney disease; N18.32 Chronic kidney disease, stage 3b; K21.00 Gastro-esophageal reflux disease with esophagitis, without bleeding; M81.0 Age-related osteoporosis without current pathological fracture; M47.812 Spondylosis without myelopathy or radiculopathy, cervical region; N32.81 Overactive bladder; S32.010S Wedge compression fracture of first lumbar vertebra, sequela; F17.200 Nicotine dependence, unspecified, uncomplicated; Z71.6 Tobacco abuse counseling | CPT/HCPCS: 96127; 99212 ==

== ENCOUNTER 2024-08-07 10:17 | Outpatient (AMB) | payer MEDICARE, OTHER, SELFPAY ==
--- NOTE | 2024-08-07 10:25 | AM.OFFWIN_ITS ---
Intake Vital Signs 3 08/07/24 10:26 Height 5 ft Weight 115 lb 6 oz BMI 22.5 BP 114/50 L Blood Pressure Location Rt brachial Position Sitting Pulse 74 Pulse Source Pulse Oximeter Temp 99.1 F Temp Source Oral Pulse Oximetry (%) 97 Oxygen Delivery Method Room Air Intake Visit Reasons: EP painful lump on LT shoulder Intake Note: Patient present with lump on left shoulder times 1 week. Hurts when touched Patient Tobacco Use Status: Current someday Tobacco user Allergies cyclobenzaprine (From Flexeril) Allergy (Intermediate, Verified 08/07/24 10:30) Spacy feeling lisinopril Allergy (Unknown, Verified 08/07/24 10:30) Unknown alendronate sodium (Fosamax) Adverse Reaction (Intermediate, Verified 08/07/24 10:30) jaw pain aspirin Adverse Reaction (Intermediate, Verified 08/07/24 10:30) unable to tolerate higher doses-stomach ulcer (low dose ok) carbamazepine (From TEGRETOL) Adverse Reaction (Intermediate, Verified 08/07/24 10:30) NAUSEA & VOMITING, HEADACHE gabapentin Adverse Reaction (Intermediate, Verified 08/07/24 10:30) dizziness ibuprofen Adverse Reaction (Intermediate, Verified 08/07/24 10:30) Nausea and Vomiting lidocaine (From Lidoderm) Adverse Reaction (Intermediate, Verified 08/07/24 10:30) burning from patch NSAIDS (Non-Steroidal Anti-Inflamma (NSAIDS (NON-STEROIDAL ANTI-INFLAMMA) Adverse Reaction (Intermediate, Verified 08/07/24 10:30) NAUSEA & VOMITING, HX ULCER codeine (CODEINE) Adverse Reaction (Unknown, Verified 08/07/24 10:30) NAUSEA & VOMITING, nausea/vomiting Do you need a note to return to daycare/school/sports/work: No HPI HPI Comments 2 History of Present Illness0 Details 83 y/o Female patient who presents to [facility] walk in clinic with c/o left sided Shoulder pain x 1 week. Reports feeling a Small Bump/lump on top of the left shoulder that is very tender to touch. Denies injury or trauma. [facility] Medical History (Updated 08/07/24 @ 10:48 by Dorcas Crespo NP) Left shoulder pain Encounter for monitoring denosumab therapy Cervical spine fracture History of gout Osteoarthritis, hand, primary localized Swelling of finger of right hand Age-related osteoporosis without current pathological fracture Chronic kidney disease, stage 4 (severe) Screening for breast cancer Allergic rhinitis Exertional dyspnea Chronic kidney disease (CKD), stage III (moderate) Benign essential hypertension Overactive bladder Compression fracture of L1 lumbar vertebra Cervical spondylosis without myelopathy GERD (gastroesophageal reflux disease) COPD (chronic obstructive pulmonary disease) Pure hypercholesterolemia Coronary artery disease Surgical History History of colonoscopy Hx of cataract removal with insertion of prosthetic lens History of angioplasty History of tonsillectomy History of appendectomy History of parathyroidectomy History of oophorectomy History of section Family History Father Throat cancer Mother No problems noted. Daughter Diabetes Son Arthritis CAD (coronary artery disease) Daughter Scleroderma Social History Housing: House Alcohol intake: never Patient Tobacco Use Status: Current someday Tobacco user Tobacco use type: Cigarette Cigarettes Per Day: 3 Years Smoked: 30 e-Cigarette/Vaping Use: Never Used service: No Current occupational status: retired Cognitive needs: No Hearing needs: No Vision needs: No Review of Systems Const All systems reviewed & are unremarkable except as noted in HPI and below Physical Exam Vital Signs: Last Vital Signs Temp 99.1 F 08/07/24 10:26 Pulse 74 08/07/24 10:26 BP 114/50 L 08/07/24 10:26 Pulse Ox 97 08/07/24 10:26 Oxygen Delivery Method Room Air 08/07/24 10:26 BMI result Body Mass Index 22.5 Const General: no acute distress Nutritional Appearance: thin Orientation/consciousness: patient oriented x3 Neuro General: patient oriented x3, gait normal and moves all extremities Extrem Left upper extremity: shoulder/upper arm Details: inspection abnormal, tenderness Location: of the A-C joint and normal ROM; no ecchymosis, no crepitus, no deformity and no unsual warmth Shoulder/upper arm images: 2 1. TTP at the AC joint, small bony protrusion on both shoulders - left more pronounce that right. No dislocation or deformity present. 2. TTP at the AC joint, small bony protrusion on both shoulders - left more pronounce that right. No dislocation or deformity present. Assessment & Plan Assessment & Plan (1) Left shoulder pain: Code(s): M25.512 - Pain in left shoulder Qualifiers: Chronicity: acute Qualified Code(s): M25.512 - Pain in left shoulder Plan: Normal Bony structure on both shoulders Left AC joint Bone more pronounced compared to right side. No lumps or Bumps No deformity Acetaminophen for pain relief Ice/Hot. Coding Level of Care Code Est Pt Level 4 (80308) Diagnoses Acute pain of left shoulder M25.512 Chronicity: acute Time Spent (min) 20
[2024-08-07 10:26] VITALS: BP 114/50; PULSE 74; TEMP 37.3; O2SAT 97; BMI 22.5
== END 2024-08-07 12:09 | disposition home or self-care (01) ==
PROVIDERS: PCP Internal Medicine; Visit Provider Nurse Practitioner Family
DX: M25.512 Pain in left shoulder (principal)

== ENCOUNTER → 2024-08-07 10:17 | Outpatient (BNVA) | payer MEDICARE, OTHER, SELFPAY | PROVIDERS: PCP Internal Medicine; Visit Provider Physician Assistant Medical | DX: M25.512 Pain in left shoulder (principal) | CPT/HCPCS: 99212 ==

== ENCOUNTER 2024-11-03 08:26 | Outpatient (REF) | payer MEDICARE, OTHER, SELFPAY ==
[2024-11-03 10:13] LABS: Appearance Urine Clear; Glucose Urine UA Negative (Negative); PH 8.0 (5.0-9.0); Specific Gravity - Urine 1.010 (1.005-1.025)
[2024-11-03 10:31] LABS: Alanine Aminotransferase 19 U/L (0-31); Albumin Level 4.1 g/dL (3.5-5.0); Alkaline Phosphatase 79 U/L (39-117); Anion Gap 12 (12-20); Aspartate Amino Transferase 38 U/L (5-31); Blood Urea Nitrogen 22 mg/dL (9-16); Calcium 9.4 mg/dL (8.4-10.2); Carbon Dioxide 29 mmol/L (22-29); Chloride 105 mmol/L (96-108); Cholesterol 132 mg/dL (<200); Estimated Glomerular Filt Rate 39; HDL Cholesterol 57 mg/dL (>40); Potassium 4.2 mmol/L (3.3-5.1); Sodium 142 mmol/L (135-145); Total Protein 6.5 g/dL (6.5-8.0); Triglycerides 38 mg/dL (<150)
[2024-11-03 10:32] LABS: Hematocrit 39.2 % (37.0-47.0); Hemoglobin 12.9 g/dl (12.0-16.0); Imm Gran Abs Auto 0.02 X10*3/uL (0.00-0.03); Imm Gran Pct Auto 0.3 % (0.0-0.4); Lymphocytes Absolute Auto 1.1 X10*3/uL (1.2-4.9); Mean Corpuscular HGB Conc 32.9 g/dl (31.0-35.0); Mean Corpuscular Hemoglobin 32.5 pg (27.0-33.0); Mean Corpuscular Volume 98.7 fL (80.0-98.0); NRBC Abs Auto 0.000 X10*3/uL (0.0-0.012); NRBC Pct Auto 0.0 /100WBC (0.0-0.2); Platelet Count 204 X10*3/uL (160-400); Red Blood Count 3.97 X10*6/uL (4.20-5.50); White Blood Count 5.9 X10*3/uL (4.8-10.8)
== END 2024-11-03 08:27 | disposition home or self-care (01) ==
LOC: HO.HMGCLDS 08:26
PROVIDERS: PCP Internal Medicine; Visit Provider Internal Medicine
DX: E78.00 Pure hypercholesterolemia, unspecified (principal); R30.0 Dysuria; E55.9 Vitamin D deficiency, unspecified; D64.9 Anemia, unspecified
CPT/HCPCS: 36415; 80053; 80061; 81003; 82306; 84443; 85025

== ENCOUNTER 2024-11-12 10:00 | Outpatient (AMB) | payer MEDICARE, OTHER, SELFPAY ==
--- NOTE | 2024-11-12 10:10 | A.OFFPC_ITS ---
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 Accompanied by: Self / Same As Patient Allergies cyclobenzaprine (From Flexeril) Allergy (Intermediate, Verified 11/12/24 10:32) Spacy feeling lisinopril Allergy (Unknown, Verified 11/12/24 10:32) Unknown alendronate sodium (Fosamax) Adverse Reaction (Intermediate, Verified 11/12/24 10:32) jaw pain aspirin Adverse Reaction (Intermediate, Verified 11/12/24 10:32) unable to tolerate higher doses-stomach ulcer (low dose ok) carbamazepine (From TEGRETOL) Adverse Reaction (Intermediate, Verified 11/12/24 10:32) NAUSEA & VOMITING, HEADACHE gabapentin Adverse Reaction (Intermediate, Verified 11/12/24 10:32) dizziness ibuprofen Adverse Reaction (Intermediate, Verified 11/12/24 10:32) Nausea and Vomiting lidocaine (From Lidoderm) Adverse Reaction (Intermediate, Verified 11/12/24 10:32) burning from patch NSAIDS (Non-Steroidal Anti-Inflamma (NSAIDS (NON-STEROIDAL ANTI-INFLAMMA) Adverse Reaction (Intermediate, Verified 11/12/24 10:32) NAUSEA & VOMITING, HX ULCER codeine (CODEINE) Adverse Reaction (Unknown, Verified 11/12/24 10:32) NAUSEA & VOMITING, nausea/vomiting Medication List - Last Reconciled 11/12/24 by Wilian Crawford MD acetaminophen (Tylenol) 650 mg PO QID PRN albuterol sulfate 90 mcg/actuation 2 puffs inhalation Q6H PRN amlodipine 10 mg PO DAILY Arnuity Ellipta 100 mcg/actuation (fluticasone furoate) 1 inh inhalation DAILY NS atorvastatin 80 mg PO DAILY 90 days calcium carbonate-vitamin D3 600 mg-5 mcg (200 unit) (Calcium 600 + D(3)) 2 tabs PO DAILY denosumab (Prolia) 60 mg subcut [id number] docusate sodium (Colace) 100 mg PO BID fexofenadine 180 mg PO DAILY PRN 90 days fluticasone propionate 50 mcg/actuation 1 spray intranasal BID 90 days fluticasone propionate 110 mcg/actuation 1 puff inhalation BID 30 days isosorbide mononitrate ER 30 mg PO DAILY losartan 50 mg PO DAILY nitroglycerin 0.4 mg sublingual Q5M PRN pantoprazole 40 mg PO BID polyethylene glycol 3350 (Miralax) 17 grams PO DAILY [SOFT CERVICAL COLLAR As directed] tramadol 50 mg PO TID PRN 30 days Tobacco use date assessed: 11/12/24 Fall risk assessment: No Falls in past year Last assessed Fall Risk: 11/12/24 Dental Screening Dental Screen Date: 11/12/24 Did you have a dental visit in the last 12 months?: No Did you have a dental problem in the last 6 months where you did not have access to dental care?: No Was dental information given to patient?: No HPI 4 month HPI Details Patient comes in today for her follow up visit States that she feels okay She denies any headaches or dizziness Denies any chest pains, no increased SOB No nausea/vomiting, no abdominal pain No change in bowel habits noted - states that her bowel movements remain well- controlled with Miralax States that her chronic low back pain and joint pains remain adequately controlled on her current Rx She had her follow up labs done last week - to discuss her results [facility] Medical History Left shoulder pain Encounter for monitoring denosumab therapy Cervical spine fracture History of gout Osteoarthritis, hand, primary localized Swelling of finger of right hand Age-related osteoporosis without current pathological fracture Chronic kidney disease, stage 4 (severe) Screening for breast cancer Allergic rhinitis Exertional dyspnea Chronic kidney disease (CKD), stage III (moderate) Benign essential hypertension Overactive bladder Compression fracture of L1 lumbar vertebra Cervical spondylosis without myelopathy GERD (gastroesophageal reflux disease) COPD (chronic obstructive pulmonary disease) Pure hypercholesterolemia Coronary artery disease Surgical History History of colonoscopy Hx of cataract removal with insertion of prosthetic lens History of angioplasty History of tonsillectomy History of appendectomy History of parathyroidectomy History of oophorectomy History of section Family History Father Throat cancer Mother No problems noted. Daughter Diabetes Son Arthritis CAD (coronary artery disease) Daughter Scleroderma Social History Housing: House Alcohol intake: never Patient Tobacco Use Status: Current someday Tobacco user Tobacco use type: Cigarette Cigarettes Per Day: 3 Years Smoked: 30 Packs per year/per ci.50 e-Cigarette/Vaping Use: Never Used service: No Current occupational status: retired Cognitive needs: No Hearing needs: No Vision needs: No Questionnaire PHQ-9 Over the last 2 weeks, how often have you been bothered by any of the following problems? Depression Screening Interpretation: Positive Depression Screening Follow-up: Follow-up Visit Requested Depression Screening Done: Yes [id number] - PHQ-9 Billing: Yes Source: Developed by Drs. Sesar Mcmillan, Paradise Petersen, Kamran Cartwright and colleagues, with an educational andi from [employer]. Thrive Questionnaire Date Thrive assessed: 07/03/24 I am a: Patient What is your living situation today?: I have a steady place to live Within the past 12 months, did the food you bought not last and you didn't have the money to get more?: Sometimes True Within the past 12 months, did you worry whether your food would run out before you got money to buy more?: Sometimes True Do you have trouble paying for medicines?: I choose not to answer this question Do you have trouble getting transportation to medical appointments?: I choose not to answer this question Do you have trouble paying your heating and electricity bill?: I choose not to answer this question Do you have trouble taking care of your child, family member or friend?: No Do you have trouble with day-to-day activities such as bathing, preparing meals, shopping, managing finances, etc.?: No Are you currently unemployed and looking for a job?: No Are you interested in more education?: No Please select the resources that you would like help with: None Currently or been in a relationship where the following occur: No concerns reported THRIVE Score: 2 AUDIT C Alcohol Use Questionnaire (AUDIT-C) 1. How often do you have a drink containing alcohol?: Never 3. How often do you have six or more drinks on one occasion?: Never Total Score: 0 Score Reviewed/Action Taken: Yes NENO-7 AMB Questionnaire NENO-7 Date NENO - 7 assessed: 07/03/24 Not being able to stop or control worryin = Not at all Worrying too much about different things: 0 = Not at all Trouble relaxin = Several days Being so restless that it is hard to sit still: 0 = Not at all Becoming easily annoyed or irritable: 0 = Not at all Feeling afraid as if something awful might happen: 0 = Not at all Source: Developed by Drs. Sesar Mcmillan, Paradise Petersen, Kamran Cartwright and colleagues, with an educational andi from [employer]. Review of Systems Const Denies chills, Denies fatigue, Denies fever(s) and Denies headache(s) ENT Denies dysphagia, Denies dizziness, Denies otalgia, Denies headache(s), Reports neck pain (chronic), Denies odynophagia and Denies sore throat Card Denies chest pain, Denies palpitations and Reports dyspnea on exertion (mild) Resp Denies chest congestion, Reports cough (occasional) and Reports dyspnea on exertion (mild) GI Denies abdominal pain, Reports constipation (on and off), Denies dysphagia, Denies heartburn, Denies diarrhea, Denies nausea, Denies odynophagia and Denies vomiting Denies difficulty voiding, Denies nocturia, Denies dysuria and Denies urinary urgency Musc Reports back pain (chronic but increased over the past couple of weeks), Reports arthralgias (involving multiple joints but especially on her hands/fingers), Denies joint swelling, Reports neck pain (chronic) and Reports radiating pain into limb (into right shoulder and right arm at times) Skin/Breast Denies rash Neuro Denies dizziness and Denies headache(s) Endo Denies fatigue and Denies palpitations Aller/Immun Reports seasonal rhinorrhea Physical exam (Primary Care) Vital Signs: Last Vital Signs Pulse 54 11/12/24 10:11 BP 118/70 11/12/24 10:11 Pulse Ox 97 11/12/24 10:11 Oxygen Delivery Method Room Air 11/12/24 10:11 BMI result Body Mass Index 21.9 Tobacco/Smoking Status: Tobacco use Status Tobacco use date assessed 11/12/24 11/12/24 10:16 Patient Tobacco Use Status Current someday Tobacco 11/12/24 10:16 Tobacco use type Cigarette 11/12/24 10:16 e-Cigarette/Vaping Use Never Used 11/12/24 10:16 Depression Screening Interpretation: Positive Depression Screening Follow-up: Follow-up Visit Requested Thrive Assessment: Date of Thrive Assessment Date Thrive assessed 07/03/24 11/12/24 10:16 Currently or been in a relationship where the following occur: No concerns reported Const General: no acute distress and alert HENMT Ears: TM's normal bilaterally and EAC's normal Throat: Yes posterior oropharynx normal and Yes tonsils normal (no TP congestion noted) Neck Neck: Yes supple and No lymphadenopathy Thyroid: Thyroid normal Resp Auscultation: no crackles, no rales, rhonchi (occasional) throughout, no wheezes and diminished lung sounds (slightly) bilateral Cardio Rate: regular rate Rhythm: regular rhythm Heart sounds: Murmur heart sound present systolic blowing, soft, II/ and at the left sternal border GI Palpation (GI): Soft to palpation and nontender Auscultation: normal bowel sounds General: Yes no CVA tenderness Back/Spine/Pelvis Back: no CVA tenderness Cervical Spine: Cervical spine tenderness (chronic) Thoracic/Lumbar Spine: lumbar spinal tenderness (chronic - increased over the upper lumbar spine currently) Skin Rashes: no rashes Extrem Other: (+) bony enlargement of the interphalangeal joints on some fingers, especially over her right thumb General: Yes no clubbing, cyanosis or edema Results Reviewed Results Reviewed: Laboratory Tests 11/03/24 11/03/24 08:35 08:40 WBC 5.9 Hgb 12.9 Hct 39.2 Plt Count 204 Sodium 142 Potassium 4.2 Creatinine 1.32 Estimated GFR 39 Fasting Glucose 98 Calcium 9.4 AST 38 H ALT 19 Triglycerides 38 Cholesterol 132 LDL Cholesterol, Calc 68 HDL Cholesterol 57 25-OH Vitamin D Total 54.7 TSH 1.95 Ur Specific [place] 1.010 Urine Protein Negative Urine Glucose (UA) Negative Urine Blood Negative Urine Nitrite Negative Ur Leukocyte Esterase Negative Coding Level of Care Code Est Pt Level 4 (83564) Diagnoses Pure hypercholesterolemia E78.00 Coronary artery disease involving [place] coronary artery of [place] heart without angina pectoris I25.10 Coronary Disease-Associated Artery/Lesion type: [place] artery [place] vs. transplanted heart: [place] heart Associated angina: without angina Bradycardia R00.1 Benign essential hypertension I10 Chronic obstructive pulmonary disease, unspecified COPD type J44.9 COPD type: unspecified COPD Constipation, chronic K59.09 Allergic rhinitis, unspecified seasonality, unspecified trigger J30.9 Allergic rhinitis trigger: unspecified Allergic rhinitis seasonality: unspecified Stage 3b chronic kidney disease N18.32 Chronic kidney disease stage 3 subtype: stage 3b (GFR 30-44) Gastroesophageal reflux disease with esophagitis without hemorrhage K21.00 Esophagitis presence: with esophagitis Esophagitis bleeding: without hemorrhage Age-related osteoporosis without current pathological fracture M81.0 Cervical spondylosis without myelopathy M47.812 Compression fracture of L1 vertebra, sequela S32.010S Encounter type: sequela Overactive bladder N32.81 Smoker F17.200 Additional Codes PHQ-9 - 33418 - PHQ-9 Billing: Yes ([id number]) Assessment & Plan Assessment & Plan (1) Pure hypercholesterolemia: Code(s): E78.00 - Pure hypercholesterolemia, unspecified Category: Medical Plan: Results of her labs done last week reviewed and discussed with patient Reinforced low cholesterol diet Continue Atorvastatin 80 mg QD Will have patient recheck her labs and fasting lipids in 4 months for follow up (2) Coronary artery disease: Comment: S/P angioplasty and stenting in 2009 Also S/P pericarditis in August 2019 - myocardial perfusion scan done then showed normal results without any fixed or reversible perfusion defect after exercise stress test; LV function is normal with LVEF at 75% Code(s): I25.10 - Atherosclerotic heart disease of [place] coronary artery without angina pectoris Category: Medical Qualifiers: Coronary Disease-Associated Artery/Lesion type: [place] artery [place] vs. transplanted heart: [place] heart Associated angina: without angina Qualified Code(s): I25.10 - Atherosclerotic heart disease of [place] coronary artery without angina pectoris Plan: Continue low dose Aspirin 81 mg QD and Isosorbide Mononitrate ER 30 mg QD Echocardiogram last done in February 2023 revealed preserved left ventricular systolic function, mild to moderate mitral regurgitation (likely the source of her cardiac murmur) and stable pericardial effusion She underwent a nuclear stress test at [facility] in May 2023 when she presented to the ER then with burning chest pains (she apparently ran out of her PPI for several days at the time) - stress test came out normal with no evidence of ischemia or infarct with preserved left ventricular systolic function Follow up with cardiology (Dr. Iain Rae) as scheduled (3) Bradycardia: Code(s): R00.1 - Bradycardia, unspecified Category: Medical Plan: Patient's heart rate has been consistently low over the past few years and has been averaging in the low 30s to 50s; is at 60 bpm today She has been asymptomatic so far except for an incident a couple of years ago wherein she passed out briefly - incident may have been due to bradycardia back then She has not had any recurrence since but has been advised again that if this recurs, she will need to have this evaluated further Follow up with [facility] (Dr. Iain Rae) regularly as scheduled (4) Benign essential hypertension: Code(s): I10 - Essential (primary) hypertension Category: Medical Plan: Reinforced low sodium diet - goal is systolic BP of at least 130 to 140 mm or less Continue Losartan 50 mg QD (takes in PM) and Amlodipine 10 mg QD; her Carvedilol appears to have been discontinued by cardiology, likely due to her bradycardia Patient is reminded to continue monitoring her BP regularly (5) COPD (chronic obstructive pulmonary disease): Code(s): J44.9 - Chronic obstructive pulmonary disease, unspecified Category: Medical Qualifiers: COPD type: unspecified COPD Qualified Code(s): J44.9 - Chronic obstructive pulmonary disease, unspecified Plan: Continue Arnuity Ellipta 100 mcg 1 inhalation QD and Ventolin HFA 2 puffs 4 times a day as needed PFTs done a couple of years ago came out normal except for decreased diffusion capacity, suggestive of pulmonary emphysema (6) Constipation, chronic: Code(s): K59.09 - Other constipation Category: Medical Plan: Patient is again encouraged on increased oral fluids and dietary fiber States that her bowel movements are again back under control with Miralax 17 gm daily and she is making it a point to take this regularly to keep her bowels regulated (7) Allergic rhinitis: Code(s): J30.9 - Allergic rhinitis, unspecified Category: Medical Qualifiers: Allergic rhinitis trigger: unspecified Allergic rhinitis seasonality: unspecified Qualified Code(s): J30.9 - Allergic rhinitis, unspecified Plan: Continue Fluticasone nasal spray 50 mcg 1 spray into each nostril BID and Fexofenadine 180 mg QD PRN States that she was taking Cetirizine in the past but stopped taking it as she felt that it was not helping at all (8) Chronic kidney disease (CKD), stage III (moderate): Code(s): N18.30 - Chronic kidney disease, stage 3 unspecified Category: Medical Qualifiers: Chronic kidney disease stage 3 subtype: stage 3b (GFR 30-44) Qualified Code(s): N18.32 - Chronic kidney disease, stage 3b Plan: Patient's renal function appears stable on her recent labs She is again reminded that she needs to keep up with her hydration Will continue to monitor her renal function closely (9) GERD (gastroesophageal reflux disease): Code(s): K21.9 - Gastro-esophageal reflux disease without esophagitis Category: Medical Qualifiers: Esophagitis presence: with esophagitis Esophagitis bleeding: without hemorrhage Qualified Code(s): K21.00 - Gastro-esophageal reflux disease with esophagitis, without bleeding Plan: Dietary restrictions reinforced Continue Pantoprazole 40 mg BID (10) Age-related osteoporosis without current pathological fracture: Comment: DEXA 05/2024: AP Spine -0.3, Left femur neck -2.3, Left femur total -2.2 DEXA 12/2021: AP Spine -0.5, Left femur neck -2.4, Left femur total -2.2 Alendronate: Approx 2004 - Jaw pain. Prolia: 12/2013 to present Code(s): M81.0 - Age-related osteoporosis without current pathological fracture Category: Medical Plan: Patient could not tolerate Alendronate in the past due to jaw pain She has been on Prolia since December 2013 and has been tolerating Rx well - her bone density has shown improvement on Prolia Tx Rheumatology was planning to switch her over to IV Reclast soon but kept her on Prolia at her recent follow up visit Repeat BMD done a couple of weeks ago on 06/17/2024 revealed no significant change in her BMD from previous and her T score is actually indicative of osteopenia Will continue to monitor her BMD every 2 to 3 years Follow up with rheumatology as scheduled (11) Cervical spondylosis without myelopathy: Code(s): M47.812 - Spondylosis without myelopathy or radiculopathy, cervical region Category: Medical Plan: Cervical spine x-rays done a couple of years ago showed (+) degenerative arthrosis changes with C3-C4 anterolisthesis Patient uses a cervical collar as needed, including at night when she is sleeping, for additional support and to help manage her neck symptoms (pain) better (12) Compression fracture of L1 lumbar vertebra: Comment: S/P kyphoplasty Code(s): S32.010A - [place] compression fracture of first lumbar vertebra, initial encounter for closed fracture Category: Medical Qualifiers: Encounter type: sequela Qualified Code(s): S32.010S - [place] compression fracture of first lumbar vertebra, sequela Plan: S/P kyphoplasty by Dr. Gonzalez at [facility] a couple of years ago Reinforced activity and weight lifting restrictions to avoid aggravating her back pain Repeat lumbar spine x-rays done back in October 2023 revealed (+) dextroscoliosis of the lumbar spine with multilevel lumbar spondylosis. Redemonstration of moderate to marked L1 compression deformity and moderate L2 compression deformity, as well as the dense cement at L3 with compression deformity from her previous kyphoplasty. No new or acute findings are noted (13) Overactive bladder: Code(s): N32.81 - Overactive bladder Category: Medical Plan: She has not been able to tolerate Detrol LA and generic Enablex (7.5 mg) - to consider urology referral if symptoms progress or worsen (14) Smoker: Code(s): F17.200 - Nicotine dependence, unspecified, uncomplicated Category: Social Hx Plan: Patient is again counseled on complete smoking cessation, in light of her COPD She admits that she still smokes every now and then Plan Follow up in 4 months Orders: Orders Comprehensive [place]. Panel Fast 4 Months E78.00 - Pure hypercholesterolemia, unspecified Lipid Panel 4 Months E78.00 - Pure hypercholesterolemia, unspecified TSH reflex Free T4 4 Months E78.00 - Pure hypercholesterolemia, unspecified Vitamin D 25-OH Total 4 Months E55.9 - Vitamin D deficiency, unspecified Complete Blood Count Auto Diff 4 Months D64.9 - Anemia, unspecified UA CC w/rflx Micro + Cult 4 Months R30.0 - Dysuria
[2024-11-12 10:11] VITALS: BP 118/70; PULSE 54; O2SAT 97; BMI 21.9
== END 2024-11-12 11:05 | disposition home or self-care (01) ==
LOC: HO.HMCH 10:00
PROVIDERS: PCP Internal Medicine; Visit Provider Internal Medicine
DX: I12.9 Hypertensive chronic kidney disease with stage 1 through stage 4 chronic kidney disease, or unspecified chronic kidney disease (principal); J44.9 Chronic obstructive pulmonary disease, unspecified; N18.32 Chronic kidney disease, stage 3b; E78.00 Pure hypercholesterolemia, unspecified; I25.10 Atherosclerotic heart disease of native coronary artery without angina pectoris; R00.1 Bradycardia, unspecified; K59.09 Other constipation; J30.9 Allergic rhinitis, unspecified; M81.0 Age-related osteoporosis without current pathological fracture; K21.00 Gastro-esophageal reflux disease with esophagitis, without bleeding; M47.812 Spondylosis without myelopathy or radiculopathy, cervical region; S32.010S Wedge compression fracture of first lumbar vertebra, sequela

== ENCOUNTER → 2024-11-12 10:00 | Outpatient (BNVA) | payer MEDICARE, OTHER, SELFPAY | PROVIDERS: PCP Internal Medicine; Visit Provider Internal Medicine | DX: E78.00 Pure hypercholesterolemia, unspecified (principal); I25.10 Atherosclerotic heart disease of native coronary artery without angina pectoris; R00.1 Bradycardia, unspecified; J44.9 Chronic obstructive pulmonary disease, unspecified; K59.09 Other constipation; J30.9 Allergic rhinitis, unspecified; I12.9 Hypertensive chronic kidney disease with stage 1 through stage 4 chronic kidney disease, or unspecified chronic kidney disease; N18.32 Chronic kidney disease, stage 3b; K21.00 Gastro-esophageal reflux disease with esophagitis, without bleeding; M81.0 Age-related osteoporosis without current pathological fracture; M47.812 Spondylosis without myelopathy or radiculopathy, cervical region; N32.81 Overactive bladder; S32.010S Wedge compression fracture of first lumbar vertebra, sequela; F17.200 Nicotine dependence, unspecified, uncomplicated; Z71.6 Tobacco abuse counseling | CPT/HCPCS: 96127; 99212 ==

== ENCOUNTER 2024-11-27 19:43 | Emergency (ER) | payer MEDICARE, OTHER, SELFPAY ==
--- NOTE | ~2024-11-27 | CT_ITS ---
CLINICAL HISTORY: fall with head strike, L forehead lac CT head without contrast Comparison: None provided Findings: There is no acute intracranial hemorrhage. Ventricles are within normal limits in size. No mass effect or midline shift is present. The carter-white matter differentiation appears normal. There is mild generalized cerebral atrophy. There is minimal mucous and mucosal thickening in the paranasal sinuses. Mastoids are clear. Orbits are unremarkable. There is a left forehead laceration. No fractures are identified. IMPRESSION: No acute intracranial abnormality. This document has been electronically signed by: Landon Jackson MD on 11/28/2024 00:01:02
--- NOTE | 2024-11-27 19:48 | ED_ITS ---
HPI - General Adult General Chief complaint: Fall Stated complaint: head injury (fall) Time Seen by Provider: 11/27/24 22:04 Source: patient Limitations: no limitations History of Present Illness ED Provider: Sharlene Deleon PA-C HPI narrative: 84F with past medical history of osteoporosis, cervical spine fracture, gout, CKD stage 4, bradycardia, COPD, HTN, HLD, CAD presents s/p mechanical fall. States she tripped over her dog and hit her head on a door handle. Denies loss of consciousness. Takes a baby aspirin daily, no other antiplatelets or anticoagulants. Related Data Home Medications ?Medication ?Instructions ?Recorded ?Confirmed acetaminophen 325 mg tablet 650 mg PO QID PRN 11/28/19 11/12/24 (Tylenol) denosumab 60 mg/mL subcutaneous 60 mg subcut [id number] 11/28/19 11/12/24 syringe (Prolia) docusate sodium 100 mg capsule 100 mg PO BID 11/28/19 11/12/24 (Colace) nitroglycerin 0.4 mg sublingual 0.4 mg sublingual Q5M PRN 11/28/19 11/12/24 tablet calcium 600 mg (as 2 tab PO DAILY 11/29/2110/21 carbonate)-vitamin D3 5 mcg (200 unit) tablet (Calcium 600 + D(3)) Previous Rx's ?Medication ?Instructions ?Recorded fluticasone propionate 50 1 spray intranasal BID 90 da ys #3 12/06/20 mcg/actuation nasal ea spray,suspension SOFT CERVICAL COLLAR #1 ea 05/04/21 albuterol sulfate 90 mcg/actuation 2 puff inhalation Q 6H PRN for 08/20/23 aerosol inhaler muscle spasm #18 ea fluticasone propionate 110 1 puff inhalation BID 30 da ys #12 08/20/23 mcg/actuation HFA aerosol inhaler grams Arnuity Ellipta 100 mcg/actuation 1 inh inhalation KESHAV LY #30 ea 09/11/23 powder for inhalation (fluticasone furoate) pantoprazole 40 mg tablet,delayed 40 mg PO BID #180 ta bs 03/04/24 release polyethylene glycol 3350 17 17 g PO DAILY #510 grams 0 03/04/24 gram/dose oral powder (Miralax) fexofenadine 180 mg tablet 180 mg PO DAILY PRN allergy 07/03/24 symptoms 90 days #90 tabs isosorbide mononitrate 30 mg 30 mg PO DAILY #90 tabs 0 07/27/24 tablet,extended release 24 hr losartan 50 mg tablet 50 mg PO DAILY #90 tabs 04/15 tramadol 50 mg tablet 50 mg PO TID PRN pain 30 day s #90 11/04/24 tabs atorvastatin 80 mg tablet 80 mg PO DAILY 90 days #90 t abs 11/23/24 amlodipine 10 mg tablet 10 mg PO DAILY #90 tabs 09/12 Allergies Allergy/AdvReac Type Severity Reaction Status Date / Time cyclobenzaprine (From Allergy Intermediate Spacy Verified 11/27/24 19:51 Flexeril) feeling lisinopril Allergy Unknown Unknown Verified 11/27/24 19:51 alendronate sodium (Fosamax) AdvReac Intermediate jaw pain Verified 11/27/24 19:51 aspirin AdvReac Intermediate unable to Verified 11/27/24 19:51 tolerate higher doses-stomach ulcer (low dose ok) carbamazepine (From TEGRETOL) AdvReac Intermediate NAUSEA & Verified 11/27/24 19:51 VOMITING, HEADACHE gabapentin AdvReac Intermediate dizziness Verified 11/27/24 19:51 ibuprofen AdvReac Intermediate Nausea and Verified 11/27/24 19:51 Vomiting lidocaine (From Lidoderm) AdvReac Intermediate burning Verified 11/27/24 19:51 from patch NSAIDS (Non-Steroidal AdvReac Intermediate NAUSEA & Verified 11/27/24 19:51 Anti-Inflamma (NSAIDS VOMITING, (NON-STEROIDAL ANTI-INFLAMMA) HX ULCER codeine (CODEINE) AdvReac Unknown NAUSEA & Verified 11/27/24 19:51 VOMITING, nausea/vomiting Review of Systems Review of Systems: Yes all other systems are reviewed and are negative Constitutional: Constitutional: Denies frequent falls Eyes: Eyes: Denies blurry vision ENT: Denies dizziness Cardiovascular: Cardiovascular: Denies chest pain, Denies syncope and Denies dyspnea Respiratory: Respiratory: Denies dyspnea Gastrointestinal: Gastrointestinal: Denies abdominal pain Musculoskeletal: Musculoskeletal: Reports no additional musculoskeletal complaints Neurologic: Denies dizziness, Denies syncope, Denies frequent falls and Denies memory loss Psychiatric: Psychiatric: Denies memory loss [facility] Past Medical History Attestation statement: The following information was validated with the patient. Medical History Left shoulder pain Encounter for monitoring denosumab therapy Cervical spine fracture History of gout Osteoarthritis, hand, primary localized Swelling of finger of right hand Age-related osteoporosis without current pathological fracture Chronic kidney disease, stage 4 (severe) Screening for breast cancer Allergic rhinitis Exertional dyspnea Chronic kidney disease (CKD), stage III (moderate) Benign essential hypertension Overactive bladder Compression fracture of L1 lumbar vertebra Cervical spondylosis without myelopathy GERD (gastroesophageal reflux disease) COPD (chronic obstructive pulmonary disease) Pure hypercholesterolemia Coronary artery disease Surgical History History of colonoscopy Hx of cataract removal with insertion of prosthetic lens History of angioplasty History of tonsillectomy History of appendectomy History of parathyroidectomy History of oophorectomy History of section Family History Family History Father Throat cancer Mother No problems noted. Daughter Diabetes Son Arthritis CAD (coronary artery disease) Daughter Scleroderma Social History Social History Housing: House Alcohol intake: never Patient Tobacco Use Status: Current someday Tobacco user Tobacco use type: Cigarette Cigarettes Per Day: 3 Years Smoked: 30 Smoked in Last 30 Days: Yes e-Cigarette/Vaping Use: Never Used Use of substances other than those prescribed or required for medical reasons: No Advance Directives: No Advance Directives Information Provided: No Do you have a plan to hurt others: No Plan service: No Current occupational status: retired Cognitive needs: No Hearing needs: No Vision needs: No Physical Exam ED Vital Signs: Vital Signs - 24 hr 11/27/24 19:49 11/27/24 22:06 Temperature 96.7 F L 97.7 F Pulse Rate 57 50 Respiratory Rate 18 18 Blood Pressure 131/61 143/65 H Pulse Oximetry 95 95 Oxygen Delivery Method Room Air Room Air BMI result Body Mass Index 21.2 Const General: no acute distress, alert and awake Nutritional Appearance: average body habitus Orientation/consciousness: patient oriented x3 HENMT Head: Yes No palpable skull fracture present, Yes scalp lesion and No periorbital ecchymosis Neuro General: patient oriented x3 Course Course Course Narrative: This is a rapid medical exam performed by Ella Rocha NP: Additional HPI, ROS, PE not included below will be deferred to primary provider. Patient is an 84y/o F presenting with complaint of laceration to forehead. States she tripped over her dog tonight and fell hitting her head on the door fram. Denies LOC, not anticoagulated. Has 1 lac to head. Thinks last Tdap was 5yrs ago. Plan: CT head, lac needs repair Reevaluation(s) Reevaluation #1: I Sharlene Deleon PA-C have personally obtained a history, perform the exam and assessment. Cathleen RIGGS helped to formulate the documentation Medications Administered Discontinued Medications Generic Name Dose Route Start Last Admin Trade Name Shavonne PRN Reason Stop Dose Admin Lidocaine/Epinephrine 10 ml 11/27/24 22:09 11/27/24 22:14 Lidocaine Hcl 1%/Epi 1:100,000 10 Ml Vial INFILTRATI 11/27/24 22:10 10 ml ONCE ONE Administration Procedures Laceration Laceration 1: Site: scalp and face Side (If applicable): left Size (cm): 4 Description: linear Depth: simple, single layer Local Anesthetic: lidocaine 1% Amount of anesthesia used (mL): 5 Pre-repair: irrigated extensively Skin layer closed with: vicryl Size (cm): 5-0 Number of sutures: 9 Technique: simple, interrupted Medical Decision Making Medical Decision Making MDM Narrative: 84F with past medical history of osteoporosis, cervical spine fracture, gout, CKD stage 4, bradycardia, COPD, HTN, HLD, CAD presents s/p mechanical fall. States she tripped over her dog and hit her head on a door handle. Denies loss of consciousness. Takes a baby aspirin daily, no other antiplatelets or anticoagulants. I've considered the following differentials: fracture, dislocation, sprain, contusion. Patient has no palpable fracture on physical exam, no ecchymosis. Moving all extremities spontaneously. Plan: Given head trauma and age, scanning CT head and cervical spine.... It is reassuring that she is not complaining of neck pain, she is not altered she has no neurologic deficits to suggest intracranial hemorrhage. Laceration will require simple repair. I've reviewed the following tests: CT head: Findings: There is no acute intracranial hemorrhage. Ventricles are within normal limits in size. No mass effect or midline shift is present. The carter-white matter differentiation appears normal. There is mild generalized cerebral atrophy. There is minimal mucous and mucosal thickening in the paranasal sinuses. Mastoids are clear. Orbits are unremarkable. There is a left forehead laceration. No fractures are identified. IMPRESSION: No acute intracranial abnormality. Differential Diagnosis Differential Diagnoses: The differential diagnosis associated with the presentation includes See medical decision-making Admission/Observation Consideration of admission/observation: Escalation of care including admission/observation considered Not applicable Radiology Impression Discussion of test interpretation with radiology: I have reviewed the radiologist's reading. Discharge Plan Discharge Clinical Impression: Contusion of forehead, Forehead laceration Patient Disposition: Home, Self-Care Instructions: Facial Contusion (ED), Laceration (ED) Additional Instructions: The CT scan of your head was normal, you did not sustain an acute intracranial injury, you have a contusion with the overlying laceration. See home care instructions. Nine stitches were used to repair the laceration, they will dissolve on their own within a week. Keep the area clean and dry. Follow up with primary care as needed. Prescriptions: No Action fluticasone propionate 50 mcg/actuation spray,suspension 1 spray intranasal BID 90 Days Qty: 3 1RF Rx Instructions: administer into each nostril albuterol sulfate 90 mcg/actuation HFA aerosol inhaler 2 puff inhalation Q6H PRN (Reason: for muscle spasm) Qty: 18 3RF fluticasone propionate 110 mcg/actuation HFA aerosol inhaler 1 puff inhalation BID 30 Days Qty: 12 5RF Arnuity Ellipta 100 mcg/actuation blister with device 1 inh inhalation DAILY Qty: 30 5RF isosorbide mononitrate 30 mg tablet extended release 24 hr 30 mg PO DAILY Qty: 90 0RF losartan 50 mg tablet 50 mg PO DAILY Qty: 90 1RF tramadol 50 mg tablet 50 mg PO TID PRN (Reason: pain) 30 Days Qty: 90 0RF atorvastatin 80 mg tablet 80 mg PO DAILY 90 Days Qty: 90 1RF amlodipine 10 mg tablet 10 mg PO DAILY Qty: 90 3RF (DME) SOFT CERVICAL COLLAR See Rx Instructions .Route .MEDSUPPLY Qty: 1 0RF Rx Instructions: As directed Prolia 60 mg/mL syringe 60 mg subcut [id number] docusate sodium [Colace] 100 mg capsule 100 mg PO BID nitroglycerin 0.4 mg tablet, sublingual 0.4 mg sublingual Q5M PRN Rx Instructions: do not exceed 3 doses per episode acetaminophen [Tylenol] 325 mg tablet 650 mg PO QID PRN calcium carbonate-vitamin D3 [Calcium 600 + D(3)] 600 mg-5 mcg (200 unit) tablet 2 tab PO DAILY polyethylene glycol 3350 [Miralax] 17 gram/dose powder 17 g PO DAILY Qty: 510 5RF pantoprazole 40 mg tablet,delayed release (DR/EC) 40 mg PO BID Qty: 180 3RF fexofenadine 180 mg tablet 180 mg PO DAILY PRN (Reason: allergy symptoms) 90 Days Qty: 90 3RF Print Language: Bengali
[2024-11-27 19:49] VITALS: BP 131/61; PULSE 57; RESP 18; TEMP 35.9; O2SAT 95; BMI 21.2
[2024-11-27 22:06] VITALS: BP 143/65; PULSE 50; RESP 18; TEMP 36.5; O2SAT 95
[2024-11-27] MEDS: Lidocaine HCl 1%/Epi 1:100,000 10 ML VIAL INFILTRATI (22:14)
[2024-11-28 00:44] VITALS: BP 163/64; PULSE 49; RESP 18; TEMP 36.5; O2SAT 95
--- NOTE | 2024-11-28 00:52 | PC.NURSE ---
provider made aware of elevated BP prior to D/C. No new orders at this time. per , pt OK to D/C.
== END 2024-11-28 00:57 | disposition home or self-care (01) ==
PROVIDERS: Emergency Provider Emergency Medicine; PCP Internal Medicine
DX: S01.81XA Laceration without foreign body of other part of head, initial encounter (principal); W01.0XXA Fall on same level from slipping, tripping and stumbling without subsequent striking against object, initial encounter; Y93.9 Activity, unspecified; Y92.9 Unspecified place or not applicable; Y99.9 Unspecified external cause status
CPT/HCPCS: 12002; 70450; 99284; J2004

== ENCOUNTER → 2024-11-27 19:49 | Outpatient (BNV) | payer MEDICARE, OTHER, SELFPAY | PROVIDERS: Emergency Provider Emergency Medicine; PCP Internal Medicine; Visit Provider Radiology Diagnostic Radiology | DX: S01.81XA Laceration without foreign body of other part of head, initial encounter (principal); W19.XXXA Unspecified fall, initial encounter | CPT/HCPCS: 70450 ==

== ENCOUNTER 2024-12-03 11:10 | Outpatient (AMB) | payer MEDICARE, OTHER, SELFPAY ==
[2024-12-03 11:20] VITALS: BP 136/70; PULSE 53; TEMP 36.9; O2SAT 97; BMI 21.7
--- NOTE | 2024-12-03 11:20 | AM.OFFWIN_ITS ---
Intake Vital Signs 12/03/24 11:20 12/03/24 11:23 Height 5 ft 1 in 5 ft 1 in Weight 115 lb BMI 21.7 BP 136/70 Blood Pressure Location Lt brachial Position Sitting Pulse 53 Pulse Source Pulse Oximeter Temp 98.5 F Temp Source Oral Pulse Oximetry (%) 97 Oxygen Delivery Method Room Air Intake Visit Reasons: EP-cough, sinus issue Patient Tobacco Use Status: Current someday Tobacco user Allergies cyclobenzaprine (From Flexeril) Allergy (Intermediate, Verified 12/03/24 11:26) Spacy feeling lisinopril Allergy (Unknown, Verified 12/03/24 11:26) Unknown alendronate sodium (Fosamax) Adverse Reaction (Intermediate, Verified 12/03/24 11:26) jaw pain aspirin Adverse Reaction (Intermediate, Verified 12/03/24 11:26) unable to tolerate higher doses-stomach ulcer (low dose ok) carbamazepine (From TEGRETOL) Adverse Reaction (Intermediate, Verified 12/03/24 11:26) NAUSEA & VOMITING, HEADACHE gabapentin Adverse Reaction (Intermediate, Verified 12/03/24 11:26) dizziness ibuprofen Adverse Reaction (Intermediate, Verified 12/03/24 11:26) Nausea and Vomiting lidocaine (From Lidoderm) Adverse Reaction (Intermediate, Verified 12/03/24 11:26) burning from patch NSAIDS (Non-Steroidal Anti-Inflamma (NSAIDS (NON-STEROIDAL ANTI-INFLAMMA) Adverse Reaction (Intermediate, Verified 12/03/24 11:26) NAUSEA & VOMITING, HX ULCER codeine (CODEINE) Adverse Reaction (Unknown, Verified 12/03/24 11:26) NAUSEA & VOMITING, nausea/vomiting Do you need a note to return to daycare/school/sports/work: No HPI HPI Comments History of Present Illness Details History - The patient is an 84-year-old female p resenting with symptoms of an upper respiratory tract infection and trigeminal neuralgia. - Reports nasal congestion, persistent d ry cough and throat dryness affecting sleep, with no fever but chills. - History of COPD, currently without sandro rtness of breath or wheezing, and non- adherence to inhaler regimen. - Experiences shooting pain in the right cheek, thinks it is likely trigeminal neuralgia, worsened by sinus issues. Physical Exam General: Cooperative, healthy appearing, comfortable and no acute distress Orientation/consciousness: Patient oriented x3 Limitations: No limitations Head: Normal to inspection, sutures present Ears: Hearing grossly normal bilaterally, external ears normal and TM's normal bilaterally Nose: Normal external nose present, Normal nares present and No nasal discharge present Face and sinus: Normal facial exam, Yes sinuses tender right maxillary Mouth: Normal oral and palatal mucosa present and moist mucous membranes Throat: Yes tonsils normal, Yes uvula midline. Posterior oropharynx erythema, no exudates Eyes: Appearance normal, both eyes and all related structures Neck: Normal visual inspection, full ROM Respiratory: Clear to auscultation bilaterally. Normal respiratory effort, able to speak in complete sentences, Actively coughing, no respiratory distress, not tachypneic, no tripod positioning and no use of accessory muscles Cardiovascular: Regular rate and rhythm. Normal S1 and S2 Skin: No rashes or lesions noted Neuro: Patient oriented x3 Extremities: Normal to inspection and Yes no clubbing, cyanosis or edema Review of Systems - General: Denies fever, reports chills without fever. - Respiratory: Reports persistent dry co ugh, denies shortness of breath or wheezing. - Neurological: Reports shooting pain in the right cheek, denies numbness or tingling. All systems reviewed and are unremarkable except as noted in HPI [facility] Medical History Left shoulder pain Encounter for monitoring denosumab therapy Cervical spine fracture History of gout Osteoarthritis, hand, primary localized Swelling of finger of right hand Age-related osteoporosis without current pathological fracture Chronic kidney disease, stage 4 (severe) Screening for breast cancer Allergic rhinitis Exertional dyspnea Chronic kidney disease (CKD), stage III (moderate) Benign essential hypertension Overactive bladder Compression fracture of L1 lumbar vertebra Cervical spondylosis without myelopathy GERD (gastroesophageal reflux disease) COPD (chronic obstructive pulmonary disease) Pure hypercholesterolemia Coronary artery disease Surgical History History of colonoscopy Hx of cataract removal with insertion of prosthetic lens History of angioplasty History of tonsillectomy History of appendectomy History of parathyroidectomy History of oophorectomy History of section Family History Father Throat cancer Mother No problems noted. Daughter Diabetes Son Arthritis CAD (coronary artery disease) Daughter Scleroderma Social History Housing: House Alcohol intake: never Patient Tobacco Use Status: Current someday Tobacco user Tobacco use type: Cigarette Cigarettes Per Day: 3 Years Smoked: 30 e-Cigarette/Vaping Use: Never Used service: No Current occupational status: retired Cognitive needs: No Hearing needs: No Vision needs: No Physical Exam Vital Signs: Last Vital Signs Temp 98.5 F 12/03/24 11:20 Pulse 53 12/03/24 11:20 BP 136/70 12/03/24 11:20 Pulse Ox 97 12/03/24 11:20 Oxygen Delivery Method Room Air 12/03/24 11:20 BMI result Body Mass Index 21.7 Assessment & Plan Assessment & Plan (1) Acute upper respiratory infection: Code(s): J06.9 - Acute upper respiratory infection, unspecified Plan: Plan Patient was informed and verbally consented to the use of an ambient scribe for clinic note documentation during this visit. - VSS, pt well appearing and PE unremarkable. - Continue using Arnuity Ellipta as prescribed to manage COPD symptoms and prevent exacerbations. - Perform a comprehensive viral swab to identify potential viral pathogens. - Consider antibiotics if bacterial infection is suspected based on viral panel results. - Recommend applying ice to the affected area to reduce inflammation and alleviate pain in right cheek. 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
== END 2024-12-03 11:52 | disposition home or self-care (01) ==
PROVIDERS: PCP Internal Medicine; Visit Provider Physician Assistant
DX: J06.9 Acute upper respiratory infection, unspecified (principal)

== ENCOUNTER 2024-12-03 11:10 | Outpatient (REF) | payer MEDICARE, OTHER, SELFPAY ==
[2024-12-03 15:51] LABS: Chlamydia pneumoniae PCR Not Detected (Not Detect.); Coronavirus 229E PCR Not Detected (Not Detect.); Coronavirus HKU1 PCR Not Detected (Not Detect.); Coronavirus NL63 PCR Not Detected (Not Detect.); Coronavirus OC43 PCR Not Detected (Not Detect.); RSV PCR Not Detected (Not Detect.); Rhino/Enterovirus PCR Not Detected (Not Detect.)
[2024-12-03 17:18] LABS: Influenza A H1 PCR Not Detected (Not Detect.); Influenza A H1-2009 PCR Not Detected (Not Detect.); Influenza A H3 PCR Not Detected (Not Detect.); SARS-CoV-2 PCR Not Detected (Not Detect.)
== END 2024-12-03 11:11 | disposition home or self-care (01) ==
LOC: HO.LAB 11:10
PROVIDERS: Physician Assistant; PCP Internal Medicine
DX: J06.9 Acute upper respiratory infection, unspecified (principal); F17.210 Nicotine dependence, cigarettes, uncomplicated; R05.9 Cough, unspecified; R09.81 Nasal congestion
CPT/HCPCS: 87633; 99212

== ENCOUNTER 2024-12-17 08:33 | Outpatient (REF) | payer MEDICARE, OTHER, SELFPAY ==
[2024-12-17 11:28] LABS: Alanine Aminotransferase 21 U/L (0-31); Albumin Level 4.3 g/dL (3.5-5.0); Alkaline Phosphatase 69 U/L (39-117); Anion Gap 12 (12-20); Aspartate Amino Transferase 30 U/L (5-31); Blood Urea Nitrogen 23 mg/dL (9-16); Calcium 9.3 mg/dL (8.4-10.2); Carbon Dioxide 29 mmol/L (22-29); Chloride 104 mmol/L (96-108); Estimated Glomerular Filt Rate 44; Potassium 4.0 mmol/L (3.3-5.1); Sodium 141 mmol/L (135-145); Total Protein 6.8 g/dL (6.5-8.0)
== END 2024-12-17 08:34 | disposition home or self-care (01) ==
LOC: HO.HMGCLDS 08:33
PROVIDERS: PCP Internal Medicine; Visit Provider Student in an Organized Health Care Education/Training Program
DX: M81.0 Age-related osteoporosis without current pathological fracture (principal); Z79.899 Other long term (current) drug therapy
CPT/HCPCS: 36415; 80053; 82306

== ENCOUNTER 2025-01-01 08:36 | Outpatient (AMB) | payer MEDICARE, OTHER, SELFPAY ==
--- NOTE | 2025-01-01 08:45 | MHC.OFFVIS ---
Vital Signs 01/01/25 08:49 Height 5 ft 1 in Weight 115 lb 11.883 oz BMI 21.9 BP 130/72 Blood Pressure Location Lt brachial Position Sitting Pulse 65 Pulse Source Pulse Oximeter Pulse Oximetry (%) 99 Oxygen Delivery Method Room Air Intake Visit Reasons: Osteoporosis/Prolia inj Intake Note: Patient presents for Osteoporosis and Prolia injection. Allergies cyclobenzaprine (From Flexeril) Allergy (Intermediate, Verified 01/01/25 08:48) Spacy feeling lisinopril Allergy (Unknown, Verified 01/01/25 08:48) Unknown alendronate sodium (Fosamax) Adverse Reaction (Intermediate, Verified 01/01/25 08:48) jaw pain aspirin Adverse Reaction (Intermediate, Verified 01/01/25 08:48) unable to tolerate higher doses-stomach ulcer (low dose ok) carbamazepine (From TEGRETOL) Adverse Reaction (Intermediate, Verified 01/01/25 08:48) NAUSEA & VOMITING, HEADACHE gabapentin Adverse Reaction (Intermediate, Verified 01/01/25 08:48) dizziness ibuprofen Adverse Reaction (Intermediate, Verified 01/01/25 08:48) Nausea and Vomiting lidocaine (From Lidoderm) Adverse Reaction (Intermediate, Verified 01/01/25 08:48) burning from patch NSAIDS (Non-Steroidal Anti-Inflamma (NSAIDS (NON-STEROIDAL ANTI-INFLAMMA) Adverse Reaction (Intermediate, Verified 01/01/25 08:48) NAUSEA & VOMITING, HX ULCER codeine (CODEINE) Adverse Reaction (Unknown, Verified 01/01/25 08:48) NAUSEA & VOMITING, nausea/vomiting Medication List - Last Reconciled 01/01/25 by Ana Ross MD acetaminophen (Tylenol) 650 mg PO QID PRN albuterol sulfate 90 mcg/actuation 2 puffs inhalation Q6H PRN amlodipine 10 mg PO DAILY Arnuity Ellipta 100 mcg/actuation (fluticasone furoate) 1 inh inhalation DAILY NS atorvastatin 80 mg PO DAILY 90 days azithromycin For 250 mg dose pack: take 500 mg today (day 1), then 250 mg for 4 days (days 2-5) PO benzonatate 200 mg PO BEDTIME PRN calcium carbonate-vitamin D3 600 mg-5 mcg (200 unit) (Calcium 600 + D(3)) 2 tabs PO DAILY denosumab (Prolia) 60 mg subcut [id number] docusate sodium (Colace) 100 mg PO BID fexofenadine 180 mg PO DAILY PRN 90 days fluticasone propionate 50 mcg/actuation 1 spray intranasal BID 90 days fluticasone propionate 110 mcg/actuation 1 puff inhalation BID 30 days isosorbide mononitrate ER 30 mg PO DAILY losartan 50 mg PO DAILY nitroglycerin 0.4 mg sublingual Q5M PRN pantoprazole 40 mg PO BID polyethylene glycol 3350 (Miralax) 17 grams PO DAILY [SOFT CERVICAL COLLAR As directed] tramadol 50 mg PO TID PRN 30 days HPI Comments Details: Patient is an 84-year-old female with hypertension complicated by chronic kidney disease stage III and coronary artery disease, hyperlipidemia, COPD presents for follow up of hand osteoarthritis, osteoporosis with history L1 compression fracture, and concern for inflammatory arthritis Interval History: Patient last seen 07/02/24 with me. - On Prolia 60mg SC every 6 months - At that time she was following up for hand osteoarthritis and osteoporosis. - She is a previously gotten steroids for left hand swelling due to concern for crystal arthritis much improved her symptoms. - At that visit she was complaining of weight loss but this has resolved and she is now gaining weight. - No falls or fractures since the last visit - Complains of right thumb 1st CMC pain making it difficult to use her thumb. 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 She has had surgery to remove the left trapezium (CMC) Prior history: First fracture was L1 in approx. 2005. She was was treated with fosamax but it was discontinued due to GI upset. She had parathroid surgery around that time for hyperparathyroidism. Her second fracture was in 2013- L3 acute fracture. Treated with kyphoplasty. She had lifted a scooter and felt a pop. Treated by Dr. Gonzalez at [facility]. ?Inflammatory arthritis She was seen in June 2020 for ?gout attack. There was erythema warmth and swelling of the dorsum of her right hand involving her 2nd, 3rd and 4th MCP joints. Has a strong family history of autoimmune disease with granddaughter having Behcet's, other granddaughter with scleroderma Current Rheumatology Medication(s): Prolia 60 mg every 6 months Vitamin D/Calcium supplementation [facility] Medical History Left shoulder pain Encounter for monitoring denosumab therapy Cervical spine fracture History of gout Osteoarthritis, hand, primary localized Swelling of finger of right hand Age-related osteoporosis without current pathological fracture Chronic kidney disease, stage 4 (severe) Screening for breast cancer Allergic rhinitis Exertional dyspnea Chronic kidney disease (CKD), stage III (moderate) Benign essential hypertension Overactive bladder Compression fracture of L1 lumbar vertebra Cervical spondylosis without myelopathy GERD (gastroesophageal reflux disease) COPD (chronic obstructive pulmonary disease) Pure hypercholesterolemia Coronary artery disease Surgical History History of colonoscopy Hx of cataract removal with insertion of prosthetic lens History of angioplasty History of tonsillectomy History of appendectomy History of parathyroidectomy History of oophorectomy History of section Family History Father Throat cancer Mother No problems noted. Daughter Diabetes Son Arthritis CAD (coronary artery disease) Daughter Scleroderma Social History Housing: House Alcohol intake: never Patient Tobacco Use Status: Current someday Tobacco user Tobacco use type: Cigarette Cigarettes Per Day: 3 Years Smoked: 30 e-Cigarette/Vaping Use: Never Used service: No Current occupational status: retired Cognitive needs: No Hearing needs: No Vision needs: No Review of Systems Narrative Review of Systems Constitutional: Denies fever, chills, weight loss ENT: Denies vision changes, eye pain or eye redness, dental caries, dry mouth GI: Denies nausea, vomiting, diarrhea, abdominal pain, change in BM Pulm: Denies SOB, MOTA, hemoptysis, wheezing Cards: Denies chest pain, palpitations Skin: Denies Raynaud's, rash, nail changes, photosensitivity, C[employer] LOCKST[employer]: Denies headaches, weakness, paresthesias, recurrent falls MSK: as per HPI All other systems reviewed and are unremarkable except noted above Physical Exam Exam Exam: Vital signs reviewed Physical Examination CONSTITUITIONAL Patient alert and cooperative. Well appearing and in no apparent painful distress MSK Hands Right Hand: Able to make a fist. Bogginess and tenderness to palpation of the PIPs especially the 2nd, 3rd and 4th PIPs. Left Hand: Able to make a fist. Bogginess and tenderness to palpation of the PIPs especially the 2nd, 3rd and 4th PIPs. Herbedens and Bouchards nodes noted bilaterally Wrists Right Wrist: Full ROM to flexion and extension. No swelling or TTP Left Wrist: Full ROM to flexion and extension. No swelling or TTP Elbows Right Elbow: Full ROM. No swelling or TTP. No TTP of the medial epicondyle. TTP of the lateral epicondyle Left Elbow: Full ROM. No swelling or TTP. No TTP of the medial epicondyle. TTP of the lateral epicondyle Shoulders Right shoulder: No swelling noted. No TTP of the AC joint. No TTP of the subacromial bursa. No TTP of the posterior shoulder Left shoulder: No swelling noted. No TTP of the AC joint. No TTP of the subacromial bursa. No TTP of the posterior shoulder Knees Right knee: No swelling noted. No TTP of the knee joint line. No TTP of pes anserine bursa Left knee: No swelling noted. No TTP of the knee joint line. No TTP of pes anserine bursa. Ankles Right ankle: Good ankle dorsiflexion and plantar flexion. No swelling. No TTP of the ankle joint Left ankle: Good ankle dorsiflexion and plantar flexion. No swelling. No TTP of the ankle joint Feet Right foot: Negative squeeze test Left foot: Negative squeeze test Tender points? No tenderness to palpation of the bilateral trapezius, supraspinatus, anterior costochondral junctions, bilateral suboccipital muscle insertions SKIN No rashes Results Reviewed Results Reviewed: Laboratory Tests 12/17/24 08:40 Sodium 141 Potassium 4.0 Chloride 104 Carbon Dioxide 29 BUN 23 H Creatinine 1.18 AST 30 ALT 21 25-OH Vitamin D Total 58.5 DEXA 05/2024 FINDINGS: The bone mineral density of the lumbar spine is 1.130 with a T-score of -0.3, and a Z-score of 2.0. This is indicative of normal bone mineral density. This represents a BMD change of 1.6% compared to the prior exam. This is not statistically significant. The bone mineral density of the left total hip is 0.728 with a T-score of -2.2, and a Z-score of 0.2. This is indicative of osteopenia. This represents a BMD change of 0.1% compared to the prior exam. This is not statistically significant. The bone mineral density of the left femoral neck is 0.724 with a T-score of -2.3, and a Z-score of 0.3. This is indicative of osteopenia. This represents a BMD change of 2.1% compared to the prior exam. Assessment & Plan Assessment & Plan (1) Age-related osteoporosis without current pathological fracture: Comment: DEXA 05/2024: AP Spine -0.3, Left femur neck -2.3, Left femur total -2.2 DEXA 12/2021: AP Spine -0.5, Left femur neck -2.4, Left femur total -2.2 Alendronate: Approx 2004 - Jaw pain. Prolia: 12/2013 to present Code(s): M81.0 - Age-related osteoporosis without current pathological fracture Category: Medical Plan: #Osteoporosis with hx of L1 and L2 compression fracture Patient is a 84-year-old female osteoporosis with history of L1-L2 compression fracture here today follow up. Patient has been on Prolia since 01/08/2014. This will make it 10 years since she has been on the medication. Given her CKD she can not be switched to another anti resorptive medication such as bisphosphonates. This limits our availability of medication. Given her history of compression fractures I would opt to continue Prolia although the data only goes up to 10 years the studies do show that there is still added benefit even after 3-5 years. In addition there has been data showing rapid decline in bone density after cessation of denosumab and so in her wrists versus benefit analysis it is better for us to continue the Prolia Plan - Prolia 60mg SC every 6 months - Continue vitamin-D and calcium supplementation. - RTC 6 months - LAbs before visit: CMP and Vit D Kwesi DL, Dacia F, Lionel RK, Harpreet S. Denosumab in the Treatment of Osteoporosis: 10?Years Later: A Narrative Review. Adv Ther. 2021;39(1):58-74. doi: 10.1007/[id number]. Epub 2020Dec 30. PMID: [id number]; PMCID: [id number]. (2) Osteoarthritis, hand, primary localized: Code(s): M19.049 - Primary osteoarthritis, unspecified hand Category: Medical Qualifiers: Laterality: unspecified laterality Qualified Code(s): M19.049 - Primary osteoarthritis, unspecified hand Plan: #Hand OA vs seronegative inflammatory arthritis Patient with osteoarthritis noted to bilateral hands. Given her strong family history of autoimmune disease she may have a component of erosive osteoarthritis but this is not shown on the x-rays particularly. We will trial low-dose hydroxychloroquine. 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 Mild increased risk of infections due to RANKL on T helper cells, increased risk of hypocalcemia especially in CKD patients Keep vitamin-D at least 35 ng/mL Advised to delay non emergent dental procedures to toward the end of the 6 month cycle and if they plan to stop denosumab would need to continue antiresorptive to maintain the effects of denosumab (4) Encounter for monitoring of hydroxychloroquine therapy: Code(s): Z51.81 - Encounter for therapeutic drug level monitoring; Z79.899 - Other [place] [facility] ([facility] drug therapy Plan: #Long-term Use of Hydroxychloroquine Discussed with patient the risks and benefits of hydroxychloroquine in managing the rheumatic condition Benefits include: - Reduced pain, reduce mortality, maintenance of remission and reduction of flares Risks include: - GI upset, skin hyperpigmentation, retinal toxicity (especially after more than 5 years of use), myopathy Advised yearly ophthalmology visits Plan I spent 30 minutes reviewing the record and labs, seeing the patient, discussing the treatment plan and documenting in the medical record Orders: Orders Vitamin D 25-OH Total 6 Months Z79.899 - Other [place] [facility] (current) drug therapy Comprehensive Met. 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 Medications: New hydroxychloroquine (Plaquenil) 200 mg PO DAILY 90 tabs 1RF M19.90 - Unspecified osteoarthritis, unspecified site diclofenac sodium 1% (Arthritis Pain (diclofenac)) apply bilateral hands 2 grams topical QID 100 grams 3RF M19.049 - Primary osteoarthritis, unspecified hand Discontinued azithromycin Discontinued Reason: Doctor's Order For 250 mg dose pack: take 500 mg today (day 1), then 250 mg for 4 days (days 2-5) PO 6 tabs 0RF Coding Level of Care Code Est Pt Level 4 (27165) Complex EM visit Add On G2211 Diagnoses Age-related osteoporosis without current pathological fracture M81.0 Localized, primary osteoarthritis of hand, unspecified laterality M19.049 Laterality: unspecified laterality Encounter for monitoring denosumab therapy Z51.81; Z79.899 Encounter for monitoring of hydroxychloroquine therapy Z51.81; Z79.899
[2025-01-01 08:49] VITALS: BP 130/72; PULSE 65; O2SAT 99; BMI 21.9
--- OUTSIDE RECORDS SUMMARY | 2025-01-01 08:56 | XMS_ITS | Clinical Summary ---
Author Organization [facility] it Address [address] [place] [address] Care Team Providers Care Quill Fixer Name Role Phone Wilian Crawford MD Primary Care Provider Encounters Date Type Department Care Team Description 12/11/2024 Telephone [facility] [address] [place] [address] Iain Rae MD from Last 3 Months Medical History Medical History Date Comments KRISTOFER (acute kidney injury) ([facility]/HCC V24) DX:KRISTOFER (acute kidney injury) ([facility]) Hypercalcemia DX:Hypercalcemia Emphysema lung (CMS/HCC V24, CMS/HCC V28) DX:Emphysema lung ([facility]) Chronic GERD DX:Chronic GERD Arthritis DX:Arthritis Osteoporosis DX:Osteoporosis Social History Tobacco Use Types Packs/Day Years Used Date Smoking Tobacco: Some Days Cigarettes Smokeless Tobacco: Never Alcohol Use Standard Drinks/Week Comments Not Currently 0 (1 standard drink = 0.6 oz pur e alcohol) Comments Unknown Sex and Gender Information Value Date Recorded Sex Assigned at Not on file Legal Sex Female 6:17 AM EST Gender Identity Not on file Sexual Orientation Not on file Obstetrics History Last Filed Vital Signs Vital Sign Reading Time Taken Comments Blood Pressure 150/80 08/17/2023 9:22 AM EDT Sitting L Arm Pulse 86 08/17/2023 9:22 AM EDT Temperature - - Respiratory Rate - - Oxygen Saturation - - Inhaled Oxygen Concentration - - Weight 54.3 kg (119 lb 11.2 oz) 08/17/2023 9:22 AM EDT Height 154.9 cm (5' 1 ) 08/17/2023 9:22 AM EDT Body Mass Index 22.62 08/17/2023 9:22 AM EDT Plan of Treatment Health Maintenance Due Date Last Done Comments DTaP,Tdap,and Td Vaccines (1 - Tdap) 1960 Zoster Vaccines (1 of 2) 11/18/1991 RSV Immunization Adult Patients (1 - 1-dose 75+ series) 2016 Pneumococcal Vaccine: 50+ Years (2 of 2 - PPSV23, PCV20, or PCV21) 02/17/2020 12/23/2019 Cholesterol Screening (Lipid Panel) 01/22/2022 Falls Risk Assessment 01/22/2022 Osteoporosis Screening (Bone Density Screening) 01/22/2022 Social Influencers of Health Screening 01/22/2022 Hypertension/CHF/CAD Annual BMP Blood Test 02/03/2022 Depression Screening 02/20/2024 COVID-19 Vaccine ( - season) 2024 Influenza Vaccine (#1) 2024 , 12/23/2019, 03/05/2019, Additional history exists HIB Vaccines Aged Out No longer eligi ble based on patient's age to complete this topic HPV Vaccines Aged Out No longer eligi ble based on patient's age to complete this topic Hepatitis A Vaccines Aged Out No long er eligible based on patient's age to complete this topic Hepatitis B Vaccines Aged Out No long er eligible based on patient's age to complete this topic IPV Vaccines Aged Out No longer eligi ble based on patient's age to complete this topic MMR Vaccines Aged Out No longer eligi ble based on patient's age to complete this topic Meningococcal ACWY Vaccine Aged Out N o longer eligible based on patient's age to complete this topic Meningococcal B Vaccine Aged Out No l onger eligible based on patient's age to complete this topic RSV Immunization Patients Under 20 months Aged Out No longer eligible based on patient's age to complete this topic Varicella Vaccines Aged Out No longer eligible based on patient's age to complete this topic Care Teams Quill Fixer Relationship Specialty Start Date End Date Wilian Crawford MD [address] [place] [address] Dr [address] SABRINA Layton PCP - General 04/20/15
== END 2025-01-01 09:35 | disposition home or self-care (01) ==
LOC: HO.RHES 08:37
PROVIDERS: PCP Internal Medicine; Visit Provider Student in an Organized Health Care Education/Training Program
DX: M81.0 Age-related osteoporosis without current pathological fracture (principal); M19.049 Primary osteoarthritis, unspecified hand; Z51.81 Encounter for therapeutic drug level monitoring; Z79.899 Other long term (current) drug therapy
CPT/HCPCS: 99214; G2211

== ENCOUNTER → 2025-01-01 08:36 | Outpatient (BNVA) | payer MEDICARE, OTHER, SELFPAY | PROVIDERS: PCP Internal Medicine; Visit Provider Student in an Organized Health Care Education/Training Program | DX: M19.049 Primary osteoarthritis, unspecified hand (principal); M81.0 Age-related osteoporosis without current pathological fracture; Z79.899 Other long term (current) drug therapy | CPT/HCPCS: 96372; 99212; J0897 ==

== ENCOUNTER 2025-01-16 10:40 | Emergency (ER) | payer MEDICARE, OTHER, SELFPAY ==
--- NOTE | ~2025-01-16 | XR_ITS ---
EXAMINATION: XR ELBOW 3 VIEWS RIGHT HISTORY: pain COMPARISON: There are no prior studies available for comparison. FINDINGS: Three views of the right elbow are submitted. Osseous mineralization is normal. There is a probable joint effusion with elevation of the anterior fat pad. A tiny osseous density is seen adjacent to the radial head on one view which could represent a tiny fracture fragment. There is no dislocation. The joint spaces are maintained. XR/XR elbow RT min 3V IMPRESSION: Probable joint effusion. Tiny osseous density adjacent to the radial head on one view could represent a fracture fragment. Follow-up is recommended. Electronically signed by: Sesar Henry MD 01/16/2025 11:36 AM EST
[2025-01-16 10:48] VITALS: BP 118/61; PULSE 65; RESP 18; TEMP 37.2; O2SAT 97; BMI 19.8
--- NOTE | 2025-01-16 10:49 | ED.GENADULT ---
HPI - General Adult General Chief complaint: Extremity Injury, Upper Stated complaint: left elbow hurting numbness on right hand Time Seen by Provider: 01/16/25 11:00 Source: patient Mode of arrival: ambulatory Limitations: no limitations History of Present Illness ED Provider: MAGGIE STOLL PA-C HPI narrative: 84 y/o female with hx of OA, COPD, GERD, GI ulcer presenting with right elbow pain, for the last few weeks. She has tried heat compresses, and voltaren gel with minimal relief and took a tramadol this morning with moderate relief. Describes the pain as constantly achey with sharp pain produced by movement. Is also having numbness in her 2nd and 5th digit. Rates pain 08/28. Denies trauma. Denies shoulder pain, L sided complaints, neck pain, back pain, headache, N/V/D, chest pain, or SOB. Related Data Home Medications ?Medication ?Instructions ?Recorded ?Confirmed acetaminophen 325 mg tablet 650 mg PO QID PRN 11/28/19 01/01/25 (Tylenol) denosumab 60 mg/mL subcutaneous 60 mg subcut [id number] 11/28/19 01/01/25 syringe (Prolia) docusate sodium 100 mg capsule 100 mg PO BID 11/28/19 01/01/25 (Colace) nitroglycerin 0.4 mg sublingual 0.4 mg sublingual Q5M PRN 11/28/19 01/01/25 tablet calcium 600 mg (as 2 tab PO DAILY 11/29/21 01/01/25 carbonate)-vitamin D3 5 mcg (200 unit) tablet (Calcium 600 + D(3)) Previous Rx's ?Medication ?Instructions ?Recorded fluticasone propionate 50 1 spray intranasal BID 90 days #3 12/06/20 mcg/actuation nasal ea spray,suspension SOFT CERVICAL COLLAR #1 ea 05/04/21 albuterol sulfate 90 mcg/actuation 2 puff inhalation Q6H PRN for 08/20/23 aerosol inhaler muscle spasm #18 ea fluticasone propionate 110 1 puff inhalation BID 30 days #12 08/20/23 mcg/actuation HFA aerosol inhaler grams Arnuity Ellipta 100 mcg/actuation 1 inh inhalation DAILY #30 ea 09/11/23 powder for inhalation (fluticasone furoate) pantoprazole 40 mg tablet,delayed 40 mg PO BID #180 tabs 03/04/24 release polyethylene glycol 3350 17 17 g PO DAILY #510 grams 03/04/24 gram/dose oral powder (Miralax) fexofenadine 180 mg tablet 180 mg PO DAILY PRN allergy 07/03/24 symptoms 90 days #90 tabs losartan 50 mg tablet 50 mg PO DAILY #90 tabs 10/21/24 atorvastatin 80 mg tablet 80 mg PO DAILY 90 days #90 tabs 11/23/24 amlodipine 10 mg tablet 10 mg PO DAILY #90 tabs 11/25/24 isosorbide mononitrate 30 mg 30 mg PO DAILY #90 tabs 11/30/24 tablet,extended release 24 hr benzonatate 200 mg capsule 200 mg PO BEDTIME PRN cough #10 12/03/24 caps diclofenac sodium 1 % topical gel 2 g topical QID #100 grams 01/01/25 (Arthritis Pain (diclofenac)) hydroxychloroquine 200 mg tablet 200 mg PO DAILY #90 tabs 01/01/25 (Plaquenil) tramadol 50 mg tablet 50 mg PO TID PRN pain 30 days #90 01/02/25 tabs prednisone 20 mg tablet 60 mg (3 x 20 mg) PO DAILY 5 days 01/16/25 #15 tabs Allergies Allergy/AdvReac Type Severity Reaction Status Date / Time cyclobenzaprine (From Allergy Intermediate Spacy Verified 01/16/25 10:48 Flexeril) feeling lisinopril Allergy Unknown Unknown Verified 01/16/25 10:48 alendronate sodium (Fosamax) AdvReac Intermediate jaw pain Verified 01/16/25 10:48 aspirin AdvReac Intermediate unable to Verified 01/16/25 10:48 tolerate higher doses-stomach ulcer (low dose ok) carbamazepine (From TEGRETOL) AdvReac Intermediate NAUSEA & Verified 01/16/25 10:48 VOMITING, HEADACHE gabapentin AdvReac Intermediate dizziness Verified 01/16/25 10:48 ibuprofen AdvReac Intermediate Nausea and Verified 01/16/25 10:48 Vomiting lidocaine (From Lidoderm) AdvReac Intermediate burning Verified 01/16/25 10:48 from patch NSAIDS (Non-Steroidal AdvReac Intermediate NAUSEA & Verified 01/16/25 10:48 Anti-Inflamma (NSAIDS VOMITING, (NON-STEROIDAL ANTI-INFLAMMA) HX ULCER codeine (CODEINE) AdvReac Unknown NAUSEA & Verified 01/16/25 10:48 VOMITING, nausea/vomiting Review of Systems Review of Systems: Yes all other systems are reviewed and are negative PMFSH Past Medical History Attestation statement: The following information was validated with the patient. Source: old records reviewed and nursing notes reviewed Medical History Left shoulder pain Encounter for monitoring denosumab therapy Cervical spine fracture History of gout Osteoarthritis, hand, primary localized Swelling of finger of right hand Age-related osteoporosis without current pathological fracture Chronic kidney disease, stage 4 (severe) Screening for breast cancer Allergic rhinitis Exertional dyspnea Chronic kidney disease (CKD), stage III (moderate) Benign essential hypertension Overactive bladder Compression fracture of L1 lumbar vertebra Cervical spondylosis without myelopathy GERD (gastroesophageal reflux disease) COPD (chronic obstructive pulmonary disease) Pure hypercholesterolemia Coronary artery disease Surgical History History of colonoscopy Hx of cataract removal with insertion of prosthetic lens History of angioplasty History of tonsillectomy History of appendectomy History of parathyroidectomy History of oophorectomy History of section Family History Family History Father Throat cancer Mother No problems noted. Daughter Diabetes Son Arthritis CAD (coronary artery disease) Daughter Scleroderma Social History Social History Housing: House Unable to assess alcohol history related to: Unknown Alcohol intake: never Patient Tobacco Use Status: Current someday Tobacco user Tobacco use type: Cigarette Cigarettes Per Day: 3 Years Smoked: 30 e-Cigarette/Vaping Use: Never Used Use of substances other than those prescribed or required for medical reasons: Unknown Advance Directives: No Advance Directives Information Provided: No service: No Current occupational status: retired Cognitive needs: No Hearing needs: No Vision needs: No Physical Exam ED Vital Signs: Vital Signs - 24 hr 01/16/25 10:48 01/16/25 12:33 Temperature 98.9 F 98.9 F Pulse Rate 65 65 Respiratory Rate 18 18 Blood Pressure 118/61 118/61 Pulse Oximetry 97 97 Oxygen Delivery Method Room Air Room Air BMI result Body Mass Index 19.8 vital signs stable General: Well appearing, in no acute distress. Skin: Warm, dry, intact. No rashes or lesions. Head: Normocephalic, atraumatic. EENT: Hearing is intact b/l. Conjunctiva clear. Sclera is anicteric. PERRLA. EOM intact. Moist mucous membranes.? Neck: Supple without LAD Cardiac: Chest wall symmetric. RRR Lungs: Normal respiratory effort without accessory muscle use. CTA bilaterally. Ext: +right elbow with minimal swelling, no overlying erythema/warmth/crepitus. no overlying wound. ttp along lateral malleolus w/o palpable deformity or step off. FROM intact to right elbow w minimal reported pain. 2+radial pulse intact. able to move right wrist and all digits freely without reported pain. Neuro: AOx3. Normal speech. Ambulating with steady gait Course Course Course Narrative: Rapid medical examination performed in triage by Ayla Jones PA-C: Patient is an 84 year old assigned female at presenting to the emergency department with right elbow pain. Patient states she has had worsening right elbow pain that is worse with all types of movements. Detailed physical exam and review of systems are deferred to the insurance defense paralegal. Imaging ordered. Patient placed back in the waiting room pending room availability and results. Reevaluation(s) Reevaluation #1: X-ray right elbow showing small joint effusion. There is a tiny osseous density adjacent to the radial head on one view which may represent a fracture fragment - there has been no trauma reported by patient. Less likely fracture. Her presentation is more consistent with a lateral epicondylitis as she is quite active and cares for multiple people in her home. Discussed management, she is unable to take NSAIDs due to PUD. Will prescribe her prednisone and place in sling for comfort. advised outpatient follow up. Procedures Orthopedic Splinting/Casting Injury #1: Side: right Upper Extremity Injury Location: elbow Upper Extremity Immobilizer: sling/shoulder immobilizer Medical Decision Making Medical Decision Making MDM Narrative: 84 y/o female with hx of OA, COPD, GERD, GI ulcer presenting with right elbow pain, for the last few weeks. vital signs stable. she is well appearing, in NAD. on exam, right elbow with minimal swelling, no overlying erythema/warmth/crepitus. no overlying wound. ttp along lateral malleolus w/o palpable deformity or step off. FROM intact to right elbow w minimal reported pain. 2+radial pulse intact. able to move right wrist and all digits freely without reported pain. Differential diagnosis includes arthritis, bursitis, gout, pseuogout, lateral epicondylitis, tendonitis. Unlikely septic joint, Lyme arthritis. Plan for imaging and re-evaluation. Differential Diagnosis Differential Diagnoses: The differential diagnosis associated with the presentation includes as above. Admission/Observation not indicated. Independent Interpretation I performed an independent interpretation of an: Plain X-Ray Interpretation: xr left elbow showing small effusion Radiology Impression Discussion of test interpretation with radiology: I have reviewed the radiologist's reading. Radiologist Impression: Procedure(s): XR elbow RT min 3V Accession Number(s): [id number] cc: Wilian Crawford MD; Ayla Jones~ Reason for Exam: pain EXAMINATION: XR ELBOW 3 VIEWS RIGHT HISTORY: pain COMPARISON: There are no prior studies available for comparison. FINDINGS: Three views of the right elbow are submitted. Osseous mineralization is normal. There is a probable joint effusion with elevation of the anterior fat pad. A tiny osseous density is seen adjacent to the radial head on one view which could represent a tiny fracture fragment. There is no dislocation. The joint spaces are maintained. XR/XR elbow RT min 3V IMPRESSION: Probable joint effusion. Tiny osseous density adjacent to the radial head on one view could represent a fracture fragment. Follow-up is recommended. Electronically signed by: Sesar Henry MD 01/16/2025 11:36 AM [facility] External Record Review External record reviewed: Inpatient record Prescription Management I considered prescription management with: Pain Medication and Other (prednisone) Social Determinants Patient?s care significantly limited by Social Determinants of Health including: Other Social Determinant of Health Critical Care Time Critical Care Time Critical Care Time: No Discharge Plan Discharge Clinical Impression: Right elbow pain Patient Disposition: Home, Self-Care Instructions: Prednisone (By mouth), Tennis Elbow (ED), How to Use a Sling (ED) Additional Instructions: You were evaluated in the ED today for right elbow pain. Your x-rays shows a small joint effusion with possible bone fragment. No obvious fracture. As discussed, I have suspicion for cubital tunnel syndrome v lateral epicondylitis. We have provided you with an jackson wrap and sling today for comfort. Rest, ice, compress, and elevate your right elbow. I am prescribing you a steroid, prednisone, to help with the inflammation. You may also continue taking Tylenol. Follow up with your PCP. Return with any new or worsening symptoms. In the case of an emergency call 911. Prescriptions: New prednisone 20 mg tablet 60 mg PO DAILY 5 Days Qty: 15 0RF No Action fluticasone propionate 50 mcg/actuation spray,suspension 1 spray intranasal BID 90 Days Qty: 3 1RF Rx Instructions: administer into each nostril albuterol sulfate 90 mcg/actuation HFA aerosol inhaler 2 puff inhalation Q6H PRN (Reason: for muscle spasm) Qty: 18 3RF fluticasone propionate 110 mcg/actuation HFA aerosol inhaler 1 puff inhalation BID 30 Days Qty: 12 5RF Arnuity Ellipta 100 mcg/actuation blister with device 1 inh inhalation DAILY Qty: 30 5RF losartan 50 mg tablet 50 mg PO DAILY Qty: 90 1RF atorvastatin 80 mg tablet 80 mg PO DAILY 90 Days Qty: 90 1RF amlodipine 10 mg tablet 10 mg PO DAILY Qty: 90 3RF isosorbide mononitrate 30 mg tablet extended release 24 hr 30 mg PO DAILY Qty: 90 0RF tramadol 50 mg tablet 50 mg PO TID PRN (Reason: pain) 30 Days Qty: 90 0RF (DME) SOFT CERVICAL COLLAR See Rx Instructions .Route .MEDSUPPLY Qty: 1 0RF Rx Instructions: As directed Prolia 60 mg/mL syringe 60 mg subcut [id number] docusate sodium [Colace] 100 mg capsule 100 mg PO BID nitroglycerin 0.4 mg tablet, sublingual 0.4 mg sublingual Q5M PRN Rx Instructions: do not exceed 3 doses per episode acetaminophen [Tylenol] 325 mg tablet 650 mg PO QID PRN calcium carbonate-vitamin D3 [Calcium 600 + D(3)] 600 mg-5 mcg (200 unit) tablet 2 tab PO DAILY hydroxychloroquine [Plaquenil] 200 mg tablet 200 mg PO DAILY Qty: 90 1RF diclofenac sodium [Arthritis Pain (diclofenac)] 1 % gel 2 g topical QID Qty: 100 3RF Rx Instructions: apply bilateral hands polyethylene glycol 3350 [Miralax] 17 gram/dose powder 17 g PO DAILY Qty: 510 5RF pantoprazole 40 mg tablet,delayed release (DR/EC) 40 mg PO BID Qty: 180 3RF fexofenadine 180 mg tablet 180 mg PO DAILY PRN (Reason: allergy symptoms) 90 Days Qty: 90 3RF benzonatate 200 mg capsule 200 mg PO BEDTIME PRN (Reason: cough) Qty: 10 0RF Referrals: Wilian Crawford MD [Primary Care Provider, Internal Medicine] Interventions: ED Discharge Assessment Last Done: 01/16/25 12:33 Discharge Date/Time: 01/16/25 12:34 Print Language: Venezuelan
--- OUTSIDE RECORDS SUMMARY | 2025-01-16 11:07 | XMS_ITS | Clinical Summary ---
Author Organization [facility] it Address [address] [place] [address] Care Team Providers Care Donor Services Technician Name Role Phone Wilian Crawford MD Primary Care Provider Encounters Date Type Department Care Team Description 12/11/2024 Telephone [facility] [address] [place] [address] Iain Rae MD from Last 3 Months Medical History Medical History Date Comments KRISTOFER (acute kidney injury) ([facility]/HCC V24) DX:KRISTOFER (acute kidney injury) ([facility]) Hypercalcemia DX:Hypercalcemia Emphysema lung (CMS/HCC V24, CMS/HCC V28) DX:Emphysema lung ([facility]) Chronic GERD DX:Chronic GERD Arthritis DX:Arthritis Osteoporosis [...] age to complete this topic Care Teams Donor Services Technician Relationship Specialty Start Date End Date Wilian Crawford MD [address] [place] [address] Dr [address] SABRINA Layton PCP - General 04/20/15
--- NOTE | 2025-01-16 11:46 | ED.EXTPRO ---
HPI - Extremity Problem General Chief complaint: Extremity Injury, Upper Stated complaint: left elbow hurting numbness on right hand Time Seen by Provider: 01/16/25 11:00 History of Present Illness HPI Narrative: Chikis is an 84 y/o female hx OA, ulcer, Related Data Home Medications ?Medication ?Instructions ?Recorded ?Confirmed acetaminophen 325 mg tablet 650 mg PO QID PRN 11/28/19 01/01/25 (Tylenol) denosumab 60 mg/mL subcutaneous 60 mg subcut [id number] 11/28/19 01/01/25 syringe (Prolia) docusate sodium 100 mg capsule 100 mg PO BID 11/28/19 01/01/25 (Colace) nitroglycerin 0.4 mg sublingual 0.4 mg sublingual Q5M PRN 11/28/19 01/01/25 tablet calcium 600 mg (as 2 tab PO DAILY 11/29/21 01/01/25 carbonate)-vitamin D3 5 mcg (200 unit) tablet (Calcium 600 + D(3)) Previous Rx's ?Medication ?Instructions ?Recorded fluticasone propionate 50 1 spray intranasal BID 90 days #3 12/06/20 mcg/actuation nasal ea spray,suspension SOFT CERVICAL COLLAR #1 ea 05/04/21 albuterol sulfate 90 mcg/actuation 2 puff inhalation Q6H PRN for 08/20/23 aerosol inhaler muscle spasm #18 ea fluticasone propionate 110 1 puff inhalation BID 30 days #12 08/20/23 mcg/actuation HFA aerosol inhaler grams Arnuity Ellipta 100 mcg/actuation 1 inh inhalation DAILY #30 ea 09/11/23 powder for inhalation (fluticasone furoate) pantoprazole 40 mg tablet,delayed 40 mg PO BID #180 tabs 03/04/24 release polyethylene glycol 3350 17 17 g PO DAILY #510 grams 03/04/24 gram/dose oral powder (Miralax) fexofenadine 180 mg tablet 180 mg PO DAILY PRN allergy 07/03/24 symptoms 90 days #90 tabs losartan 50 mg tablet 50 mg PO DAILY #90 tabs 10/21/24 atorvastatin 80 mg tablet 80 mg PO DAILY 90 days #90 tabs 11/23/24 amlodipine 10 mg tablet 10 mg PO DAILY #90 tabs 11/25/24 isosorbide mononitrate 30 mg 30 mg PO DAILY #90 tabs 11/30/24 tablet,extended release 24 hr benzonatate 200 mg capsule 200 mg PO BEDTIME PRN cough #10 12/03/24 caps diclofenac sodium 1 % topical gel 2 g topical QID #100 grams 01/01/25 (Arthritis Pain (diclofenac)) hydroxychloroquine 200 mg tablet 200 mg PO DAILY #90 tabs 01/01/25 (Plaquenil) tramadol 50 mg tablet 50 mg PO TID PRN pain 30 days #90 01/02/25 tabs Allergies Allergy/AdvReac Type Severity Reaction Status Date / Time cyclobenzaprine (From Allergy Intermediate Spacy Verified 01/16/25 10:48 Flexeril) feeling lisinopril Allergy Unknown Unknown Verified 01/16/25 10:48 alendronate sodium (Fosamax) AdvReac Intermediate jaw pain Verified 01/16/25 10:48 aspirin AdvReac Intermediate unable to Verified 01/16/25 10:48 tolerate higher doses-stomach ulcer (low dose ok) carbamazepine (From TEGRETOL) AdvReac Intermediate NAUSEA & Verified 01/16/25 10:48 VOMITING, HEADACHE gabapentin AdvReac Intermediate dizziness Verified 01/16/25 10:48 ibuprofen AdvReac Intermediate Nausea and Verified 01/16/25 10:48 Vomiting lidocaine (From Lidoderm) AdvReac Intermediate burning Verified 01/16/25 10:48 from patch NSAIDS (Non-Steroidal AdvReac Intermediate NAUSEA & Verified 01/16/25 10:48 Anti-Inflamma (NSAIDS VOMITING, (NON-STEROIDAL ANTI-INFLAMMA) HX ULCER codeine (CODEINE) AdvReac Unknown NAUSEA & Verified 01/16/25 10:48 VOMITING, nausea/vomiting PMFSH Past Medical History Medical History Left shoulder pain Encounter for monitoring denosumab therapy Cervical spine fracture History of gout Osteoarthritis, hand, primary localized Swelling of finger of right hand Age-related osteoporosis without current pathological fracture Chronic kidney disease, stage 4 (severe) Screening for breast cancer Allergic rhinitis Exertional dyspnea Chronic kidney disease (CKD), stage III (moderate) Benign essential hypertension Overactive bladder Compression fracture of L1 lumbar vertebra Cervical spondylosis without myelopathy GERD (gastroesophageal reflux disease) COPD (chronic obstructive pulmonary disease) Pure hypercholesterolemia Coronary artery disease Surgical History History of colonoscopy Hx of cataract removal with insertion of prosthetic lens History of angioplasty History of tonsillectomy History of appendectomy History of parathyroidectomy History of oophorectomy History of section Family History Family History Father Throat cancer Mother No problems noted. Daughter Diabetes Son Arthritis CAD (coronary artery disease) Daughter Scleroderma Social History Social History Housing: House Alcohol intake: never Patient Tobacco Use Status: Current someday Tobacco user Tobacco use type: Cigarette Cigarettes Per Day: 3 Years Smoked: 30 e-Cigarette/Vaping Use: Never Used service: No Current occupational status: retired Cognitive needs: No Hearing needs: No Vision needs: No Physical Exam Vital Signs: Vital Signs: Last Vital Signs Temp 98.9 F 01/16/25 10:48 Pulse 65 01/16/25 10:48 Resp 18 01/16/25 10:48 BP 118/61 01/16/25 10:48 Pulse Ox 97 01/16/25 10:48 O2 Del Method Room Air 01/16/25 10:48 BMI result Body Mass Index 19.8 Discharge Plan Discharge Prescriptions: No Action fluticasone propionate 50 mcg/actuation spray,suspension 1 spray intranasal BID 90 Days Qty: 3 1RF Rx Instructions: administer into each nostril albuterol sulfate 90 mcg/actuation HFA aerosol inhaler 2 puff inhalation Q6H PRN (Reason: for muscle spasm) Qty: 18 3RF fluticasone propionate 110 mcg/actuation HFA aerosol inhaler 1 puff inhalation BID 30 Days Qty: 12 5RF Arnuity Ellipta 100 mcg/actuation blister with device 1 inh inhalation DAILY Qty: 30 5RF losartan 50 mg tablet 50 mg PO DAILY Qty: 90 1RF atorvastatin 80 mg tablet 80 mg PO DAILY 90 Days Qty: 90 1RF amlodipine 10 mg tablet 10 mg PO DAILY Qty: 90 3RF isosorbide mononitrate 30 mg tablet extended release 24 hr 30 mg PO DAILY Qty: 90 0RF tramadol 50 mg tablet 50 mg PO TID PRN (Reason: pain) 30 Days Qty: 90 0RF (DME) SOFT CERVICAL COLLAR See Rx Instructions .Route .MEDSUPPLY Qty: 1 0RF Rx Instructions: As directed Prolia 60 mg/mL syringe 60 mg subcut [id number] docusate sodium [Colace] 100 mg capsule 100 mg PO BID nitroglycerin 0.4 mg tablet, sublingual 0.4 mg sublingual Q5M PRN Rx Instructions: do not exceed 3 doses per episode acetaminophen [Tylenol] 325 mg tablet 650 mg PO QID PRN calcium carbonate-vitamin D3 [Calcium 600 + D(3)] 600 mg-5 mcg (200 unit) tablet 2 tab PO DAILY hydroxychloroquine [Plaquenil] 200 mg tablet 200 mg PO DAILY Qty: 90 1RF diclofenac sodium [Arthritis Pain (diclofenac)] 1 % gel 2 g topical QID Qty: 100 3RF Rx Instructions: apply bilateral hands polyethylene glycol 3350 [Miralax] 17 gram/dose powder 17 g PO DAILY Qty: 510 5RF pantoprazole 40 mg tablet,delayed release (DR/EC) 40 mg PO BID Qty: 180 3RF fexofenadine 180 mg tablet 180 mg PO DAILY PRN (Reason: allergy symptoms) 90 Days Qty: 90 3RF benzonatate 200 mg capsule 200 mg PO BEDTIME PRN (Reason: cough) Qty: 10 0RF Print Language: Maltese
[2025-01-16 12:33] VITALS: BP 118/61; PULSE 65; RESP 18; TEMP 37.2; O2SAT 97
== END 2025-01-16 12:34 | disposition home or self-care (01) ==
PROVIDERS: Emergency Provider Emergency Medicine; PCP Internal Medicine
DX: M25.521 Pain in right elbow (principal); F17.210 Nicotine dependence, cigarettes, uncomplicated; Z79.899 Other long term (current) drug therapy
CPT/HCPCS: 73080; 99283; 99284

== ENCOUNTER → 2025-01-16 10:49 | Outpatient (BNV) | payer MEDICARE, OTHER, SELFPAY | PROVIDERS: Emergency Provider Emergency Medicine; PCP Internal Medicine; Visit Provider Radiology Diagnostic Radiology | DX: M25.521 Pain in right elbow (principal) | CPT/HCPCS: 73080 ==